=== PATIENT | female | born 1990 | race Caucasian/White ===

== ENCOUNTER 2021-06-03 14:40 | Emergency (ER) | payer OTHER, SELFPAY ==
[2021-06-03 14:47] VITALS: BP 147/81; PULSE 69; RESP 16; TEMP 37.2; O2SAT 99
--- NOTE | 2021-06-03 15:15 | ED.GENADULT ---
HPI - General Adult General Chief complaint: Unspecified Stated complaint: Seroquel withdraw Time Seen by Provider: 06/03/21 15:15 Source: patient and RN notes reviewed Mode of arrival: ambulatory Limitations: no limitations History of Present Illness MD complaint: Nausea Related Data Home Medications Medication Instructions Recorded Confirmed gabapentin 800 mg PO BID 06/03/21 06/03/21 Allergies Allergy/AdvReac Type Severity Reaction Status Date / Time azithromycin Allergy Unknown Rash Verified 06/03/21 14:54 Review of Systems Review of Systems: CONSTITUTIONAL: Denies malaise, chills, sweats, or fever. EYES: Denies visual changes, redness, or discharge. ENT: Denies rhinorrhea, congestion, sinus pain, otalgia or sore throat. CARDIOVASCULAR: Denies chest pain, palpitations, or edema. RESPIRATORY: Denies cough or dyspnea. GASTROINTESTINAL: Denies abdominal pain. Reports nausea, vomiting, diarrhea GENITOURINARY: Denies dysuria or hematuria. SKIN: Denies rash or itching. MUSCULOSKELETAL: Reports myalgia. NEUROLOGIC: Denies numbness, weakness, or headache. Reports dizziness PSYCHIATRIC: Denies anxiety or depression. All systems reviewed & are unremarkable except as noted in HPI and below PMFSH Comments At time of signature, agree with nursing past medical, surgical, social and family history. There is no relevant family history pertinent to the presenting complaint Exam Narrative: GENERAL: Well-appearing, well-nourished, and in no acute distress. HEAD: Normocephalic, atraumatic. EYES: PERRLA, sclera clear, and EOMI. No nystagmus. ENT: Nares clear, turbinates pink, no rhinorrhea or epistaxis. Mucous membranes moist. TM pearly lemus with sharp light reflex bilaterally; no tragal tenderness. Oropharynx without erythema or lesions. Tonsils not enlarged and without exudate. NECK: Supple. No lymphadenopathy. No jugular venous distension, thyromegaly, or carotid bruits. Carotids were easily palpable bilaterally. CHEST: No respiratory distress. Clear to auscultation. No bony deformities, no asymmetry. Speaks in full sentences. HEART: Regular rate and rhythm. No murmur heard. Normal peripheral pulses. ABDOMEN: Soft, nontender, nondistended, normal active bowel sounds, no palpable masses. EXTREMITIES: Normal range of motion. No edema. Normal strength and sensation. SKIN: Warm, dry, no visible rash. NEURO: Alert and oriented x3. No focal deficits. Cranial nerves II through XII grossly intact PSYCH: Flat affect Course Course Emergency Course: Patient is aware of diagnosis, understands and agrees to treatment plan. Anticipatory guidance given. Patient agrees to follow-up as directed and is aware of reasons to seek care at the emergency department. Portions of this record may have been created with voice recognition software Vital Signs Vital signs: Vital Signs Temperature 98.9 F 06/03/21 14:47 Pulse Rate 06/03/21 14:47 Respiratory Rate 16 06/03/21 14:47 Blood Pressure 147/81 H 06/03/21 14:47 Pulse Oximetry 99 06/03/21 14:47 Temperature 98.9 F 06/03/21 14:47 Pulse Rate 06/03/21 14:47 Respiratory Rate 16 06/03/21 14:47 Blood Pressure 147/81 H 06/03/21 14:47 Pulse Oximetry 99 06/03/21 14:47 Reviewed. Medical Decision Making MDM Narrative Medical decision making narrative: Exam findings show no acute concerns or changes; patient is non-toxic appearing and is in no distress. Patient is appropriate for outpatient treatment and follow-up. Differential Diagnosis Differential Diagnosis: Medication withdrawal, viral syndrome, gastroenteritis, acute abdomen Vital Signs Vital Signs: Vital Signs Temperature 98.9 F 06/03/21 14:47 Pulse Rate 06/03/21 14:47 Respiratory Rate 06/03/21 14:47 Blood Pressure 147/81 H 06/03/21 14:47 Pulse Oximetry 99 06/03/21 14:47 Temperature 98.9 F 06/03/21 14:47 Pulse Rate 06/03/21 14:47 Respiratory Rate 06/03/21 14:47 Bl
== END 2021-06-03 15:36 | disposition home or self-care (01) ==
PROVIDERS: Emergency Provider Nurse Practitioner; PCP Physician Assistant
DX: R11.2 Nausea with vomiting, unspecified (principal); M48.00 Spinal stenosis, site unspecified
CPT/HCPCS: 99213; G0463

== ENCOUNTER 2023-10-17 08:30 | Emergency (ER) | payer OTHER, SELFPAY ==
[2023-10-17 08:35] VITALS: BP 125/73; PULSE 84; RESP 20; TEMP 36.7; O2SAT 98
--- NOTE | 2023-10-17 08:35 | ED.GENADULT ---
HPI - General Adult General Chief complaint: Headache Stated complaint: Headache Source: patient, RN notes reviewed and old records reviewed Mode of arrival: ambulatory Limitations: no limitations History of Present Illness HPI narrative: 33 year old female who presents to [facility] care with complaints of headache,cough, chills, body aches for the past 2 days with fever up to 102.2F reported yesterday. Patient reports that her child tested positive for Covid on Wednesday. Patient reports that other family members have tested negative. She states that she has been taking Tylenol and Ibuprofen for her symptoms. Patient reports that she has not had any nausea or vomiting or any diarrhea. Patient reports that she has not been COVID vaccinated but did have flu shot this year. MD complaint: headache, body aches, fever, chills,cough Onset (ago): day(s) (2) Treatments prior to arrival: NSAID and other (Tylenol) Related Data Home Medications Medication Instructions Recorded Confirmed trazodone 100 mg tablet 100 mg PO QHS PRN Sleep 09/16/22 10/17/23 celecoxib 100 mg capsule 100 mg PO DAILY 10/17/23 10/17/23 ipratropium 0.5 mg-albuterol 3 mg 3 ml inhalation QID 10/17/23 10/17/23 (2.5 mg base)/3 mL nebulization soln pantoprazole 40 mg tablet,delayed 40 mg PO BID 10/17/23 10/17/23 release pregabalin 150 mg capsule 150 mg PO BID 10/17/23 10/17/23 propranolol 10 mg tablet 10 mg PO TID PRN Anxiety 10/17/23 10/17/23 quetiapine 50 mg tablet 50 mg PO DAILY 10/17/23 10/17/23 ropinirole 2 mg tablet 2 mg PO TID 10/17/23 10/17/23 Allergies Allergy/AdvReac Type Severity Reaction Status Date / Time azithromycin Allergy Unknown Rash Verified 10/17/23 08:50 Review of Systems Review of Systems: CONSTITUTIONAL: Denies fever, chills, or sweats. EYES: Denies visual changes, redness, or discharge. ENT: Denies rhinorrhea, congestion, sore throat, or otalgia. CARDIOVASCULAR: Denies chest pain, palpitations, or edema. RESPIRATORY: Denies cough or dyspnea. GASTROINTESTINAL: Denies abdominal pain, nausea, vomiting, or diarrhea. GENITOURINARY: Denies dysuria or hematuria. SKIN: Denies rash or itching. MUSCULOSKELETAL: Denies back pain, joint pain, or myalgia. NEUROLOGIC: Denies headache, numbness, or weakness. PSYCHIATRIC: Denies anxiety or depression. All systems reviewed & are unremarkable except as noted in HPI and below PMFSH Past Medical History Medical History (Updated 10/17/23 @ 09:01 by Kennedi Cano NP) Back pain Insomnia PCOS (polycystic ovarian syndrome) Surgical History Surgical History History of cholecystectomy Family History Family History Father Diabetes mellitus Grandparent Diabetes mellitus Mother Diabetes mellitus Social History Social History (Updated 10/17/23 @ 08:57 by Kennedi Cano NP) Smoking packs per day: 0.5 Smoking cigarettes per day: 10.0 Years smoked: 13 Smoking pack-years: 6.50 Smoking status: Current every day smoker Tobacco type: cigarettes Alcohol intake: current Alcohol use details: occasional Substance use: never Living arrangements: with family Occupation/Education: unemployed Gender identity (if verbalized by the patient): Female Sexual Orientation (if Verbalized by the Patient): Straight or Heterosexual Comments At time of signature, agree with nursing past medical, surgical, social and family history. There is no relevant family history pertinent to the presenting complaint Exam Narrative: GENERAL: Well-appearing, well-nourished, obese and in no acute distress. HEAD: Normocephalic, atraumatic. EYES: PERRLA and EOMI. ENT: Nares clear, clear rhinorrhea no epistaxis. Mucous membranes moist.TM's normal throat pink with no swelling NECK: Supple.no lymphadenopathy CHEST: Clear to auscultation. No respiratory distress.SAO2 98% on room air
== END 2023-10-17 09:05 | disposition home or self-care (01) ==
PROVIDERS: Emergency Provider Registered Nurse; PCP Internal Medicine
DX: J06.9 Acute upper respiratory infection, unspecified (principal); Z20.822 Contact with and (suspected) exposure to COVID-19; F17.210 Nicotine dependence, cigarettes, uncomplicated; E28.2 Polycystic ovarian syndrome; Z86.16 Personal history of COVID-19
CPT/HCPCS: 87426; 87804; 99213; G0463

== ENCOUNTER 2023-11-25 00:56 | Day surgery (SDC) | payer OTHER, SELFPAY ==
[2023-11-22 13:56] VITALS: BMI 47.7
--- NOTE | 2023-11-22 14:05 | PC.NURSE ---
Report to the Outpatient Waiting Room, entrance under the green pavilion located off [facility], at time _1200___ on date _11/25/23__. Planned Procedure Time: _1400__. Time changes happen often and if your time is changed the preop area will call you the afternoon before. - You and your visitor will be asked to self-screen and do not enter if you have any COVID symptoms. - A mask is optional within the hospital at this time. Patients may have clear liquids (water, carbonated beverages, clear teas, apple juice) until 3 hours prior to surgery with a maximum of 20 ounces. - No food from midnight until time of surgery - Infants may have breast milk until 4 hours before surgery, formula 6 hours prior to surgery. - Children will be allowed to drink immediately following surgery. If applicable, please bring a bottle or sippy cup to assist with drinking. Juice, water, soda, and popsicles are readily available. For infants on formula, please bring formula the day of surgery. Pacifiers are allowed. Take the following medications with a SIP of water the morning of surgery: INHALER IF NEEDED DO NOT STOP ANY OF YOUR OTHER PRESCRIPTION MEDICATIONS PRIOR TO SURGERY ?EXCEPT THE FOLLOWING Medications to discontinue per physician NONE Date to take last dose Please no make-up, nail cuban, hairspray, perfume, deodorant, or body powder the day of surgery. No jewelry (including any body piercings) or valuables the day of surgery, leave them at home. Please take a shower or bath the night before, or the morning of, surgery with an antibacterial soap. Wear comfortable, loose fitting clothing. Children are encouraged to wear pajamas. - Jewelry must be removed prior to entering the operating room. Rings and piercings that are not removed may be cut off. - The hospital will not accept responsibility for valuables. - Please leave all valuables, including medications, at home the day of surgery. If you are going home after surgery, a licensed driver sales must drive you home. - NO public transportation without another adult if you receive anesthesia. - We recommend that an adult stay with you for 24 hours following discharge. - We also recommend that you do not drive, make important decision, drink alcoholic beverages, or take any drugs that were not prescribed by your health care provider for at least 24 hours after your discharge time. For Pediatric surgeries, we recommend two adults accompany the child home. Follow any additional instructions given to you from your surgeon. If you or anyone in your household have experienced Covid symptoms in the past week, please notify your surgeon or the nurse liaison at the phone number below for possible testing. Telephone instructions given to _WILLIE___and asked if any additional questions and then verbalized understanding. Patient advised to call surgeon office or pre surgery nurse liaison [phone] if any additional questions.
[2023-11-25] VITALS (7 sets, daily range): BP systolic 107–148; BP diastolic 45–92; PULSE 53–86; RESP 15–20; TEMP 36.2–36.3; O2SAT 95–99
--- NOTE | 2023-11-25 09:14 | PM.IMHP ---
H&P: HPI History of Present Illness Date/Time: 11/25/23 09:14 Chief Complaint: abnormal uterine bleeding Desires permanent sterilization Narrative: 33-year-old female who presents hysteroscopy D&C, endometrial ablation, laparoscopic bilateral salpingectomy.? Patient initially presented requesting permanent sterilization and management of heavy vaginal bleeding.? Patient had pelvic ultrasound to rule out structural causes of bleeding.? Patient is not interested in hormonal contraception.? Patient desires surgical management via endometrial ablation and tubal ligation. Review of Systems Cardiovascular: Cardiovascular: Denies chest pain, Denies leg edema, Denies palpitations, Denies dyspnea and Denies dyspnea on exertion Respiratory: Respiratory: Denies cough, Denies dyspnea and Denies dyspnea on exertion Gastrointestinal: Gastrointestinal: Denies abdominal pain, Denies constipation, Denies diarrhea, Denies nausea and Denies vomiting Genitourinary: Genitourinary: Denies hematuria, Denies urinary frequency, Denies dysuria, Denies pelvic pain, Denies urinary incontinence and Denies vaginal discharge Neurologic: Reports system reviewed and no additional complaints, except as documented Psychiatric: Psychiatric: Reports no additional psychiatric complaints Endocrine: Endocrine: Denies palpitations PMFSH Past Medical History Medical History Back pain Insomnia PCOS (polycystic ovarian syndrome) Surgical History Surgical History History of cholecystectomy Family History Family History Father Diabetes mellitus Grandparent Diabetes mellitus Mother Diabetes mellitus Social History Social History Smoking packs per day: 1 Smoking cigarettes per day: 20.0 Years smoked: 20 Smoking pack-years: 20.00 Smoking status: Current every day smoker Tobacco type: cigarettes Alcohol intake: former Alcohol use details: occasional Substance use: never Living arrangements: with family Occupation/Education: unemployed Gender identity (if verbalized by the patient): Female Sexual Orientation (if Verbalized by the Patient): Straight or Heterosexual Meds Home Medications and Allergies Home Medications Medication Instructions Recorded Confirmed Type trazodone 100 mg tablet 100 mg PO QHS PRN Sleep 09/16/22 11/22/23 History celecoxib 100 mg capsule 100 mg PO DAILY 10/17/23 11/22/23 History ipratropium 0.5 mg-albuterol 3 mg 3 ml inhalation QID PRN Shortness 10/17/23 11/22/23 History (2.5 mg base)/3 mL nebulization Of Breath soln pantoprazole 40 mg tablet,delayed 40 mg PO BID 10/17/23 11/22/23 History release pregabalin 150 mg capsule 150 mg PO BID 10/17/23 11/22/23 History quetiapine 50 mg tablet 50 mg PO DAILY 10/17/23 11/22/23 History ropinirole 2 mg tablet 2 mg PO TID 10/17/23 11/22/23 History Allergies Allergy/AdvReac Type Severity Reaction Status Date / Time azithromycin Allergy Unknown Rash Verified 11/22/23 13:54 Exam Const: General: no acute distress Eyes: EOM: EOMs intact bilaterally Neck: Neck: supple Thyroid: thyroid normal Chest: Breast/axilla inspection: normal inspection of the breasts Breast/axilla palpation: normal palpation of the breasts, normal palpation of the axillae and no axillary lymphadenopathy Resp: Effort & Inspection: normal respiratory effort Auscultation: clear to auscultation bilaterally Cardio: Rate: regular rate Rhythm: regular rhythm GI: Inspection: non-distended GI Palp: Yes Soft to palpation, No Tenderness to palpation present (GI) and No Guarding due to palpation present (GI) Auscultation: normal bowel sounds : General: No bladder normal to palpation External Female Exam: normal external appearance Speculum Exam - Vagina: normal vaginal discharge and No vaginal bleeding Speculum Exam - Cervix: nontender Bimanual exam- vagina & uterus: No bladder normal to palpation and No Cervical tenderness present OB/external & speculum: No vaginal bleeding Skin: General skin exam: normal color and no rashes or lesions noted Neuro: Cognition (Neuro): normal cognition Speech: normal speech Extrem: General: normal to inspection and no edema Psych: Mental Status: mental status grossly normal Affect: normal affect Assessment and Plan Assessment and plan (1) Encounter for sterilization: Code(s): Z30.2 - Encounter for sterilization Status: Acute Assessment and Plan: 33-year-old female who presents for laparoscopic bilateral salpingectomy for permanent sterilization Permanent sterilization discussed at length Risks, benefits, alternatives discussed Patient declines hormonal contraceptives patient consents to proceed with bilateral salpingectomy (2) Abnormal uterine bleeding (AUB): Code(s): N93.9 - Abnormal uterine and vaginal bleeding, unspecified Status: Acute Assessment and Plan: patient? complaining of heavy bleeding today Patient reports monthly menses Patient states her bleeding is extremely heavy and painful Patient is not currently on hormonal contraceptives Patient is not interested in any hormonal contraceptives ?pelvic ultrasound showed normal pelvic anatomy ?patient interested in endometrial ablation Risks, benefits, alternatives discussed Will plan for hysteroscopy, D&C, endometrial ablation
[2023-11-25] MEDS: ACETAMINOPHEN 500 MG TABLET 1000 MG PO (10:50)
[2023-11-25] MEDS: LACTATED RINGERS 1,000 ML 30 ML IV CONT (11:00)
[2023-11-25] MEDS: KETOROLAC 15 MG/ML VIAL (*BKC) IV PUSH (11:11)
--- NOTE | 2023-11-25 11:40 | WPDHPUPDATE1 ---
History and Physical Update Update Date/Time: 11/25/23 11:40 History and Physical has been reviewed, including an updated exam of the patient. There are NO changes in the patient's condition. Risks, benefits, and alternatives have been discussed and questions answered. Patient agrees to proceed with procedure.
--- NOTE | 2023-11-25 12:54 | WPDANESEPPF ---
Anes - Initial Pre Proc Eval Procedure: Operation Date: 11/25/23 13:00 Proposed Procedures p Hysteroscopy Dilation and Curettage with Nury Endometrial Ablation, Bilateral Laparoscopic Salpingectomy - Russell Castro MD Date/Time: 11/25/23 12:54 Surgeon: Russell Castro MD Pre Op Diagnosis: abnormal uterine bleeding, desired sterilization Patient Data Age: 33 Gender: F Height: 1.63 m Weight: 126.4 kg Last Vital Signs Temp 97.1 F L 11/25/23 10:56 Pulse 86 11/25/23 10:56 Resp 18 11/25/23 10:56 BP 148/80 H 11/25/23 10:56 Pulse Ox 98 11/25/23 10:56 O2 Del Method Room Air 11/25/23 10:56 Allergies Allergy/AdvReac Type Severity Reaction Status Date / Time azithromycin Allergy Unknown Rash Verified 11/25/23 10:43 Home Medications Medication Instructions Recorded Confirmed Type trazodone 100 mg tablet 100 mg PO QHS PRN Sleep 09/16/22 11/22/23 History celecoxib 100 mg capsule 100 mg PO DAILY 10/17/23 11/22/23 History ipratropium 0.5 mg-albuterol 3 mg 3 ml inhalation QID PRN Shortness 10/17/23 11/22/23 History (2.5 mg base)/3 mL nebulization Of Breath soln pantoprazole 40 mg tablet,delayed 40 mg PO BID 10/17/23 11/22/23 History release pregabalin 150 mg capsule 150 mg PO BID 10/17/23 11/22/23 History quetiapine 50 mg tablet 50 mg PO DAILY 10/17/23 11/22/23 History ropinirole 2 mg tablet 2 mg PO TID 10/17/23 11/22/23 History Patient hx anesthesia problems: none Family hx anesthesia problems: none Results Review: All pre-operative results and documents have been reviewed as part of the pre-operative evaluation. [facility] Past Medical History Medical History Back pain Insomnia PCOS (polycystic ovarian syndrome) Surgical History Surgical History History of cholecystectomy Family History Family History Father Diabetes mellitus Grandparent Diabetes mellitus Mother Diabetes mellitus Social History Social History Smoking packs per day: 1 Smoking cigarettes per day: 20.0 Years smoked: 20 Smoking pack-years: 20.00 Smoking status: Current every day smoker Tobacco type: cigarettes Alcohol intake: former Alcohol use details: occasional Substance use: never Living arrangements: with family Occupation/Education: unemployed Gender identity (if verbalized by the patient): Female Sexual Orientation (if Verbalized by the Patient): Straight or Heterosexual Anes - Eval Final PreProcedure Day of Procedure 11/25/23 12:54 Patient weight: morbidly obese Heart: regular rate and rhythm Lungs: clear to auscultation Airway: Mallampati scale class III Neurological: alert and oriented Last oral intake: >/= 8 hours ASA classification: III Emergent: no Anesthetic plan: proceed Anesthesia type and monitoring: general ETT and standard monitoring Results Review: All pre-operative results and documents have been reviewed as part of the pre-operative evaluation. Informed Consent: The patient's anesthetic plan and its attendant risks and benefits were discussed with the patient/family/POA. Questions were solicited and answers provided to the satisfaction of the patient/family/POA.
--- NOTE | 2023-11-25 13:08 | S_PTH ---
PATIENT: Tyra Black LOC: [facility] U#:[id number] AGE/SX: 33/F ROOM: RE11/25/[address]: Russell Castro MD : 1990 BED: DIS: 11/25/2023 SPEC #: [id number] RECD: 11/25/23 13:36 STATUS: BETH REQ #: [id number] ALEXI: 11/25/23 13:[address]: Russell Castro DEPT: [facility] Surgical RECD BY: Skyla Mullins ENTERED: 11/25/23 13:37 SP TYPE: Surgical OTHR DR: Bishop King, Tissues: A - Endometrial Curettings B - Fallopian Tube Single Procedures: Gross and Microscopic Level 2 Hematoxylin and Eosin Stain Gross and Microscopic Level 4
--- NOTE | 2023-11-25 13:08 | P.OP_ITS ---
Procedure Note - Detailed Date of Procedure 11/25/23 Pre-op Diagnosis abnormal uterine bleeding, desired sterilization Post-op Diagnosis Same Procedure Performed laparoscopic bilateral salpingectomy hysteroscopy dilation & curettage endometrial ablation Surgeon Russell Castro MD Anesthesia General Indications abnormal uterine bleeding Findings normal appearing uterus, bilateral fallopian tubes and ovaries normal appearing intrauterine cavity. Normal tubal ostia bilaterally Description of Procedure Tyra Black presents for the above procedure. She was counseled as to the indications, risks, benefits, and alternatives to surgery, with the risks including bleeding, infection, damage to surrounding organs, VTE, and complications of anesthesia. Her verbal and written consent was obtained. PROCEDURE: the patient was taken to the operating room where general endotracheal anesthesia was undertaken and found to be adequate. She was then prepped and draped in the dorsal lithotomy position. A pre-operative team brief and time- out were completed. A catheter was placed to drain the bladder. Speculum was placed in the vagina and the cervix was identified. An acorn uterine manipulator was placed as well as single-tooth tenaculum on the anterior lip of the cervix. Attention was then turned to the abdomen which was anesthetized umbilical he with injected anesthetic. A 5 mm skin incision was made in the umbilicus. A 5 mm optical trocar was then placed with direct visualization of the abdominal layers during placement. The trocar stylette was removed and the camera was used to verify intra-abdominal placement.jhonathan was used to verify intra-abdominal placement. CO2 insufflation was then connected and The abdominal cavity was insufflated. General abdominal and pelvic survey was performed. Two other laparoscopic port site incisions were made approximately 2 cm superior and medial of the ASIS bilaterally. Both fallopian tubes were inspected and identified out to the level of the fimbriae. The Fimbriated end of the left fallopian tube was then grasped with a blunt grasper. the fallopian tube was then transected along its inferior aspect along the mesosalpinx with the LigaSure device. Transection was carried out to the fallopian tubes insertion into the uterine fundus. The fallopian tube was then completely transected from the uterus using the LigaSure device. This procedure was repeated for the right fallopian tube. Good hemostasis was maintained throughout. The transected fgh the 5 mm laparoscopic portrom the abdomen through the 5 mm laparoscopic port. The surgical field was inspected and again could hemostasis was noted. At this point the abdominal portion of the procedure was ended. The abdomen was desufflated. All laparoscopic ports were removed from the abdomen. Abdominal incisions were closed with 4-0 Vicryl in a subcuticular fashion.. Attention was then turned to the pelvis. The acorn manipulator was removed from the vagina. Hysteroscopy, using a normal saline medium, was performed and showed the above findings. Sharp uterine curettage was then performed and tissue placed on Telfa. The Nury device was set to a depth of 5.5 cm. The device was inserted into the uterus and deployed. Good fit was reassured by the device indicator. The cervical balloon was insufflated to ensure a good seal. Uterine integrity test was performed by the Nury device and was successful. The device was then activated. The entire ablation procedure lasted 120 seconds. The cervical balloon was desufflated and the device was removed from the uterus. The hysteroscope was re-introduced to ensure adequate tissue ablation. The tenaculum was removed and hemostasis was observed. The patient tolerated the procedure well. Sponge, lap, and needle counts were correct. The patient had SCD's on throughout the case for VTE prophylaxis. The patient was taken to the recovery room in stable condition. Estimated Blood Loss 10 Urine Output 150 Drains No Packing No Pathology Yes (endometrial curettings, bilateral fallopian tubes) Complications No immediate complications Condition Stable Disposition PACU [facility] Billing Surgery - Charge Forward: Surgery Billing
[2023-11-25] MEDS: LIDO 1%/EPINEPHRINE 1:100,000 50 ML VIAL 15 ML INFILTRATE (13:17)
[2023-11-25] MEDS: fentaNYL CITRATE INJ (*CRX) 100 MCG/2 ML VIAL 25 MCG IV PUSH ×4 (13:33→13:45)
[2023-11-25] MEDS: oxyCODONE HCL (*CRX) 5 MG TAB IR PO (14:24)
== END 2023-11-25 14:45 | disposition home or self-care (01) ==
PROVIDERS: PCP Internal Medicine; Visit Provider Student in an Organized Health Care Education/Training Program
PROC: 0UDB8ZZ Extraction of Endometrium, Via Natural or Artificial Opening Endoscopic (ICD-10-PCS; CPT 58558; principal; 2023-11-25 13:00)
DX: N93.9 Abnormal uterine and vaginal bleeding, unspecified (principal); Z30.2 Encounter for sterilization; F17.210 Nicotine dependence, cigarettes, uncomplicated; E66.01 Morbid (severe) obesity due to excess calories; Z68.42 Body mass index [BMI] 45.0-49.9, adult
CPT/HCPCS: 58661; 58563; 88302; 88305; A9270; J1100; J1596; J1885; J2003; J2004; J2250; J2405; J2704; J2710; J3010; J7030; J7120

== ENCOUNTER 2023-12-16 01:49 | Emergency (ER) | payer OTHER, SELFPAY ==
--- NOTE | ~2023-12-16 | CT_ITS ---
CT of the Abdomen and Pelvis: Indication: Abdominal pain Technique: 2.5 mm axial scans were obtained through the abdomen and pelvis following intravenous adm inistration of 100 cc of Omnipaque 350. Dose reduction technique was used on this scan by utilizing a utomated exposure control and iterative reconstruction technique. The dose-length product (DLP) was 1 606.14 mGy-cm. Findings: Scans through the lung bases are unremarkable. The liver, spleen, pancreas, adrenals and kidneys are within normal limits. Cholecystectomy clips are present. No evidence of aortic aneurysm. No lymphadenopathy. No bowel obstruction or bowel wall thickening. There is no evidence to suggest acute appendicitis. Images through the pelvis were performed. Urinary bladder unremarkable. No adnexal mass seen. No asci quinn. Impression: No significant abnormalities seen. Reviewed, dictated and finalized at [facility]. Impression: No significant abnormalities seen.
[2023-12-16 01:53] VITALS: BP 148/65; PULSE 67; RESP 15; TEMP 36; O2SAT 100
[2023-12-16 02:13] LABS: Basophils Absolute Auto 0.1 K/mm3 (0.0-0.1); Basophils Percent Auto 0.9 % (0.2-1.2); Eosinophils Absolute Auto 0.3 K/mm3 (0-0.3); Eosinophils Percent Auto 3.5 % (0-4.4); Hematocrit 39.5 % (37.0-47.0); Hemoglobin 12.3 g/dL (12.0-15.0); Immature Granulocyte Absolute 0.03 K/mm3 (0.00-0.031); Immature Granulocyte Percent A 0.3 % (0-0.5); Lymphocytes Absolute Auto 2.54 K/mm3 (0.9-3.2); Lymphocytes Percent Auto 29.4 % (18.3-44.2); Mean Corpuscular HGB Conc 31.1 g/dl (32-36); Mean Corpuscular Hemoglobin 27.4 pg (26-34); Mean Platelet Volume 10.5 fl (7.4-10.4); Monocytes Absolute Auto 0.6 K/mm3 (0.1-0.6); Monocytes Percent Auto 6.6 % (2.6-8.5); Neutrophils Absolute Auto 5.1 K/mm3 (1.3-6.7); Neutrophils Percent Auto 59.3 % (45.5-73.1); Platelet Count Result 305 k/mm3 (150-375); Red Blood Count 4.49 M/mm3 (4.2-5.4); Red Cell Distribution Width 14.6 % (11.5-14.5); White Blood Count 8.6 K/mm3 (4.5-10.0)
[2023-12-16 02:22] LABS: Alanine Aminotransferase 22 U/L (6-35); Albumin Level 4.3 g/dL (3.5-5.1); Alkaline Phosphatase 62 U/L (38-126); Anion Gap 5 mmol/L (4-12); Aspartate Amino Transferase 23 U/L (14-36); Bilirubin,Total 0.4 mg/dL (0.2-1.3); Blood Urea Nitrogen 8 mg/dL (7-17); Calcium 9.3 mg/dL (8.4-10.2); Carbon Dioxide 28 mmol/L (22-30); Chloride 106 mmol/L (98-107); Estimated CRCL calculation 115 ml/min; Estimated Glomerular Filt Rate > 60; Glucose 124 mg/dL (65-110); Lipase 120 U/L (23-300); Potassium 3.3 mmol/L (3.4-5.0); Sodium 139 mmol/L (137-145)
[2023-12-16] MEDS: MORPHINE SULFATE (*CRX) 4 MG/ML INJ IV PUSH (02:45)
[2023-12-16] MEDS: ONDANSETRON INJ 4 MG/2 ML VIAL IV PUSH (02:45)
[2023-12-16 02:46] VITALS: BP 128/68; PULSE 68; RESP 15; O2SAT 99
--- NOTE | 2023-12-16 03:29 | ED.ABDPAIN ---
HPI - Abdominal Pain General Chief Complaint: Abdominal Pain Stated Complaint: lower abdominal pain, dysuria Time Seen by Provider: 12/16/23 02:12 History of Present Illness HPI narrative: Patient is a 33-year-old female who presents to the department this evening complaining of lower abdominal pain. Patient states that she had and endometrial ablation and bilateral salpingectomy performed by Dr. Castro approximately 2 weeks ago. Patient states since then she has been having intermittent abdominal pain that is not responsive 2 [id number] Tylenol, ibuprofen and the Follett that she was discharged home with. Patient states that she called Dr. Castro is a office and was told to come to the emergency department regarding her abdominal pain. Patient admits that she is still having some vaginal bleeding and she is passing blood clots. Patient also admits to dysuria and suprapubic pressure stating that it hurts to pee. She denies any fevers or chills at home, any nausea or vomiting, and denies any additional concerns at this time. There are no other modifying, alleviating, or precipitating factors. Related Data Home Medications Medication Instructions Recorded Confirmed trazodone 100 mg tablet 100 mg PO QHS PRN Sleep 09/16/22 11/30/23 celecoxib 100 mg capsule 100 mg PO DAILY 10/17/23 11/30/23 ipratropium 0.5 mg-albuterol 3 mg 3 ml inhalation QID PRN Shortness 10/17/23 11/30/23 (2.5 mg base)/3 mL nebulization Of Breath soln pantoprazole 40 mg tablet,delayed 40 mg PO BID 10/17/23 11/30/23 release pregabalin 150 mg capsule 150 mg PO BID 10/17/23 11/30/23 quetiapine 50 mg tablet 50 mg PO DAILY 10/17/23 11/30/23 ropinirole 2 mg tablet 2 mg PO TID 10/17/23 11/30/23 hydrocodone 5 mg-acetaminophen 325 tablet PO 11/30/23 11/30/23 mg tablet Allergies Allergy/AdvReac Type Severity Reaction Status Date / Time azithromycin Allergy Unknown Rash Verified 11/30/23 09:39 Review of Systems Review of Systems: All systems are reviewed and are negative unless stated otherwise in the HPI. [facility] Past Medical History Medical History Back pain Insomnia PCOS (polycystic ovarian syndrome) Surgical History Surgical History History of cholecystectomy Family History Family History Father Diabetes mellitus Grandparent Diabetes mellitus Mother Diabetes mellitus Social History Social History Smoking packs per day: 1 Smoking cigarettes per day: 20.0 Years smoked: 20 Smoking pack-years: 20.00 Smoking status: Current every day smoker Tobacco type: cigarettes Alcohol intake: former Alcohol use details: occasional Substance use: never Living arrangements: with family Occupation/Education: unemployed Gender identity (if verbalized by the patient): Female Sexual Orientation (if Verbalized by the Patient): Straight or Heterosexual Exam Narrative: General: Alert, awake, afebrile, in no acute distress. HEENT: PERRL, no rhinorrhea, no post nasal drip, oropharynx clear. Neck: Trachea midline, no JVD, no lymphadenopathy. Cardiovascular: Regular rate and rhythm, no murmurs, rubs or gallops, no peripheral edema. Respiratory: Clear to auscultation bilaterally, no tachypnea, no wheezing, no rhonchi, no rubs, no respiratory distress. Abdomen: Soft, nontender to palpation over all 4 quadrants, nondistended, no rebound, no guarding, no peritoneal signs. Musculoskeletal: No joint swelling or deformity, normal muscle tone. Skin: No rashes or petechia, no signs of infection. Psychiatric: Alert and oriented, normal behavior and judgment for situation. Neurological: Alert and oriented to person, place, and time. Follows all commands. No focal deficits, speech is clear and fluent. Course Vital
--- NOTE | 2023-12-16 04:09 | PC.NURSE ---
This rn attempted to hand pt the liquid potassium to patient to drink. Pt smelled potassium and said nope, cant do that and sat the drink back down. Pt made gagging noise.
[2023-12-16] MEDS: POTASSIUM CHLORIDE 20 MEQ ER TABLET 40 MEQ PO (04:15)
--- NOTE | 2023-12-16 04:15 | PC.NURSE ---
alexis lebron for potassium 40meq tablets.
[2023-12-16 04:54] LABS: Appearance Urine Cloudy (Clear); Bacteria Urine 1+ /hpf; Bilirubin Urine 1+ (Negative); Blood Urine Negative (Negative); Calcium Oxalate Crystals Urine Present /hpf; Color Urine Dark Yellow (Yellow); Glucose Urine UA Negative (Negative); Ketones Urine Trace mg/dL (Negative); Leukocyte Esterase Ur 1+ LEU/UL (Negative); Mucus Urine Present /lpf; Need Manual Microscopic Reviewed; Nitrate Urine Positive (Negative); Non Pathogenic Casts 0-2; Protein Urine 1+ mg/dL (Negative); Squamous Epithelial Cell Urine Occasional /hpf (Few); WBC Urine >100 /hpf (0-3); pH Urine 5.5 (5.0-9.0)
[2023-12-16 05:10] LABS: Add Urine Microscopic? YES; Specific Grav Ur 1.036 (1.001-1.035)
[2023-12-16 06:45] VITALS: BP 134/78; PULSE 66; RESP 15; O2SAT 98
== END 2023-12-16 06:48 | disposition home or self-care (01) ==
PROVIDERS: Physician Assistant; Emergency Provider Emergency Medicine; PCP Internal Medicine
DX: N39.0 Urinary tract infection, site not specified (principal); R10.30 Lower abdominal pain, unspecified; E87.6 Hypokalemia; E28.2 Polycystic ovarian syndrome; F17.210 Nicotine dependence, cigarettes, uncomplicated; Z90.79 Acquired absence of other genital organ(s); Z90.49 Acquired absence of other specified parts of digestive tract
CPT/HCPCS: 36415; 74177; 80053; 81001; 81025; 83690; 85025; 87086; 87186; 96374; 96375; 99284; A9270; J0696; J2270; J2405; Q9967

== ENCOUNTER 2024-03-08 10:25 | Outpatient (CLI) | payer OTHER, SELFPAY ==
--- NOTE | ~2024-03-08 | US_ITS ---
US pelvic complete w TV Ordering provider: Russell Castro MD History: . R10.2 - Pelvic and perineal pain . Comparison: November 17, 2023 Technique: Transabdominal and endovaginal ultrasound of the pelvis (Doppler ultrasound interrogation techniques used as needed for this exam.) FINDINGS: CERVIX: Normal. UTERUS: Measures 7.3 x4 x 5.2 cm in length which is within normal limits and is anteverted. No myome trial masses. ENDOMETRIUM: Normal in thickness measuring 7 mm. (Note: the premenopausal endometrium may measure up to 16 mm when in the secretory phase.) No endometrial masses, cysts or fluid. CUL DE SAC: No free fluid. RIGHT OVARY: Normal in size measuring 2.8x 2.9x 3.6 cm. Normal echotexture. Doppler vascular flow pre sent. Right ovarian cyst measuring 1.1 x 1.6 x 1.2 cm. LEFT OVARY: Normal in size measuring 2.4x 2.2x 2.2 cm. Normal echotexture. Doppler vascular flow pres ent. ADNEXA: Normal. No mass. IMPRESSION: Right ovarian cyst. Otherwise, normal pelvic ultrasound. Reviewed, dictated and finalized at location A.
== END 2024-03-08 10:26 | disposition home or self-care (01) ==
LOC: ANHIMG 10:28
PROVIDERS: PCP Internal Medicine; Visit Provider Student in an Organized Health Care Education/Training Program
DX: R10.2 Pelvic and perineal pain (principal); N83.201 Unspecified ovarian cyst, right side
CPT/HCPCS: 76830; 76856

== ENCOUNTER 2025-06-22 11:10 | Outpatient (CLI) | payer OTHER, SELFPAY ==
[2025-06-22 11:40] LABS: INR 0.9; Partial Thromboplastin Time 25.6 Seconds (22.3-36.8); Prothrombin Time 12.5 Seconds (11.1-14.7)
== END 2025-06-22 11:11 | disposition home or self-care (01) ==
LOC: ANHSURGERY 11:14
PROVIDERS: Anesthesiology; PCP Nurse Practitioner Family; Visit Provider Student in an Organized Health Care Education/Training Program
DX: N28.9 Disorder of kidney and ureter, unspecified (principal); Z01.818 Encounter for other preprocedural examination
CPT/HCPCS: 36415; 85610; 85730

== ENCOUNTER 2025-08-07 00:50 | Day surgery (SDC) | payer OTHER, SELFPAY ==
[2025-06-20 15:26] VITALS: BMI 42.3
--- NOTE | 2025-06-20 15:39 | SUR.PREOP ---
[facility] has started construction of its new state of the art ER which will open Spring 2026. With this, we anticipate parking may be a challenge for some our surgical patients and families. Parking spaces are limited but are available for all Surgical, obstetrics, and ER patients sharing this lot. If you arrive and find you are having a hard time finding a parking space, please note that we understand the challenges, please drive around the hospital and park near Hospital Entrance 1. When you enter this entrance, you can ask a volunteer to direct or take you back to the surgical waiting area to check in. We appreciate everyone?s understanding of these expected challenges while we build for your future. Report to the Outpatient Waiting Room, entrance under the green pavilion located off [address], at time _6AM on date __06/26/25 . Planned Procedure Time: __729 .? Time changes happen often and if your time is changed the preop area will call you the afternoon before. - You and your visitor will be asked to self-screen and do not enter if you have any COVID symptoms. Please call surgeon if you need to reschedule. - A mask is optional within the hospital at this time. Patients may have clear liquids (water, carbonated beverages, clear teas, apple juice) until 3 hours prior to surgery with a maximum of 20 ounces. - No food from midnight until time of surgery and no smoking, or chewing tobacco (or any form of nicotine). No chewing gum, candy or mints. Take only the following medications with a SIP of water on the morning of surgery: ___cyclobenzaprine if needed__ DO NOT STOP ANY OF YOUR OTHER PRESCRIPTION MEDICATIONS PRIOR TO SURGERY EXCEPT THE FOLLOWING Hold all vitamins and supplements for 3 days per anesthesiologist. Medications to discontinue per physician n/a Date to take last dose____n/a Please no make-up, nail vincentian, hairspray, perfume, deodorant, or body powder the day of surgery.? No jewelry (including any body piercings) or valuables the day of surgery, leave them at home.? Please take a shower or bath the night before, or the morning of, surgery with an antibacterial soap.? Wear comfortable, loose fitting clothing.? Children are encouraged to wear pajamas. - Jewelry must be removed prior to entering the operating room.? Rings and piercings that are not removed may be cut off. - The hospital will not accept responsibility for valuables.? - Please leave all valuables, including medications, at home the day of surgery. If you are going home after surgery, a licensed local delivery truck driver must drive you home.? - NO public transportation without another adult if you receive anesthesia. - We recommend that an adult stay with you for 24 hours following discharge. - We also recommend that you do not drive, make important decision, drink alcoholic beverages, or take any drugs that were not prescribed by your health care provider for at least 24 hours after your discharge time. For Pediatric surgeries, we recommend two adults accompany the child home. Follow any additional instructions given to you from your surgeon. Telephone instructions given to ___Niki and asked if any additional questions and then verbalized understanding. Patient advised to call surgeon office or pre surgery nurse liaison [phone] if any additional questions.
--- OUTSIDE RECORDS SUMMARY | 2025-06-26 01:09 | XMS_ITS | Encounter Summary ---
Author Organization [facility] Address [address] [place] [address] Care Team Providers Care Icer Machine Operator Name Role Phone Brittney Sow MD Unavailable [phone] Dario Solares Primary Care Provider [phone] Encounter Details Date Type Department Care Team (Late st Contact Info) Description 10/05/2023 Telephone [facility] - Centralized Scheduling [address] [place] [id number] Addy Guzman MD [address] [place] [address] Social History Tobacco Use Types Packs/Day Years Used Date Smoking Tobacco: Every Day Cigarettes 1 15 Smokeless Tobacco: Never Comments:not as much Alcohol Use Standard Drinks/Week Comments No 0 (1 standard drink = 0.6 oz pur e alcohol) PHQ-2 Answer Date Recorded Patient Health Questionnaire-2 Score 0 07/07/2023 Comments No Sex and Gender Information Value Date Recorded Sex Assigned at Not on file Legal 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 Answer Date of Assessment Author No 05/26/2018 12:35 AM Radha Snow RN * Is person blind or have serious difficulty seeing? Answer Date of Assessment Author No 05/26/2018 12:35 AM Radha Snow RN * Does person have serious difficulty walking/climbing stairs? Answer Date of Assessment Author No 05/26/2018 12:35 AM Radha Snow RN * Does person have difficulty dressing/bathing? Answer Date of Assessment Author No 05/26/2018 12:35 AM Radha Snow RN * Does person have difficulty doing errands alone? Answer Date of Assessment Author No 05/26/2018 12:35 AM Radha Snow RN documented as of this encounter Mental Status * Does person have difficulty concentrating/remembering/making decisions? Answer Entry Date Author No 05/26/2018 12:35 AM Radha Snow RN documented in this encounter Plan of Treatment Not on file documented as of this encounter Visit Diagnoses Not on filedocumented in this encounter Care Teams Icer Machine Operator Relationship Specialty Start Date End Date Dario Solares PA [address] [place] [address] PCP - General Physician Director Of Nuclear Medicine 11/24/17 Brittney Sow MD Obstetrics and Gynecology 10/27/17 documented as of this encounter
--- OUTSIDE RECORDS SUMMARY | 2025-06-26 01:09 | XMS_ITS | Clinical Summary ---
Author Organization [facility] [employer] Address [address] [place] [address] Care Team Providers Care Partition Making Machine Operator Name Role Phone Brittney Sow MD Unavailable [phone] Dario Solares Primary Care Provider [phone] Source Comments [facility],non-owned Affiliates and Associated Physician Practices is amultiple site organization consisting of ambulatory clinics and hospital sitesin [place], [place], [place] and [place]. This disclosure is being madepursuant to the Care Everywhere program and may not contain all information available regarding this patient. Last updated 18.[facility] Allergies Active Allergy Reactions Criticality Noted Date Comments Azithromycin Urticaria High 10/08/2017 Lidocaine Rash High 08/08/2022 Penicillin G Urticaria Medium Prednisone Urticaria High 10/08/2017 Tramadol Swelling Medium 04/14/2022 Medications * Be aware that medications may not be up to date on this document. Alwaysverify current medications with the patient. Vit-Fe Fumarate-FA ( VITAMINS) 28-0.8 MG TABSIndications:P regnancy, unspecified gestational age (HCC) Take 1 tablet by mouth once daily 90 tablet 2 8 Active levETIRAcetam (KEPPRA) 500 MG tabletIndications :Seizure (HCC) Take 1 tablet by mouth 2 times daily Take two tablets at once for loading dose, then take one tablet every 12 hours. 60 tablet 3 8 Active albuterol HFA (PROVENTIL;VENTOL IN;PROAIR) 108 (90 BASE) MCG/ACT inhalerIndication s:Bronchitis due to tobacco use Inhale 2 puffs by mouth every 6 hours as needed 1 Inhaler 2 8 Active docusate sodium (COLACE) 100 MG capsuleIndication s:Constipation, unspecified constipation type Take 1 capsule by mouth once daily 60 capsule 8 Active ARIPiprazole (Abilify) 5 MG tablet Take 1 (one) tablet by mouth once daily 3 Active atorvastatin (Lipitor) 20 MG tablet Take 1 (one) tablet by mouth once daily 3 Active baclofen (Lioresal) 10 MG tablet Take 1 (one) tablet by mouth 3 times daily 3 Active Symbicort 160-4.5 MCG/ACT inhaler INHALE 2 PUFFS BY MOUTH TWO TIMES DAILY. RINSE MOUTH WITH WATER AFTER USE. DO NOT SWALLOW. 3 Active cefdinir (Omnicef) 300 MG capsule TAKE 2 CAPSULES BY MOUTH DAILY FOR 7 DAYS FOR UTI 3 Active clonazePAM (KlonoPIN) 1 MG tablet Take 1 (one) tablet by mouth 2 times daily as needed 3 Active cyclobenzaprine (Flexeril) 10 MG tablet 3 Active doxepin (SINEquan) 50 MG capsule Take 1 (one) capsule by mouth at bedtime 3 Active escitalopram (Lexapro) 10 MG tablet Take 1 (one) tablet by mouth once daily 3 Active ezetimibe (Zetia) 10 MG tablet Take 1 (one) tablet by mouth once daily 3 Active fenofibrate (Lofibra) 160 MG tablet Take 1 (one) tablet by mouth once daily Active furosemide (Lasix) 40 MG tablet Take 1 (one) tablet by mouth once daily 3 Active gabapentin (Neurontin) 800 MG tablet Take 1 (one) tablet by mouth 2 times daily 3 Active hydrOXYzine HCl (Atarax) 25 MG tablet Take 1 (one) tablet by mouth 3 times daily as needed 3 Active letrozole (Femara) 2.5 MG tablet TAKE 2 TABLETS BY MOUTH ONCE DAILY FOR 5 DAYS. BEGIN TAKING BETWEEN DAYS 2 AND 5 OF MENSTRUAL CYCLE 3 Active meloxicam (Mobic) 15 MG tablet Take 1 (one) tablet by mouth once daily 30 tablet 11 3 Active mirtazapine (Remeron) 15 MG tablet TAKE 1 TABLET BY MOUTH AT BEDTIME. MAY TAKE UP TO 2 TABLETS AT BEDTIME 3 Active pantoprazole EC (Protonix) 40 MG tablet Take 1 (one) tablet by mouth 2 times daily 3 Active oxyBUTYnin CR 24hr (Ditropan-XL) 10 MG tablet Take 1 (one) tablet by mouth once daily 3 Active QUEtiapine (SEROquel) 50 MG tablet Take 1 (one) tablet by mouth once daily 3 Active rOPINIRole (Requip) 2 MG tablet 3 Active traZODone (Desyrel) 50 MG tablet Take 0.5 (one-half) tablet by mouth at bedtime Active venlafaxine XR 24hr (Effexor XR) 37.5 MG capsule Take 1 (one) capsule by mouth once daily 3 Active Active Problems Patient Care Coordination No te Formatting of this note migh t be different from the original. Nopp/mfcc 12/2017 Problem Noted Date Diagnosed Date Leg edema 06/25/2023 07/14/2023 Overview (07/14/2023): Last Assessment & Plan: Continue furosemide. Lower salt diet. Increase exercise. Lose weight. Try compression hose. Nocturnal hypoxemia 06/07/2023 07/14/2023 Overview (07/14/2023): On O2 with cpap Last Assessment & Plan: Continue oxygen therapy with her CPAP machine. Centrilobular emphysema 01/21/2023 07/14/20 23 Overview (07/14/2023): Last Assessment & Plan: Continue her Symbicort and use albuterol as needed. Stop smoking immediately. Patient requires a Rollator for long distances as she has to stop suddenly due to shortness of breath. MAYRA (obstructive sleep apnea) 01/21/2023 Overview (07/14/2023): Last Assessment & Plan: Continue CPAP as managed by her carton machine operator. Acute exacerbation of chronic obstructive pulmon jewels disease 01/09/2023 07/14/2023 Restless legs syndrome (RLS) 12/31/202209/2022 Overview (07/14/2023): Last Assessment & Plan: Controlled on ropinirole Bipolar 1 disorder 06/27/2022 07/14/2023 Overview (07/14/2023): Last Assessment & Plan: Follow-up with psychiatry as they direct Tobacco dependence 06/27/2022 07/14/2023 Lipoma of lower extremity 06/02/20212022 Overview (07/14/2023): Last Assessment & Plan: Discussed excision of these likely lipomas. The procedure along with the post operative period, patient understands risks and benefits. Anxiety 11/23/2019 07/14/2023 Attention deficit hyperactiv ity disorder (ADHD), combined type 05/07/2019 07/14/2023 Low back pain 05/23/2018 Seizure 10/27/2017 Smoker 10/08/2017 Type 2 diabetes mellitus without complication Overview (06/13/2025): IMO 06/13/2025 Lumbar disc disease with radiculopathy 7 07/14/2023 Overview (07/14/2023): Last Assessment & Plan: Patient requires Rollator with seat for safe ambulation due increased risk of falls due to sudden lower back pain radiating to her foot causing leg weakness. Trial of meloxicam for pain. Warned of GI and cardiovascular side effects taking food. Pain management referral. Resolved Problems Problem Noted Date Diagnosed Date Resolved Date Threatened labor 03/23/2018 07/14/2018 Seizure disorder 10/08/2017 10/27/2017 10/08/2017 07/14/2018 Poor growth affecting management of mother in second trimester 07/14/2018 Encounters Date Type Department Care Team Description 06/21/2025 Telephone [facility] - Cardiology [address] [facility] [place] [address] Dimitrios Rob Abnormal Stress Test from Last 3 Months Family History Medical History Relation Name Comments Diabetes - Type 2 Father Diabetes - Type 2 Mother Relation Name Status Comments Father Mother Alive Social History Tobacco Use Types Packs/Day Years [...] on file Legal Sex Female 3:24 PM [employer] Gender Identity Not on file Sexual Orientation Not on file Last Filed Vital Signs Vital Sign Reading Time Taken Comments Blood Pressure 130/76 07/14/2023 2:56 PM CDT Pulse 52 08/14/2019 11:09 AM [employer] Temperature 36.5 C (97.7 F) 07/14/2023 2:56 PM CDT Respiratory Rate 18 05/28/2018 12:35 AM CDT Oxygen Saturation 98% 08/14/2019 11:09 AM [employer] Inhaled Oxygen Concentration - - Weight 119.7 kg (264 lb) 07/14/2023 2:56 PM CDT Height 162.6 cm (5' 4) 07/14/2023 2:56 PM CDT Body Mass Index 45.32 07/14/2023 2:56 PM CDT Plan of Treatment Health Maintenance Due Date Last Done Comments COVID-19 VACCINE (#1) 1995 HEPATITIS C SCREENING 06/03/2008 DTAP/TDAP/TD VACCINES (1 - Tdap) 2009 HEPATITIS B VACCINE (1 of 3 - 19+ 3-dose series) 2009 PNEUMOCOCCAL VACCINE (1 of 2 - PCV) 2009 HPV VACCINE (1 - 3-dose SCDM series) 2017 DIABETES RETINOPATHY SCREENING 03/21/2019 DIABETES-FOOT EXAM WITH MONOFILAMENT 03/21/2019 PAP SMEAR 10/08/2020 10/08/2017 DIABETES-HGB A1C 03/23/2024 09/23/2023, 06/2023, 01/12/2023, Additional history exists DIABETES-SERUM CREATININE 06/22/20242022, 06/22/2023, 06/22/2023, Additional history exists DIABETES - URINE PROTEIN SCREENING 09/13/2024 05/11/2018 INFLUENZA VACCINE (#1) 2025 ZOSTER VACCINE (1 of 2) 2040 HIV SCREENING Completed 03/23/2018 HIB VACCINE Aged Out No longer eligi ble based on patient's age to complete this topic MENINGOCOCCAL (Group B) VACCINE SHARED DECISION-MAKING Aged Out No longer eligible based on patient's age to complete this topic MENINGOCOCCAL GROUPS A/C/Y/W VACCINE Aged Out No longer eligible based on patient's age to complete this topic Procedures Procedure Name Priority Date/Time Associated Diagnosis Comments COMPREHENSIVE METABOLIC PANEL STAT 05/11/2018 7:12 PM CDT headache in third trimester PROTEIN CREATININE RATIO URINE RANDOM PNL Add on 05/11/2018 6:18 PM CDT headache in third trimester HIV-1 HIV-2 ANTIBODY + HIV P24 AG PANEL STAT 03/23/2018 4:10 PM CDT Threatened labor HEMOGLOBIN A1C - POINT OF CARE (AMB) Routine 12/13/2017 1:54 PM CDT Uncontrolled type 2 diabetes mellitus with complication, unspecified whether chcf insulin use PAP IG LB CT+GC RFLX HPV HR ASCU Routine 10/08/2017 12:41 PM [employer] , unspecified gestational age from Last 3 Months or Most Recently Relevant to Health Maintenance Results * (ABNORMAL) COMPREHENSIVE METABOLIC PANEL (05/11/2018 7:12 PM CDT) [facility] Glucose 78 74 - 106 mg/dL 05/11/2018 7:47 PM CDT [facility] Sodium 135(L) 136 - 145 mmol/L 05/11/2018 7:47 PM CDT [facility] Potassium 3.4(L) 3.5 - 5.1 mmol/L 05/11/2018 7:47 PM CDT [facility] Chloride 102 98 - 107 mmol/L 05/11/2018 7:47 PM CDT [facility] CO2 24 22 - 31 mmol/L 05/11/2018 7:47 PM CDT [facility] Calcium 8.8 8.5 - 10.1 mg/dL 05/11/2018 7:47 PM CDT [facility] Anion Gap 9 8 - 16 mmol/L 05/11/2018 7:47 PM CDT [facility] BUN 4(L) 7 - 21 mg/dL 05/11/2018 7:47 PM CDT [facility] Creatinine 0.47(L) 0.50 - 1.30 mg/dL 05/11/2018 7:47 PM CDT [facility] Alkaline Phosphatase 108 38 - 126 U/L 05/11/2018 7:47 PM CDT [facility] ALT 10(L) 13 - 61 U/L 05/11/2018 7:47 PM CDT [facility] AST 15 5 - 40 U/L 05/11/2018 7:47 PM CDT [facility] Protein Total 6.4 6.4 - 8.2 gm/dL 05/11/2018 7:47 PM CDT [facility] Albumin 2.5(L) 3.4 - 5.0 gm/dL 05/11/2018 7:47 PM CDT [facility] Bilirubin Total 0.4 0.2 - 1.0 mg/dL 05/11/2018 7:47 PM CDT [facility] eGFR by MDRD >60 >60 mL/min/1.7 3m2 05/11/2018 7:47 PM CDT [facility] eGFR by MDRD >60 >60 mL/min/1.7 3m2 05/11/2018 7:47 PM CDT [facility] Blood BLOOD SPECIMEN / Unknown Venipuncture / Unknown 05/11/2018 7:12 PM CDT 05/11/2018 7:24 PM CDT Result [facility] Mayda Encarnacion [facility] - CHEMISTRY ORDERABLE S Final Result Performing Organization Address [facility]/ZIP Co de Phone Number [facility] [address] [place] [address] * PROTEIN CREATININE RATIO URINE RANDOM PNL (05/11/2018 6:18 PM CDT) Pathologist [facility] Protein Urine 10.0 mg/dL 05/11/2018 7:52 PM CDT [facility] Creatinine Urine 100 mg/dL 05/11/2018 7:52 PM CDT [facility] Protein/Creatin ine Ratio Urine 0.10 05/11/2018 7:52 PM CDT [facility] Urine URINE SPECIMEN OBTAINED BY CLEAN CATCH PROCEDURE / Unknown Collection / Unknown 05/11/2018 6:18 PM CDT 05/11/2018 7:32 PM CDT Result [facility] Mayda Encarnacion [facility] - URINE CHEMISTRY ORD ERABLES Final Result Performing Organization Address [facility] Co de Phone Number [facility] [address] [place] [phone] * HIV-1 HIV-2 ANTIBODY + HIV P24 AG PANEL (03/23/2018 4:10 PM CDT) [facility] HIV1/2 Ab + P24 Ag Non Reactive Non Reactive 03/23/2018 11:14 PM CDT [facility] Blood BLOOD SPECIMEN / Unknown Venipuncture / Unknown 03/23/2018 4:10 PM CDT 03/23/2018 4:21 PM CDT Narrative [facility] - 03/23/2018 11:14 PM CDT No Laboratory evidence of HIV infection. Oralia Mckenzie MD LAB - CHEMISTRY ORDERABLE S Final Result Performing Organization Address City/[facility]/ZIP Co de Phone Number [facility] [address] [place] [phone] * HEMOGLOBIN A1C - POINT OF CARE (HgbA1C) (12/13/2017 1:54 PM CDT) Hemoglobin A1c POCT 5.3 % QC Verified Yes Yes Blood BLOOD SPECIMEN / Unknown 12/13/2017 1:54 PM CDT Brittney Sow MD LAB - POINT OF CARE ORDERABLES Final Result * PAP IG LB CT+GC RFLX HPV HR ASCU (10/08/2017 12:41 PM [employer]) Diagnosis [facility] INSURANCE BILL Comment:NEGATIVE FOR INTRAEP ITHELIAL LESION AND MALIGNANCY. Specimen Adequacy [facility] INSURANCE BILL Comment: Satisfactory for evaluation. No endocervical component is identified. An endocervical component is not commonly seen in the patient. Clinician Provided ICD10 [facility] INSURANCE BILL Comment:Z34.90 Performed by [facility] INSURANCE BILL Comment:Eduardo Perry totechnologist Comment . [facility] INSURANCE BILL Note [facility] INSURANCE BILL Comment: The Pap smear is a screening test designed to aid in the detection of premalignant and malignant conditions of the uterine cervix. It is not a diagnostic procedure and should not be used as the sole means of detecting cervical cancer. Both false-positive and false-negative reports do occur. . [facility] CPT Code Automation [facility] INSURANCE BILL Comment: This liquid based ThinPrep(R) pap test was screened with the use of an image guided system. Note [facility] INSURANCE BILL Comment: The HPV DNA reflex criteria were not met with this specimen result therefore, no HPV testing was performed. . Chlamydia trachomatis MARBIN Negative Negative [facility] INSURANCE BILL GC DNA Probe Negative Negative [facility] INSURANCE BILL PART OF UTERINE CERVIX / Unknown 10/08/2017 12:41 PM [employer] 10/08/2017 Narrative [facility] INSURANCE BILL - 10/15/2017 1:12 PM [employer] Source.............Cervix Other.............. No. of containers..01 ThinPrep Vial Resulting Agency Comment [address] [place] [id number] Brittney Sow MD LAB - PATHOLOGY/CYTOLOGY ORDERA JOSE ALFREDO Final Result [facility] INSURANCE BILL [address] [place] [address] from Last 3 Months or Most Recently Relevant to Health Maintenance Insurance [facility] PLAN [facility] SELF PAY NO INSURANCE Member Subscriber Plan / Payer (Ef fective for All Dates) Name:Belkys Black Member ID:Not on file Relation to Subscriber:Not on file Name:BELKYS BLACK Subscriber ID:Not on file Address: [address] [place] [phone] Payer ID:Not on file Group ID:Not on file Type:Self Pay Address: [place], [place] [facility] SELF PAY NO INSURANCE Member Subscriber Plan / Payer (Ef fective for All Dates) Name:Belkys Black Member ID:Not on file Relation to Subscriber:Not on file Name:RAISSABELKYS FRANCO Subscriber ID:Not on file Address: [address] [place] [phone] Payer ID:Not on file Group ID:Not on file Type:Self Pay Address: [place], [place] [facility] SELF PAY NO INSURANCE Member Subscriber Plan / Payer (Ef fective for All Dates) Name:Belkys Black Member ID:Not on file Relation to Subscriber:Not on file Name:BELKYS BLACK Subscriber ID:Not on file Address: [address] [place] [phone] Payer ID:Not on file Group ID:Not on file Type:Self Pay Address: [place], [place] Advance Directives * Full Code (Latest Code Status on File) Date Activated Date Inactivated Comments 05/26/2018 11:03 AM 05/28/2018 10:31 AM * Full Code Date Activated Date Inactivated Comments 05/25/2018 11:23 PM 05/26/2018 11:03 AM * Full Code Date Activated Date Inactivated Comments 05/23/2018 1:17 PM 05/23/2018 3:50 PM * Full Code Date Activated Date Inactivated Comments 05/11/2018 6:15 PM 05/11/2018 9:18 PM * Full Code Date Activated Date Inactivated Comments 03/23/2018 2:34 PM 03/23/2018 5:38 PM Care Teams Partition Making Machine Operator Relationship Specialty Start Date End Date Dario Solares PA [address] [place] [address] PCP - General Physician Assessment Technician 11/24/17 Brittney Sow MD Obstetrics and Gynecology 10/27/17
--- OUTSIDE RECORDS SUMMARY | 2025-06-26 01:10 | XMS_ITS | Encounter Summary ---
Author Organization [facility] Address [address] [place] [place] [address] Phone Care Team Providers Care Wheelchair Driver Name Role Phone David Raphael MD Unavailable [phone] Carlos Hart MD Unavailable Moisés Taveras TRUCK AND TRANSPORT MECHANIC, RESPIRATORY COORDINATOR Unavailable Elisa Ortega TRUCK AND TRANSPORT MECHANIC, RESPIRATORY COORDINATOR Unavailable [phone] Duyen Malhotra TRUCK AND TRANSPORT MECHANIC, RESPIRATORY COORDINATOR Unavailable Chela Randhawa TRUCK AND TRANSPORT MECHANIC, RESPIRATORY COORDINATOR Primary Care Provide r Encounter Details Date Type Department Care Team (Late st Contact Info) Description 06/06/2025 Results Follow-Up [facility] - Family Medicine [facility] #2 [place] [phone] Chela Randhawa APRN, RESPIRATORY COORDINATOR 2 [facility] [place] [address] DRUG SCREEN ORAL FLUID/SALIVA Social History Tobacco Use Types Packs/Day Years Used Date Smoking Tobacco: Former Cigarettes 0.5 15.7 0 02/25/2008 - 02/24/2023 Smokeless Tobacco: Never Comments:once a week Alcohol Use Standard Drinks/Week Comments Never 0 (1 standard drink = 0.6 oz pur e alcohol) Social Connection and Isolation Panel Answer Date Recorded In a typical week, how many times do you talk on the phone with family, friends, or neighbors? More than three times a week 07/08/2024 How often do you get togethe r with friends or relatives? More than three times a week 07/08/2024 How often do you attend chur ch or yarsani services? Never 07/08/2024 Do you belong to any clubs o r organizations such as bahai groups, unions, fraternal or athletic groups, or school groups? No 07/08/2024 How often do you attend meet ings of the clubs or organizations you belong to? Never 07/08/2024 Are you , , di vorced, , never , or living with a partner? 07/08/2024 PHQ-2 Answer Date Recorded Total Score - Questions 1-9 0 08/0 10/2020 Housing Stability Vital Sign Answer Kiet e Recorded In the last 12 months, was t here a time when you were not able to pay the mortgage or rent on time? No 07/08/2024 In the past 12 months, how m any times have you moved where you were living? 0 07/08/2024 At any time in the past 12 m [facility], were you homeless or living in a retirement (including now)? No 07/08/2024 Social Connection and Isolation Panel Answer Date Recorded In a typical week, how many times do you talk on the phone with family, friends, or neighbors? More than three times a week 05/23/2025 How often do you get togethe r with friends or relatives? More than three times a week 05/23/2025 How often do you attend chur ch or yarsani services? 1 to 4 times per year 05/23/2025 Do you belong to any clubs o r organizations such as bahai groups, unions, fraternal or athletic groups, or school groups? No 05/23/2025 How often do you attend meet ings of the clubs or organizations you belong to? Never 05/23/2025 Are you , , di vorced, , never , or living with a partner? 05/23/2025 AUDIT-C Answer Date Recorded Q1: How often do you have a drink containing alc ohol? Never 05/24/2025 Average Number of Drinks Not on file 025 Frequency of Binge Drinking Not on file 05/14 Overall Financial Resource Strain (CARDIA) Answe r Date Recorded How hard is it for you to pa y for the very basics like food, housing, medical care, and heating? Not hard at all 05/23/2025 [facility] - Occupational Stress Questionnaire Answer Date Recorded Do you feel stress - tense, restless, nervous, or anxious, or unable to sleep at night because your mind is troubled all the time - these days? Not at all 05/23/2025 Exercise Vital Sign Answer Date Recorde d On average, how many days pe r week do you engage in moderate to strenuous exercise (like a brisk walk)? 1 day 05/23/2025 On average, how many minutes do you engage in exercise at this level? 30 min 05/23/2025 Hunger Vital Sign Answer Date Recorded Within the past 12 months, y ou worried that your food would run out before you got the money to buy more. Patient declined Within the past 12 months, t he food you bought just didn't last and you didn't have money to get more. Patient declined 12/2024 PRAPARE - Transportation Answer Date Re corded In the past 12 months, has l ack of transportation kept you from medical appointments or from getting medications? Patient declined 05/17/2025 In the past 12 months, has l ack of transportation kept you from meetings, work, or from getting things needed for daily living? Patient declined 05/17/2025 Housing Stability Vital Sign Answer Kiet e Recorded In the last 12 months, was t here a time when you were not able to pay the mortgage or rent on time? Patient declined 05/17/20 25 In the past 12 months, how m any times have you moved where you were living? 0 05/17/2025 At any time in the past 12 m [facility], were you homeless or living in a retirement (including now)? Patient declined 05/17/2025 [facility] Utilities Answer Date Recorded In the past [address] [facility] electric, gas, oil, or water company threatened to shut off services in your home? Patient declined 05/17/2025 Education Answer Date Recorded What is the highest level of school you have completed or the highest degree you have received? 7th grade 07/09/2020 Sexually Active Control Partners Comments Yes None Male Comments No Sex and Gender Information Value Date Recorded Sex Assigned at Female 05/25/2024 6:00 PM CDT Legal Sex Female 10:12 PM CDT Gender Identity Female 05/25/2024 6:00 PM CDT Sexual Orientation Not on file documented as of this encounter Plan of Treatment Upcoming Encounters Date Type Department Care Team (Latest Contact Info) Description 07/05/2025 9:30 AM CDT Office Visit [facility] - Gastroenterology [facility] #2 [place] [address] Gabino Luevano MD [address] [address] 07/06/2025 10:46 AM CDT Hospital Encounter [facility] Cardiac Lie Detector Operator 1 [place] [address] Zack Gary MD [address] [address] Other chest pain 07/06/2025 10:46 AM CDT - 07/06/2025 12:10 PM CDT Surgery [facility] Cardiac Lie Detector Operator 1 [place] [address] Zack Gary MD [address] [address] CARDIAC CATH 07/27/2025 4:40 PM HYDRAULIC PRESS SERVICER Office Visit [facility] - Family Medicine [facility] #2 [place] [address] Chela Randhawa APRN, RESPIRATORY COORDINATOR 2 [facility] [place] [address] documented as of this encounter Visit Diagnoses Not on filedocumented in this encounter Additional Health Concerns Assessment Noted Time PHQ-9 Depression Total Score: 0 04/14/20 21 2:00 PM CDT documented as of this encounter Care Teams Wheelchair Driver Relationship Specialty Start Date End Date Chela Randhawa APRN, RESPIRATORY COORDINATOR 2 [place] [address] PCP - General Advanced Practice Nurse 05/24/25 David Raphael MD Consulting Physician Obstetrics & Gynecology 08/04/19 Carlos Hart MD #[address] [phone] Consulting Physician General Surgery 07/07/22 Moisés Taveras APRN, RESPIRATORY COORDINATOR #2 [place] [address] Nurse Practitioner Advanced Practice Nurse 05/30/23 Elisa Ortega APRN, RESPIRATORY COORDINATOR #[address] [address] Nurse Practitioner Advanced Practice Nurse 04/30/22 Duyen Malhotra APRN, RESPIRATORY COORDINATOR #2 [place] [address] Nurse Practitioner Cardiology 09/25/24 documented as of this encounter
--- OUTSIDE RECORDS SUMMARY | 2025-06-26 01:10 | XMS_ITS | Encounter Summary ---
Author Organization [facility] Address [address] [place] [address] Phone Care Team Providers Care Cad Administrator Name Role Phone Lazarus Amin MD Unavailable [phone] David Raphael MD Unavailable + [phone] Carlos Hart MD Unavailable [phone] Teodoro Covarrubias MD Unavailable Bishop Pérez MD Primary Care Provider [phone] Yessi Combs ENERGY MANAGER, CLERK TYPIST Unavailable + [phone] Moisés Taveras ENERGY MANAGER, CLERK TYPIST Unavailable + [phone] Elisa Ortega ENERGY MANAGER, CLERK TYPIST Unavailable [phone] Provider, None Primary Care Provider Unavailabl e Provider, None Primary Care Provider Unavailgio e Duyen Malhotra ENERGY MANAGER, CLERK TYPIST Unavailable Chela Randhawa ENERGY MANAGER, CLERK TYPIST Primary Care Provide r Reason for Visit * Reason Comments Medication Refill Encounter Details Date Type Department Care Team (Late st Contact Info) Description 11/22/2023 [facility] #[address] [place] [address] Elisa Ortega APRN, VILMA [address] [address] Medication Refill Social History Tobacco Use Types Packs/Day Years Used Date Smoking Tobacco: Former Cigarettes 0.5 15 0 02/25/2008 - 02/24/2023 Smokeless Tobacco: Never Comments:once a week Alcohol Use Standard Drinks/Week Comments No 0 (1 standard drink = 0.6 oz pur e alcohol) PHQ-2 Answer Date Recorded Total Score - Questions 1-9 0 10/2020 Education Answer Date Recorded What is the highest level of school you have completed or the highest degree you have received? 7th grade 07/09/2020 Sexually Active Control Partners Comments Yes Male Comments No Sex and Gender Information Value Date Recorded Sex Assigned at Female 05/25/2024 6:00 PM CDT Legal Sex Female 10:12 PM CDT Gender Identity Female 05/25/2024 6:00 PM CDT Sexual Orientation Not on file documented as of this encounter Miscellaneous Notes * Telephone Encounter - Isaura Patricio RN - 11/22/2023 8:00 AM CDT Medication(s) refilled and signed per [facility] Chronic Medication Refill Standing Order for Pediatricand Adult Patients. Requested Prescriptions Pending Prescriptions Disp Refills rOPINIRole (REQUIP) 2 MG Tablet [Pharmacy Med Name: ROPINIROLE 2MG TABLETS] 270 Tablet Sig: TAKE 1 TABLET( 2 MG) BY MOUTH IN THE MORNING AND TAKE 2 TABLETS( 4MG) IN THE EVENING Antiparkinson Dopaminergics and COMT Protocol Passed - 11/22/2023 6:37 AM Passed - Visit with relevant provider in the past 9 months or upcoming 90 days Recent Visits Date Type Provider Dept 05/06/23 Office Visit Elisa Ortega APRN, CNP [facility] [place] Showing recent visits within past 270 days and meeting all other requirements Future Appointments Date Type Provider Dept 11/29/23 Appointment Elisa Ortega APRN, CLERK TYPIST [facility] Showing future appointments within next 90 days and meeting all other requirements Passed - Blood pressure on record in past 12 months Clinician-entered: BP Readings from Last 3 Encounters: 11/13/23 (!) 124/94 09/28/23 114/78 09/23/23 114/70 Patient-entered: No data recorded documented in this encounter Plan of Treatment Upcoming Encounters Date Type Department Care Team (Latest Contact Info) Description 07/05/2025 9:30 AM CDT Office Visit [facility] - Gastroenterology - [place] #2 [place] [address] Gabino Luevano MD [address] [address] 07/06/2025 10:46 AM CDT Hospital Encounter [facility] Cardiac Valve Inserter 1 [place] [address] Zack Gary MD [address] [address] Other chest pain 07/06/2025 10:46 AM CDT - 07/06/2025 12:10 PM CDT Surgery [facility] Cardiac Valve Inserter 1 [place] [address] Zack Gary MD [address] [address] CARDIAC CATH 07/27/2025 4:40 PM MOBILE BATTERY TECHNICIAN Office Visit [facility] - Family Medicine - [place] #2 [facility] [address] Chela Randhawa APRN, CLERK TYPIST 2 [place] [address] documented as of this encounter Visit Diagnoses Diagnosis Restless legs syndrome (RLS) Other chest pain Abnormal stress test Other nonspecific abnormal cardiovascular system function study Other chest pain Abnormal stress test Other nonspecific abnormal cardiovascular system function study documented in this encounter Additional Health Concerns Infection Onset Date Last Indicated Resolved Time COVID - 19 05/15/2024 05/15/2024 05/15/2024 7:02 PM CDT COVID - 19 07/05/2024 07/05/2024 07/05/2024 10:1 1 PM CDT COVID - 19 07/28/2024 07/28/2024 07/29/2024 1:17 AM MOBILE BATTERY TECHNICIAN COVID - 08/29/2024 08/29/2024 08/29/2024 11:2 8 PM MOBILE BATTERY TECHNICIAN Assessment Noted Time PHQ-9 Depression Total Score: 0 04/14/20 21 2:00 PM CDT documented as of this encounter Care Teams Cad Administrator Relationship Specialty Start Date End Date Bishop King MD #[address] [phone] PCP - General Internal Medicine 05/24/23 05/14/24 Provider, None [place] PCP - General 05/15/24 06/25/24 Provider, None [place] PCP - General 06/26/24 05/23/25 Chela Randhawa APRN, CLERK TYPIST 2 [place] [address] PCP - General Advanced Practice Nurse 05/24/25 Lazarus Amin MD #2 [place] [phone] Consulting Physician Neurology 05/21/16 07/23/24 David Raphael MD #2 [facility] [place] [address] Consulting Physician Obstetrics & Gynecology 08/04/19 Carlos Hart MD #2 [facility] [address] [place] [address] Consulting Physician General Surgery 07/07/22 Teodoro Covarrubias MD #2 [facility] [address] [place] [address] Consulting Physician Cardiovascular Disease - Cardiology 03/11/23 08/15/24 Yessi Combs, ENERGY MANAGER, CLERK TYPIST #2 [facility] [address] [facility] [address] [place] [address] Nurse Practitioner Advanced Practice Nurse 09/10/23 Moisés Taveras, ENERGY MANAGER, CLERK TYPIST #2 [place] [address] Nurse Practitioner Advanced Practice Nurse 05/30/23 Elisa Ortega ENERGY MANAGER, CLERK TYPIST #2 [facility] [address] [place] [address] Nurse Practitioner Advanced Practice Nurse 04/30/22 Duyen Malhotra ENERGY MANAGER, CLERK TYPIST #2 [place] [address] Nurse Practitioner Cardiology 09/25/24 documented as of this encounter
--- OUTSIDE RECORDS SUMMARY | 2025-06-26 01:10 | XMS_ITS | Encounter Summary ---
Author Organization [facility] Address [address] [place] [address] Phone Care Team Providers Care Industrial Coffee Grinder Name Role Phone Lazarus Amin MD Unavailable [phone] David Raphael MD Unavailable + [phone] Carlos Hart MD Unavailable [phone] Teodoro Covarrubias MD Unavailable Bishop Pérez MD Primary Care Provider [phone] Yessi Combs COMMUNITY RELATIONS POLICE LIEUTENANT, LEGAL DEPARTMENT MANAGER Unavailable + [phone] Moisés Taveras COMMUNITY RELATIONS POLICE LIEUTENANT, LEGAL DEPARTMENT MANAGER Unavailable + [phone] Elisa Ortega COMMUNITY RELATIONS POLICE LIEUTENANT, LEGAL DEPARTMENT MANAGER Unavailable [phone] Provider, None Primary Care Provider Unavailabl e Provider, None Primary Care Provider Unavailgio e Duyen Malhotra COMMUNITY RELATIONS POLICE LIEUTENANT, LEGAL DEPARTMENT MANAGER Unavailable Chela Randhawa COMMUNITY RELATIONS POLICE LIEUTENANT, LEGAL DEPARTMENT MANAGER Primary Care Provide r Reason for Visit * Reason Comments Medication Refill Encounter Details Date Type Department Care Team (Late st Contact Info) Description 07/12/2023 [facility] #2 [place] [address] Elisa Ortega APRN, LEGAL DEPARTMENT MANAGER #[address] [address] Medication Refill Social History Tobacco Use Types Packs/Day Years Used Date Smoking Tobacco: Former Cigarettes 0.5 15 0 02/25/2008 - 02/24/2023 Smokeless Tobacco: Never Comments:once a week Alcohol Use Standard Drinks/Week Comments No 0 (1 standard drink = 0.6 oz pur e alcohol) PHQ-2 Answer Date Recorded Total Score - Questions 1-9 0 080 10/2020 Education Answer Date Recorded What is [...] PM CDT Sexual Orientation Not on file COVID-19 Exposure Response Date Recorded In the last 10 days, have yo u been in contact with someone who was confirmed or suspected to have Coronavirus/COVID-19? No / Unsure 06/17/2023 8:15 PM CDT documented as of this encounter Plan of Treatment Upcoming Encounters Date Type Department Care Team (Latest Contact Info) Description 07/05/2025 9:30 AM CDT [facility] - [facility] - [place] #2 [place] [address] Gabino Luevano MD [address] [address] 07/06/2025 10:46 AM CDT Hospital Encounter [facility] Cardiac Account Solutions Analyst 1 [place] [address] Zack Gary MD 2 [facility] [address] [place] [address] Other chest pain 07/06/2025 10:46 AM CDT - 07/06/2025 12:10 PM CDT [facility] Cardiac Account Solutions Analyst 1 [facility] [place] [address] Zack Gary MD [address] [address] CARDIAC CATH 07/27/2025 4:40 PM ACQUISITION ANALYST Office Visit [facility] - Family [facility] #2 [place] [address] Chela Randhawa APRN, LEGAL DEPARTMENT MANAGER 2 [place] [address] documented as of this encounter Visit Diagnoses Diagnosis Personal history of tobacco use Personal history of tobacco use, presenting hazards to health Other chest pain Abnormal stress test Other nonspecific abnormal cardiovascular system function study Other chest pain Abnormal stress test Other nonspecific abnormal cardiovascular system function study documented in this encounter Additional Health Concerns Infection Onset Date Last Indicated Resolved Time COVID - 19 09/22/2023 09/22/2023 10/02/2023 12:1 6 AM ACQUISITION ANALYST COVID - 19 05/15/2024 05/15/2024 05/15/2024 7:02 PM CDT COVID - 19 07/05/2024 07/05/2024 07/05/2024 10:1 1 PM CDT COVID - 19 07/28/2024 07/28/2024 07/29/2024 1:17 AM ACQUISITION ANALYST COVID - 19 08/29/2024 08/29/2024 08/29/2024 11:2 8 PM ACQUISITION ANALYST Assessment Noted Time PHQ-9 Depression Total Score: 0 04/14/20 21 2:00 PM CDT documented as of this encounter Care Teams Industrial Coffee Grinder Relationship Specialty Start Date End Date Bishop King MD #[address] [address] PCP - General Internal Medicine 05/24/23 05/14/24 Provider, None [place] PCP - General 05/15/24 06/25/24 Provider, None [place] PCP - General 06/26/24 05/23/25 Chela Randhawa APRN, LEGAL DEPARTMENT MANAGER 2 [place] [address] PCP - General Advanced Practice Nurse 05/24/25 Lazarus Amin MD #2 [place] [address] Consulting Physician Neurology 05/21/16 07/23/24 David Raphael MD #2 [place] [address] Consulting Physician Obstetrics & Gynecology 08/04/19 Carlos Hart MD #[address] [address] Consulting Physician General Surgery 07/07/22 Teodoro Covarrubias MD #[address] [address] Consulting Physician Cardiovascular Disease - Cardiology 03/11/23 08/15/24 Yessi Combs APRN, LEGAL DEPARTMENT MANAGER [address] [facility] [address] Nurse Practitioner Advanced Practice Nurse 09/10/23 Moisés Taveras APRN, LEGAL DEPARTMENT MANAGER #2 [facility] [place] [address] Nurse Practitioner Advanced Practice Nurse 05/30/23 Elisa Ortega APRN, LEGAL DEPARTMENT MANAGER [address] [address] Nurse Practitioner Advanced Practice Nurse 04/30/22 Duyen Malhotra, PERNELL, LEGAL DEPARTMENT MANAGER #2 [facility] [address] Nurse Practitioner Cardiology 09/25/24 documented as of this encounter
--- OUTSIDE RECORDS SUMMARY | 2025-06-26 01:10 | XMS_ITS | Encounter Summary ---
Author Organization [facility] Healthcare Address [address] [place] [address] Care Team Providers Care Special Collections Librarian Name Role Phone Dario Solares Primary Care Provider [phone] Dario Solares Unavailable [phone] Dario Solares Primary Care Provider [phone] Unknown, Notinfile Primary Care Provider Unavail able Dario Solares Primary Care Provider [phone] Bishop King MD Primary Care Provider [phone] No, Physician Primary Care Provider [phone] Meek Alejandra MD Primary Care Provider [phone] Miscellaneous, Not In File Primary Care Provider Unavailable Oralia Johnson DO Primary Care Provider [phone] Robert Joaquin MD Unavailable [phone] Lita Prieto DO Primary Care Provider Jeffrey Thomas MD Unavailable [phone] Encounter Details Date Type Department Care Team (Late st Contact Info) Description 09/14/2017 Documentation [facility] Operating Room [address] [place] [address] Perla Hicks RN Social History Tobacco Use Types Packs/Day Years Used Date Smoking Tobacco: Every Day Cigarettes 1 14 Smokeless Tobacco: Never Alcohol Use Standard Drinks/Week Comments No 0 (1 standard drink = 0.6 oz pur e alcohol) Comments No Sex and Gender Information Value Date Recorded Sex Assigned at Not on file Legal Sex Female 4:00 AM PERSONAL INJURY PARALEGAL Gender Identity Not on file Sexual Orientation Not on file documented as of this encounter Miscellaneous Notes * Perioperative Nursing Note - Perla Hicks RN - 09/14/2017 9:07 AM PERSONAL INJURY PARALEGAL NO ADDITIONAL NOTES ad ONAL INJURY PARALEGAL documented in this encounter Plan of Treatment Not on file documented as of this encounter Visit Diagnoses Not on filedocumented in this encounter Additional Health Concerns Infection Onset Date Last Indicated Resolved Time COVID19 Comment:Added from the Screening question BPA, identifying patients that tested positive for COVID in the last 14 days and the result is from a facility outside [facility] . 06/22/2021 06/22/2021 07/06/2021 3:05 AM CDT COVID: Suspected 01/09/2023 01/09/2023 01/09/2023 5:45 PM CDT Rhino/Enterovirus 01/09/2023 01/09/2023 01/16/2023 3:07 AM CDT COVID: Suspected 01/17/2023 01/17/2023 01/18/2023 12:13 AM CDT Rhino/Enterovirus 01/17/2023 01/17/2023 01/24/2023 3:05 AM CDT COVID: Suspected 07/18/2023 07/18/2023 07/18/2023 4:17 PM PERSONAL INJURY PARALEGAL COVID: Suspected 01/01/2024 01/01/2024 01/01/2024 9:59 AM CDT Human metapneumovirus, conta ct + droplet 01/01/2024 01/01/2024 01/08/2024 3:05 AM C DT COVID: Suspected 03/08/2024 03/08/2024 03/08/2024 9:09 PM CDT COVID: Suspected 05/17/2024 05/17/2024 05/17/2024 9:55 PM CDT COVID: Suspected 06/29/2024 06/29/2024 06/29/2024 10:44 PM CDT COVID: Suspected 07/29/2024 07/29/2024 07/29/2024 7:46 PM PERSONAL INJURY PARALEGAL Rhino/Enterovirus 07/29/2024 07/29/2024 08/12/2024 3:05 AM PERSONAL INJURY PARALEGAL COVID: Suspected 10/29/2024 10/29/2024 10/30/2024 1:40 AM PERSONAL INJURY PARALEGAL documented as of this encounter Care Teams Special Collections Librarian Relationship Specialty Start Date End Date Dario Solares PA [address] [place] [address] PCP - General Family Practice 07/27/17 02/05/18 Dario Solares PA [address] [place] [address] PCP - General 02/06/18 04/07/19 Unknown, Notinfile PCP - General 04/08/19 01/28/21 Dario Solares PA [address] [place] [address] PCP - General Family Practice 01/29/21 06/06/23 Bishop King MD PCP - General Internal Medicine 06/07/23 02/22/24 No, Physician PCP - General 03/24/24 03/28/24 Meek Alejandra MD [address] [place] [address] [place] [address] PCP - General Family Medicine 03/29/24 03/29/24 Miscellaneous, Not In File PCP - General 05/30/24 06/02/24 Orlaia Johnson DO PCP - General Family Medicine 06/03/24 09/03/24 Lita Prieto DO [address] [facility] [place] [address] PCP - General Family Medicine 09/04/24 Dario Solares PA [address] [place] [address] 07/27/17 06/06/23 [place] [id number] [facility] [address] [place] [address] Consulting Physician Emergency Medicine 06/09/24 Jeffrey Thomas MD [address] [place] [address] [place] [address] Resident Family Medicine 09/19/24 documented as of this encounter
--- OUTSIDE RECORDS SUMMARY | 2025-06-26 01:10 | XMS_ITS | Clinical Summary ---
Author Organization [facility] Healthcare Address [address] [place] [address] Care Team Providers Care Act Tutor Name Role Phone Robert Joaquin MD Unavailable Lita Prieto DO Primary Care Provider [phone] Jeffrey Thomas MD Unavailable Allergies Active Allergy Reactions Criticality Noted Date Comments Azithromycin Hives,Urticaria High 01/09/2017 Lidocaine Rash,Blisters High 08/08/2022 Penicillins Hives,Rash,Urticaria Medium 08/17/2017 Tramadol Swelling Medium 04/14/2022 Medications albuterol HFA (PROVENTIL HFA,VENTOLIN HFA,PROAIR HFA) 90 mcg/actuation inhaler Inhale 2 puffs every 4 (four) hours as needed for wheezing or shortness of breath 1 each 01/06/20 24 Active traZODone (DESYREL) 100 mg tablet Take 1 tablet (100 mg total) by mouth nightly as needed for sleep 90 tablet 1 01/06/20 24 Active cyclobenzaprine (FLEXERIL) 10 mg tablet Take 1 tablet (10 mg total) by mouth 3 (three) times a day as needed for muscle spasms 30 tablet 02/24/20 24 Active ipratropium-albute roL (DUO-NEB) 0.5-2.5 mg/3 mL nebulizer solutionIndication s:Chronic Obstructive Pulmonary Disease with Bronchospasms Take 3 mL by nebulization every 6 (six) hours as needed for wheezing Active pregabalin (LYRICA) 150 mg capsule Take 200 mg by mouth 2 (two) times a day Active levETIRAcetam (KEPPRA) 500 mg tablet Take 1 tablet (500 mg total) by mouth 2 (two) times a day 60 tablet 11 05/24/20 24 Active ferrous sulfate 325 mg (65 mg of elemental iron) tablet Take 1 tablet (325 mg total) by mouth daily with breakfast 06/01/[address] (PROTONIX) 40 mg EC tablet Take 1 tablet (40 mg total) by mouth 2 (two) times a day 06/03/20 Active rOPINIRole (REQUIP) 2 mg tablet Take 1 tablet (2 mg total) by mouth 2 (two) times a day with breakfast and lunch Active rOPINIRole (REQUIP) 4 mg tabletIndications: Restless Legs Syndrome Take 2 tablets (8 mg total) by mouth nightly Active alcohol swabs (Alcohol Wipes) pads, medicated Use as directed. 100 each 07/03/20 24 Active nystatin 100,000 unit/mL suspension Take 5 mL (500,000 Units total) by mouth 4 (four) times a day 07/03/20 24 Active QUEtiapine (SEROquel) 50 mg tablet Take 2 tablets (100 mg total) by mouth nightly 07/03/20 24 Active ondansetron ODT (ZOFRAN-ODT) 4 mg disintegrating tabletIndications: Nausea and Vomiting Take 1 tablet (4 mg total) by mouth every 6 (six) hours as needed for nausea or vomiting 20 tablet 07/03/20 24 Active guaiFENesin ER (MUCINEX) 600 mg 12 hr tablet Take 2 tablets (1,200 mg total) by mouth 2 (two) times a day 40 tablet 07/03/20 24 025 Active benzocaine-menthoL (CHLORASEPTIC) 6-10 mg lozenge Take 1 lozenge by mouth every 2 (two) hours as needed for sore throat 30 tablet 07/03/20 24 Active budesonide-formote roL (SYMBICORT) 80-4.5 mcg/actuation inhaler Inhale 2 puffs 2 (two) times a day Rinse mouth with water after use. Do not swallow. 1 each 3 10/21/20 24 Active tiotropium bromide (SPIRIVA RESPIMAT) 2.5 mcg/actuation inhaler Inhale 2 puffs daily 4 g 3 07/03/20 24 Active HYDROcodone-homatr opine (HYCODAN) 1-0.3 mg/mL syrup Take 5 mL by mouth every 4 (four) hours as needed for cough 120 mL 08/05/20 24 Active fluticasone furoate-vilanteroL (BREO ELLIPTA) 200-25 mcg/dose diskus inhaler Inhale 1 puff daily Rinse mouth with water after use. Do not swallow. 60 each 08/05/20 24 Active nicotine 21-14-7 mg/24 hr patch, TD daily, sequential Place 1 patch on the skin daily 56 patch 08/05/20 24 Active promethazine-DM (PROMETHAZINE-DM) 1.25-3 mg/mL syrup Take 5-10 mL by mouth 4 (four) times a day as needed for cough 240 mL 08/25/20 24 Active albuterol HFA (PROVENTIL HFA,VENTOLIN HFA,PROAIR HFA) 90 mcg/actuation inhaler Inhale 2 puffs every 4 (four) hours as needed for wheezing 8 g 09/04/20 24 025 Active predniSONE (DELTASONE) 20 mg tablet Take 2 tablets (40 mg) by mouth daily 10 tablet 10/26/19 25 Active Active Problems Problem Noted Date Diagnosed Date Chest pain, unspecified type 02/04/2025 Exacerbation of asthma, unsp ecified asthma severity, unspecified whether persistent 10/29/2024 Moderate asthma with exacerb ation, unspecified whether persistent 09/04/2024 Asthma exacerbation, mild 09/04/2024 Acute midline low back pain without sciatica History of DVT (deep vein thrombosis) 07/30/2024 Rhinovirus 07/30/2024 Severe persistent asthma with exacerbation 06/30 Left upper extremity DVT 06/30/2024 Diet-controlled diabetes mellitus 06/30/2024 Candidal dermatitis 06/30/2024 Intractable persistent migra ine aura without cerebral infarction and with status migrainosus 05/22/2024 Gastroesophageal reflux disease without esophagi tis 01/01/2024 Acute bronchiolitis due to human metapneumovirus 01/01/2024 Chronic pain syndrome 01/01/2024 Dermatitis 09/20/2023 Assessment & Plan (11/07/2023 8:52 PM SPLIT LEATHER MOSSER): Triamcinolone p.r.n. Avoid tanning in the future. Try Benadryl for itching. Call back if no improvement. Constipation 09/20/2023 Assessment & Plan (11/07/2023 8:52 PM SPLIT LEATHER MOSSER): Trial of Linzess. Continue Metamucil and MiraLax Breast abscess 08/08/2023 Assessment & Plan (08/08/2023 10:18 PM SPLIT LEATHER MOSSER): Keep area clean and dry and apply mupirocin 3 times daily and complete antibiotics. Call back if does not resolve Oral thrush 08/08/2023 Assessment & Plan (08/08/2023 10:19 PM SPLIT LEATHER MOSSER): Clotrimazole and call back if no improvement. Shortness of breath 07/18/2023 IFG (impaired fasting glucose) 06/25/2023 Assessment & Plan (06/25/2023 3:22 PM CDT): Patient should reduce sugar and carbs, increase exercise, maintain proper body weight, and will check an A1c once or twice yearly. Leg edema 06/25/2023 Assessment & Plan (06/25/2023 3:23 PM CDT): Continue furosemide. Lower salt diet. Increase exercise. Lose weight. Try compression hose. Morbid obesity with BMI of 40.0-44.9, adult 06/13 Assessment & Plan (11/07/2023 8:51 PM SPLIT LEATHER MOSSER): Patient is encouraged to lose weight with a combination of caloric reduction and increased exercise. Various strategies discussed. The long-term risks associated with continued morbid obesity discussed. Assessment & Plan (08/08/2023 10:19 PM SPLIT LEATHER MOSSER): Patient is encouraged to lose weight with a combination of caloric reduction and increased exercise. Various strategies discussed. The long-term risks associated with continued morbid obesity discussed. Assessment & Plan (06/25/2023 3:24 PM CDT): Patient is encouraged to lose weight with a combination of caloric reduction and increased exercise. Various strategies discussed. The long-term risks associated with continued morbid obesity discussed. Healthcare maintenance 06/07/2023 Assessment & Plan (06/07/2023 5:44 PM CDT): Check fasting labs in 2 weeks and follow-up in 4 weeks. Shot each June. COVID booster recommended. Follow-up the dietetics teacher for breast exam and pelvic exam as they direct. Diet exercise for weight loss discussed. Will see her back in 4 weeks sooner if needed. Nocturnal hypoxemia 06/07/2023 Overview (06/07/2023): On O2 with cpap Assessment & Plan (06/07/2023 5:44 PM CDT): Continue oxygen therapy with her CPAP machine. Centrilobular emphysema 01/21/2023 Assessment & Plan (06/25/2023 3:22 PM CDT): Continue her Symbicort and use albuterol as needed. Stop smoking immediately. Patient requires a Rollator for long distances as she has to stop suddenly due to shortness of breath. Assessment & Plan (06/07/2023 5:44 PM CDT): Follow-up with her booster operator as they direct. Continue Symbicort twice daily and use albuterol as needed. Refrain from smoking. MAYRA (obstructive sleep apnea) 01/21/2023 Assessment & Plan (06/07/2023 5:44 PM CDT): Continue CPAP as managed by her booster operator. Asthma with COPD with exacerbation 01/11/2023 Restless legs syndrome (RLS) 12/31/2022 Assessment & Plan (06/07/2023 5:45 PM CDT): Controlled on ropinirole Excessive gas 12/27/2022 Bipolar 1 disorder 06/27/2022 Assessment & Plan (06/07/2023 5:43 PM CDT): Follow-up with psychiatry as they direct Tobacco dependence 06/27/2022 Multiple lipomas 06/03/2021 Overview (06/03/2021): Added automatically from request for surgery [id number] Lipoma of lower extremity 06/02/2021 Assessment & Plan (06/02/2021 2:35 PM CDT): Discussed excision of these likely lipomas. The procedure along with the post operative period, patient understands risks and benefits. Anxiety and depression 11/23/2019 Attention deficit hyperactiv ity disorder (ADHD), combined type 05/07/2019 Chest wall muscle strain, initial encounter 03/14 Persistent cough for 3 weeks or longer 8 Negative test 08/17/2017 Lumbar disc disease with radiculopathy 7 Assessment & Plan (06/25/2023 3:24 PM CDT): Patient requires Rollator with seat for safe ambulation due increased risk of falls due to sudden lower back pain radiating to her foot causing leg weakness. Trial of meloxicam for pain. Warned of GI and cardiovascular side effects taking food. Pain management referral. Assessment & Plan (06/07/2023 5:44 PM CDT): Continue gabapentin for now. Refer back to pain management as needed. Seizure disorder 01/05/2017 Assessment & Plan (06/07/2023 5:45 PM CDT): Reports side effects on Keppra. Self-discontinued 9 months ago with no recurrent episodes. Continue to monitor for now. Referral to Neurology if returns. Resolved Problems Problem Noted Date Diagnosed Date Resolved Date COPD exacerbation 01/09/2023 03/29/2024 Assessment & Plan (08/08/2023 10:18 PM SPLIT LEATHER MOSSER): Stop smoking immediately. Continue Symbicort and use albuterol as needed. Follow-up with pulmonology as they direct. Lipoma of upper extremity 02/06/2021 Overview (02/06/2021): Added automatically from request for surgery [id number] Lipoma of thigh 02/06/2021 03/18/2021 Overview (02/06/2021): Added automatically from request for surgery [id number] Acute viral syndrome 10/16/2017 023 Multiple lipomas 08/04/2017 03/18/2021 Assessment & Plan (01/31/2021 12:23 PM CDT): We discussed the procedure of removal, as these are getting larger and more uncomfortable. The risks, benefits, and post operative period along with wound care was discussed to which she agrees. Will plan for excision multiple lipomas with mac and local anesthesia. Immunizations Immunization Administration Dates Next Due DTP 01/08/1993,03/20/1992,08/30/1991 ,1990 DTaP 05/26/2018 Hep B, Adolescent or Pediatric 04/29/2005,2003,03/03/2000 HiB 03/20/1992,08/30/1991 IPV 11/02/2003 Influenza, Unspecified 12/10/2023(Deferr ed: Patient Refused),09/20/2023(Deferred: Patient Refused) MMR 11/02/2003,03/20/1992 OPV 01/08/1993,08/30/1991,1990 Td, adsorbed 11/02/2003 Surgical History Surgery Date Site/Laterality Comments LAPAROSCOPIC CHOLECYSTECTOMY 02/11/2023 - 03/12/2023 TUBAL LIGATION 11/12/2023 - 12/12/2023 Medical History Medical History Date Comments Seizures (HCC) Chronic bronchitis (HCC) Seasona l Recurrent loss, an tepartum condition or complication Epilepsy (HCC) COPD (chronic obstructive pulmonary disease) MAYRA (obstructive sleep apnea) 01/21/2023 Degenerative disc disease, lumbar GERD (gastroesophageal reflux disease) Anxiety Asthma Depression Infection RLS (restless legs syndrome) Diet-controlled diabetes mellitus (HCC) DVT (deep venous thrombosis) Lef t upper extremity Family History Medical History Relation Name Comments Alcohol abuse Father Luciano Asthma Father Luciano Diabetes Father Luciano Diabetes Maternal Grandmother Paty Asthma Mother Agustina COPD Mother Agustina Diabetes Mother Agustina Kidney failure Mother Agustina Stroke Mother Agustina Early Sister 1 Debbi Heart disease Sister 1 Debbi COPD Sister 2 Sisters Obesity Sister 2 Sisters Relation Name Status Comments Father Luciano Maternal Grandmother Paty Mother Agustina Sister 1 Debbi Alive Sister 2 Sisters Social History Tobacco Use Types Packs/Day Years Used Date Smoking Tobacco: Every Day Cigarettes 23 Started: 06/30/2002 Smokeless Tobacco: Never Tobacco Cessation:Ready to Q uit: Not Asked; Counseling Given: Not Answered Alcohol Use Standard Drinks/Week Comments No 0 (1 standard drink = 0.6 oz pur e alcohol) [facility] Utilities Answer Date Recorded In the past 12 months has e electric, gas, oil, or water company threatened to shut off services in your home? No 09/04/2024 Social Connection and Isolation Panel Answer Date Recorded In a typical week, how many times do you talk on the phone with family, friends, or neighbors? More than three times a week 09/04/2024 How often do you get togethe r with friends or relatives? Once a week 09/04/2024 How often do you attend [facility] or moravian services? Never 09/04/2024 Do you belong to any clubs o r organizations such as uatsdin groups, unions, fraternal or athletic groups, or school groups? No 09/04/2024 How often do you attend meet ings of the clubs or organizations you belong to? Never 09/04/2024 Are you , , di vorced, , never , or living with a partner? 09/04/2024 AUDIT-C Answer Date Recorded Q1: How often do you have a drink containing alcohol? Never 02/04/2025 Q2: How many drinks containi ng alcohol do you have on a typical day when you are drinking? Patient does not drink Q3: How often do you have si x or more drinks on one occasion? Never 02/04/2025 Overall Financial Resource Strain (CARDIA) Answe r Date Recorded How hard is it for you to pa y for the very basics like food, housing, medical care, and heating? Not hard at all 09/04/2024 PHQ-2 Answer Date Recorded PHQ-2 Total Score (If total score is 3 or more points, staff should administer the PHQ-9) 0 03/29/2024 Hunger Vital Sign Answer Date Recorded Within the past 12 months, y ou worried that your food would run out before you got the money to buy more. Never true 09/04/20 24 Within the past 12 months, t he food you bought just didn't last and you didn't have money to get more. Never true 09/04/2024 PRAPARE - Transportation Answer Date Re corded In the past 12 months, has l ack of transportation kept you from medical appointments or from getting medications? No 08/14 In the past 12 months, has l ack of transportation kept you from meetings, work, or from getting things needed for daily living? No 09/04/2024 Housing Stability Vital Sign Answer Kiet e Recorded In the last 12 months, was t here a time when you were not able to pay the mortgage or rent on time? No 01/03/2024 In the last 12 months, how many places have you lived? 1 01/03/2024 In the last 12 months, was t here a time when you did not have a steady place to sleep or slept in a long-term (including now)? No 01/03/2024 Housing Stability Vital Sign Answer Kiet e Recorded In the last 12 months, was t here a time when you were not able to pay the mortgage or rent on time? No 09/04/2024 In the past 12 months, how m any times have you moved where you were living? 1 09/04/2024 At any time in the past 12 m [facility], were you homeless or living in a long-term (including now)? No 09/04/2024 Personal Safety Answer Date Recorded Have you ever been in or are you currently in a harmful physical or emotional relationship or is someone making you feel afraid or unsafe? Denies 02/04/2025 Comments No Sex and Gender Information Value Date Recorded Sex Assigned at Not on file Legal Sex Female 4:00 AM SPLIT LEATHER MOSSER Gender Identity Not on file Sexual Orientation Not on file Obstetrics History Para Term AB IAB SAB Ectopic Multiple Livin g Live Births 4 0 3 2 0 Date Outcome GA Total Labor Labor/2nd/3rd Weight Sex Type Anes PTL Miranda A1 A5 Name Clin 009 SAB 7w0d 016 SAB 5w0d 017 AB 11w0 d SAB Last Filed Vital Signs Vital Sign Reading Time Taken Comments Blood Pressure 141/93 02/04/2025 7:01 PM CDT Pulse 76 02/04/2025 7:01 PM CDT Temperature 36.8 C (98.2 F) 02/04/2025 7:01 PM CDT Respiratory Rate 20 02/04/2025 7:01 PM CDT Oxygen Saturation 100% 02/04/2025 7:01 PM CDT Inhaled Oxygen Concentration - - Weight 117 kg (258 lb) 01/23/2025 7:42 PM CDT Height 162.6 cm (5' 4) 01/23/2025 7:42 PM CDT Body Mass Index 44.29 01/23/2025 7:42 PM CDT Plan of Treatment Health Maintenance Due Date Last Done Comments Albumin Creatinine Ratio, Urine 1990 Cervical Cancer Screening 1990 Colon Cancer Screening-Colonoscopy 1990 Hepatitis C Screening 1990 Dilated Eye Exam 1990 Foot Exam 1990 Varicella Vaccines (1 of 2 - 13+ 2-dose series) 11/30/2003 Pneumococcal vaccine <65 (1 of 2 - PCV) 2009 HPV Vaccines (1 - 3-dose SCD M series) 2017 Regular Well Visit/Exam 18-64 06/07/2024 06/07/2023 Lipid Panel 06/22/2024 06/22/2023 Hemoglobin A1C 12/29/2024 06/30/2024, 09/13, 06/22/2023, Additional history exists Depression Screening 03/29/2025 03/29/2024, 09/20/2023, 07/22/2023, Additional history exists Influenza Vaccine (#1) 2025 eGFR 02/03/2026 02/03/2025, 01/11, 10/30/2024, Additional history exists DTaP/Tdap/Td Vaccine (6 - Tdap) 05/26/2028 05/26/2018, 11/02/2003, 01/08/1993, Additional history exists Hepatitis B Screening Completed 04/29/2005 , 11/02/2003, 03/03/2000 Procedures Procedure Name Priority Date/Time Associated Diagnosis Comments EGFR STAT 02/03/2025 10:09 PM CDT HEMOGLOBIN A1C Routine 06/30/2024 7:26 PM CDT LIPID PANEL Routine 06/22/2023 8:50 AM CDT Preventative health care from Last 3 Months or Most Recently Relevant to Health Maintenance Results * eGFR (02/03/2025 10:09 PM CDT) eGFR 84 >=60 mL/min/1. 73 m2 Comment: Interpretive Data Reference Interval Normal >/= 90 mL/min/1.73m2 Mildly decreased* 60 - 89 mL/min/1.73m2 Mildly to moderately decreased 45 - 59 mL/min/1.73m2 Moderately to severely decreased 30 - 44 mL/min/1.73m2 Severely decreased 15 - 29 mL/min/1.73m2 Kidney Failure < 15 mL/min/1.73m2 *Relative to young adult level Estimated glomerular filtration rate is determined by the 2020 CKD-EPI equation recommended by the National Kidney Foundation (A Unifying Approach to GFR Estimation: Recommendations of the NKF-ASK Task Force on Reassessing the Inclusion of Race in Diagnosing Kidney Disease, JASN 2020). The CKD-EPI equation should not be used for patients with unstable renal function and has not been validated in children and those over 70. Current interpretive data was last reviewed 2021. Blood 02/03/2025 10:0 9 PM CDT 02/03/2025 10:12 PM CDT us Richy Ramirez MD LAB BLOOD ORDERABLES Final Result [facility] [address] Department [place] [address] * (ABNORMAL) Hemoglobin A1c (06/30/2024 7:26 PM CDT) Hgb A1C 5.9(H) 4.0 - 5.6 % Estimated Average Glucose 123 mg/dL [facility] CHRISTENSEN Comment: The ADA recommends reporting an estimated Average Glucose (eAG) with all Hemoglobin A1c results using the equation derived from a study of 507 normal and diabetic adults. Minority populations were underrepresented and children were not included. (Diabetes Care 31:2234-9033, 2008). The eAG is not equivalent to a fasting glucose. Blood 06/30/2024 7:26 PM CDT 06/30/2024 7:40 PM CDT Jose Daniel Renee MD LAB BLOOD ORDERABLES Final Result [facility] CHRISTENSEN [address] Department [place] [address] * (ABNORMAL) Lipid panel (06/22/2023 8:50 AM CDT) Cholesterol 159 30 - 199 mg/dL [facility]IO DICK (SANAZ) Comment: Interpretive Data Ages < or = 19 years Acceptable: <170 mg/dL Borderline high: 170-199 mg/dL High: >or= 200 mg/dL Ages > or = 20 years Desirable: <200 mg/dL Borderline high: 200-239 mg/dL High: >or= 240 mg/dL Literature References: 1. Expert Panel on Integrated Guidelines for Cardiovascular Health and Risk Reduction in Children and Adolescents. Pediatrics 2011;128:S213 2. NCEP Expert Panel. Circulation 2004;110:227 Current Interpretive Data was last revised on 2018. Triglycerides 110 <=149 mg/dL [facility]IO DICK (SANAZ) Comment: Interpretive Data Ages < or = 9 years Acceptable: <75 mg/dL Borderline high: 75-99 mg/dL High: >or= 100 mg/dL Ages 10 to 20 years Acceptable: <90 mg/dL Borderline high: 90-129 mg/dL High: >or= 130 mg/dL Ages > or = 20 years Desirable: <150 mg/dL Borderline high: 150-199 mg/dL High: 200-499 mg/dL Very high: >or= 499 mg/dL Literature References: 1. Expert Panel on Integrated Guidelines for Cardiovascular Health and Risk Reduction in Children and Adolescents. Pediatrics 2011;128:S213 2. NCEP Expert Panel. Circulation 2004;110:227 Current Interpretive Data was last revised on 2018. HDL 29(L) >=40 mg/dL EVELIO Noyola (SANAZ) Comment: Interpretive Data Ages < or = 19 years Acceptable: >45 mg/dL Borderline low: 40-45 mg/dL Low: <40 mg/dL Ages > or = 20 years Desirable: >or= 60 mg/dL Low: <40 mg/dL Literature References: 1. Expert Panel on Integrated Guidelines for Cardiovascular Health and Risk Reduction in Children and Adolescents. Pediatrics 2011;128:S213 2. NCEP Expert Panel. Circulation 2004;110:227 Current Interpretive Data was last revised on 2018. LDL, calculated 108 <=129 mg/dL [facility]IO DICK (SANAZ) Comment: Interpretive Data Ages < or = 19 years Acceptable: <110 mg/dL Borderline high: 110-129 mg/dL High: >or= 130 mg/dL Ages > or = 20 years Optimal: <100 mg/dL Near optimal: 100-129 mg/dL Borderline high: 130-159 mg/dL High: >160 mg/dL Literature References: 1. Expert Panel on Integrated Guidelines for Cardiovascular Health and Risk Reduction in Children and Adolescents. Pediatrics 2011;128:S213 2. NCEP Expert Panel. Circulation 2004;110:227 Current Interpretive Data was last revised on 2018. Non-HDL Cholesterol 130 mg/dL EVELIO DICK (SANAZ) Comment: Interpretive Data Ages < or = 19 years Acceptable: <120 mg/dL Borderline high: 120-144 mg/dL High: >145 mg/dL Ages > or = 20 years When triglycerides are >200 mg/dL, Non-HDL cholesterol is a secondary target of therapy with treatment goals that are 30 mg/dL greater than the LDL cholesterol target. Literature References: 1. Expert Panel on Integrated Guidelines for Cardiovascular Health and Risk Reduction in Children and Adolescents. Pediatrics 2011;128:S213 2. NCEP Expert Panel. Circulation 2004;110:227 Current Interpretive Data was last revised on 2018. Chol/HDL ratio 5 YI DICK (SANAZ) Blood 06/22/2023 8:50 AM CDT 06/22/2023 10:27 AM CDT Narrative [facility]IO DICK (SANAZ) - 06/22/2023 11:11 AM CDT fasting Bishop King MD LAB BLOOD ORDERABLES Final R esult [facility]IO DICK (SANAZ) 1 [facility] Department [place] [address] from Last 3 Months or Most Recently Relevant to Health Maintenance Insurance [facility] Advance Directives For more information, please contact: [phone] * Full Code (Latest Code Status on File) Date Activated Date Inactivated Comments 10/29/2024 4:55 AM 10/30/2024 2:23 PM * Full Code Date Activated Date Inactivated Comments 09/04/2024 1:54 AM 09/04/2024 10:41 PM * Full Code Date Activated Date Inactivated Comments 07/29/2024 10:36 PM 08/05/2024 5:49 PM * Full Code Date Activated Date Inactivated Comments 06/30/2024 4:21 AM 07/03/2024 7:19 PM * Full Code Date Activated Date Inactivated Comments 01/01/2024 9:28 AM 01/06/2024 6:33 PM Care Teams Act Tutor Relationship Specialty Start Date End Date Lita Prieto DO [address] [place] [address] PCP - General Family Medicine 09/04/24 [place] [address] [facility] [address] [place] [address] Consulting Physician Emergency Medicine 06/09/24 Jeffrey Thomas MD [address] [place] [address] [address] [place] [address] Resident Family Medicine 09/19/24
--- OUTSIDE RECORDS SUMMARY | 2025-06-26 01:10 | XMS_ITS | Encounter Summary ---
Author Organization [facility] Address [address] [place] [address] Phone Care Team Providers Care Roof Tiler Name Role Phone Lazarus Amin MD Unavailable [phone] David Raphael MD Unavailable + [phone] Carlos Hart MD Unavailable [phone] Teodoro Covarrubias MD Unavailable Bishop Pérez MD Primary Care Provider [phone] Yessi Combs PLEXIGLAS FORMER, MUD TRUCKER Unavailable + [phone] Moisés Taveras PLEXIGLAS FORMER, MUD TRUCKER Unavailable + [phone] Elisa Ortega PLEXIGLAS FORMER, MUD TRUCKER Unavailable [phone] Provider, None Primary Care Provider Unavailabl e Provider, None Primary Care Provider Unavailgio e Duyen Malhotra PLEXIGLAS FORMER, MUD TRUCKER Unavailable Chela Randhawa PLEXIGLAS FORMER, MUD TRUCKER Primary Care Provide r Reason for Visit * Reason Comments Medication Refill Encounter Details Date Type Department Care Team (Late st Contact Info) Description 02/22/2024 [facility] #2 [place] [address] Elisa Ortega APRN, MUD TRUCKER #[address] [address] Medication Refill Social History Tobacco Use Types [...] Telephone Encounter - Isaura Patricio RN - 02/22/2024 9:21 AM CDT This is duplicate order documented in this encounter Plan of Treatment Upcoming Encounters Date Type Department Care Team (Latest Contact Info) Description 07/05/2025 9:30 AM CDT [facility] Visit [facility] - [place] #2 [place] [address] Gabino Luevano MD [address] [address] 07/06/2025 10:46 AM CDT Hospital Encounter [facility] Cardiac Wellness Program Manager 1 [place] [phone] Zack Gary MD [address] [address] Other chest pain 07/06/2025 10:46 AM CDT - 07/06/2025 12:10 PM CDT [facility] Wellness Program Manager 1 [facility] [place] [address] Zack Gary MD [address] [address] CARDIAC CATH 07/27/2025 4:40 PM DAIRY CATTLE FARM WORKER Office Visit [facility] #2 [place] [address] Chela Randhawa, PLEXIGLAS FORMER, MUD TRUCKER 2 [place] [address] documented as of this encounter Visit Diagnoses [...] - 19 07/28/2024 07/28/2024 07/29/2024 1:17 AM DAIRY CATTLE FARM WORKER COVID - 19 08/29/2024 08/29/2024 08/29/2024 11:2 8 PM DAIRY CATTLE FARM WORKER Assessment Noted Time PHQ-9 Depression Total Score: 0 04/14/20 21 2:00 PM CDT documented as of this encounter Care Teams Roof Tiler Relationship Specialty Start Date End Date Bishop King MD #[address] [address] PCP - General Internal Medicine 05/24/23 05/14/24 Provider, None [place] PCP - General 05/15/24 06/25/24 Provider, None [place] PCP - General 06/26/24 05/23/25 Chela Randhawa APRN, MUD TRUCKER 2 [facility] [place] [address] PCP - General Advanced Practice Nurse 05/24/25 Lazarus Amin MD #2 [place] [address] Consulting Physician Neurology 05/21/16 07/23/24 David Raphael MD [address] [place] [address] Consulting Physician Obstetrics & Gynecology 08/04/19 Carlos Hart MD #2 [facility] Consulting Physician General Surgery 07/07/22 Teodoro Covarrubias MD #[address] [address] Consulting Physician Cardiovascular Disease - Cardiology 03/11/23 08/15/24 Yessi Combs APRN, MUD TRUCKER #2 [facility] [place] [address] [id number] Nurse Practitioner Advanced Practice Nurse 09/10/23 Moisés Taveras APRN, MUD TRUCKER #[address] [place] [address] Nurse Practitioner Advanced Practice Nurse 05/30/23 Elisa Ortega APRN, VILMA #[address] [address] Nurse Practitioner Advanced Practice Nurse 04/30/22 Duyen Malhotra APRN, MUD TRUCKER #2 [place] [address] Nurse Practitioner Cardiology 09/25/24 documented as of this encounter
--- OUTSIDE RECORDS SUMMARY | 2025-06-26 01:10 | XMS_ITS | Encounter Summary ---
Author Organization [facility] Address [address] [place] [address] Phone Care Team Providers Care Telehealth Director Name Role Phone Lazarus Amin MD Unavailable [phone] David Raphael MD Unavailable + [phone] Christ Hawkins MD Primary Care Provider [phone] Dario Solares Primary Care Provider [phone] Carlos Hart MD Unavailable [phone] Teodoro Covarrubias MD Unavailable [facility] Bishop Kowalski MD Primary Care Provider [phone] Yessi Combs SLITTER AND CUTTER OPERATOR, CONDITIONER TENDER Unavailable [phone] Moisés Taveras SLITTER AND CUTTER OPERATOR, CONDITIONER TENDER Unavailable + [phone] Elisa Ortega SLITTER AND CUTTER OPERATOR, CONDITIONER TENDER Unavailable [phone] Provider, None Primary Care Provider Unavailabl e Provider, None Primary Care Provider Unavailabl e Duyen Malhotra SLITTER AND CUTTER OPERATOR, CONDITIONER TENDER Unavailable Chela Randhawa SLITTER AND CUTTER OPERATOR, CONDITIONER TENDER Primary Care Provide r Reason for Visit * Reason Comments Medication Refill Encounter Details Date Type Department Care Team (Late st Contact Info) Description 08/10/2021 Refill [facility] - [facility] - [place] #2 [place] [address] Christ Hawkins MD #1 [place] [address] Medication Refill Social History Tobacco Use Types Packs/Day Years Used Date Smoking Tobacco: Some Days Cigarettes 0.3 15 Smokeless Tobacco: Never Comments:once a week Alcohol Use Standard Drinks/Week Comments No 0 (1 standard drink = 0.6 oz pur e alcohol) PHQ-2 Answer Date Recorded Total Score - Questions 1-9 0 08/0 10/2020 Education Answer Date Recorded What is [...] encounter Miscellaneous Notes * Telephone Encounter - Lydia López RN - 08/11/2021 12:19 PM CST Name from pharmacy: TRAZODONE 50MG TABLETS Will file in chart as: traZODone (DESYREL) 50 MG Tablet The original prescription was discontinued on 07/11/2020 by Daryn Sanchez PAC for the following reason: Therapy completed. UME TECHNICIAN documented in this encounter Plan of Treatment Upcoming Encounters Date Type Department Care Team (Latest Contact Info) Description 07/05/2025 9:30 AM CDT Office Visit [facility] - Gastroenterology [facility] #2 [place] [address] Gabino Luevano MD [address] [address] 07/06/2025 10:46 AM CDT [facility] Card[facility] Javascript Application Developer 1 [place] [address] Zack Gary MD [address] [address] Other chest pain 07/06/2025 10:46 AM CDT - 07/06/2025 12:10 PM CDT [facility] Card[facility] Javascript Application Developer 1 [place] [address] Zack Gary MD [address] [address] CARDIAC CATH 07/27/2025 4:40 PM COSTUME TECHNICIAN Office Visit [facility] - Family [facility] #2 [place] [address] Chela Randhawa APRN, CONDITIONER TENDER 2 [place] [address] documented as of this encounter Visit Diagnoses Not on filedocumented in this encounter Additional Health Concerns Infection Onset Date Last Indicated Resolved Time COVID - 19 09/04/2021 09/04/2021 09/04/2021 11:5 1 PM COSTUME TECHNICIAN COVID - 19 08/02/2022 08/11/2022 08/21/2022 12:1 6 AM COSTUME TECHNICIAN COVID - 19 01/08/2023 01/08/2023 01/18/2023 12:1 6 AM CDT COVID - 19 09/22/2023 09/22/2023 10/02/2023 12:1 6 AM COSTUME TECHNICIAN COVID - 19 05/15/2024 05/15/2024 05/15/2024 7:02 PM CDT COVID - 19 07/05/2024 07/05/2024 07/05/2024 10:1 1 PM CDT COVID - 19 07/28/2024 07/28/2024 07/29/2024 1:17 AM COSTUME TECHNICIAN COVID - 19 08/29/2024 08/29/2024 08/29/2024 11:2 8 PM COSTUME TECHNICIAN Assessment Noted Time PHQ-9 Depression Total Score: 0 04/14/20 2:00 PM CDT documented as of this encounter Care Teams Telehealth Director Relationship Specialty Start Date End Date Christ Hawkins MD #2 [place] [address] PCP - General Family Medicine 04/14/21 08/22/21 Dario Solares, [facility] [address] [place] [address] PCP - General Physician Operations Supervisor 08/23/21 05/23/23 Bishop King MD #[address] [phone] PCP - General Internal Medicine 05/24/23 05/14/24 Provider, None [place] PCP - General 05/15/24 06/25/24 Provider, None [place] PCP - General 06/26/24 05/23/25 Chela Randhawa, SLITTER AND CUTTER OPERATOR, CONDITIONER TENDER 2 [place] [address] PCP - General Advanced Practice Nurse 05/24/25 Lazarus Amin MD #2 [place] [address] Consulting Physician Neurology 05/21/16 07/23/24 David Raphael MD #2 [facility] [address] Consulting Physician Obstetrics & Gynecology 08/04/19 Carlos Hart MD #2 [facility] [address] [place] [address] Consulting Physician General Surgery 07/07/22 Teodoro Covarrubias MD #2 [facility] [address] [place] [address] Consulting Physician Cardiovascular Disease - Cardiology 03/11/23 08/15/24 Yessi Combs, SLITTER AND CUTTER OPERATOR, CONDITIONER TENDER #2 [facility] [address] [place] [address] Nurse Practitioner Advanced Practice Nurse 09/10/23 Moisés Taveras, SLITTER AND CUTTER OPERATOR, CONDITIONER TENDER #2 [place] [address] Nurse Practitioner Advanced Practice Nurse 05/30/23 Elisa Ortega SLITTER AND CUTTER OPERATOR, CONDITIONER TENDER #2 [facility] [address] [place] [address] Nurse Practitioner Advanced Practice Nurse 04/30/22 Duyen Malhotra SLITTER AND CUTTER OPERATOR, CONDITIONER TENDER #2 [facility] [place] [address] Nurse Practitioner Cardiology 09/25/24 documented as of this encounter
--- OUTSIDE RECORDS SUMMARY | 2025-06-26 01:10 | XMS_ITS ---
Author Organization [facility] Address #1 [place] [address] Phone Care Team Providers Care Public Area Supervisor Name Role Phone David Raphael MD Unavailable [phone] Carlos Hart MD Unavailable [phone] Moisés Taveras HEAVY ANTIARMOR WEAPONS INFANTRYMAN, DISPATCH LEAD Unavailable + [phone] Elisa Ortega HEAVY ANTIARMOR WEAPONS INFANTRYMAN, DISPATCH LEAD Unavailable Duyen Malhotra HEAVY ANTIARMOR WEAPONS INFANTRYMAN, DISPATCH LEAD Unavailable Chela Randhawa HEAVY ANTIARMOR WEAPONS INFANTRYMAN, DISPATCH LEAD Primary Care Provide r Ambulatory Complex Care Management Status:Identified (Enrolling) Start date:06/25/2025 Enrollment reason:Identified using referral data Related social drivers of health:Social Connections, Tobacco Use, Physical Activity, Food Insecurity, Transportation Needs, Housing Stability, Utilities Continued Care and Services Coordination
--- OUTSIDE RECORDS SUMMARY | 2025-06-26 01:10 | XMS_ITS | Encounter Summary ---
Author Organization [facility] Address [address] [place] [place] [address] Phone Care Team Providers Care Poultry Helper Name Role Phone David Raphael MD Unavailable [phone] Carlos Hart MD Unavailable Moisés Taveras BENDING ROLL HAND, SEO COORDINATOR Unavailable [phone] Elisa Ortega BENDING ROLL HAND, SEO COORDINATOR Unavailable Duyen Malhotra BENDING ROLL HAND, SEO COORDINATOR Unavailable Chela Randhawa BENDING ROLL HAND, SEO COORDINATOR Primary Care Provide r Encounter Details Date Type Department Care Team (Latest Contact Info) Description 05/30/2025 Results Follow-Up [facility] Group - Gastroenterology - [place] #2 [place] [address] Isabel Corrigan RN [place] Pathology Surgical Social History Tobacco Use Types Packs/Day Years [...] often do you attend chur ch or confucianism services? Never 07/08/2024 Do you belong to any clubs o r organizations such as congregational groups, [employer], [employer] or athletic groups, or school groups? No [...] any time in the past 12 m [facility], were you homeless or living in a intermediate (including now)? No 07/08/2024 Social Connection and Isolation Panel Answer Date Recorded In a typical week, how many times do you talk on the phone with family, friends, or neighbors? More than three times a week 05/23/2025 How often do you get togethe r with friends or relatives? More than three times a week 05/23/2025 How often do you attend chur ch or confucianism services? 1 to 4 times per year 05/23/2025 Do you belong to any clubs o r organizations such as congregational groups, [employer], [employer] or athletic groups, or school groups? No [...] and heating? Not hard at all 05/23/2025 [facility] - Occupational Stress Questionnaire Answer Date Recorded [...] any time in the past 12 m [facility], were you homeless or living in a intermediate (including now)? Patient declined 05/17/2025 [facility] Utilities Answer Date Recorded In the past 12 months has th e electric, gas, oil, or water company [...] Description 07/05/2025 9:30 AM CDT Office Visit [facility] - Gastroenterology [facility] #2 [place] [address] Gabino Luevano MD [address] [address] 07/06/2025 10:46 AM CDT [facility] Cardiac Supervisor Hydrochloric Area 1 [place] [address] Zack Gary MD [address] [address] Other chest pain 07/06/2025 10:46 AM CDT - 07/06/2025 12:10 PM CDT [facility] Cardiac Supervisor Hydrochloric Area 1 [place] [address] Zack Gary MD 2 [facility] [address] [place] [address] CARDIAC CATH 07/27/2025 4:40 PM PROFESSOR OF KINESIOLOGY Office Visit [facility] - Family Medicine [facility] #2 [place] [address] Chela Randhawa, BENDING ROLL HAND, SEO COORDINATOR 2 [place] [address] documented as of this encounter Visit Diagnoses Not on filedocumented in this encounter Additional Health Concerns Assessment Noted Time PHQ-9 Depression Total Score: 0 04/14/20 21 2:00 PM CDT documented as of this encounter Care Teams Poultry Helper Relationship Specialty Start Date End Date Chela Randhawa APRN, SEO COORDINATOR 2 [facility] [place] [address] PCP - General Advanced Practice Nurse 05/24/25 David Raphael MD Consulting Physician Obstetrics & Gynecology 08/04/19 Carlos Hart MD #[address] [address] Consulting Physician General Surgery 07/07/22 Moisés Taveras APRN, SEO COORDINATOR #2 [place] [address] Nurse Practitioner Advanced Practice Nurse 05/30/23 Elisa Ortega APRN, SEO COORDINATOR #[address] [address] Nurse Practitioner Advanced Practice Nurse 04/30/22 Duyen Malhotra APRN, SEO COORDINATOR #2 [place] [address] Nurse Practitioner Cardiology 09/25/24 documented as of this encounter
--- OUTSIDE RECORDS SUMMARY | 2025-06-26 01:10 | XMS_ITS | Encounter Summary ---
Author Organization [facility] Address [address] [place] [address] Phone Care Team Providers Care Tire Repairman Name Role Phone David Raphael MD Unavailable [phone] Carlos Hart MD Unavailable Moisés Taveras GAME SHOW HOST, JANITOR SUPERVISOR Unavailable [phone] Elisa Ortega GAME SHOW HOST, JANITOR SUPERVISOR Unavailable Duyen Malhotra APRN, JANITOR SUPERVISOR Unavailable Chela Randhawa APRN, JANITOR SUPERVISOR Primary Care Provide r Reason for Referral * Radiology Services (Routine) - Authorized Specialty Diagnoses / Procedures Referred By Contac t Referred To Contact Radiology Diagnoses Encounter for screening mammogram for malignant neoplasm of breast Procedures ASHLEY DIAG BILATERAL DIGITAL W CAD W Chela Rodrigez, PERNELL, JANITOR SUPERVISOR 2 [place] [address] Phone: tel: fax: Referral ID Status Reason Start Date Expiration Date V isits Requested Visits Authorized [id number] Authorized 05/28/2025 1 1 Encounter Details Date Type Department Care Team (Late st Contact Info) Description 05/28/2025 Transcribe Orders [facility] [address] [place] [address] Chela Randhawa APRN, JANITOR SUPERVISOR 2 [facility] [place] [address] Encounter for screening mammogram for malignant neoplasm of breast (Primary Dx) Social History Tobacco Use Types Packs/Day Years [...] often do you attend chur ch or methodist services? Never 07/08/2024 Do you belong to any clubs o r organizations such as advent groups, unions, fraternal or athletic groups, or school groups? No 07/08/2024 How often do you attend meet ings of the clubs or organizations you belong to? Never 07/08/2024 Are you , , di vorced, , never , or living with a partner? 07/08/2024 PHQ-2 Answer Date Recorded Total Score - Questions 1-9 0 08/0 10/2020 Housing Stability Vital Sign Answer Iket e Recorded In the last 12 months, was t here a time when you were not able to pay the mortgage or rent on time? No 07/08/2024 In the past 12 months, how m any times have you moved where you were living? 0 07/08/2024 At any time in the past 12 m [facility], were you homeless or living in [...] often do you attend chur ch or methodist services? 1 to 4 times per year 05/23/2025 Do you belong to any clubs o r organizations such as advent groups, unions, fraternal or athletic groups, or [...] and heating? Not hard at all 05/23/2025 [facility] - Occupational Stress [...] any time in the past 12 m [place], were you homeless or living in a retirement (including now)? Patient declined 05/17/2025 [facility] Utilities Answer Date Recorded In the [...] Visit [facility] - [place] #2 [place] [address] Gabino Luevano MD 2 [facility] [address] [place] [address] 07/06/2025 10:46 AM CDT [facility] Cardiac Dredge Deckhand 1 [place] [address] Zack Gary MD 2 [facility] [address] [place] [address] Other chest pain 07/06/2025 10:46 AM CDT - 07/06/2025 12:10 PM CDT [facility] Cardiac Dredge Deckhand 1 [place] [address] Zack Gary MD [address] [address] CARDIAC CATH 07/27/2025 4:40 PM LEAD CYTOGENETIC TECHNOLOGIST Office Visit [facility] Medical Group - Family Medicine - [place] #2 [place] [address] Chela Randhawa APRN, JANITOR SUPERVISOR 2 [place] [address] Scheduled Orders Name Type Priority Associated Diagnoses Orde r Schedule ASHLEY DIAG BILATERAL DIGITAL W CAD W [place] Imaging Routine Encounter for screening mammogram for malignant neoplasm of breast Expected: 06/11/2025, Expires: 11/25/2025 documented as of this encounter Visit Diagnoses Diagnosis Encounter for screening mammogram for malignant neoplasm of breast- Primary Other screening mammogram Other chest pain Abnormal stress test Other nonspecific abnormal cardiovascular system function study Other chest pain Abnormal stress test Other nonspecific abnormal cardiovascular system function study documented in this encounter Additional Health Concerns Assessment Noted Time PHQ-9 Depression Total Score: 0 04/14/20 21 2:00 PM CDT documented as of this encounter Care Teams Tire Repairman Relationship Specialty Start Date End Date Chela Randhawa APRN, JANITOR SUPERVISOR 2 [place] [address] PCP - General Advanced Practice Nurse 05/24/25 David Raphael MD Consulting Physician Obstetrics & Gynecology 08/04/19 Carlos Hart MD #[address] [id number] Consulting Physician General Surgery 07/07/22 Moisés Taveras APRN, JANITOR SUPERVISOR #2 [place] [address] Nurse Practitioner Advanced Practice Nurse 05/30/23 Elisa Ortega APRN, JANITOR SUPERVISOR #[address] [address] Nurse Practitioner Advanced Practice Nurse 04/30/22 Duyen Malhotra APRN, JANITOR SUPERVISOR #2 [place] [address] Nurse Practitioner Cardiology 09/25/24 documented as of this encounter
--- OUTSIDE RECORDS SUMMARY | 2025-06-26 01:10 | XMS_ITS | Clinical Summary ---
Author Organization [facility] Address [address] [place] [address] Phone Care Team Providers Care Special Event Assistant Name Role Phone David Raphael MD Unavailable [phone] Carlos Hart MD Unavailable Moisés Taveras PICKLER HELPER, FILM RECORDIST Unavailable [phone] Elisa Ortega PICKLER HELPER, FILM RECORDIST Unavailable Duyen Malhotra PICKLER HELPER, FILM RECORDIST Unavailable Chela Randhawa PICKLER HELPER, FILM RECORDIST Primary Care Provide r Allergies Active Allergy Reactions Criticality Noted Date Comments Azithromycin Hives 01/09/2017 Penicillins Rash 04/10/2019 Tramadol Swelling 04/14/2022 Medications QUEtiapine Fumarate (SEROQUEL PO) Take 50 mg by mouth daily. Active rOPINIRole (REQUIP) 2 MG TabletIndicatio ns:Restless legs syndrome (RLS) TAKE 1 TABLET( 2 MG) BY MOUTH IN THE MORNING AND TAKE 2 TABLETS( 4MG) IN THE EVENING 270 Tablet 02/18/20 24 Active levETIRAcetam (KEPPRA) 500 MG Tablet Take 500 mg by mouth 2 times daily. 05/24/20 24 Active albuterol (PROVENTIL, VENTOLIN) (2.5 MG/3ML) 0.083% Nebulizer SolnIndications :Reversible Obstructive Airway Disease 3 mL by Nebulization route every 4 hours as needed for Wheezing. Indications: Reversible Disease of Blockage in Breathing Passages 150 mL 07/05/20 24 Active ondansetron (ZOFRAN) 4 MG Tablet Take 4 mg by mouth every 8 hours as needed. 05/20/20 25 Active tiZANidine (ZANAFLEX) 4 MG TabletIndicatio ns:Chronic low back pain with sciatica, sciatica laterality unspecified, unspecified back pain laterality Take 1 Tablet by mouth every 8 hours as needed for Muscle spasms. 30 Tablet 05/24/20 25 Active budesonide-form oterol fumarate (SYMBICORT) 80-4.5 MCG/ACT Aerosol take 2 Puffs by inhalation 2 times daily. Active furosemide (LASIX) 40 MG Tablet Take 40 mg by mouth daily as needed for Other (edema). Active lidocaine (LIDODERM) 5 % Patch 1 Patch by Transdermal route every 24 hours. 30 Patch 3 05/24/20 25 Active hydrocortisone (ANUSOL-HC) 25 MG Suppository 25 mg by Rectal route every 12 hours. 14 Suppository 05/26/20 25 Active hydrocortisone 2.5 % CreamIndication s:Hemorrhoids, unspecified hemorrhoid type Apply 2 times daily as needed for Itching or Other (hemorrhoids). Application Site: apply pea sized application rectally twice daily as needed for hemorrhoids 30 g 05/28/20 25 Active pantoprazole (PROTONIX) 40 MG Tablet Delayed ResponseIndicat ions:Gastroesop hageal reflux disease without esophagitis Take 1 Tablet by mouth 2 times daily. 60 Tablet 2 05/28/20 25 Active prochlorperazin e (COMPAZINE) 10 MG TabletIndicatio ns:Nausea and vomiting, unspecified vomiting type Take 1 Tablet by mouth every 6 hours as needed for Nausea - 1st line. 30 Tablet 05/31/20 25 Active pregabalin (Lyrica) 200 MG CapsuleIndicati ons:Lumbar disc disease with radiculopathy,C hronic pain disorder Take 1 Capsule by mouth 2 times daily. 60 Capsule 06/08/20 25 Active amLODIPine (NORVASC) 5 MG Tablet Take 0.5 Tablets by mouth daily. 15 Tablet 1 06/14/20 25 Active isosorbide mononitrate (IMDUR) 30 MG TABLET SR 24 HR Take 1 Tablet by mouth every morning. 30 Tablet 1 06/14/20 25 Active methylPREDNISol one (MEDROL DOSPACK) 4 MG Tablet Therapy Pack See product package insert for dosing schedule 21 Tablet 06/18/20 25 Active pantoprazole (PROTONIX) 40 MG Tablet Delayed Response Take 1 Tablet by mouth daily for 60 days. 60 Tablet 05/18/20 25 025 Discontin ued(Reord er) sucralfate (CARAFATE) 1 GM TabletIndicatio ns:Gastroesopha geal reflux disease without esophagitis,Duo denitis Take 1 Tablet by mouth every 6 hours for 5 days. 20 Tablet 05/24/20 25 025 levoFLOXacin (LEVAQUIN) 500 MG TabletIndicatio ns:Duodenitis Take 1 Tablet by mouth daily for 5 days. 5 Tablet 05/24/20 25 025 metroNIDAZOLE (FLAGYL) 500 MG TabletIndicatio ns:Duodenitis Take 1 Tablet by mouth 3 times daily for 5 days. 15 Tablet 05/24/20 25 025 linaclotide (LINZESS) 145 MCG CapsuleIndicati ons:Chronic Idiopathic Constipation Take 1 Capsule by mouth every morning (before breakfast) for 30 days. Indications: Chronic Constipation of Unknown Cause 30 Capsule 05/24/20 25 025 mupirocin (BACTROBAN) 2 % OintmentIndicat ions:Folliculit is Application Site: open sores under arms and chest 22 g 05/24/20 25 025 pregabalin (Lyrica) 200 MG Capsule Take 200 mg by mouth 3 times daily. 025 Discontin ued(Reord er) pregabalin (Lyrica) 200 MG CapsuleIndicati ons:Lumbar disc disease with radiculopathy,C hronic pain disorder Take 1 Capsule by mouth 3 times daily. 90 Capsule 05/31/20 25 025 Discontin ued(Reord er) Active Problems Problem Noted Date Diagnosed Date Abnormal stress test 06/14/2025 Abnormal uterine bleeding (AUB) 05/24/2025 Female infertility 05/24/2025 Pelvic pain 05/24/2025 PCOS (polycystic ovarian syndrome) 05/24/2025 GI bleed 05/17/2025 Abdominal pain 05/17/2025 Morbid obesity with BMI of 40.0-44.9, adult 12/2024 COPD (chronic obstructive pulmonary disease) 12/2024 Other chest pain 02/07/2025 Moderate asthma with exacerbation 09/04/2024 Acute midline low back pain without sciatica History of DVT (deep vein thrombosis) 07/07/2024 Diet-controlled diabetes mellitus 06/30/2024 DVT (deep venous thrombosis) 05/28/2024 Intractable persistent migra ine aura without cerebral infarction and with status migrainosus 05/22/2024 Gastroesophageal reflux disease without esophagi tis 01/01/2024 Chronic pain disorder 01/01/2024 Constipation 09/20/2023 Leg edema 06/25/2023 MAYRA (obstructive sleep apnea) 01/21/2023 Centrilobular emphysema 01/21/2023 Congestive heart failure 01/21/2023 Nocturnal hypoxia 12/31/2022 Restless legs syndrome (RLS) 12/31/2022 CUEVAS (dyspnea on exertion) 12/31/2022 Tobacco dependence 06/27/2022 Bipolar 1 disorder 06/27/2022 Personal history of tobacco use 04/30/2022 Lipoma of lower extremity 06/02/2021 Anxiety 11/23/2019 Anxiety and depression 11/23/2019 Urinary pain 10/23/2019 Other insomnia 05/22/2019 Attention deficit hyperactiv ity disorder (ADHD), combined type 05/07/2019 Chronic back pain 05/05/2019 Lumbar disc disease with radiculopathy 7 Seizure disorder 01/05/2017 Resolved Problems Problem Noted Date Diagnosed Date Resolved Date Community acquired pneumonia 07/07/2024 07/08/2024 Asthma exacerbation 07/07/2024 07/08/20 24 Hyperglycemia 07/07/2024 07/08/2024 Hypokalemia 07/07/2024 07/08/2024 Morbid obesity with BMI of 45.0-49.9, adult 07/07/2024 05/24/2025 Sepsis 07/07/2024 07/08/2024 Candidal dermatitis 06/30/2024 05/24/20 25 Cellulitis of left upper extremity 05/25/2024 05/28/2024 Acute bronchiolitis due to h uman metapneumovirus 01/01/2024 05/24/2025 Breast abscess 08/08/2023 05/24/2025 Acute cholecystitis 06/28/2022 05/24/20 25 Acute cholecystitis 06/27/2022 06/28/20 22 Snoring 04/30/2022 01/21/2023 Witnessed episode of apnea 04/30/2022 0 01/21/2023 Chronic dental pain 05/22/2019 05/22/20 19 Asthma 05/22/2019 05/22/2019 Diabetes mellitus 01/05/2017 05/22/2019 Encounters Date Type Department Care Team Description 06/21/2025 Telephone [facility] [place] [address] [place] [address] Chela Randhawa, PICKLER HELPER, FILM RECORDIST 06/20/2025 Telephone [facility] Mammography [address] [place] [address] Chela Randhawa, PICKLER HELPER, FILM RECORDIST 06/20/2025 Documentation Only [facility] Mammography [address] [place] [address] Chela Randhawa, PICKLER HELPER, FILM RECORDIST 06/18/2025 1:57 AM CDT - 06/18/2025 4:57 AM CDT Emergency [facility] Emergency [address] [place] [address] Antonio Agudelo MD Pleurisy Discharge Disposition: Discharged to home or Selfcare 06/18/2025 Travel 06/14/2025 Telephone [facility] - [facility]iology - [place] [address] [place] [address] Maria Del Carmen Gamino, PICKLER HELPER, FILM RECORDIST 06/13/2025 1:15 PM CDT - 06/13/2025 3:42 PM CDT Emergency [facility] Emergency [address] [place] [address] Leslie Diaz, PICKLER HELPER, FILM RECORDIST Chest pain, unspecified Discharge Disposition: Discharged to home or Selfcare 06/13/2025 Travel 06/13/2025 Nurse Triage [facility] [address] [place] [address] Chela Randhawa, PICKLER HELPER, FILM RECORDIST Chest Pain 06/11/2025 10:00 AM CDT - 06/11/2025 11:59 PM CDT Hospital Encounter [facility] Nuclear Medicine [address] [place] [address] Zack Gary MD Discharge Disposition: Discharged to home or Selfcare 06/11/2025 9:15 AM CDT - 06/11/2025 9:59 AM CDT Hospital Encounter [facility] Nuclear Medicine [address] [place] [address] Zack Gary MD Discharge Disposition: Discharged to home or Selfcare 06/11/2025 8:51 AM CDT - 06/11/2025 9:14 AM CDT Hospital Encounter [facility] Cardiology Stress [address] [place] [address] Zack Gary MD Discharge Disposition: Discharged to home or Selfcare 06/11/2025 8:49 AM CDT - 06/11/2025 8:50 AM CDT Hospital Encounter [facility] Nuclear Medicine [address] [place] [address] Zack Gary MD Discharge Disposition: Discharged to home or Selfcare 06/10/2025 Travel 2025 Telephone [facility] Outpatient [address] [place] [address] Zack Gary MD Prior Authorization (Denial of NM CARD MULTI SPECT WITH WALL MOTION AND EJECTION FRACTION) 06/06/2025 Results Follow-Up [facility] [place] [address] [place] [address] Chela Randhawa APRN, VILMA DRUG SCREEN ORAL FLUID/SALIVA 06/06/2025 Results Follow-Up [facility] [place] [address] [place] [address] Chela Randhawa APRN, VILMA URINE DRUG SCREEN 05/31/2025 1:20 PM CDT Office Visit [facility] [place] [address] [place] [address] Chela Randhawa APRN, VILMA Nausea and vomiting, unspecified vomiting type (Primary Dx); Epigastric pain; Lumbar disc disease with radiculopathy; Chronic pain disorder Discharge Disposition: Discharged to home or Selfcare 05/31/2025 Travel 05/30/2025 Results [facility] Gastroenterology [facility] [address] [place] [address] Isabel Corrigan RN Pathology Surgical 05/28/2025 Transcribe Orders [facility] Mammography [address] [place] [address] Chela Randhawa APRN, VILMA Encounter for screening mammogram for malignant neoplasm of breast (Primary Dx) 05/28/2025 Travel 05/26/2025 8:16 PM CDT - 05/26/2025 9:54 PM CDT Emergency [facility] Emergency [address] [place] [address] Thong Sanchez MD Hiatal hernia Discharge Disposition: Discharged to home or Selfcare 05/26/2025 Travel 05/24/2025 8:40 AM CDT Office Visit [facility] [place] [address] [place] [address] Chela Randhawa APRN, FILM RECORDIST Encounter to establish care with new provider (Primary Dx); Seizure disorder ([facility]); PCOS (polycystic ovarian syndrome); Pulmonary emphysema, unspecified emphysema type ([facility]); MAYRA (obstructive sleep apnea); Chronic low back pain with sciatica, sciatica laterality unspecified, unspecified back pain laterality; Therapeutic drug monitoring; Chronic idiopathic constipation; Morbid obesity with BMI of 40.0-44.9, adult ([facility]); Tobacco dependence; Attention deficit hyperactivity disorder (ADHD), combined type; Anxiety; Bipolar 1 disorder ([facility]); Duodenitis; Hematemesis, unspecified whether nausea present; Gastroesophageal reflux disease without esophagitis; Restless legs syndrome (RLS); Urinary incontinence, unspecified type; Folliculitis; Encounter for screening mammogram for malignant neoplasm of breast Discharge Disposition: Discharged to home or Selfcare 05/23/2025 Travel 05/21/2025 Telephone [facility] [place] [address] [place] [address] Chela Randhawa APRN, FILM RECORDIST 05/18/2025 1:00 PM CDT - 05/18/2025 1:30 PM CDT Surgery [facility] Periop [address] [place] [address] Porfirio Hoawrd MD EGD - DUODENITIS BIOPSY, 2CM HIATAL HERNIA 05/18/2025 11:58 AM CDT Anesthesia Event [facility] Periop [address] [place] [address] Santana Sorensen APRN, RESERVE OFFICER 05/18/2025 10:55 AM CDT Ancillary Procedure [facility] Main [address] [place] [address] Porfirio Howard MD 05/17/2025 6:50 PM CDT - 05/18/2025 2:37 PM CDT Hospital Encounter [facility] Med Surg [address] [place] [address] Hugo Sheehan MD Carmicheal, Litzy Rodriguez MD GI bleed Discharge Disposition: Discharged to home or Selfcare 05/17/2025 1:08 AM CDT - 05/17/2025 6:12 AM CDT Emergency [facility] Emergency 1 [place] [address] Hugo Sheehan MD [facility], Richy Hdez MD Right upper quadrant abdominal pain Discharge Disposition: Discharged to home or Selfcare 05/17/2025 Travel 04/17/[address] [facility] PHYSICIAN GROUP UROLOGY [address] [place] [address] Zack Gary MD from Last 3 Months Immunizations Immunization Administration Dates Next Due DTAP VACCINE 05/26/2018 DTP Vaccine 01/08/1993, 2,08/30/1991,1990 Hepatitis B Vaccine, Pediatric/adolescent 04/29/2005,11/02/2003,03/03/2000 Hib Vaccine,unspecified Formulation 03/20/1992,1 1990 Inactivated Polio Vaccine 11/02/2003 MMR Vaccine 11/02/2003,03/20/1992 OPV 01/08/1993,08/30/1991,1990 TD VACCINE 11/02/2003 Family History Medical History Relation Name Comments Seizures Brother 1 LISA fernandez Alcohol Abuse Brother 2 No Known Problems Brother 3 Alcohol Abuse Father Lisa potts Diabetes Father Ilsa potts Kidney Stones Father Lisa potts sepsis Father Lisa potts pancreatitis Alcohol Abuse Maternal Grandfather Heart Attack Maternal Grandfather Congestive Heart Failure Maternal Grandmother Paty Diabetes Maternal Grandmother Paty Heart Surgery Maternal Grandmother Paty Obstructive Sleep Apnea Maternal Grandmother Paty Stroke Maternal Grandmother Paty Asthma Mother Agustina Congestive Heart Failure Mother Agustina Diabetes Mother Agustina Heart Disease Mother Agustina High Cholesterol Mother Agustina Kidney Disease Mother Agustina Renal Failure Mother Agustina Restless Leg Syndrome Mother Agustina Stroke Mother Agustina Colon Cancer Paternal Grandfather Diabetes Paternal Grandmother Kip Congestive Heart Failure Sister Debbi Relation Name Status Comments Brother 1 LISA fernandez Alive Brother 2 Alive Brother 3 Alive Father Lisa potts Maternal Grandfather Maternal Grandmother Paty Mother Agustina Paternal Grandfather Paternal Grandmother Kihoma Sister Debbi Alive Social History Tobacco Use Types Packs/Day Years Used Date Smoking Tobacco: Former Cigarettes 0.5 15.7 0 02/25/2008 - 02/24/2023 Smokeless Tobacco: Never Tobacco Cessation:Counseling Given: No Comments:once a week Alcohol Use Standard Drinks/Week [...] 07/08/2024 How often do you attend chur or yazidism services? Never 07/08/2024 Do you belong to any clubs o r organizations such as hinduism groups, unions, fraternal or athletic groups, or [...] any time in the past [address] [facility], were you homeless or living in a senior care (including now)? No 07/08/2024 Social Connection and Isolation Panel Answer Date Recorded In a typical week, how many times do you talk on the phone with family, friends, or neighbors? More than three times a week 05/23/2025 How often do you get togethe r with friends or relatives? More than three times a week 05/23/2025 How often do you attend chur ch or yazidism services? 1 to 4 times per year 05/23/2025 Do you belong to any clubs o r organizations such as hinduism groups, unions, fraternal or athletic groups, or [...] and heating? Not hard at all 05/23/2025 [facility] - Occupational [...] were you homeless or living in a senior care (including now)? Patient declined 05/17/2025 [facility] Utilities Answer Date Recorded In [...] PM CDT Sexual Orientation Not on file Last Filed Vital Signs Vital Sign Reading Time Taken Comments Blood Pressure 115/98 06/18/2025 4:30 AM CDT Pulse 60 06/18/2025 4:30 AM CDT Temperature 36.4 C (97.6 F) 06/18/2025 2:00 AM CDT Respiratory Rate 23 06/18/2025 4:30 AM CDT Oxygen Saturation 100% 06/18/2025 4:30 AM CDT Inhaled Oxygen Concentration - - Weight 108.9 kg (240 lb) 06/18/2025 2:00 AM CDT Height 162.6 cm (5' 4) 06/18/2025 2:00 AM CDT Body Mass Index 41.2 06/18/2025 2:00 AM CDT Plan of Treatment Upcoming Encounters Date Type Department Care Team (Latest Contact Info) Description 07/05/2025 9:30 AM CDT [facility] Visit [facility] [place] [address] [place] [address] Gabino Luevano MD 2 [facility] [address] [place] [address] 07/06/2025 10:46 AM CDT Hospital Encounter [facility] Cardiac Laundry Housekeeper [address] [place] [address] Zack Gary MD [address] [address] Other chest pain 07/06/2025 10:46 AM CDT - 07/06/2025 12:10 PM CDT Surgery [facility] Cardiac Laundry Housekeeper [address] [place] [address] Zack Gary MD [address] [address] CARDIAC CATH 07/27/2025 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 Office Visit [facility] - Family Medicine [facility] [address] [place] [address] Chela Randhawa, PICKLER HELPER, FILM RECORDIST [address] [place] [address] Health Maintenance Due Date Last Done Comments Diabetes: Eye Exam 1990 Diabetes: Foot Exam 1990 Hepatitis C Virus (HCV) Screening 1990 Pneumococcal Immunization Combined (1 of 2 - PCV) 2009 Pap Smear 2011 Human Papillomavirus (HPV) Immunization (1 - 3-dose SCDM series) 2017 Cervical Cancer Screening (CCS) 2020 HPV/Cotest 2020 Diabetes: Hemoglobin A1c 12/29/202406/30/ 024, 05/26/2024, 09/23/2023, Additional history exists Influenza Immunization (#1) 2025 SARS-COV-2 Immunization ( - 2024- season) 2025 Diabetes: Nephropathy Screening 06/18/2026 06/18/2025, 06/13/2025, 05/26/2025, Additional history exists DTaP/Tdap/Td Immunization (7 - Tdap) 05/26/2028 05/26/2018, 11/02/2003, 01/08/1993, Additional history exists Respiratory Syncytial Virus (RSV) Immunization (Adult) (1 - 1-dose 75+ series) 2065 Hepatitis B Immunization Completed 005, 11/02/2003, 03/03/2000 Meningococcal Immunization (ACWY) Aged Out No longer eligible based on patient's age to complete this topic Rotavirus Immunization Aged Out No lo nger eligible based on patient's age to complete this topic Procedures Procedure Name Priority Date/Time Associated Diagnosis Comments AEROSOL NEBULIZER-INITIAL STAT 2024 4:28 AM CDT CBC WITH AUTO DIFFERENTIAL STAT 06/18 2:10 AM CDT TROPONIN I, HIGH SENSITIVITY (HSTRP) STAT 06/18/2025 2:10 AM CDT CMP (COMPREHENSIVE METABOLIC PANEL) STAT 06/18/2025 2:10 AM CDT COMPLETE BLOOD COUNT (CBC) WITH DIFF STAT 06/18/2025 2:10 AM CDT EKG 12 LEAD STAT 06/18/2025 2:03 AM CDT EKG SCAN 06/18/2025 12:00 AM CDT URINE DRUG SCREEN STAT 06/13/2025 3:00 PM CDT XR CHEST SINGLE VIEW STAT 06/13/2025 1:46 PM CDT BLUE TOP TUBE STAT 06/13/2025 1:33 PM CDT CBC WITH AUTO DIFFERENTIAL STAT 06/13 1:33 PM CDT EXTRA TUBES STAT 06/13/2025 1:33 PM CDT MAGNESIUM (MG) STAT 06/13/2025 1:33 PM CDT N-TERMINAL- PRO B TYPE NATRIURETIC PEPTIDE STAT 06/13/2025 1:33 PM CDT TROPONIN I, HIGH SENSITIVITY (HSTRP) STAT 06/13/2025 1:33 PM CDT CMP (COMPREHENSIVE METABOLIC PANEL) STAT 06/13/2025 1:33 PM CDT COMPLETE BLOOD COUNT (CBC) WITH DIFF STAT 06/13/2025 1:33 PM CDT EKG 12 LEAD STAT 06/13/2025 1:21 PM CDT EKG SCAN 06/13/2025 12:00 AM CDT EKG SCAN 06/13/2025 12:00 AM CDT NM CARD MULTI SPECT WITH WAL L MOTION AND EJECTION FRACTION Routine 06/11/2025 10:17 AM CDT CUEVAS (dyspnea on exertion) MAYRA (obstructive sleep apnea) Centrilobular emphysema (HCC) Other chest pain History of DVT (deep vein thrombosis) Tobacco dependence ADULT CV STRESS PHARMACOLOGI C W NUC MED Routine 06/11/2025 9:50 AM CDT CUEVAS (dyspnea on exertion) MAYRA (obstructive sleep apnea) Centrilobular emphysema (HCC) Other chest pain History of DVT (deep vein thrombosis) Tobacco dependence URINE DRUG SCREEN Routine 05/31/2025 Therapeutic drug monitoring DRUG SCREEN ORAL FLUID/SALIVA 12:00 AM CDT CBC WITH AUTO DIFFERENTIAL STAT 05/26 8:44 PM CDT LIPASE STAT 05/26/2025 8:44 PM CDT PROTIME (PT) (PROTHROMBIN TIME) STAT 05/26/2025 8:44 PM CDT CMP (COMPREHENSIVE METABOLIC PANEL) STAT 05/26/2025 8:44 PM CDT COMPLETE BLOOD COUNT (CBC) WITH DIFF STAT 05/26/2025 8:44 PM CDT PATHOLOGY SURGICAL Routine 05/18/2025 12:12 PM CDT AL EGD FLEXIBLE TRANSNASAL D X W/COLLJ SPEC BR/WA 05/18/2025 11:59 AM CDT EGD - DUODENITIS BIOPSY, 2CM HIATAL HERNIA AL ESOPHAGOGASTRODUODENOSCOP Y TRANSORAL DIAGNOSTIC 05/18/2025 11:59 AM CDT EGD - DUODENITIS BIOPSY, 2CM HIATAL HERNIA GI LAB IMAGING - EGD Routine 05/18/2025 10:53 AM CDT HEMOGLOBIN & HEMATOCRIT (H&H) Timed 10:04 AM CDT XR CHEST SINGLE VIEW PORTABLE STAT 1:55 AM CDT CULTURE, BLOOD Routine 05/18/2025 1:13 AM CDT CBC WITH AUTO DIFFERENTIAL STAT 05/18 1:10 AM CDT LACTIC ACID (LACTATE) Routine 05/18/2025 1:10 AM CDT PROTIME (PT) (PROTHROMBIN TIME) Routine 05/18/2025 1:10 AM CDT APTT (PTT) Routine 05/18/2025 1:10 AM CDT COMPLETE BLOOD COUNT (CBC) WITH DIFF STAT 05/18/2025 1:10 AM CDT BASIC METABOLIC PANEL W/ CALCIUM TOTAL STAT 05/18/2025 1:10 AM CDT CULTURE, BLOOD Routine 05/18/2025 1:10 AM CDT RHYTHM STRIP 05/18/2025 12:00 AM CDT RHYTHM STRIP 05/18/2025 12:00 AM CDT CBC WITH AUTO DIFFERENTIAL STAT 05/17 7:35 PM CDT TYPE & SCREEN (CROSSMATCH CONVERTIBLE) STAT 05/17/2025 7:35 PM CDT CMP (COMPREHENSIVE METABOLIC PANEL) STAT 05/17/2025 7:35 PM CDT LIPASE STAT 05/17/2025 7:35 PM CDT COMPLETE BLOOD COUNT (CBC) WITH DIFF STAT 05/17/2025 7:[address] ABDOMEN PELVIS W/ CONTRAST Stat with Interpretation 05/17/2025 4:15 AM CDT POCT URINE HCG () STAT 05/17 2:56 AM CDT URINALYSIS REFLEX IF INDICAT ED BY ABNORMAL RESULTS STAT 05/17/2025 2:51 AM CDT CBC WITH AUTO DIFFERENTIAL STAT 05/17 2:37 AM CDT LIPASE STAT 05/17/2025 2:37 AM CDT CMP (COMPREHENSIVE METABOLIC PANEL) STAT 05/17/2025 2:37 AM CDT COMPLETE BLOOD COUNT (CBC) WITH DIFF STAT 05/17/2025 2:37 AM CDT RHYTHM STRIP 05/17/2025 12:[address] - ABDOMEN/PELVIS 05/17/2025 12:00 AM CDT HEMOGLOBIN A1C W/ ESTIMATED GLUCOSE STAT 05/26/2024 4:45 AM CDT from Last 3 Months or Most Recently Relevant to Health Maintenance Results * TROPONIN I, HIGH SENSITIVITY (HSTRP) (06/18/2025 2:10 AM CDT) Only the most recent of2 resultswithin the time period is included. [facility] TROPONIN I, HIGH SENSITIVITY- [place] <2.7 <=14.0 ng/L 06/18/2025 2:58 AM CDT [facility] Comment: High-sensitivity troponin I results are reported in ng/L making the result appear to be 1,000 times higher than the contemporary troponin I value which is reported in ng/ml. Results from [place]. Blood Venipuncture / Unknown 06/18/2025 2:10 AM CDT 06/18/2025 2:30 AM CDT Antonio Agudelo MD CHEMISTRY ORDERABLES [facility] Result [facility] [address] [place] [address] * CBC with Auto Differential (06/18/2025 2:10 AM CDT) Only the most recent of6 resultswithin the time period is included. [facility] WBC 8.21 4.00 - 12.00 10(3)/mcL 06/18/2025 2:33 AM CDT [facility] RBC 4.39 3.80 - 5.30 10(6)/mcL 06/18/2025 2:33 AM CDT [facility] HEMOGLOBIN (HGB) 12.3 12.0 - 15.8 g/dL 06/18/2025 2:33 AM CDT [facility] HEMATOCRIT (HCT) 38.8 36.0 - 47.0 % 06/18/2025 2:33 AM CDT [facility] MCV 88.4 82.0 - 96.0 fL 06/18/2025 2:33 AM CDT [facility] MCH 28.0 26.0 - 34.0 pg 06/18/2025 2:33 AM CDT [facility] MCHC 31.7 31.0 - 36.0 g/dL 06/18/2025 2:33 AM CDT [facility] PLATELET COUNT 285 140 - 440 10(3)/mcL 06/18/2025 2:33 AM CDT [facility] RDW 14.1 11.8 - 15.5 % 06/18/2025 2:33 AM CDT [facility] MPV 10.1 9.7 - 12.4 fL 06/18/2025 2:33 AM CDT [facility] NEUTROPHILS 57.1 47.0 - 73.0 % 06/18/2025 2:33 AM CDT [facility] LYMPHOCYTES 31.8 18.0 - 42.0 % 06/18/2025 2:33 AM CDT [facility] MONOCYTES 6.6 4.0 - 12.0 % 06/18/2025 2:33 AM CDT [facility] EOSINOPHILS 3.3 0.0 - 5.0 % 06/18/2025 2:33 AM CDT [facility] BASOPHILS 1.0 0.0 - 1.0 % 06/18/2025 2:33 AM CDT [facility] IMMATURE GRANULOCYTE 0.2 0.0 - 0.4 % 06/18/2025 2:33 AM CDT [facility] ABSOLUTE NEUTROPHILS 4.69 1.60 - 7.70 10(3)/mcL 06/18/2025 2:33 AM CDT [facility] ABSOLUTE LYMPHOCYTES 2.61 1.30 - 3.20 10(3)/mcL 06/18/2025 2:33 AM CDT [facility] ABSOLUTE MONOCYTES 0.54 0.20 - 1.00 10(3)/mcL 06/18/2025 2:33 AM CDT [facility] ABSOLUTE EOSINOPHIL 0.27 0.00 - 0.40 10(3)/mcL 06/18/2025 2:33 AM CDT [facility] ABSOLUTE BASOPHILS 0.08 0.00 - 0.10 10(3)/mcL 06/18/2025 2:33 AM CDT [facility] ABSOLUTE IMMATURE GRANULOCYTE 0.02 0.00 - 0.03 10 (3) mcL. 06/18/2025 2:33 AM CDT [facility] NRBC PER 100 WBC 0 06/18/20 2:33 AM CDT [facility] Blood Venipuncture / Unknown 06/18/2025 2:10 AM CDT 06/18/2025 2:29 AM CDT us Antonio Agudelo MD HEMATOLOGY ORDERABLES F inal Result [facility] [address] [place] [address] * (ABNORMAL) Comprehensive Metabolic Panel (Cmp) [id number] (06/18/2025 2:10 AM CDT) Only the most recent of5 resultswithin the time period is included. SODIUM 140 136 - 145 mmol/L 06/18/2025 2:54 AM CDT [facility] POTASSIUM 3.6 3.5 - 5.1 mmol/L 06/18/2025 2:54 AM CDT [facility] CHLORIDE 105 98 - 107 mmol/L 06/18/2025 2:54 AM CDT [facility] CO2, VENOUS 25 22 - 30 mmol/L 06/18/2025 2:54 AM CDT [facility] ANION GAP 13.6 <18.0 mmol/L 06/18/2025 2:54 AM CDT [facility] GLUCOSE 141(H) 70 - 99 mg/dL 06/18/2025 2:54 AM CDT [facility] BUN 10 5 - 18 mg/dL 06/18/2025 2:54 AM CDT [facility] CREATININE, BLOOD 0.88 0.60 - 1.00 mg/dL 06/18/2025 2:54 AM CDT [facility] BUN/CREATININE RATIO 11(L) 12 - 20 ratio 06/18/2025 2:54 AM CDT [facility] TOTAL PROTEIN 6.4 6.0 - 8.0 g/dL 06/18/2025 2:54 AM CDT [facility] ALBUMIN 4.0 3.5 - 5.0 g/dL 06/18/2025 2:54 AM [facility] A/G RATIO 1.7 1.0 - 2.2 06/18/2025 2:54 AM CDT [facility] CALCIUM 9.2 8.7 - 10.5 mg/dL 06/18/2025 2:54 AM CDT [facility] T BILI 0.4 0.2 - 1.2 mg/dL 06/18/2025 2:54 AM [facility] SGOT (AST) 18 <43 U/L 06/18/2025 2:54 AM [facility] SGPT (ALT) 19 <56 U/L 06/18/2025 2:54 AM [facility] ALKALINE PHOSPHATASE 52 40 - 150 U/L 06/18/2025 2:54 AM [facility] GFR, ESTIMATED >60 >=60 06/18/2025 2:54 AM [facility] Comment: Creatinine Clearance is the preferred criteria for selecting drug dose adjustments in renally impaired patients. The GFR is provided as additional pertinent clinical information. GFR is reported in mL/min/1.73 sq m. Calculation based on the 2020 Chronic Kidney Disease Epidemiology Collaboration (CKD-EPI) equation refit without adjustment for race. GFR, EST. >60 >=60 2:54 AM [facility] Comment: Creatinine Clearance is the preferred criteria for selecting drug dose adjustments in renally impaired patients. The GFR is provided as additional pertinent clinical information. GFR is reported in mL/min/1.73 sq m. Calculation based on the 2009 Chronic Kidney Disease Epidemiology Collaboration (CKD-EPI). GFR, EST. NONAFRICAN >60 >=60 06/18/2025 2:54 AM [facility] Comment: Creatinine Clearance is the preferred criteria for selecting drug dose adjustments in renally impaired patients. The GFR is provided as additional pertinent clinical information. GFR is reported in mL/min/1.73 sq m. Calculation based on the 2009 Chronic Kidney Disease Epidemiology Collaboration (CKD-EPI). Blood Venipuncture / Unknown 06/18/2025 2:10 AM CDT 06/18/2025 2:30 AM CDT Antonio Agudelo MD CHEMISTRY ORDERABLES Fi nal Result Performing Organization Address [facility] de Phone Number [facility] [address] [place] [address] * EKG 12 LEAD (06/18/2025 2:03 AM CDT) Only the most recent of2 resultswithin the time period is included. Ventricular Rate 77 BPM EXTERNAL EKG Atrial Rate 77 BPM EXTERNAL EKG P-R Interval 152 ms EXTERNAL EKG QRS Duration 86 ms EXTERNAL EKG Q-T Duration 368 ms EXTERNAL EKG QTC CALCULATION 416 ms EXTERNAL EKG P [place] 70 degrees EXTERNAL EKG R [place] 57 degrees EXTERNAL EKG T [place] 50 degrees EXTERNAL EKG 06/18/2025 2:03 AM CDT Impressions EXTERNAL EKG - 06/19/2025 3:45 PM CDT Normal sinus rhythm Nonspecific T wave abnormality Borderline ECG When compared with ECG of 13-JUN-2025 13:21, No significant change was found Confirmed by Butch Galaviz ([id number]) on 06/19/2025 3:45:51 PM Narrative Procedure Note Butch Galaviz MD PhD - 06/19/2025 IMPRESSION: Normal sinus rhythm Nonspecific T wave abnormality Borderline ECG When compared with ECG of 13-JUN-2025 13:21, No significant change was found Confirmed by Butch Galaviz ([id number]) on 06/19/2025 3:45:51 PM Antonio Agudelo MD IMG ECG ORDERABLES Diamond l Result Performing Organization Address [facility] Co de Phone Number EXTERNAL EKG * EKG SCAN (06/18/2025 12:00 AM CDT) Only the most recent of3 resultswithin the time period is included. 06/18/2025 us Provider Scan IMG ECG ORDERABLES Final Result RESULTING AGENCY * (ABNORMAL) Urine Drug Screen (06/13/2025 3:00 PM CDT) Only the most recent of2 resultswithin the time period is included. UR AMPHETAMINE NON DETECTED NON DETECTED 06/13/2025 3:25 PM CDT [facility] Comment: FOR MEDICAL USE ONLY. CUTOFF CONCENTRATION FOR DETECTED RESULT: AMPHETAMINE: 500 NG/ML UR BENZODIAZEPINES NON DETECTED NON DETECTED 06/13/2025 3:25 PM CDT [facility] Comment: FOR MEDICAL USE ONLY. CUTOFF CONCENTRATION FOR DETECTED RESULT: BENZODIAZAPINE: 200 NG/ML UR COCAINE METABOLITE DETECTED(A) NON DETECTED 06/13/2025 3:25 PM CDT [facility] Comment: FOR MEDICAL USE ONLY. CUTOFF CONCENTRATION FOR DETECTED RESULT: COCAINE: 150 NG/ML UR OPIATES NON DETECTED NON DETECTED 06/13/2025 3:25 PM CDT [facility] Comment: FOR MEDICAL USE ONLY. CUTOFF CONCENTRATION FOR DETECTED RESULT: OPIATES: 300 NG/ML UR PHENCYCLIDINE NON DETECTED NON DETECTED 06/13/2025 3:25 PM CDT [facility] Comment: FOR MEDICAL USE ONLY. CUTOFF CONCENTRATION FOR DETECTED RESULT: PCP: 25 NG/ML UR CANNABINOID DETECTED(A) NON DETECTED 06/13/2025 3:25 PM CDT [facility] Comment: FOR MEDICAL USE ONLY. CUTOFF CONCENTRATION FOR DETECTED RESULT: THC (MARIJUANA): 50 NG/ML UR BARBITURATE NON DETECTED NON DETECTED 06/13/2025 3:25 PM CDT [facility] Comment: FOR MEDICAL USE ONLY. CUTOFF CONCENTRATION FOR DETECTED RESULT: BARBITUATES: 200 NG/ML UR FENTANYL NON DETECTED NON DETECTED 06/13/2025 3:25 PM CDT [facility] Comment: FOR MEDICAL USE ONLY. CUTOFF CONCENTRATION FOR DETECTED RESULT: FENTANYL: 1.0 NG/ML Urine Non-Phlebotomy Collection / Unknown 06/13/2025 3:00 PM CDT 06/13/2025 3:12 PM CDT us Leslie Diaz APRN, FILM RECORDIST URINE ORDERABLES Diamond l Result [facility] [address] [place] [address] * XR CHEST SINGLE VIEW (06/13/2025 1:46 PM CDT) Anatomical Region Laterality Modality Chest N/A Digital Radiogra phy 06/13/2025 1:46 PM CDT Impressions 06/13/2025 8:07 PM CDT IMPRESSION: No acute chest disease. Narrative 06/13/2025 8:07 PM CDT DICTATING PHYSICIAN: Romana Nielson M.D. EXAM: Chest AP upright portable view 06/13/2025 COMPARISON: 06/02/2025, 02/05/2025 HISTORY: Chest pain and fatigue for 2 days. FINDINGS: The cardiac silhouette size is within normal limits. No vascular congestion, pneumothorax, pleural effusions, or alveolar consolidation. Visualized upper abdomen is unremarkable. No acute osseous abnormality. Procedure Note Romana Nielson MD - 06/13/2025 DICTATING PHYSICIAN: Romana Nielson M.D. EXAM: Chest AP upright portable view 06/13/2025 COMPARISON: 06/02/2025, 02/05/2025 HISTORY: Chest pain and fatigue for 2 days. FINDINGS: The cardiac silhouette size is within normal limits. No vascularcongestion, pneumothorax, pleural effusions, or alveolar consolidation.Visualized upper abdomen is unremarkable. No acute osseous abnormality. IMPRESSION: No acute chest disease. Leslie Diaz APRN, VILMA IMG DIAGNOSTIC ORDERA BLES Final Result * NT-proBNP (06/13/2025 1:33 PM CDT) NT PROBNP <15.8 <450.0 pg/mL 06/13/2025 2:53 PM CDT [facility] Comment: AGE pg/mL INTERPRETATION All <300 Negative: HF (Heart Failure) unlikely 18 to <50 >=300.0 to <450.0 Indeterminate. Consider other causes of NT-proBNP elevation 50 to 75 >=300.0 to <900.0 Indeterminate. Consider other causes of NT-proBNP elevation >75 >=300.0 to <1800.0 Indeterminate. Consider other causes of NT-proBNP elevation 18 to <50 >=450.0 Positive: HF likely 50 to 75 >=900.0 Positive: HF likely >75 >=1800.0 Positive: HF likely Total protein levels at or above 12.6 mg/dl may falsely decrease NT-proBNP values. Blood Venipuncture / Unknown 06/13/2025 1:33 PM CDT 06/13/2025 2:09 PM CDT us Leslie Diaz APRN, FILM RECORDIST CHEMISTRY ORDERABLES Final Result [facility] [address] [place] [address] * Blue Top Tube (06/13/2025 1:33 PM CDT) Blood No Phlebotomy Charged / Unknown 06/13/2025 1:33 PM CDT 06/13/2025 2:15 PM CDT us Leslie Diaz PICKLER HELPER, FILM RECORDIST HEMATOLOGY ORDERABLES Final Result [facility] [address] [place] [address] * Magnesium (Mg) [id number] (06/13/2025 1:33 PM CDT) MAGNESIUM 1.6 1.6 - 2.6 mg/dL 06/13/2025 2:39 PM CDT [facility] Blood Venipuncture / Unknown 06/13/2025 1:33 PM CDT 06/13/2025 2:09 PM CDT us Leslie Diaz PICKLER HELPER, FILM RECORDIST CHEMISTRY ORDERABLES Final Result [facility] [address] [facility] [place] [address] * NM CARD MULTI SPECT WITH WALL MOTION AND EJECTION FRACTION (06/11/2025 10:17 AM CDT) Anatomical Region Laterality Modality CARDIO N/A Nuclear Medicine Narrative 06/12/2025 7:58 PM CDT Nuclear stress test report Exam description: NM cardiac multi SPECT with wall motion and ejection fraction Reason for exam: Chest pressure and dyspnea on exertion over last 4 months. Radiopharmaceutical: Rest: 10.7 MCI Myoview at 0847 Stress: 33 MCI Myoview at 0947 Injection site: Right hand Technique: Standard myocardial perfusion images were obtained after resting a tracer injection. Subsequently, an intravenous infusion of 0.4 mg Lexiscan was performed. Standard myocardial perfusion images were obtained after tracer injection at peak effect of the drug. Findings: EKG: Reported separately Rest/stress images: There is a small-sized, moderate intensity, reversible perfusion defect in the mid to apical anterior segments concerning for ischemia vs breast attenuation artifact. LV function: Normal LV systolic function (EF 63%). SSS = 3, TID 1.28 Impression: Abnormal stress test with small-sized, moderate intensity, reversible perfusion defect in the mid to apical anterior segments concerning for ischemia vs breast attenuation artifact. There is also abnormal TID of 1.28. Consider further workup for ischemia. Danyell Aleman DO Zack Gary MD IMG NM CARDIAC NI ORDERABLES Final Result * ADULT CV STRESS PHARMACOLOGIC W NUC MED (06/11/2025 9:50 AM CDT) Anatomical Region Laterality Modality CARDIO N/A Electrocardiogra phy Narrative 06/11/2025 10:31 PM CDT Non-Imaging Stress Test Patient Name WAYNE Pearce 1990 Patient ID (I) [id number] Indications: Chest pain. Study Date06/11/2025 Type of Study: Non-Imaging Stress Test: Exercise, Pharmacological. Conclusions Summary Resting EKG showed normal sinus rhythm and no ST T wave changes. During pharmacological nuclear stress test, patient was in sinus rhythm and no ischemic ST T wave changes noted. Nuclear stress imaging report will be dictated separately. please refer to the nuclear medicine report for nuclear stress imaging. Rest ECG Normal sinus rhythm. Standing HR:63 bpmStanding BP:97/77 mmHg Results ECG Normal sinus rhythm. No ST segment changes diagnostic of ischemia. Symptoms Dizziness. Stress Stress Type - Protocol:Pharmacologic - Lexiscan Protocol Peak HR: 106 bpm [id number] Peak BP: 118/48 mmHg Predicted HR: 185 bpm % of predicted HR: 57 Test Duration: 0:00 min Stress Protocol:Pharmacologic - Lexiscan Protocol +-----+---------+-----+------+-----+ +------+--------+--+--------+----+ ----- -+ !Stage!Stage !Time !Dosage!Heart!Other !Dosage!Blood !CP!Pain !Pain!Pain ! !# !Name ! ! !Rate !Medication! !Pressure! !Location!Type!Action! +-----+---------+-----+------+-----+ +------+--------+--+--------+----+ ----- -+ !0.0 ! !00:00! !65 ! ! ! ! ! ! ! ! +-----+---------+-----+------+-----+ +------+--------+--+--------+----+ ----- -+ !1.0 !PREINFSN !02:10! !60 ! ! !97/77 ! ! ! ! ! ! !SUPINE ! ! ! ! ! ! ! ! ! ! ! +-----+---------+-----+------+-----+ +------+--------+--+--------+----+ ----- -+ !2.0 !INFUSION !00:14! !57 ! ! ! ! ! ! ! ! ! !DOSE 1 ! ! ! ! ! ! ! ! ! ! ! +-----+---------+-----+------+-----+ +------+--------+--+--------+----+ ----- -+ !3.0 !POSTINFSN!04:57! !87 ! ! !119/58 ! ! ! ! ! +-----+---------+-----+------+-----+ +------+--------+--+--------+----+ ----- -+ Demographics Age 35 Gender Female Race Height 64 in. Weight 248 lbs. BMI 42.57 kg/m^2 Stress Professional Development Instructor Nurse Tara York Interpreting Anastacia Rae Referring Physician Physician Procedure Note Butch Galaviz MD PhD - 06/11/2025 Non-Imaging Stress Test Patient Name WAYNE RIZVI Andrés CantorB. 1990 Patient ID (UPI) [id number] Indications: Chest pain. Study Date06/11/2025 Type of Study: Non-Imaging Stress Test: Exercise, Pharmacological. Conclusions Summary Resting EKG showed normal sinus rhythm and no ST T wave changes. During pharmacological nuclear stress test, patient was in sinus rhythm and no ischemic ST T wave changes noted. Nuclear stress imaging report will be dictated separately. please refer to the nuclear medicine report for nuclear stress imaging. Rest ECG Normal sinus rhythm. Standing HR:63 bpmStanding BP:97/77 mmHg Results ECG Normal sinus rhythm. No ST segment changes diagnostic of ischemia. Symptoms Dizziness. Stress Stress Type - Protocol:Pharmacologic - Lexiscan Protocol Peak HR: 106 bpm [id number] Peak BP: 118/48 mmHg Predicted HR: 185 bpm % of predicted HR: 57 Test Duration: 0:00 min Stress Protocol:Pharmacologic - Lexiscan Protocol +-----+---------+-----+------+-----+ +------+--------+--+--------+----+ ----- -+ !Stage!Stage !Time !Dosage!Heart!Other !Dosage!Blood !CP!Pain!Pain!Pain ! !# !Name ! ! !Rate !Medication! !Pressure!!Location!Type!Action! +-----+---------+-----+------+-----+ +------+--------+--+--------+----+ ----- -+ !0.0 ! !00:00! !65 ! ! ! ! !! ! ! +-----+---------+-----+------+-----+ +------+--------+--+--------+----+ ----- -+ !1.0 !PREINFSN !02:10! !60 ! ! !97/77 ! !! ! ! ! !SUPINE ! ! ! ! ! ! ! !! ! ! +-----+---------+-----+------+-----+ +------+--------+--+--------+----+ ----- -+ !2.0 !INFUSION !00:14! !57 ! ! ! ! !! ! ! ! !DOSE 1 ! ! ! ! ! ! ! !! ! ! +-----+---------+-----+------+-----+ +------+--------+--+--------+----+ ----- -+ !3.0 !POSTINFSN!04:57! !87 ! ! !119/58 ! !! ! ! +-----+---------+-----+------+-----+ +------+--------+--+--------+----+ ----- -+ Demographics Age 35 Gender Female Race Height 64 in. Weight 248 lbs. BMI 42.57 kg/m^2 Stress Professional Development Instructor Nurse Tara Rae Referring Physician Physician us Zack Gary MD IMG STRESS Final Result * DRUG SCREEN ORAL FLUID/SALIVA (05/31/2025 12:00 AM CDT) 05/31/2025 us Chela Randhawa PICKLER HELPER, FILM RECORDIST CHEMISTRY ORDERABLES Final Result SCAN * PT / INR (05/26/2025 8:44 PM CDT) Only the most recent of2 resultswithin the time period is included. PROTIME-PATIENT 12.9 11.6 - 14.8 sec 05/26/2025 9:05 PM CDT [facility] INR 1.0 0.9 - 1.2 05/26/2025 9:05 PM CDT [facility] Comment: Therapeutic Ranges INR = 2.0-3.0: Venous thromb, atrial fib, pul embolism, tissue heart valve, ami. INR = 2.5-3.5: Mechanical heart valve Critical value for INR is >/= 4.5 Blood Venipuncture / Unknown 05/26/2025 8:44 PM CDT 05/26/2025 8:51 PM CDT Thong Sanchez MD HEMATOLOGY ORDERABLES Final Resu lt Performing Organization Address City/[facility]/ZIP Co de Phone Number [facility] [address] [place] [address] * Lipase (05/26/2025 8:44 PM CDT) Only the most recent of3 resultswithin the time period is included. Pathologist [facility] LIPASE 29 8 - 78 U/L 05/26/2025 9:10 PM CDT [facility] Blood Venipuncture / Unknown 05/26/2025 8:44 PM CDT 05/26/2025 8:51 PM CDT Thong Sanchez MD CHEMISTRY ORDERABLES Final Resul t Performing Organization Address City/[facility]/ZIP Co de Phone Number [facility] [address] [place] [address] * Pathology Surgical (05/18/2025 12:12 PM CDT) Pathologist [facility] Case Report Surgical Pathology Report Case: [id number] Authorizing Provider: Porfirio Howard MD Collected: 05/18/2025 12:12 PM Ordering Location: [facility] Received: 05/21/2025 09:37 AM [facility] Med Surg 2 South Pathologist: Cornelius Zamudio MD PhD Specimen: Duodenum, DUODENITIS BIOPSY 05/22/2025 8:37 AM CDT [facility] FINAL DIAGNOSIS Duodenum biopsy: - Duodenal mucosa, negative for diagnostic abnormalities 05/22/2025 8:37 AM CDT [facility] at 0837 CDT Pre-Operative Diagnosis HEMATEMESIS 05/22/2025 8:37 AM CDT [facility] Gross Description A. DUODENITIS BIOPSY Received in formalin labeled with the patient identifiers and duodenum biopsy 1 soft chau tissue fragment measuring 0.3 in greatest dimension. The specimen is entirely submitted in cassette A1. Total time of formalin fixation: 93 hours 19 minutes 05/22/2025 8:37 AM CDT [facility] Microscopic Description Microscopic examination was performed which supports the final diagnosis. All control tissues stained appropriately. 05/22/2025 8:37 AM CDT [facility] Tissue DUODENAL STRUCTURE / Unknown 05/18/2025 12:12 PM CDT 05/21/2025 9:37 AM CDT Porfirio Howard MD PATHOLOGY/CYTOLOGY ORDERA BLES Final Result [facility] [address] [place] [address] * GI LAB IMAGING - EGD (05/18/2025 10:53 AM CDT) us Porfirio Howard MD IMG DIAGNOSTIC ORDERABLES Final Result * Hgb & Hct (05/18/2025 10:04 AM CDT) HEMOGLOBIN (HGB) 12.7 12.0 - 15.8 g/dL 05/18/2025 10:15 AM CDT [facility] HEMATOCRIT (HCT) 41.3 36.0 - 47.0 % 05/18/2025 10:15 AM CDT [facility] Blood Venipuncture / Unknown 05/18/2025 10:04 AM CDT 05/18/2025 10:11 AM CDT us Radha Bowen Rhina PICKLER HELPER, FILM RECORDIST HEMATOLOGY ORDERABLES Final Result [facility] [address] [place] [address] * XR CHEST SINGLE VIEW PORTABLE (05/18/2025 1:55 AM CDT) Anatomical Region Laterality Modality Chest N/A Computed Radiogr aphy 05/18/2025 1:55 AM CDT Impressions 05/18/2025 5:26 AM CDT IMPRESSION: No acute pulmonary disease. Narrative 05/18/2025 5:26 AM CDT XR CHEST SINGLE VIEW PORTABLE : 05/18/2025 1:55 AM DICTATING PHYSICIAN: LAUREEN DELVALLE [facility]ly [facility]. HISTORY: ADDITIONAL TECHNOLOGIST HISTORY: sepsis COMPARISON: 02/05/2025 TECHNIQUE: Single view radiograph of the chest was obtained. FINDINGS: Cardiomediastinal silhouette: Mild cardiomegaly. Pulmonary vascularity: Within normal limits. Lung parenchyma: Clear of nodules and infiltrates. Pleura: No evidence for effusion or pneumothorax. Osseous structures: Regional osseous structures are intact. Age-appropriate degenerative changes noted. Support lines and tubes: None. Procedure Note Laureen Delvalle MD - 05/18/2025 XR CHEST SINGLE VIEW PORTABLE : 05/18/2025 1:55 AM DICTATING PHYSICIAN: LAUREEN DELVALLE [facility]. HISTORY: ADDITIONAL TECHNOLOGIST HISTORY: sepsis COMPARISON: 02/05/2025 TECHNIQUE: Single view radiograph of the chest was obtained. FINDINGS: Cardiomediastinal silhouette: Mild cardiomegaly. Pulmonary vascularity: Within normal limits. Lung parenchyma: Clear of nodules and infiltrates. Pleura: No evidence for effusion or pneumothorax. Osseous structures: Regional osseous structures are intact.Age-appropriate degenerative changes noted. Support lines and tubes: None. IMPRESSION: No acute pulmonary disease. Radha Lantigua APRN, CNP IMG DIAGNOSTIC ORDERA BLES Final Result * Culture, Blood (05/18/2025 1:13 AM CDT) Only the most recent of2 resultswithin the time period is included. CULTURE RESULTS NO GROWTH WITHIN 5 DAYS, FINAL RESULT 05/23/2025 2:00 AM CDT [facility] Culture (Peripheral Vein) Venipuncture / Unknown 05/18/2025 1:13 AM CDT 05/18/2025 1:16 AM CDT Radha Lantigua APRN, CNP MICROBIOLOGY - GENERA L ORDERABLES Final Result Performing Organization Address City/[facility]/ZIP Co de Phone Number [facility] [address] [place] [address], * APTT (PTT) (05/18/2025 1:10 AM CDT) PTT 27 24 - 36 sec 05/18/2025 1:31 AM CDT [facility] Blood Venipuncture / Unknown 05/18/2025 1:10 AM CDT 05/18/2025 1:16 AM CDT Narrative [facility] - 05/18/2025 1:31 AM CDT Therapeutic range for unfractionated heparin at 0.3-0.7 U/mL is an aPTT value in the range of 71-100 seconds. Critical value for the PTT test is >= 122 seconds. Radha Lantigua APRN, CNP HEMATOLOGY ORDERABLES Final Result Performing Organization Address City/[facility]/ZIP Co de Phone Number [facility] [address] [place] [address] * Lactic Acid (Lactate) (05/18/2025 1:10 AM CDT) LACTIC ACID 2.0 0.7 - 2.0 mmol/L 05/18/2025 1:37 AM CDT [facility] Blood Venipuncture / Unknown 05/18/2025 1:10 AM CDT 05/18/2025 1:16 AM CDT us Radha Lantigua PICKLER HELPER, FILM RECORDIST CHEMISTRY ORDERABLES Final Result [facility] [address] [place] [address] * (ABNORMAL) BMP with Ca, Total (05/18/2025 1:10 AM CDT) SODIUM 137 136 - 145 mmol/L 05/18/2025 1:35 AM CDT [facility] POTASSIUM 3.9 3.5 - 5.1 mmol/L 05/18/2025 1:35 AM CDT [facility] CHLORIDE 106 98 - 107 mmol/L 05/18/2025 1:35 AM CDT [facility] CO2, VENOUS 25 22 - 30 mmol/L 05/18/2025 1:35 AM CDT [facility] ANION GAP 9.9 <18.0 mmol/L 05/18/2025 1:35 AM CDT [facility] GLUCOSE 100(H) 70 - 99 mg/dL 05/18/2025 1:35 AM CDT [facility] BUN 7 5 - 18 mg/dL 05/18/2025 1:35 AM CDT [facility] CREATININE, BLOOD 0.73 0.60 - 1.00 mg/dL 05/18/2025 1:35 AM CDT [facility] BUN/CREATININE RATIO 10(L) 12 - 20 ratio 05/18/2025 1:35 AM CDT [facility] CALCIUM 8.4(L) 8.7 - 10.5 mg/dL 05/18/2025 1:35 AM CDT [facility] GFR, ESTIMATED >60 >=60 05/18/2025 1:35 AM CDT [facility] Comment: Creatinine Clearance is the preferred criteria for selecting drug dose adjustments in renally impaired patients. The GFR is provided as additional pertinent clinical information. GFR is reported in mL/min/1.73 sq m. Calculation based on the 2020 Chronic Kidney Disease Epidemiology Collaboration (CKD-EPI) equation refit without adjustment for race. GFR, EST. >60 >=60 025 1:35 AM CDT [facility] Comment: Creatinine Clearance is the preferred criteria for selecting drug dose adjustments in renally impaired patients. The GFR is provided as additional pertinent clinical information. GFR is reported in mL/min/1.73 sq m. Calculation based on the 2009 Chronic Kidney Disease Epidemiology Collaboration (CKD-EPI). GFR, EST. NONAFRICAN >60 >=60 05/18/2025 1:35 AM CDT [facility] Comment: Creatinine Clearance is the preferred criteria for selecting drug dose adjustments in renally impaired patients. The GFR is provided as additional pertinent clinical information. GFR is reported in mL/min/1.73 sq m. Calculation based on the 2009 Chronic Kidney Disease Epidemiology Collaboration (CKD-EPI). Blood Venipuncture / Unknown 05/18/2025 1:10 AM CDT 05/18/2025 1:16 AM CDT us Radha Lantigua PICKLER HELPER, FILM RECORDIST CHEMISTRY ORDERABLES Final Result [facility] [address] [place] [address] * RHYTHM STRIP (05/18/2025 12:00 AM CDT) Only the most recent of3 resultswithin the time period is included. 05/18/2025 us Provider Scan IMG ECG ORDERABLES Final Result [facility] * TYPE & SCREEN (CROSSMATCH CONVERTIBLE) (05/17/2025 7:35 PM CDT) ABO TYPING A 05/17/2025 8:34 PM CDT [facility] RH Positive 05/17/2025 8:34 PM CDT [facility] ABSC Negative 05/17/2025 8:34 PM CDT [facility] Blood Venipuncture / Unknown 05/17/2025 7:35 PM CDT 05/17/2025 7:42 PM CDT us Hugo Sheehan MD BLOOD BANK ORDERABLES Edit ed Result - Final Performing Organization Address [facility] Co de Phone Number [facility] [place] [address] * CT ABDOMEN PELVIS W/ CONTRAST (05/17/2025 4:15 AM CDT) Anatomical Region Laterality Modality Abdomen N/A Computed Tomogra phy 05/17/2025 4:15 AM CDT Impressions 05/17/2025 6:01 AM CDT IMPRESSION: No acute intra-abdominal findings. Narrative 05/17/2025 6:01 AM CDT EXAM: CT ABDOMEN PELVIS W/ CONTRAST 05/17/2025 4:15 AM HISTORY: Acute abdominal pain COMPARISON: 04/27/2024 TECHNIQUE: Spiral postcontrast CT of the abdomen/pelvis. 100 mL Isovue 300 IV. No contrast reaction. RADIATION EXPOSURE: Dose reduction techniques utilized FINDINGS: Lung bases are clear. The gallbladder has been removed. The liver, pancreas, spleen, adrenal glands and kidneys are unremarkable. Stomach, small and large bowel are unremarkable. The abdominal aorta and its major branches are unremarkable. The axial and appendicular skeleton are unremarkable. The appendix is normal. Procedure Note Addy Appiah MD - 05/17/2025 EXAM: CT ABDOMEN PELVIS W/ CONTRAST 05/17/2025 4:15 AM HISTORY: Acute abdominal pain COMPARISON: 04/27/2024 TECHNIQUE: Spiral postcontrast CT of the abdomen/pelvis. 100 mL [id number] IV. No contrast reaction. RADIATION EXPOSURE: Dose reduction techniques utilized FINDINGS: Lung bases are clear. The gallbladder has been removed. The liver,pancreas, spleen, adrenal glands and kidneys are unremarkable. Stomach,small and large bowel are unremarkable. The abdominal aorta and its majorbranches are unremarkable. The axial and appendicular skeleton areunremarkable. The appendix is normal. IMPRESSION: No acute intra-abdominal findings. us Hugo Sheehan MD IMG CT ORDERABLES Final Re sult * POCT Urine HCG () (05/17/2025 2:56 AM CDT) Pathologist [facility] POC URINE Negative POC URINE CONTROL Audio Visual Engineer Pass Urine 05/17/2025 2:56 AM CDT us Hugo Sheehan MD POINT OF CARE TESTING (MAN UAL) Final Result * (ABNORMAL) URINALYSIS REFLEX IF INDICATED BY ABNORMAL RESULTS (05/17/2025 2:51 AM CDT) Pathologist [facility] SPECIFIC GRAVITY 1.015 1.003 - 1.030 05/17/2025 3:13 AM CDT [facility] URINE PH 6.5 5.0 - 9.0 05/17/2025 3:13 AM CDT [facility] WBC ESTERASE 25 /ul(A) Negative 05/17/2025 3:13 AM CDT [facility] NITRITE Negative Negative 05/17/2025 3:13 AM CDT [facility] PROTEIN, RANDOM URINE 30 mg/dL(A) Negative 05/17/2025 3:13 AM CDT [facility] URINE GLUCOSE, QUAL Negative Negative 05/17/2025 3:13 AM CDT [facility] URINE KETONES Negative Negative 05/17/2025 3:13 AM CDT [facility] UROBILINOGEN 1 mg/dL(A) Normal mg/dL 05/17/2025 3:13 AM CDT [facility] URINE BLOOD Negative Negative dariana/ul 05/17/2025 3:13 AM CDT [facility] URINALYSIS COLOR Yellow 05/17/20 3:13 AM CDT [facility] URINALYSIS CLARITY Clear 05/17/2025 3:13 AM CDT [facility] WBC (Urine) 0-5 Negative, 0-5 /hpf 05/17/2025 3:13 AM CDT [facility] URINE RBC'S 0-2 Negative, 0-2 /hpf 05/17/2025 3:13 AM CDT [facility] EPITHELIAL CELLS Moderate amount /lpf 05/17/2025 3:13 AM CDT [facility] BACTERIA, URINE Few(A) Negative /hpf 05/17/2025 3:13 AM CDT [facility] URINE MUCOUS Many 05/17/2025 3:13 AM CDT [facility] Urine URINE SPECIMEN OBTAINED BY CLEAN CATCH PROCEDURE / Unknown Non-Phlebotomy Collection / Unknown 05/17/2025 2:51 AM CDT 05/17/2025 2:55 AM CDT us Hugo Sheehan MD URINE ORDERABLES Final Res ult [facility] [address] [place] [address] * CT - ABDOMEN/PELVIS (05/17/2025 12:00 AM CDT) 05/17/2025 us Provider Scan IMG CT ORDERABLES Final Result SCAN * Hemoglobin A1C w/ Estimated Glucose (05/26/2024 4:45 AM CDT) HGB-A1C 5.9 4.0 - 6.0 % 05/26/2024 11:43 AM CDT [facility] Est Average Glucose 122.6 mg/dL 05/26/2024 11:43 AM CDT [facility] Blood Venipuncture / Unknown 05/26/2024 4:45 AM CDT 05/26/2024 5:53 AM CDT Narrative [facility] - 05/26/2024 11:43 AM CDT HEMOGLOBIN A1C: DIABETIC PATIENTS: WELL-CONTROLLED: 6.2 - 7.0 INTERMEDIATE WELL-CONTROLLED: 7.0 - 9.0 POORLY-CONTROLLED: >9.0 us Roverto Lema MD CHEMISTRY ORDERABLES Final Re sult [facility] [address] [place] [address] from Last 3 Months or Most Recently Relevant to Health Maintenance Insurance MEDICAID [facility] [employer] [facility] Advance Directives * Full Code (Latest Code Status on File) Date Activated Date Inactivated Comments 05/17/2025 9:24 PM CPR-Full Treatm ent: FULL ARREST: Attempt Resuscitation/CPR wit intubation and mechanical ventilation. PRE-ARREST: Use entire range of life support measures to stabilize the patient. * Full Code Date Activated Date Inactivated Comments 07/07/2024 4:56 AM 05/17/2025 9:24 PM CPR-Full Christiano atment: FULL ARREST: Attempt Resuscitation/CPR wit intubation and mechanical ventilation. PRE-ARREST: Use entire range of life support measures to stabilize the patient. * Full Code Date Activated Date Inactivated Comments 05/25/2024 10:10 PM 05/29/2024 8:01 PM CPR-Full Tr eatment: FULL ARREST: Attempt Resuscitation/CPR wit intubation and mechanical ventilation. PRE-ARREST: Use entire range of life support measures to stabilize the patient. * Full Code Date Activated Date Inactivated Comments 06/27/2022 10:51 PM 06/28/2022 3:58 PM CPR-Full Treatment: FULL ARREST: Attempt Resuscitation/CPR wit intubation and mechanical ventilation. PRE-ARREST: Use entire range of life support measures to stabilize the patient. * Full Code Date Activated Date Inactivated Comments 04/11/2018 7:26 AM 04/11/2018 10:31 AM CPR-Full Tr eatment: FULL ARREST: Attempt Resuscitation/CPR wit intubation and mechanical ventilation. PRE-ARREST: Use entire range of life support measures to stabilize the patient. Care Teams Special Event Assistant Relationship Specialty Start Date End Date Chela Randhawa, PICKLER HELPER, FILM RECORDIST [address] [place] [address] PCP - General Advanced Practice Nurse 05/24/25 David Raphael MD Consulting Physician Obstetrics & Gynecology 08/04/19 Carlos Hart MD [address] [phone] Consulting Physician General Surgery 07/07/22 Moisés Taveras APRN, FILM RECORDIST [address] [place] [address] Nurse Practitioner Advanced Practice Nurse 05/30/23 Elisa Ortega APRN, FILM RECORDIST #[address] [address] Nurse Practitioner Advanced Practice Nurse 04/30/22 Duyen Malhotra, PICKLER HELPER, FILM RECORDIST [address] [place] [address] Nurse Practitioner Cardiology 09/25/24
--- OUTSIDE RECORDS SUMMARY | 2025-06-26 01:10 | XMS_ITS | Encounter Summary ---
Author Organization [facility] Address [address] [place] [address] Care Team Providers Care Glass Worker Name Role Phone Brittney Sow MD Unavailable [phone] Dario Solares Primary Care Provider [phone] Encounter Details Date Type Department Care Team (Late st Contact Info) Description 01/15/2020 Lab Requisition [facility] [address] [place] [address] George Gomez MD Social History Tobacco Use Types Packs/Day Years Used Date Smoking Tobacco: Never Assessed Comments No Sex and Gender Information Value Date Recorded Sex Assigned at Not on file Legal Sex Female 3:24 PM WELDING MACHINE OPERATOR RESISTANCE Gender Identity Not on file Sexual Orientation [...] of Assessment Author No 05/26/2018 12:35 AM CDRadha Solomon RN documented as of this encounter Mental Status * Does person have difficulty concentrating/remembering/making decisions? Answer Entry Date Author No 05/26/2018 12:35 AM Radha Snow RN documented in this encounter Plan of Treatment Not on file documented as of this encounter Procedures Procedure Name Priority Date/Time Associated Diagnosis Comments SARS-COV-2 (COVID-19) IN HOUSE Routine 01/14/2020 11:36 PM CDT documented in this encounter Results * SARS-COV-2 (COVID-19) IN HOUSE (01/14/2020 11:36 PM CDT) COVID-19 PCR Not detected Not detected, Invalid 01/15/2020 10:11 PM CDT [facility] Microbiology SPECIMEN FROM NASOPHARYNGEAL STRUCTURE / Unknown Collection / Unknown 01/14/2020 11:36 PM CDT 01/15/2020 10:52 AM CDT Narrative [facility] - 01/15/2020 10:11 PM CDT This Real Time RT-PCR assay was developed and its performance characteristics determined by [facility]. This test has been authorized by the Food and Drug administration (FDA)under an Emergency Use Authorization (EUA). This test has been validated in accordance with the FDA's guidance document Policy for Diagnostic Testing in Laboratories Certified to perform High Complexity Testing under CLIA prior to Emergency Use Authorization for Coronavirus Disease-2019 during the Public Health Emergency issued on November 11, 2019. FDA independent review of this validation is pending. This test is only authorized for the duration of time the declaration that circumstances exist justifying the authorization of emergency use of in vitro diagnostic tests for detection of SARS-CoV-2 virus and/or diagnosis of COVID-19 infection under section 564(b)(1) of the Act, 21 U.S.C 360bbb-3 (b)(1), unless the authorization is terminated or revoked sooner. us George Gomez MD LAB - MICROBIOLOGY ORDERABL ES Final Result [facility] [address] [place] [address], [facility] [phone] documented in this encounter Visit Diagnoses Not on filedocumented in this encounter Care Teams Glass Worker Relationship Specialty Start Date End Date Dario Solares PA [address] [place] [address] PCP - General Physician Saxophone Player 11/24/17 Brittney Sow MD Obstetrics and Gynecology 10/27/17 documented as of this encounter
--- OUTSIDE RECORDS SUMMARY | 2025-06-26 01:10 | XMS_ITS | Encounter Summary ---
Author Organization [facility] Address [address] [place] [address] Phone Care Team Providers Care Transportation Department Head Name Role Phone Lazarus Amin MD Unavailable [phone] David Raphael MD Unavailable [phone] April Pereira APRN Primary Care Provider [phone] Provider, None Primary Care Provider Unavailabl Dario Pena PAC Primary Care Provider [phone] Christ Hawkins MD Primary Care Provider [phone] Dario Solares PAC Primary Care Provider [phone] Carlos Hart MD Unavailable [phone] Teodoro Covarrubias MD Unavailable Bishop Pérez MD Primary Care Provider [phone] Yessi Combs GUEST LAUNDRY ATTENDANT, REGIONAL EDUCATION MANAGER Unavailable [phone] Moisés Taveras GUEST LAUNDRY ATTENDANT, REGIONAL EDUCATION MANAGER Unavailable + [phone] Elisa Ortega GUEST LAUNDRY ATTENDANT, REGIONAL EDUCATION MANAGER Unavailable [phone] Provider, None Primary Care Provider Unavailabl e Provider, None Primary Care Provider Unavailabl e Duyen Malhotra Edel GUEST LAUNDRY ATTENDANT, [place]MA Unavailable EdisChela ramirez Don GIMENEZ, REGIONAL EDUCATION MANAGER Primary Care Provide r Reason for Visit * Reason Comments Medication Refill Encounter Details Date Type Department Care Team (Late st Contact Info) Description 07/30/2020 Refill [facility] [address] [place] [address] Christ Hawkins MD [address] [place] [address] Medication Refill Social History Tobacco Use Types Packs/Day Years Used Date Smoking Tobacco: Some Days Cigarettes 0.3 15 Smokeless Tobacco: Never Comments:once a week Alcohol Use Standard Drinks/Week Comments No 0 (1 standard drink = 0.6 oz pur e alcohol) PHQ-2 Answer Date Recorded Total Score - Questions 1-9 0 01/11 Education Answer Date Recorded What is the [...] Exposure Response Date Recorded In the last month, have you been in contact with someone who was confirmed or suspected to have Coronavirus / COVID-19? No / Unsure 08/02/2020 4:46 PM CONVEX GRINDER OPERATOR documented as of this encounter Miscellaneous Notes * Telephone Encounter - Preeti Mckinney RN - 07/30/2020 8:49 AM CST Medication failed the protocol, provider to review and approve the medication order if appropriate. Requested Prescriptions Pending Prescriptions Disp Refills metFORMIN (GLUCOPHAGE) 500 MG Tablet [Pharmacy Med Name: METFORMIN HCL 500 MG TABLET] 90 Tab 7 Sig: TAKE 1 TABLET BY MOUTH 3 TIMES A DAY WITH MEALS Endocrinology: Diabetes - Biguanides Passed - 07/30/2020 12:15 AM Passed - Valid encounter within last 12 months Past Office Visits Recent Outpatient Visits 2 weeks ago [facility] with [facility] Daryn Sanchez, PAC 5 months ago [facility]ysuria [facility] APN, REGIONAL EDUCATION MANAGER 6 months ago ETD (Eustachian tube dysfunction), [facility] [place], Maddie Rodriguez, PAC 8 months ago [facility] [place] 9 months ago Urinary pain [facility] Grimm MD Upcoming Appointments INTERNAL SECURITY MANAGER - Recent and Past Visits Recent Visits Date Type Provider Dept 07/11/20 Office Visit Daryn Sanchez, PAC [facility] 02/19/20 Office Visit Renée Peterson APN, REGIONAL EDUCATION MANAGER [facility] [place] 01/26/20 Office Visit Maddie Borden, PAC [facility] 11/29/19 Office Visit Sharlene Burgos, PAC [facility] 10/23/19 Office Visit Christ Hawkins MD [facility] 08/29/19 Office Visit Christ Hawkins MD [facility] 08/04/19 Office Visit Christ Hawkins MD [facility] 07/13/19 Office Visit Christ Hawkins MD [facility] 06/27/19 Office Visit Renée Peterson APN, REGIONAL EDUCATION MANAGER [facility] 06/15/19 Office Visit Christ Hawkins MD [facility] Showing recent visits within past 460 days with a meds authorizing provider and meeting all other requirements Future Appointments No visits were found meeting these conditions. Showing future appointments within next 90 days with a meds authorizing provider and meeting all other requirements Passed - Last BP in normal range BP Readings from Last 1 Encounters: 07/24/20 128/86 Discontinued in January. EX GRINDER OPERATOR documented in this encounter Plan of Treatment Upcoming Encounters Date Type Department Care Team (Latest Contact Info) Description 07/05/2025 9:30 AM CDT Office Visit [facility] - G[facility]ology - [place] [address] [place] [address] Gabino Luevano MD [address] [address] 07/06/2025 10:46 AM CDT Hospital Encounter [facility] Cardiac Global Security Architect [address] [place] [address] Zack Gary MD [address] [address] Other chest pain 07/06/2025 10:46 AM CDT - 07/06/2025 12:10 PM CDT [facility] Card[facility] Global Security Architect [address] [place] [address] Zack Gary MD [address] [address] CARDIAC CATH 07/27/2025 4:40 PM CONVEX GRINDER OPERATOR Office Visit [facility] - Family Medicine - [place] [address] [place] [address] Chela Randhawa, GUEST LAUNDRY ATTENDANT, REGIONAL EDUCATION MANAGER [address] [place] [address] documented as of this encounter Visit Diagnoses Diagnosis PCOS (polycystic ovarian syndrome) Polycystic ovaries Other chest pain Abnormal stress test Other nonspecific abnormal cardiovascular system function study Other chest pain Abnormal stress test Other nonspecific abnormal cardiovascular system function study documented in this encounter Additional Health Concerns Infection Onset Date Last Indicated Resolved Time COVID - 19 10/15/2020 10/15/2020 10/18/2020 8:14 AM CONVEX GRINDER OPERATOR COVID - 19 04/12/2021 04/12/2021 04/16/2021 12:3 8 PM CDT COVID - 19 05/15/2021 05/15/2021 05/17/2021 5:59 AM CDT COVID - 19 06/15/2021 06/28/2021 07/18/2021 12:1 6 AM CDT COVID - 19 Confirmed 06/28/2021 06/28/2021 021 12:16 AM CDT COVID - 19 09/04/2021 09/04/2021 09/04/2021 11:5 1 PM CONVEX GRINDER OPERATOR COVID - 19 08/02/2022 08/11/2022 08/21/2022 12:1 6 AM CONVEX GRINDER OPERATOR COVID - 19 01/08/2023 01/08/2023 01/18/2023 12:1 6 AM CDT COVID - 19 09/22/2023 09/22/2023 10/02/2023 12:1 6 AM CONVEX GRINDER OPERATOR COVID - 19 05/15/2024 05/15/2024 05/15/2024 7:02 PM CDT COVID - 19 07/05/2024 07/05/2024 07/05/2024 10:1 1 PM CDT COVID - 19 07/28/2024 07/28/2024 07/29/2024 1:17 AM CONVEX GRINDER OPERATOR COVID - 19 08/29/2024 08/29/2024 08/29/2024 11:2 8 PM CONVEX GRINDER OPERATOR Assessment Noted Time PHQ-9 Depression Total Score: 0 01/26/20 2:18 PM CDT documented as of this encounter Care Teams Transportation Department Head Relationship Specialty Start Date End Date April Pereira APRN [address] [place] [phone] PCP - General Advanced Practice Nurse 07/23/20 Provider, None [place] PCP - General 10/04/20 12/09/20 Dario Solares PAC [address] [place] [address] PCP - General Physician Contour Grinder 12/10/20 04/13/21 Christ Hawkins MD [address] [place] [address] PCP - General Family Medicine 04/14/21 08/22/21 Dario Solares, [facility] [address] [place] [address] PCP - General Physician Contour Grinder 08/23/21 05/23/23 Bishop King MD #[address] [phone] PCP - General Internal Medicine 05/24/23 05/14/24 Provider, None [place] PCP - General 05/15/24 06/25/24 Provider, None [place] PCP - General 06/26/24 05/23/25 Chela Randhawa, GUEST LAUNDRY ATTENDANT, REGIONAL EDUCATION MANAGER [address] [place] [address] PCP - General Advanced Practice Nurse 05/24/25 Lazarus Amin MD [address] [place] [phone] Consulting Physician Neurology 05/21/16 07/23/24 David Raphael MD [address] [place] [address] Consulting Physician Obstetrics & Gynecology 08/04/19 Carlos Hart MD #[address] [phone] Consulting Physician General Surgery 07/07/22 Teodoro Covarrubias MD #2 [facility] [address] [place] [address] Consulting Physician Cardiovascular Disease - Cardiology 03/11/23 08/15/24 Yessi Combs GUEST LAUNDRY ATTENDANT, REGIONAL EDUCATION MANAGER [address]2 [facility] [address] [place] [address] Nurse Practitioner Advanced Practice Nurse 09/10/23 Moisés Taveras GUEST LAUNDRY ATTENDANT, REGIONAL EDUCATION MANAGER [address] [place] [address] Nurse Practitioner Advanced Practice Nurse 05/30/23 Elisa Ortega GUEST LAUNDRY ATTENDANT, REGIONAL EDUCATION MANAGER [address]2 [facility] [address] [place] [address] Nurse Practitioner Advanced Practice Nurse 04/30/22 Duyen Malhotra APRN, REGIONAL EDUCATION MANAGER [address] [place] [phone] Nurse Practitioner Cardiology 09/25/24 documented as of this encounter
--- OUTSIDE RECORDS SUMMARY | 2025-06-26 01:10 | XMS_ITS | Encounter Summary ---
Author Organization [facility] Address [address] [place] [address] Phone Care Team Providers Care Coating Mixer Supervisor Name Role Phone Lazarus Amin MD Unavailable [phone] David Raphael MD Unavailable [phone] Dario Solares PAC Primary Care Provider [phone] Christ Hawkins MD Primary Care Provider [phone] Dario Solares PAC Primary Care Provider [phone] Carlos Hart MD Unavailable [phone] Teodoro Covarrubias MD Unavailable Bishop Pérez MD Primary Care Provider [phone] Yessi Combs YARD BRAKEMAN, STRIKE OPERATIONS OFFICER Unavailable + [phone] Moisés Taveras YARD BRAKEMAN, STRIKE OPERATIONS OFFICER Unavailable + [phone] Elisa Ortega YARD BRAKEMAN, STRIKE OPERATIONS OFFICER Unavailable [phone] Provider, None Primary Care Provider Unavailabl e Provider, None Primary Care Provider Unavailabl e Duyen Malhotra APRN, STRIKE OPERATIONS OFFICER Unavailable Chela Randhawa YARD BRAKEMAN, STRIKE OPERATIONS OFFICER Primary Care Provide r Reason for Visit * Reason Comments Medication Refill Encounter Details Date Type Department Care Team (Late st Contact Info) Description [facility] [address] [place] [address] Christ Hawkins MD [address] [place] [address] Medication Refill Social History Tobacco Use Types [...] Description 07/05/2025 9:30 AM CDT Office Visit [facility] - Gastroenterology [facility] [address]2 [place] [address] Gabino Luevano MD [address] [address] 07/06/2025 10:46 AM CDT Hospital Encounter [facility] Cardiac Telecommunications Officer 1 [place] [address] Zack Gary MD 2 [facility] [address] [place] [address] Other chest pain 07/06/2025 10:46 AM CDT - 07/06/2025 12:10 PM CDT [facility] Cardiac Telecommunications Officer [address] [place] [address] Zack Gary MD 2 [facility] [address] [address] CARDIAC CATH 07/27/2025 4:40 PM ASSIGNMENT DESK EDITOR Office Visit [facility] [place] [address] [place] [address] Chela Randhawa, YARD BRAKEMAN, STRIKE OPERATIONS OFFICER 2 [facility] [place] [address] documented as of this encounter Visit Diagnoses Not on filedocumented in this encounter Additional Health Concerns Infection Onset Date Last Indicated Resolved Time COVID - 19 04/12/2021 04/12/2021 04/16/2021 12:3 8 PM CDT COVID - 19 05/15/2021 05/15/2021 05/17/2021 5:59 AM CDT COVID - 19 06/15/2021 06/28/2021 07/18/2021 12:1 6 AM CDT COVID - 19 Confirmed 06/28/2021 06/28/2021 021 12:16 AM CDT COVID - 19 09/04/2021 09/04/2021 09/04/2021 11:5 1 PM ASSIGNMENT DESK EDITOR COVID - 19 08/02/2022 08/11/2022 08/21/2022 12:1 6 AM ASSIGNMENT DESK EDITOR COVID - 19 01/08/2023 01/08/2023 01/18/2023 12:1 6 AM CDT COVID - 19 09/22/2023 09/22/2023 10/02/2023 12:1 6 AM ASSIGNMENT DESK EDITOR COVID - 19 05/15/2024 05/15/2024 05/15/2024 7:02 PM CDT COVID - 19 07/05/2024 07/05/2024 07/05/2024 10:1 1 PM CDT COVID - 19 07/28/2024 07/28/2024 07/29/2024 1:17 AM ASSIGNMENT DESK EDITOR COVID - 19 08/29/2024 08/29/2024 08/29/2024 11:2 8 PM ASSIGNMENT DESK EDITOR Assessment Noted Time PHQ-9 Depression Total Score: 0 01/26/20 2:18 PM CDT documented as of this encounter Care Teams Coating Mixer Supervisor Relationship Specialty Start Date End Date Dario Solares, PAC [address] [place] [address] PCP - General Physician Electrician Locomotive 12/10/20 04/13/21 Christ Hawkins MD [address] [place] [address] PCP - General Family Medicine 04/14/21 08/22/21 Dario Solares, PAC [address] [place] [address] PCP - General Physician Electrician Locomotive 08/23/21 05/23/23 Bishop King MD #[address] [address] PCP - General Internal Medicine 05/24/23 05/14/24 Provider, None [place] PCP - General 05/15/24 06/25/24 Provider, None [place] PCP - General 06/26/24 05/23/25 Chela Randhawa, YARD BRAKEMAN, STRIKE OPERATIONS OFFICER 2 [place] [address] PCP - General Advanced Practice Nurse 05/24/25 Lazarus Amin MD [address] [place] [address] Consulting Physician Neurology 05/21/16 07/23/24 [place] Raphael MD #2 [place] [address] Consulting Physician Obstetrics & Gynecology 08/04/19 Carlos Hart MD #2 [facility] [address] [place] [address] Consulting Physician General Surgery 07/07/22 Teodoro Covarrubias MD #[address] [address] Consulting Physician Cardiovascular Disease - Cardiology 03/11/23 08/15/24 Yessi Combs, YARD BRAKEMAN, STRIKE OPERATIONS OFFICER #[address] [address] Nurse Practitioner Advanced Practice Nurse 09/10/23 Moisés Taveras, YARD BRAKEMAN, STRIKE OPERATIONS OFFICER [address] [place] [address] Nurse Practitioner Advanced Practice Nurse 05/30/23 Elisa Ortega, YARD BRAKEMAN, STRIKE OPERATIONS OFFICER #2 [facility] [address] [place] [address] Nurse Practitioner Advanced Practice Nurse 04/30/22 Duyen Malhotra, YARD BRAKEMAN, STRIKE OPERATIONS OFFICER [address] [place] [address] Nurse Practitioner Cardiology 09/25/24 documented as of this encounter
--- OUTSIDE RECORDS SUMMARY | 2025-06-26 01:10 | XMS_ITS | Encounter Summary ---
Author Organization [facility] Address [address] [place] [address] Phone Care Team Providers Care Spanish Speaking Nanny Name Role Phone Lazarus Amin MD Unavailable [phone] David Raphael MD Unavailable [phone] Dario Solares Primary Care Provider [phone] Carlos Hart MD Unavailable [phone] Teodoro Covarrubias MD Unavailable [facility] Bishop Kowalski MD Primary Care Provider [phone] Yessi Combs PROPELLER INSPECTOR, PERFORMANCE TEST ARCHITECT Unavailable [phone] Moisés Taveras PROPELLER INSPECTOR, PERFORMANCE TEST ARCHITECT Unavailable + [phone] Elisa Ortega PROPELLER INSPECTOR, PERFORMANCE TEST ARCHITECT Unavailable [phone] Provider, None Primary Care Provider Unavailabl e Provider, None Primary Care Provider Unavailgio e Duyen Malhotra PROPELLER INSPECTOR, PERFORMANCE TEST ARCHITECT Unavailable Chela Randhawa PROPELLER INSPECTOR, PERFORMANCE TEST ARCHITECT Primary Care Provide r Reason for Visit * Reason Comments Medication Refill Encounter Details Date Type Department Care Team (Late st Contact Info) Description 04/11/2023 [facility] - [facility] & [facility] Medicine - [place] [address] [place] [address] Elisa Ortega APRN, PERFORMANCE TEST ARCHITECT #[address] [address] Medication Refill Social History Tobacco Use Types Packs/Day Years Used Date Smoking Tobacco: Every Day Cigarettes 0.5 15 Smokeless Tobacco: Never Comments:once a week [...] suspected to have Coronavirus/COVID-19? No / Unsure 04/02/2023 7:44 AM CDT documented as of this encounter Plan of Treatment Upcoming Encounters Date Type Department Care Team (Latest Contact Info) Description 07/05/2025 9:30 AM CDT [facility] - [place] [address] [place] [phone] Gabino Luevano MD [address] [address] 07/06/2025 10:46 AM CDT [facility] Cardiac Video Games Mechanic [address] [place] [address] Zack Gary MD 2 [facility] [address] [address] Other chest pain 07/06/2025 10:46 AM CDT - 07/06/2025 12:10 PM CDT Surgery [facility] Cardiac Video Games Mechanic [address] [place] [address] Zack Gary MD 2 [facility] [address] [address] CARDIAC CATH 07/27/2025 4:40 PM COLLEGE ADMISSIONS COUNSELOR Office Visit [facility] - Family Medicine [facility] #2 [place] [address] Chela Randhawa, PROPELLER INSPECTOR, PERFORMANCE TEST ARCHITECT 2 [place] [address] documented as of this encounter Visit Diagnoses Not on filedocumented in this encounter Additional Health Concerns Infection Onset Date Last Indicated Resolved Time COVID - 19 09/22/2023 09/22/2023 10/02/2023 12:1 6 AM COLLEGE ADMISSIONS COUNSELOR COVID - 19 05/15/2024 05/15/2024 05/15/2024 7:02 PM CDT COVID - 19 07/05/2024 07/05/2024 07/05/2024 10:1 1 PM CDT COVID - 19 07/28/2024 07/28/2024 07/29/2024 1:17 AM COLLEGE ADMISSIONS COUNSELOR COVID - 19 08/29/2024 08/29/2024 08/29/2024 11:2 8 PM COLLEGE ADMISSIONS COUNSELOR Assessment Noted Time PHQ-9 Depression Total Score: 0 04/14/20 21 2:00 PM CDT documented as of this encounter Care Teams Spanish Speaking Nanny Relationship Specialty Start Date End Date Dario Solares, PAC [address] [place] [address] PCP - General Physician Professor Of Environmental Science 08/23/21 05/23/23 Bishop [facility] MD [facility] [address] [address] PCP - General Internal Medicine 05/24/23 05/14/24 Provider, None [place] PCP - General 05/15/24 06/25/24 Provider, None [place] PCP - General 06/26/24 05/23/25 Chela Randhawa, PERNELL, PERFORMANCE TEST ARCHITECT 2 [place] [address] PCP - General Advanced Practice Nurse 05/24/25 Lazarus Amin MD #2 [place] [address] Consulting Physician Neurology 05/21/16 07/23/24 David Raphael MD #[address] [place] [address] Consulting Physician Obstetrics & Gynecology 08/04/19 Carlos Hart MD #[address] [address] Consulting Physician General Surgery 07/07/22 Teodoro Covarrubias MD #[address] [address] Consulting Physician Cardiovascular Disease - Cardiology 03/11/23 08/15/24 Yessi Combs APRN, PERFORMANCE TEST ARCHITECT #2 [facility] [address]Babs [address] [address] Nurse Practitioner Advanced Practice Nurse 09/10/23 Moisés Taveras APRN, PERFORMANCE TEST ARCHITECT #2 [place] [address] Nurse Practitioner Advanced Practice Nurse 05/30/23 Elisa Ortega APRN, PERFORMANCE TEST ARCHITECT #[address] [address] Nurse Practitioner Advanced Practice Nurse 04/30/22 Duyen Malhotra APRN, PERFORMANCE TEST ARCHITECT #2 [place] [address] Nurse Practitioner Cardiology 09/25/24 documented as of this encounter
[2025-08-06 09:28] VITALS: BMI 42.7
--- NOTE | 2025-08-06 12:02 | PC.NURSE ---
[facility] has started construction of its new state of the art ER which will open Spring 2026. With this, we anticipate parking may be a challenge for some our surgical patients and families. Parking spaces are limited but are available for all Surgical, obstetrics, and ER patients sharing this lot. If you arrive and find you are having a hard time finding a parking space, please note that we understand the challenges, please drive around the hospital and park near Hospital Entrance 1. When you enter this entrance, you can ask a volunteer to direct or take you back to the surgical waiting area to check in. We appreciate everyone?s understanding of these expected challenges while we build for your future. Report to the Outpatient Waiting Room, entrance under the green pavilion located off [address], at time ___6:00AM____ on date ____08/07/25___. Planned Procedure Time: ___7:30AM .? Time changes happen often and if your time is changed the preop area will call you the afternoon before. - You and your visitor will be asked to self-screen and do not enter if you have any COVID symptoms. Please call surgeon if you need to reschedule. - A mask is optional within the hospital at this time. Patients may have clear liquids (water, carbonated beverages, clear teas, apple juice) until 3 hours prior to surgery (4:30AM) with a maximum of 20 ounces. - No food from midnight until time of surgery and no smoking, or chewing tobacco (or any form of nicotine). No chewing gum, candy or mints. Take only the following medications with a SIP of water on the morning of surgery: __AMLODIPINE, PREGABALIN, QUETIAPINE, LEVETIRACETAM MAY USE ALBUTEROL INHALER, HYDROCODONE, PROCHLORPERAZINE NEEDED DO NOT STOP ANY OF YOUR OTHER PRESCRIPTION MEDICATIONS PRIOR TO SURGERY EXCEPT THE FOLLOWING Hold all vitamins and supplements for 3 days per anesthesiologist. Medications to discontinue per physician ____NONE Date to take last dose Please no make-up, nail greek, hairspray, perfume, deodorant, or body powder the day of surgery.? No jewelry (including any body piercings) or valuables the day of surgery, leave them at home.? Please take a shower or bath the night before, or the morning of, surgery with an antibacterial soap.? Wear comfortable, loose fitting clothing.? - Jewelry must be removed prior to entering the operating room.? Rings and piercings that are not removed may be cut off. - The hospital will not accept responsibility for valuables.? - Please leave all valuables, including medications, at home the day of surgery. If you are going home after surgery, a licensed hydraulic lift driver must drive you home.? - NO public transportation without another adult if you receive anesthesia. - We recommend that an adult stay with you for 24 hours following discharge. - We also recommend that you do not drive, make important decision, drink alcoholic beverages, or take any drugs that were not prescribed by your health care provider for at least 24 hours after your discharge time. Follow any additional instructions given to you from your surgeon. Telephone instructions given to ____PATIENT and asked if any additional questions and then verbalized understanding. Patient advised to call surgeon office or pre surgery nurse liaison [phone] if any additional questions.
--- NOTE | 2025-08-06 13:35 | P.HP_ITS ---
H&P: HPI History of Present Illness Date/Time: 08/06/25 13:35 Chief Complaint: abnormal uterine bleeding pelvic pain Narrative: 35 yo female who presents for robotic assisted total laparoscopic hysterectomy for AUB and pelvic pain. Patient is status post endometrial ablation. She has also had bilateral salpingectomy for sterilization. She continues to have bothersome menses. She states they are painful and heavy. Patient also reports an increase in cramping lately. Review of Systems Cardiovascular: Cardiovascular: Denies chest pain, Denies leg edema, Denies palpitations, Denies dyspnea and Denies dyspnea on exertion Respiratory: Respiratory: Denies cough, Denies dyspnea and Denies dyspnea on exertion Gastrointestinal: Gastrointestinal: Denies abdominal pain, Denies constipation, Denies diarrhea, Denies nausea and Denies vomiting Genitourinary: Genitourinary: Denies hematuria, Denies urinary frequency, Denies dysuria, Denies pelvic pain, Denies urinary incontinence and Denies vaginal discharge Neurologic: Reports system reviewed and no additional complaints, except as documented Psychiatric: Psychiatric: Reports no additional psychiatric complaints Endocrine: Endocrine: Denies palpitations COUNTS INCLUDE 234 BEDS AT THE [facility] Past Medical History Medical History (Updated 06/19/25 @ 08:25 by Saniya Horton CMA) Encounter for gynecological examination (general) (routine) with abnormal findings Back pain PCOS (polycystic ovarian syndrome) Insomnia Surgical History Surgical History H/O tubal ligation History of cholecystectomy Family History Family History Father Diabetes mellitus Grandparent Diabetes mellitus Mother Diabetes mellitus Other Kidney failure Pancreatitis Social History Social History Smoking packs per day: 2 Smoking cigarettes per day: 40.0 Years smoked: 22 Smoking pack-years: 44.00 Smoking status: Current every day smoker Tobacco type: cigarettes Second hand tobacco smoke exposure: Yes Additional smoking assessment comments: CURRENTLY CUT BACK TO 1/2 PACK/DAY Alcohol intake: former Alcohol use details: occasional Substance use: never Substance use type: does not use Do You Feel Safe in your Home?: Yes Lack of Transportation: No Lack of Food: Never True Current Housing: I Have Housing Concerned About Future Housing: No Difficulty Paying Gas/Electric Bills: No Difficulty Paying for Meds: No Currently Unemployed: No Education: High School Diploma/GED Difficulty w/ Childcare or Family Care: No Living arrangements: with family Additional living arrangements comments: KARTHIK AND DAUGHTER Occupation/Education: unemployed Gender identity (if verbalized by the patient): Female Sexual Orientation (if Verbalized by the Patient): Straight or Heterosexual Spiritual care concerns: No Meds Home Medications and Allergies Home Medications ?Medication ?Instructions ?Recorded ?Confirmed ?Type pantoprazole 40 mg tablet,delayed 40 mg PO BID 4 06/20/25 History release pregabalin 150 mg capsule 150 mg PO BID 10/17/2306/20 History quetiapine 50 mg tablet 50 mg PO BID 10/17/23 History ropinirole 2 mg tablet 2 mg PO TID 10/17/23 5 History cyclobenzaprine 5 mg tablet 5 mg PO TID PRN muscle spa sm 03/09/24 06/20/25 History albuterol 90 mcg/actuation aerosol 90 mcg inhalation Q 4-6H PRN 08/06/25 08/06/25 History inhaler shortness of breath or wheez ing amlodipine 5 mg tablet 2.5 mg PO QAM 08/06/2508/06 History hydrocodone 5 mg-acetaminophen 325 1 tablet PO Q6-8H P RN pain 08/06/25 08/06/25 History mg tablet levetiracetam 500 mg tablet 500 mg PO BID 08/06/25 History prochlorperazine maleate 10 mg 10 mg PO Q6-8H PRN naus ea and 08/06/25 08/06/25 History tablet vomiting tizanidine 4 mg tablet 4 mg PO .Q8 PRN muscle spast icity 08/06/25 08/06/25 History Allergies Allergy/AdvReac Type Severity Reaction Status Date / Time azithromycin Allergy Unknown Rash Verified 08/06/25 09:17 tramadol Allergy RASH, Verified 08/06/25 09:17 NAUSEA, VOMITING Exam Const: General: no acute distress and obese Eyes: EOM: EOMs intact bilaterally Neck: Neck: supple Thyroid: thyroid normal Chest: Breast/axilla inspection: normal inspection of the breasts Breast/axilla palpation: normal palpation of the breasts, normal palpation of the axillae and no axillary lymphadenopathy Resp: Effort & Inspection: normal respiratory effort Auscultation: clear to auscultation bilaterally Cardio: Rate: regular rate Rhythm: regular rhythm GI: Inspection: non-distended GI Palp: Yes Soft to palpation, No Tenderness to palpation present (GI) and No Guarding due to palpation present (GI) Auscultation: normal bowel sounds : General: No bladder normal to palpation External Female Exam: normal external appearance Speculum Exam - Vagina: normal vaginal discharge and No vaginal bleeding Speculum Exam - Cervix: nontender Bimanual exam- vagina & uterus: No bladder normal to palpation and No Cervical tenderness present OB/external & speculum: No vaginal bleeding Skin: General skin exam: normal color and no rashes or lesions noted Neuro: Cognition (Neuro): normal cognition Speech: normal speech Extrem: General: normal to inspection and no edema Psych: Mental Status: mental status grossly normal Affect: normal affect Assessment and Plan Assessment and plan (1) Abnormal uterine bleeding (AUB): Code(s): N93.9 - Abnormal uterine and vaginal bleeding, unspecified Status: Acute Assessment and Plan: Reports persistent abnormal uterine bleeding and pelvic pain Patient has a long history of abnormal uterine bleeding She is status post hysteroscopy, D&C with endometrial ablation She continues to have heavy bleeding leading to symptomatic anemia Patient recently tried progesterone only contraceptive pills without improvement symptoms Patient had a pelvic ultrasound which did not show any structural causes of bleeding Patient is requesting definitive management via hysterectomy Risks, benefits, alternatives discussed at length Will plan for robotic assisted TLH. Patient has already had bilateral salpingectomy for tubal ligation (2) Pelvic pain: Code(s): R10.2 - Pelvic and perineal pain Status: Acute
[2025-08-07] VITALS (11 sets, daily range): BP systolic 100–148; BP diastolic 63–95; PULSE 62–92; RESP 10–20; TEMP 36–37.2; O2SAT 92–100; BMI 43.2
--- OUTSIDE RECORDS SUMMARY | 2025-08-07 00:52 | XMS_ITS | Encounter Summary ---
Author Organization [facility] Address [address] [place] [address] Care Team Providers Care Cargo Broker Name Role Phone Brittney Sow MD Unavailable [phone] Dario Solares Primary Care Provider [phone] Encounter Details Date Type Department Care Team (Late st Contact Info) Description 10/05/2023 Telephone [facility] - Centralized Scheduling [address] [place] [phone] Addy Guzman MD [address] [place] [address] Social History Tobacco Use Types [...] on file Legal Sex Female 3:24 PM BACK STAYER Gender Identity Not on file Sexual Orientation [...] on filedocumented in this encounter Care Teams Cargo Broker Relationship Specialty Start Date End Date Dario Solares PA [address] [place] [address] PCP - General Physician Charge Master Specialist 11/24/17 Brittney Sow MD Obstetrics and Gynecology 10/27/17 documented as of this encounter
--- OUTSIDE RECORDS SUMMARY | 2025-08-07 00:52 | XMS_ITS | Encounter Summary ---
Author Organization [facility] Address [address] [place] [address] Care Team Providers Care Research Assoc Name Role Phone Britntey Sow MD Unavailable [phone] Dario Solares Primary Care Provider [phone] Encounter Details Date Type Department Care Team (Late st Contact Info) Description 01/15/2020 Lab Requisition [facility] [address] [place] [address] George Gomez MD Social History Tobacco Use Types Packs/Day Years Used Date Smoking Tobacco: Never Assessed Comments No Sex and Gender Information Value Date Recorded Sex Assigned at Not on file Legal Sex Female 3:24 PM CYBER ANALYST Gender Identity Not on file Sexual Orientation [...] Not detected, Invalid 01/15/2020 10:11 PM CDT [facility] Microbiology SPECIMEN FROM NASOPHARYNGEAL STRUCTURE / Unknown Collection / Unknown 01/14/2020 11:36 PM CDT 01/15/2020 10:52 AM CDT Narrative [facility] - 01/15/2020 10:11 PM CDT This Real Time RT-PCR assay was developed and its performance characteristics determined by [facility]. This test has been [...] MICROBIOLOGY [address] [place] [address], [facility] [phone] documented in this encounter Visit Diagnoses Not on filedocumented in this encounter Care Teams Research Assoc Relationship Specialty Start Date End Date Dario Solares PA [address] [place] [address] PCP - General Physician Bag Mender 11/24/17 Brittney Sow MD Obstetrics and Gynecology 10/27/17 documented as of this encounter
--- OUTSIDE RECORDS SUMMARY | 2025-08-07 00:52 | XMS_ITS ---
Author Organization [facility] Address [address] [place] [address] Phone Care Team Providers Care Almond Paste Mixer Name Role Phone David Raphael MD Unavailable [phone] Carlos Hart MD Unavailable [phone] Moisés Taveras CELL GENETICIST, TOWER TRUCK DRIVER Unavailable [phone] Elisa Ortega CELL GENETICIST, TOWER TRUCK DRIVER Unavailable [phone] Duyen Malhotra CELL GENETICIST, TOWER TRUCK DRIVER Unavailable Chela Randhawa CELL GENETICIST, TOWER TRUCK DRIVER Primary Care Provide r Lexis Maldonado Unavailable Unavailab Zack Bess MD Unavailable Ambulatory Complex Care Management Status:Enrolled (Active) Start date:07/05/2025 Enrollment date:07/09/2025 Current support & services provided:Research Geneticist Care Managed Related social drivers of health:Social Connections, Tobacco Use, Physical Activity, Food Insecurity, Transportation Needs, Housing Stability, Utilities Overview Complex Care Management Program Case Team Name Relationship Phone Lexis RAMIREZ(Responsible Staff) Research Geneticist Clinic Business Manager Continued Care and Services Coordination
--- OUTSIDE RECORDS SUMMARY | 2025-08-07 00:52 | XMS_ITS | Clinical Summary ---
Author Organization [facility] Address [address] [facility] [place] [address] Care Team Providers Care Senior Water/Wastewater Engineer Name Role Phone Brittney Sow MD Unavailable [phone] Dario Solares Primary Care Provider [phone] Source Comments [facility],non-owned Affiliates and Associated Physician Practices is amultiple site organization consisting of ambulatory clinics and hospital sitesin [place], [place], [place] and [place]. This disclosure is being madepursuant to the Care Everywhere program and may not contain all information available regarding this patient. Last updated 18.[facility] Allergies Active Allergy Reactions Criticality Noted Date [...] Plan: Continue CPAP as managed by her shirt bander. Acute exacerbation of chronic obstructive pulmon jewels [...] [facility] [address] [facility] [place] [address] Dimitrios Rob Abnormal Stress Test [...] on file Legal Sex Female 3:24 PM BOBBIN DUMPER Gender Identity Not on file Sexual Orientation Not on file Last Filed Vital Signs Vital Sign Reading Time Taken Comments Blood Pressure 130/76 07/14/2023 2:56 PM CDT Pulse 52 08/14/2019 11:09 AM BOBBIN DUMPER Temperature 36.5 C (97.7 F) 07/14/2023 2:56 PM CDT Respiratory Rate 18 05/28/2018 12:35 AM CDT Oxygen Saturation 98% 08/14/2019 11:09 AM BOBBIN DUMPER Inhaled Oxygen Concentration - - Weight 119.7 [...] SCREENING 03/21/2019 DIABETES-FOOT EXAM WITH MONOFILAMENT 03/21/2019 DIABETES-HGB A1C 03/21/2019 12/13/2017 DIABETES-SERUM CREATININE 05/11/20192017, 12/08/2017 PAP with HPV 2020 Cervical Cancer Screening 10/08/2020 PAP SMEAR 10/08/2020 10/08/2017 DIABETES - URINE PROTEIN SCREENING 09/13/2024 05/11/2018 [...] A/C/Y/W VACCINE Aged Out No longer eligible b ased on patient's age to complete this topic [...] 2 diabetes mellitus with complication, unspecified whether fpc insulin use PAP IG LB CT+GC RFLX HPV HR ASCU Routine 10/08/2017 12:41 PM BOBBIN DUMPER , unspecified gestational age from Last 3 Months or Most Recently Relevant to Health Maintenance Results * (ABNORMAL) COMPREHENSIVE METABOLIC PANEL (05/11/2018 7:12 PM CDT) [facility] Glucose 78 74 - 106 mg/dL 05/11/2018 7:47 PM CDT [facility] Sodium 135(L) 136 - 145 mmol/L 05/11/2018 7:47 PM CDT [facility] Potassium 3.4(L) 3.5 - 5.1 mmol/L 05/11/2018 7:47 PM CDT [facility] Chloride 102 98 - 107 mmol/L 05/11/2018 7:47 PM CDT [facility] CO2 24 22 - 31 mmol/L 05/11/2018 7:47 PM CDT [facility] Calcium 8.8 8.5 - 10.1 mg/dL 05/11/2018 7:47 PM CDT [facility] Anion Gap 9 8 - 16 mmol/L 05/11/2018 7:47 PM CDT [facility] BUN 4(L) 7 - 21 mg/dL 05/11/2018 7:47 PM CDT [facility] Creatinine 0.47(L) 0.50 - 1.30 mg/dL 05/11/2018 7:47 PM CDT [facility] Alkaline Phosphatase 108 38 - 126 U/L 05/11/2018 7:47 PM CDT [facility] ALT 10(L) 13 - 61 U/L 05/11/2018 7:47 PM CDT [facility] AST 15 5 - 40 U/L 05/11/2018 7:47 PM CDT [facility] Protein Total 6.4 6.4 - 8.2 gm/dL 05/11/2018 7:47 PM CDT [facility] Albumin 2.5(L) 3.4 - 5.0 gm/dL 05/11/2018 7:47 PM CDT [facility] Bilirubin Total 0.4 0.2 - 1.0 mg/dL 05/11/2018 7:47 PM CDT [facility] eGFR by MDRD >60 >60 mL/min/1.7 3m2 05/11/2018 7:47 PM CDT [facility] eGFR by MDRD >60 >60 mL/min/1.7 3m2 05/11/2018 7:47 PM CDT [facility] Blood BLOOD SPECIMEN / Unknown Venipuncture / Unknown 05/11/2018 7:12 PM CDT 05/11/2018 7:24 PM CDT Mayda Encarnacion PERNELL-UTILITY SYSTEM REPAIRER LAB - CHEMISTRY ORDERABLE S Final Result Performing Organization Address [facility] Co de Phone Number [facility] [address] [place] [address] * PROTEIN CREATININE RATIO URINE RANDOM PNL (05/11/2018 6:18 PM CDT) Pathologist [facility] Protein Urine 10.0 mg/dL 05/11/2018 7:52 PM CDT [facility] Creatinine Urine 100 mg/dL 05/11/2018 7:52 PM CDT [facility] Protein/Creatin ine Ratio Urine 0.10 05/11/2018 7:52 PM CDT [facility] Urine URINE SPECIMEN OBTAINED BY CLEAN CATCH PROCEDURE / Unknown Collection / Unknown 05/11/2018 6:18 PM CDT 05/11/2018 7:32 PM CDT Mayda Encarnacion PERNELL-UTILITY SYSTEM REPAIRER LAB - URINE CHEMISTRY ORD ERABLES Final Result Performing Organization Address [facility] Co de Phone Number [facility] [id number] [place] [address] * HIV-1 HIV-2 ANTIBODY + HIV P24 AG PANEL (03/23/2018 4:10 PM CDT) [facility] HIV1/2 Ab + P24 Ag Non Reactive Non Reactive 03/23/2018 11:14 PM CDT [facility] Blood BLOOD SPECIMEN / Unknown Venipuncture / Unknown 03/23/2018 4:10 PM CDT 03/23/2018 4:21 PM CDT Narrative [facility] - 03/23/2018 11:14 PM CDT No Laboratory evidence of HIV infection. Oralia Mckenzie MD LAB - CHEMISTRY ORDERABLE S Final Result Performing Organization Address City/[facility]/ZIP Co de Phone Number [facility] [place] [address] * HEMOGLOBIN A1C - POINT OF CARE (HgbA1C) (12/13/2017 1:54 PM CDT) Hemoglobin A1c POCT 5.3 % QC Verified Yes Yes Blood BLOOD SPECIMEN / Unknown 12/13/2017 1:54 PM CDT Brittney Sow MD LAB - POINT OF CARE ORDERABLES Final Result * PAP IG LB CT+GC RFLX HPV HR ASCU (10/08/2017 12:41 PM BOBBIN DUMPER) Diagnosis [facility] INSURANCE BILL Comment:NEGATIVE FOR INTRAEP ITHELIAL LESION AND MALIGNANCY. Specimen Adequacy [facility] INSURANCE BILL Comment: Satisfactory for evaluation. No endocervical component is identified. An endocervical component is not commonly seen in the patient. Clinician Provided ICD10 [facility] INSURANCE BILL Comment:Z34.90 Performed by [facility] INSURANCE BILL Comment:Eduardo Perry totechnologist Comment . [...] UTERINE CERVIX / Unknown 10/08/2017 12:41 PM BOBBIN DUMPER 10/08/2017 Narrative [facility] INSURANCE BILL - 10/15/2017 1:12 PM BOBBIN DUMPER Source.............Cervix Other.............. No. of containers..01 ThinPrep Vial Resulting Agency Comment [facility] [place] [place] [id number] Brittney Sow MD LAB - PATHOLOGY/CYTOLOGY ORDERA BLES Final Result [facility] INSURANCE BILL [address] [place] [address] from Last 3 Months or Most Recently Relevant to Health Maintenance Insurance [facility] PLAN [facility] SELF PAY NO INSURANCE Member Subscriber Plan / Payer (Ef fective for All Dates) Name:Belkys Black Member ID:Not on file Relation to Subscriber:Not on file Name:BELKYS BLACK Subscriber ID:Not on file Address: [address] [place] [id number] Payer ID:Not on file Group ID:Not on file Type:Self Pay Address: [place], [place] [facility] SELF PAY NO INSURANCE Member Subscriber Plan / Payer (Ef fective for All Dates) Name:Belkys Black Member ID:Not on file Relation to Subscriber:Not on file Name:BELKYS BLACK Subscriber ID:Not on file Address: [address] [place] [id number] Payer ID:Not on file Group ID:Not on file Type:Self Pay Address: [place], [place] [facility] SELF PAY NO INSURANCE Member Subscriber Plan / Payer (Ef fective for All Dates) Name:Belkys Black Member ID:Not on file Relation to Subscriber:Not on file Name:BELKYS BLACK Subscriber ID:Not on file Address: [address] [place] [phone] Payer ID:Not on file Group ID:Not on file Type:Self Pay Address: [place], [place] Advance Directives * Full Code (Latest [...] 2:34 PM 03/23/2018 5:38 PM Care Teams Senior Water/Wastewater Engineer Relationship Specialty Start Date End Date Dario Solares PA [address] [place] [address] PCP - General Physician Derrick Boat Runner 11/24/17 Brittney Sow MD Obstetrics and Gynecology 10/27/17
--- OUTSIDE RECORDS SUMMARY | 2025-08-07 00:53 | XMS_ITS | Clinical Summary ---
Author Organization [facility] Address [address] [place] [address] Care Team Providers Care Sample Tailor Name Role Phone Robert Joaquin MD Unavailable Lita Prieto DO Primary Care Provider [phone] Jeffrey Thomas MD Unavailable [phone] Allergies Active Allergy Reactions Criticality Noted Date [...] times a day 60 tablet 11 05/24/20 Active ferrous sulfate 325 mg (65 mg of elemental iron) tablet Take 1 tablet (325 mg total) by mouth daily with breakfast 06/01/[address] (PROTONIX) 40 mg EC [...] medicated Use as directed. 100 each 07/03/20 Active nystatin 100,000 unit/mL suspension Take 5 mL (500,000 Units total) by mouth 4 (four) times a day 07/03/20 Active QUEtiapine (SEROquel) 50 mg tablet Take 2 tablets (100 mg total) by mouth nightly 07/03/20 Active ondansetron ODT (ZOFRAN-ODT) 4 mg disintegrating tabletIndications: Nausea and Vomiting Take 1 tablet (4 mg total) by mouth every 6 (six) hours as needed for nausea or vomiting 20 tablet 07/03/20 Active guaiFENesin ER (MUCINEX) 600 mg 12 hr tablet Take 2 tablets (1,200 mg total) by mouth 2 (two) times a day 40 tablet 07/03/20 24 Active benzocaine-menthoL (CHLORASEPTIC) 6-10 mg lozenge Take 1 lozenge by mouth every 2 (two) hours as needed for sore throat 30 tablet 07/03/20 24 Active budesonide-formote roL (SYMBICORT) 80-4.5 mcg/actuation inhaler Inhale 2 puffs 2 (two) times a day Rinse mouth with water after use. Do not swallow. 1 each 3 07/03/20 24 Active tiotropium bromide (SPIRIVA RESPIMAT) 2.5 [...] use. Do not swallow. 60 each 08/05/20 Active nicotine 21-14-7 mg/24 hr patch, TD daily, sequential Place 1 patch on the skin daily 56 patch 08/05/20 Active promethazine-DM (PROMETHAZINE-DM) 1.25-3 mg/mL syrup Take [...] mg) by mouth daily 10 tablet 10/26/19 Active Active Problems Problem Noted Date Diagnosed [...] 09/20/2023 Assessment & Plan (11/07/2023 8:52 PM SCREEN PRINTING STENCIL PREPARER): Triamcinolone p.r.n. Avoid tanning in the future. Try Benadryl for itching. Call back if no improvement. Constipation 09/20/2023 Assessment & Plan (11/07/2023 8:52 PM SCREEN PRINTING STENCIL PREPARER): Trial of Linzess. Continue Metamucil and MiraLax Breast abscess 08/08/2023 Assessment & Plan (08/08/2023 10:18 PM SCREEN PRINTING STENCIL PREPARER): Keep area clean and dry and apply mupirocin 3 times daily and complete antibiotics. Call back if does not resolve Oral thrush 08/08/2023 Assessment & Plan (08/08/2023 10:19 PM SCREEN PRINTING STENCIL PREPARER): Clotrimazole and call back if no improvement. [...] 06/13 Assessment & Plan (11/07/2023 8:51 PM SCREEN PRINTING STENCIL PREPARER): Patient is encouraged to lose weight with a combination of caloric reduction and increased exercise. Various strategies discussed. The long-term risks associated with continued morbid obesity discussed. Assessment & Plan (08/08/2023 10:19 PM SCREEN PRINTING STENCIL PREPARER): Patient is encouraged to lose weight with [...] each June. COVID booster recommended. Follow-up the perl developer for breast exam and pelvic exam as [...] (06/07/2023 5:44 PM CDT): Follow-up with her application development consultant as they direct. Continue Symbicort twice daily and use albuterol as needed. Refrain from smoking. MAYRA (obstructive sleep apnea) 01/21/2023 Assessment & Plan (06/07/2023 5:44 PM CDT): Continue CPAP as managed by her application development consultant. Asthma with COPD with exacerbation 01/11/2023 Restless legs syndrome (RLS) 12/31/2022 Assessment & Plan (06/07/2023 5:45 PM CDT): Controlled on ropinirole Excessive gas 12/27/2022 Bipolar 1 disorder 06/27/2022 Assessment & Plan (06/07/2023 5:43 PM CDT): Follow-up with psychiatry as they direct Tobacco dependence 06/27/2022 Multiple lipomas 06/03/2021 Overview (06/03/2021): Added automatically from request for surgery [id number] Lipoma of lower extremity 06/02/2021 Assessment & [...] 03/29/2024 Assessment & Plan (08/08/2023 10:18 PM SCREEN PRINTING STENCIL PREPARER): Stop smoking immediately. Continue Symbicort and use albuterol as needed. Follow-up with pulmonology as they direct. Lipoma of upper extremity 02/06/2021 Overview (02/06/2021): Added automatically from request for surgery [id number] Lipoma of thigh 02/06/2021 03/18/2021 Overview (02/06/2021): Added automatically from request for surgery [id number] Acute viral syndrome 10/16/2017 023 Multiple lipomas 08/04/2017 03/18/2021 Assessment & Plan (01/31/2021 12:23 PM CDT): We discussed the procedure of removal, as these are getting larger and more uncomfortable. The risks, benefits, and post operative period along with wound care was discussed to which she agrees. Will plan for excision multiple lipomas with mac and local anesthesia. Encounters Date Type Department Care Team Description 06/13/2025 Ancillary Procedure [facility] Outside Films 05/18/2025 Ancillary Procedure [facility] Outside Films from Last 3 Months Immunizations Immunization Administration Dates Next Due DTP [...] Used Date Smoking Tobacco: Every Day Cigarettes 11 05.1 Started: 06/30/2002 Smokeless Tobacco: Never Tobacco Cessation:Ready to Q uit: Not Asked; Counseling Given: Not Answered Alcohol Use Standard Drinks/Week Comments No 0 (1 standard drink = 0.6 oz pur e alcohol) [facility] Utilities Answer Date Recorded In the past 12 months has e [employer], gas, oil, or water [employer] threatened to shut off services in your home? No 09/04/2024 Social Connection and Isolation Panel Answer Date Recorded In a typical week, how many times do you talk on the phone with family, friends, or neighbors? More than three times a week 09/04/2024 How often do you get togethe r with friends or relatives? Once a week 09/04/2024 How often do you attend chur or sabianism services? Never 09/04/2024 Do you belong to any clubs o r organizations such as presybeterian groups, unions, fraternal or athletic groups, or [...] place to sleep or slept in a intermediate (including now)? No 01/03/2024 Housing Stability Vital Sign Answer Kiet e Recorded In the last 12 months, was t here a time when you were not able to pay the mortgage or rent on time? No 09/04/2024 In the past 12 months, how m any times have you moved where you were living? 1 09/04/2024 At any time in the past 12 m [facility], were you homeless or living in a intermediate (including now)? No 09/04/2024 Personal Safety Answer Date Recorded Have you ever been in or are you currently in a harmful physical or emotional relationship or is someone making you feel afraid or unsafe? Denies 02/04/2025 Comments No Sex and Gender Information Value Date Recorded Sex Assigned at Not on file Legal Sex Female 4:00 AM SCREEN PRINTING STENCIL PREPARER Gender Identity Not on file Sexual Orientation [...] Procedure Name Priority Date/Time Associated Diagnosis Comments XR TRANSFER OF OUTSIDE FILMS Routine 06/13/2025 12:00 AM CDT XR TRANSFER OF OUTSIDE FILMS Routine 05/18/2025 12:00 AM CDT EGFR STAT 02/03/2025 10:09 PM CDT HEMOGLOBIN A1C Routine 06/30/2024 7:26 PM CDT LIPID PANEL Routine 06/22/2023 8:50 AM CDT Preventative health care from Last 3 Months or Most Recently Relevant to Health Maintenance Results * XR Outside Reference (06/13/2025 12:00 AM CDT) Narrative [facility] - 06/26/2025 1:46 PM CDT This order has been auto-finalized and does not contain a result. us Not In File Miscellaneous IMG XR PROCEDURES Diamond l Result Performing Organization Address City/[facility]/ZIP Co de Phone Number [facility] * XR Outside Reference (05/18/2025 12:00 AM CDT) Narrative [facility] - 06/26/2025 1:46 PM CDT This order has been auto-finalized and does not contain a result. us Not In File Miscellaneous IMG XR PROCEDURES Diamond l Result [facility] * eGFR (02/03/2025 10:09 PM CDT) eGFR [...] 9 PM CDT 02/03/2025 10:12 PM CDT Richy Ramirez MD LAB BLOOD ORDERABLES Final Result [facility] [address] Department [place] [address] * (ABNORMAL) Hemoglobin A1c (06/30/2024 7:26 PM CDT) Hgb A1C 5.9(H) 4.0 - 5.6 % Estimated Average Glucose 123 mg/dL [facility] Comment: The ADA recommends reporting an estimated Average Glucose (eAG) with all Hemoglobin A1c results using the equation derived from a study of 507 normal and diabetic adults. Minority populations were underrepresented and children were not included. (Diabetes Care 31:7243-1884, 2008). The eAG is not equivalent to a fasting glucose. Blood 06/30/2024 7:26 PM CDT 06/30/2024 7:40 PM CDT Jose Daniel Renee MD LAB BLOOD ORDERABLES Final Result [facility] [address] Department [place] [address] * (ABNORMAL) Lipid panel (06/22/2023 8:50 AM [...] on 2018. HDL 29(L) >=40 mg/dL [facility] ([facility]NAZ) Comment: Interpretive Data Ages < or [...] (SANAZ) - 06/22/2023 11:11 AM CDT fasting us Bishop King MD LAB BLOOD ORDERABLES Final R esult [facility] ([facility]) [address] [facility] Department [place] [address] from Last 3 Months or Most Recently Relevant to Health Maintenance Insurance [facility] Advance Directives For more information, please contact: [phone] * Full Code (Latest Code Status on [...] 9:28 AM 01/06/2024 6:33 PM Care Teams Sample Tailor Relationship Specialty Start Date End Date Lita Prieto DO [address] [place] [address] PCP - General Family Medicine 09/04/24 [place] [address] [facility] [place] [address] Consulting Physician Emergency Medicine 06/09/24 Jeffrey Thomas MD [address] [place] [address] Resident Family Medicine 09/19/24
--- OUTSIDE RECORDS SUMMARY | 2025-08-07 00:53 | XMS_ITS | Clinical Summary ---
Author Organization [facility] Address [address] [place] [address] Phone Care Team Providers Care Tamping Machine Operator Road Forms Name Role Phone David Raphael MD Unavailable [phone] Carlos Hart MD Unavailable [phone] Moisés Taveras PULLMAN CAR CLERK, GRAPHICS COORDINATOR Unavailable + [phone] Elisa Ortega PULLMAN CAR CLERK, GRAPHICS COORDINATOR Unavailable Duyen Malhotra PULLMAN CAR CLERK, GRAPHICS COORDINATOR Unavailable Chela Randhawa PULLMAN CAR CLERK, GRAPHICS COORDINATOR Primary Care Provide r Lexis Maldonado TRUCK CATERER Unavailable Unavailab Zack Bess MD Unavailable Allergies Active Allergy Reactions Criticality Noted Date Comments Azithromycin Hives 01/09/2017 Penicillins Rash 04/10/2019 Tramadol Swelling 04/14/2022 Medications QUEtiapine Fumarate (SEROQUEL PO) Take 50 mg by mouth daily. Active levETIRAcetam (KEPPRA) 500 MG Tablet Take 500 mg by mouth 2 times daily. 05/24/20 24 Active albuterol (PROVENTIL, VENTOLIN) (2.5 MG/3ML) 0.083% Nebulizer SolnIndications :Reversible Obstructive Airway Disease 3 mL by Nebulization route every 4 hours as needed for Wheezing. Indications: Reversible Disease of Blockage in Breathing Passages 150 mL 07/05/20 24 Active Additional Information Patient not taking.Reported on 07/20/2025 ondansetron (ZOFRAN) 4 MG Tablet Take 4 mg by mouth every 8 hours as needed. 05/20/20 25 Active budesonide-form oterol fumarate (SYMBICORT) 80-4.5 MCG/ACT Aerosol take 2 Puffs by inhalation 2 times daily. Active pantoprazole (PROTONIX) 40 MG Tablet Delayed ResponseIndicat ions:Gastroesop hageal reflux disease without esophagitis Take 1 Tablet by mouth 2 times daily. 60 Tablet 2 05/28/20 25 Active pregabalin (Lyrica) 200 MG CapsuleIndicati ons:Lumbar disc disease with radiculopathy,C hronic pain disorder Take 1 Capsule by mouth 2 times daily. 60 Capsule 07/09/20 25 Active Acetaminophen-C odeine (TYLENOL #2) 300-15 MG Tablet 06/26/20 25 Active rOPINIRole (REQUIP) 2 MG TabletIndicatio ns:Restless legs syndrome (RLS) TAKE 1 TABLET( 2 MG) BY MOUTH IN THE MORNING AND TAKE 2 TABLETS( 4MG) IN THE EVENING 270 Tablet 07/09/20 25 Active HYDROcodone-dmitry taminophen (NORCO) 5-325 MG TabletIndicatio ns:Right arm pain Take 1 Tablet by mouth every 6 hours as needed for Moderate or more severe pain. 12 Tablet 07/10/20 25 Active Additional Information Patient not taking.Reported on 07/20/2025 naloxone HCl (Narcan) 4 MG/0.1ML Liquid 1 [place] by Nasal route as needed for Opioid Reversal. Administer in one nostril for symptoms of overdose (severe sleepiness, breathing problems, not responsive). Call 911. May repeat 1 spray in alternate nostril in 2-3 minutes if needed. 2 Each 07/10/20 25 Active rOPINIRole (REQUIP) 2 MG TabletIndicatio ns:Restless legs syndrome (RLS) TAKE 1 TABLET( 2 MG) BY MOUTH IN THE MORNING AND TAKE 2 TABLETS( 4MG) IN THE EVENING 270 Tablet 02/18/20 24 025 Discontinu ed(Reorder ) tiZANidine (ZANAFLEX) 4 MG TabletIndicatio ns:Chronic low back pain with sciatica, sciatica laterality unspecified, unspecified back pain laterality Take 1 Tablet by mouth every 8 hours as needed for Muscle spasms. 30 Tablet 05/24/20 25 025 Discontinu ed(Therapy completed) isosorbide mononitrate (IMDUR) 30 MG TABLET SR 24 HR Take 1 Tablet by mouth every morning. 30 Tablet 1 06/14/20 25 025 Discontinu ed(Auto-di scontinue per P&T) sulfamethoxazol e-trimethoprim DS (BACTRIM DS, SEPTRA DS) 800-160 MG TabletIndicatio ns:Right arm pain Take 1 Tablet by mouth 2 times daily for 10 days. 20 Tablet 07/10/20 25 025 Active Problems Problem Noted Date Diagnosed Date [...] Encounters Date Type Department Care Team Description 07/25/2025 Patient Outreach [facility] Personnel Supervisor Management [address] [place] [address] Lexis Maldonado LSW Care Management (Bi weekly monitoring ) 07/20/2025 2:15 PM JUNIOR HIGH MATH TEACHER Office Visit [facility] - Cardiology [facility] [address] [place] [address] Zack Gary MD Abnormal stress test (Primary Dx); CUEVAS (dyspnea on exertion); Tobacco dependence Discharge Disposition: Discharged to home or Selfcare 07/20/2025 Travel 07/16/2025 Patient Outreach [facility] Personnel Supervisor Management [address] [place] [address] Mayda Holt, bobbin hauler of Care (Post-Discharge 2nd Attempt) 07/13/2025 Travel 07/11/2025 Patient Outreach [facility] Personnel Supervisor Management [address] [place] [address] Mayda Holt, bobbin hauler of Care (Post-Discharge Follow Up ) 07/10/2025 4:06 PM CDT - 07/10/2025 5:43 PM CDT Emergency [facility] Emergency [address] [place] [address] Rowena Shell APRN, VILMA Arm pain Discharge Disposition: Discharged to home or Selfcare 07/10/2025 11:00 AM CDT Clinical Support [facility] - Cardiology - [place] [address] [place] [address] Nurse, Dinh Cardiology Right arm pain (Primary Dx) Discharge Disposition: Discharged to home or Selfcare 07/10/2025 9:00 AM CDT Hospital Encounter [facility] Ultrasound [address] [place] [address] Duyen Malhotra APRN, VILMA Discharge Disposition: Discharged to home or Selfcare 07/10/2025 9:00 AM CDT Hospital Encounter [facility] Ultrasound [address] [place] [address] Duyen Malhotra APRN, GRAPHICS COORDINATOR Discharge Disposition: Discharged to home or Selfcare 07/10/2025 12:48 AM CDT - 07/10/2025 7:17 AM CDT Emergency [facility] Emergency [address] [place] [phone] Claudio Rich MD Folkert, Richy Hdez MD Arm pain, right Discharge Disposition: Left Against Medical Advice 07/10/2025 Results Follow-Up [facility] Adult Pediatric Inpatient Virtual [address] [place] [address] Duyen Malhotra APRN, GRAPHICS COORDINATOR RIGHT DUPLEX UPPER EXTREMITY ARTERIAL 07/10/2025 Telephone [facility] Cardiology [facility] [address] [place] [phone] Duyen Malhotra APRN, GRAPHICS COORDINATOR 07/10/2025 Travel 07/09/2025 2:00 PM CDT Patient Outreach [facility] Personnel Supervisor Management [address] [place] [address] Lexis Maldonado, TRUCK CATERER 07/09/2025 [facility] [address] [place] [phone] Zack Gary MD Post-Operative Problem 07/09/2025 Patient Outreach [facility] Personnel Supervisor Management [address] [place] [address] Lexis Maldonado, TRUCK CATERER Care Management ( assessment) 07/09/2025 [facility] [address] [place] [address] Elisa Ortega APRN, GRAPHICS COORDINATOR Medication Renewal Reviewed 07/07/2025 Telephone [facility] Central Call Center [address] [place] [phone] Chela Randhawa APRN, GRAPHICS COORDINATOR Advice Only 07/06/2025 10:46 AM CDT - 07/06/2025 12:10 PM CDT Surgery [facility] Cardiac [facility]ement [facility] [address] [place] [phone] Zack Gary MD CARDIAC CATH 07/06/2025 8:18 AM CDT - 07/06/2025 1:30 PM CDT Hospital Encounter [facility]iac [facility] [address] [place] [phone] Zack Gary MD Other chest pain Discharge Disposition: Discharged to home or Selfcare 07/05/2025 9:30 AM CDT [facility] [address] [place] [phone] Gabino Luevano MD Chronic pain disorder (Primary Dx); Epigastric pain; Tobacco dependence; Morbid obesity with BMI of 40.0-44.9, adult Discharge Disposition: Discharged to home or Selfcare 07/05/2025 Patient Outreach [facility] [address] [place] [address] Beba Baron, AUTOMOTIVE DESIGN LAYOUT DRAFTER Care Management (Schedule Assessment) 07/04/2025 Patient Outreach [facility] Personnel Supervisor Management [address] [place] [address] Beba Baron, AUTOMOTIVE DESIGN LAYOUT DRAFTER Care Management ( CM Assessment) 07/03/2025 Travel 07/02/2025 [facility] [address] [place] [address] Chela Randhawa APRN, GRAPHICS COORDINATOR Medication Refill 06/27/2025 Patient Outreach [facility] Personnel Supervisor Management [address] [place] [address] Beba Baron, AUTOMOTIVE DESIGN LAYOUT DRAFTER Care Management ( CM Assessment) 06/21/2025 [facility] [address] [place] [phone] Chela Randhawa, PULLMAN CAR CLERK, GRAPHICS COORDINATOR 06/20/2025 Telephone [facility] Mammography [address] [place] [phone] Chela Randhawa PULLMAN CAR CLERK, GRAPHICS COORDINATOR 06/20/2025 Documentation Only [facility] Mammography [address] [place] [address] Chela Randhawa PULLMAN CAR CLERK, GRAPHICS COORDINATOR 06/18/2025 1:57 AM CDT - 06/18/2025 4:57 AM CDT Emergency [facility] Emergency [address] [place] [address] Antonio Agudelo MD Pleurisy Discharge Disposition: Discharged to home or Selfcare 06/18/2025 Travel 06/14/2025 Telephone [facility] Medical [facility] Cardiology [facility] [address] [place] [address] Maria Del Carmen Gamino APRN, GRAPHICS COORDINATOR 06/13/2025 1:15 PM CDT - 06/13/2025 3:42 PM CDT Emergency [facility] Emergency [address] [place] [address] Leslie Diaz APRN, GRAPHICS COORDINATOR Chest pain, unspecified Discharge Disposition: Discharged to home or Selfcare 06/13/2025 Travel 06/13/2025 Nurse Triage [facility] [address] [place] [address] Chela Randhawa APRN, GRAPHICS COORDINATOR Chest Pain 06/11/2025 10:00 AM CDT - 06/11/2025 11:59 PM CDT Hospital Encounter [facility] Nuclear Medicine [address] [place] [address] Zack Gary MD Discharge Disposition: Discharged to home or Selfcare 06/11/2025 9:15 AM CDT - 06/11/2025 9:59 AM CDT Hospital Encounter [facility] Nuclear Medicine [address] [place] [address] Zack Gary MD Discharge Disposition: Discharged to home or Selfcare 06/11/2025 8:51 AM CDT - 06/11/2025 9:14 AM CDT Hospital Encounter [facility] Cardiology Stress [address] [place] [address] Zack Gary MD Discharge Disposition: Discharged to home or Selfcare 06/11/2025 8:49 AM CDT - 06/11/2025 8:50 AM CDT Hospital Encounter [facility] Nuclear Medicine [address] [place] [address] Zack Gary MD Discharge Disposition: Discharged to home or Selfcare 06/10/2025 Travel 2025 Telephone [facility] Outpatient [address] [place] [address] Zack Gary MD Prior Authorization (Denial of NM CARD MULTI SPECT WITH WALL MOTION AND EJECTION FRACTION) 06/06/2025 Results Follow-Up [facility] [address] [place] [address] Chela Randhawa APRN, GRAPHICS COORDINATOR DRUG SCREEN ORAL FLUID/SALIVA 06/06/2025 Results Follow-Up [facility] [address] [place] [address] Chela Randhawa APRN, GRAPHICS COORDINATOR URINE DRUG SCREEN 05/31/2025 1:20 PM CDT Office Visit [facility] [address] [place] [address] Chela Randhawa APRN, GRAPHICS COORDINATOR Nausea and vomiting, unspecified vomiting type (Primary Dx); Epigastric pain; Lumbar disc disease with radiculopathy; Chronic pain disorder Discharge Disposition: Discharged to home or Selfcare 05/31/2025 Travel 05/30/2025 Results Follow-Up [facility] Gastroenterology [facility] [address] [place] [address] Isabel Corrigan RN Pathology Surgical 05/28/2025 Transcribe Orders [facility] Mammography [address] [place] [address] Chela Randhawa APRN, VILMA Encounter for screening mammogram for malignant neoplasm of breast (Primary Dx) 05/28/2025 Travel 05/26/2025 8:16 PM CDT - 05/26/2025 9:54 PM CDT Emergency [facility] Emergency [address] [place] [address] Thong Sanchez MD Hiatal hernia Discharge Disposition: Discharged to home or Selfcare 05/26/2025 Travel 05/24/2025 8:40 AM CDT Office Visit [facility] [address] [place] [address] Chela Randhawa APRN, GRAPHICS COORDINATOR Encounter to establish care with new provider (Primary Dx); Seizure disorder ([facility]); PCOS (polycystic ovarian syndrome); Pulmonary emphysema, unspecified emphysema type ([facility]); MAYRA (obstructive sleep apnea); Chronic low back pain with sciatica, sciatica laterality unspecified, unspecified back pain laterality; Therapeutic drug monitoring; Chronic idiopathic constipation; Morbid obesity with BMI of 40.0-44.9, adult ([facility]); Tobacco dependence; Attention deficit hyperactivity disorder (ADHD), combined type; Anxiety; Bipolar 1 disorder ([facility]); Duodenitis; Hematemesis, unspecified whether nausea present; Gastroesophageal reflux disease without esophagitis; Restless legs syndrome (RLS); Urinary incontinence, unspecified type; Folliculitis; Encounter for screening mammogram for malignant neoplasm of breast Discharge Disposition: Discharged to home or Selfcare 05/23/2025 Travel 05/21/2025 Telephone [facility] [address] [place] [address] Chela Randhawa APRN, GRAPHICS COORDINATOR 05/18/2025 1:00 PM CDT - 05/18/2025 1:30 PM CDT Surgery [facility] Periop [address] [place] [address] Porfirio Howard MD EGD - DUODENITIS BIOPSY, 2CM HIATAL HERNIA 05/18/2025 11:58 AM CDT Anesthesia Event [facility] Gi [facility] Periop [address] [place] [address] Santana Sorensen, PERNELL, STEREO PLOTTER OPERATOR 05/18/2025 10:55 AM CDT Ancillary Procedure [facility] Gi Lab Main [address] [place] [address] Porfirio Howard MD 05/17/2025 6:50 PM CDT - 05/18/2025 2:37 PM CDT Hospital Encounter [facility] Med Surg [address] [place] [address] Hugo Sheehan MD Carmicheal, Litzy Rodriguez MD GI bleed Discharge Disposition: Discharged to home or Selfcare 05/17/2025 1:08 AM CDT - 05/17/2025 6:12 AM CDT Emergency [facility] Emergency [address] [place] [address] Hugo Sheehan MD [facility], Richy Hdez MD Right upper quadrant abdominal pain Discharge Disposition: Discharged to home or Selfcare 05/17/2025 Travel from Last 3 Months Immunizations Immunization Administration [...] Alcohol Abuse Father Lisa potts Diabetes Father Lisa potts Kidney Stones Father Lisa potts sepsis [...] Paty Mother Agustina Paternal Grandfather Paternal Grandmother Kip Sister Debbi Alive Social History Tobacco Use Types Packs/Day Years Used Date Smoking Tobacco: Former Cigarettes 0.5 15.8 0 02/25/2008 - 02/24/2023 Smokeless Tobacco: Never [...] often do you attend chur ch or latter-day services? Never 07/08/2024 Do you belong to any clubs o r organizations such as christianity groups, unions, fraternal or athletic groups, or school groups? No 07/08/2024 How often do you attend meet ings of the clubs or organizations you belong to? Never 07/08/2024 Are you , , di vorced, , never , or living with a partner? 07/08/2024 AUDIT-C Answer Date Recorded Q1: How often do you have a drink containing alcohol? Never 07/08/2024 Q2: How many drinks containi ng alcohol do you have on a typical day when you are drinking? Patient does not drink Q3: How often do you have si x or more drinks on one occasion? Never 07/08/2024 Overall Financial Resource Strain (CARDIA) Answe r Date Recorded How hard is it for you to pa y for the very basics like food, housing, medical care, and heating? Not hard at all 07/08/2024 PHQ-2 Answer Date Recorded Total Score - Questions 1-9 0 06/14 [facility] of Occupat ional Health - Occupational Stress Questionnaire Answer Date Recorded Do you feel stress - tense, restless, nervous, or anxious, or unable to sleep at night because your mind is troubled all the time - these days? Not at all 07/08/2024 Hunger Vital Sign Answer Date Recorded Within the past 12 months, y ou worried that your food would run out before you got the money to buy more. Never true 07/08/20 24 Within the past 12 months, t he food you bought just didn't last and you didn't have money to get more. Never true 07/08/2024 PRAPARE - Transportation Answer Date Re corded In the past 12 months, has l ack of transportation kept you from medical appointments or from getting medications? No 06/14 In the past 12 months, has l ack of transportation kept you from meetings, work, or from getting things needed for daily living? No 07/08/2024 Housing Stability Vital Sign Answer Kiet e Recorded In the last 12 months, was t here a time when you were not able to pay the mortgage or rent on time? No 07/08/2024 In the past 12 months, how m any times have you moved where you were living? 0 07/08/2024 At any time in the past 12 m [place], were you homeless or living in a fci (including now)? No 07/08/2024 Social Connection and Isolation Panel Answer Date Recorded In a typical week, how many times do you talk on the phone with family, friends, or neighbors? More than three times a week 07/09/2025 How often do you get togethe r with friends or relatives? More than three times a week 07/09/2025 How often do you attend chur ch or latter-day services? 1 to 4 times per year 07/09/2025 Do you belong to any clubs o r organizations such as christianity groups, unions, fraternal or athletic groups, or school groups? No 07/09/2025 How often do you attend meet ings of the clubs or organizations you belong to? Never 07/09/2025 Are you , , di vorced, , never , or living with a partner? 07/09/2025 AUDIT-C Answer Date Recorded Q1: How often do you have a drink containing alcohol? Never 07/09/2025 Q2: How many drinks containi ng alcohol do you have on a typical day when you are drinking? Patient does not drink Q3: How often do you have si x or more drinks on one occasion? Never 07/09/2025 Overall Financial Resource Strain (CARDIA) Answe r Date Recorded How hard is it for you to pa y for the very basics like food, housing, medical care, and heating? Not hard at all 07/09/2025 [facility] of Occupat ional Health - Occupational Stress Questionnaire Answer Date Recorded Do you feel stress - tense, restless, nervous, or anxious, or unable to sleep at night because your mind is troubled all the time - these days? Not at all 07/09/2025 Exercise Vital Sign Answer Date Recorde d On average, how many days pe r week do you engage in moderate to strenuous exercise (like a brisk walk)? 1 day 07/09/2025 On average, how many minutes do you engage in exercise at this level? 30 min 07/09/2025 Hunger Vital Sign Answer Date Recorded Within the past 12 months, y ou worried that your food would run out before you got the money to buy more. Never true 07/09/20 25 Within the past 12 months, t he food you bought just didn't last and you didn't have money to get more. Never true 07/09/2025 PRAPARE - Transportation Answer Date Re corded In the past 12 months, has l ack of transportation kept you from medical appointments or from getting medications? No 06/14 In the past 12 months, has l ack of transportation kept you from meetings, work, or from getting things needed for daily living? No 07/09/2025 Housing Stability Vital Sign Answer Kiet e Recorded In the last 12 months, was t here a time when you were not able to pay the mortgage or rent on time? No 07/09/2025 In the past 12 months, how m any times have you moved where you were living? 0 07/09/2025 At any time in the past 12 m onths, were you homeless or living in a fci (including now)? No 07/09/2025 [facility] Utilities Answer Date Recorded In the past 12 months has th e electric, gas, oil, or water company threatened to shut off services in your home? No 07/09/2025 Education Answer Date Recorded What is the [...] Sign Reading Time Taken Comments Blood Pressure 122/80 07/20/2025 2:30 PM JUNIOR HIGH MATH TEACHER Pulse 80 07/20/2025 2:30 PM JUNIOR HIGH MATH TEACHER Temperature 36.3 C (97.4 F) 07/20/2025 2:30 PM JUNIOR HIGH MATH TEACHER Respiratory Rate 16 07/20/2025 2:30 PM JUNIOR HIGH MATH TEACHER Oxygen Saturation 96% 07/20/2025 2:30 PM JUNIOR HIGH MATH TEACHER Inhaled Oxygen Concentration - - Weight 113 kg (249 lb 3.2 oz) 07/20/2025 2:30 PM JUNIOR HIGH MATH TEACHER Height 162.6 cm (5' 4) 07/20/2025 2:30 PM JUNIOR HIGH MATH TEACHER Body Mass Index 42.78 07/20/2025 2:30 PM JUNIOR HIGH MATH TEACHER Plan of Treatment Upcoming Encounters Date Type Department Care Team (Late st Contact Info) Description 08/24/2025 3:40 PM JUNIOR HIGH MATH TEACHER [facility] Visit [facility] Medicine [facility] [address] [place] [address] Chela Randhawa, PULLMAN CAR CLERK, GRAPHICS COORDINATOR [address] [place] [address] 07/22/2026 11:00 AM JUNIOR HIGH MATH TEACHER [facility] Visit [facility] Cardiology [facility] [address] [place] [address] Duyen Malhotra, PULLMAN CAR CLERK, GRAPHICS COORDINATOR [address] [place] [address] Health Maintenance Due Date Last Done Comments Diabetes: Eye Exam 1990 Diabetes: Foot Exam 1990 Hepatitis C Virus (HCV) Screening 1990 Varicella Immunization (1 of 2 - 13+ 2-dose series) 2003 Pneumococcal Immunization Combined (1 of 2 - PCV) 2009 Pap Smear 2011 Human Papillomavirus (HPV) Immunization (1 - 3-dose SCDM series) 2017 Cervical Cancer Screening (CCS) 2020 HPV/Cotest 2020 Diabetes: Hemoglobin A1c 12/29/2024 024, 05/26/2024, 09/23/2023, Additional history exists Influenza Immunization (#1) 2025 SARS-COV-2 Immunization ( - season) 2025 Diabetes: Nephropathy Screening 07/10/2026 07/10/2025, 06/18/2025, 06/13/2025, Additional history exists DTaP/Tdap/Td Immunization (7 - [...] on patient's age to complete this topic Goals Goal Patient Goal Type Associated Problems Recent Progress Patient-Stated? Author Complete Advance Directive Complete Advance Directive Not on track( 12:35 PM JUNIOR HIGH MATH TEACHER) Lexis Torres LSW Note: Review ACP information Discusses wishes with my loved ones Notify Care Management when ready to schedule ACP appointment Find Help in My Community-ricki BURROUGHS retail merchandising coordinator hours Patient Goals On track( 025 12:35 PM JUNIOR HIGH MATH TEACHER) Lexis Torres LSW Note: Follow Up Date: Week of 07/23/25 - call 211 when I need some help - follow-up on any referrals for help I am given SW care giver will place online referral to Ethan BURROUGHS office [phone] Patient will complete interview and application process with Ethan BURROUGHS catalytic case operator Why is this important? Knowing how and where to find help for yourself or family in your neighborhood and community is an important skill. You will want to take some steps to learn how. Notes: Procedures Procedure Name Priority Date/Time Associated Diagnosis Comments US RIGHT DUPLEX UPPER EXTREMITY VEINS Stat with Interpretation 07/10/2025 10:05 AM CDT Right arm pain Arm swelling US RIGHT DUPLEX UPPER EXTREMITY ARTERIAL Stat with Interpretation 07/10/2025 10:05 AM CDT Right arm pain Arm swelling CT RIGHT FOREARM W CONTRAST Stat with Interpretation 07/10/2025 3:47 AM CDT CBC WITH AUTO DIFFERENTIAL STAT 07/10 2:29 AM CDT ERYTHROCYTE SEDIMENTATION RA TE (ESR) STAT 07/10/2025 2:29 AM CDT CMP (COMPREHENSIVE METABOLIC PANEL) STAT 07/10/2025 2:29 AM CDT COMPLETE BLOOD COUNT (CBC) WITH DIFF STAT 07/10/2025 2:29 AM CDT CARDIAC CATH Routine 07/06/2025 11:20 AM CDT Other chest pain Abnormal stress test POCT URINE HCG () STAT 07/06 8:40 AM CDT AEROSOL NEBULIZER-INITIAL STAT 2024 4:28 AM CDT [...] PATHOLOGY SURGICAL Routine 05/18/2025 12:12 PM CDT ND EGD FLEXIBLE TRANSNASAL D X W/COLLJ SPEC BR/WA 05/18/2025 11:59 AM CDT EGD - DUODENITIS BIOPSY, 2CM HIATAL HERNIA ND ESOPHAGOGASTRODUODENOSCOP Y TRANSORAL DIAGNOSTIC 05/18/2025 11:59 AM [...] Recently Relevant to Health Maintenance Results * US RIGHT DUPLEX UPPER EXTREMITY VEINS (07/10/2025 10:05 AM CDT) Anatomical Region Laterality Modality vascular Right Ultrasound 07/10/2025 10:0 5 AM CDT Impressions 07/10/2025 10:47 AM CDT IMPRESSION: 1. No DVT in the right upper extremity. Narrative 07/10/2025 10:47 AM CDT DICTATING PHYSICIAN: Nathaniel Baig D.O. EXAM: Right upper extremity venous duplex, 07/10/2025 10:05 AM HISTORY: Right arm pain COMPARISON: None. FINDINGS: Color and spectral doppler images were obtained. The veins were examined for compressibility where applicable, augmentation, waveforms and echogenic intraluminal material. RIGHT: Internal Jugular: No thrombus Brachiocephalic: Normal waveform Subclavian: Normal waveform. No echogenic thrombus seen. Axillary: No thrombus. Brachial: No thrombus Cephalic and Basilic: No thrombus. LEFT: Not done Normal waveforms in the central veins. Procedure Note Nathaniel Baig, DO - 07/10/2025 DICTATING PHYSICIAN: Nathaniel Baig D.O. EXAM: Right upper extremity venous duplex, 07/10/2025 10:05 AM HISTORY: Right arm pain COMPARISON: None. FINDINGS: Color and spectral doppler images were obtained. The veins wereexamined for compressibility where applicable, augmentation, waveforms andechogenic intraluminal material. RIGHT: Internal Jugular: No thrombus Brachiocephalic: Normal waveform Subclavian: Normal waveform. No echogenic thrombus seen. Axillary: No thrombus. Brachial: No thrombus Cephalic and Basilic: No thrombus. LEFT: Not done Normal waveforms in the central veins. IMPRESSION: 1. No DVT in the right upper extremity. Duyen Malhotra APRN, CNP IMG US ORDERAB LES Final Result * US RIGHT DUPLEX UPPER EXTREMITY ARTERIAL (07/10/2025 10:05 AM CDT) Anatomical Region Laterality Modality vascular Right Ultrasound 07/10/2025 10:0 5 AM CDT Impressions 07/10/2025 10:57 AM CDT IMPRESSION: 1. Intraluminal thrombus and occlusion of the mid to distal right radial artery in the forearm. The ulnar artery and remaining upper extremity arteries are patent. Narrative 07/10/2025 10:57 AM CDT Dictating physician: Nathaniel Baig D.O. EXAM: Ultrasound right duplex upper extremity arterial, 07/10/2025 10:49 AM HISTORY: Right arm pain COMPARISON: CT same day Grayscale, color, and spectral Doppler images obtained. The right subclavian, axillary, brachial, and ulnar arteries are normal. Diminished velocities and waveforms in the proximal right radial artery. There is occlusion of the mid to distal right radial artery in the forearm with intraluminal echogenic thrombus. Procedure Note Nathaniel Baig, DO - 07/10/2025 Dictating physician: Nathaniel Baig D.O. EXAM: Ultrasound right duplex upper extremity arterial, 07/10/2025 10:49AM HISTORY: Right arm pain COMPARISON: CT same day Grayscale, color, and spectral Doppler images obtained. The rightsubclavian, axillary, brachial, and ulnar arteries are normal. Diminishedvelocities and waveforms in the proximal right radial artery. There isocclusion of the mid to distal right radial artery in the forearm withintraluminal echogenic thrombus. IMPRESSION: 1. Intraluminal thrombus and occlusion of the mid to distal right radialartery in the forearm. The ulnar artery and remaining upper extremityarteries are patent. Duyen Malhotra APRN, CNP IMG US ORDERAB LES Final Result * CT RIGHT FOREARM W CONTRAST (07/10/2025 3:47 AM CDT) Anatomical Region Laterality Modality UPPER EXTREMITY Right Computed Tomogra phy 07/10/2025 3:47 AM CDT Impressions 07/10/2025 8:23 AM CDT IMPRESSION: 1. Mild stranding involving the volar/radial aspect of the distal forearm. Findings could be postprocedural or secondary to cellulitis. Negative for soft tissue air. 2. There is somewhat asymmetric decreased enhancement involving the radial vessels at the level of the wrist, which may also be postprocedural. This is suboptimally evaluated due to bolus timing. Consider follow-up ultrasound if concern for thrombus. No focal outpouching is identified to suggest pseudoaneurysm/varix. Narrative 07/10/2025 8:23 AM CDT DICTATING PHYSICIAN: Robert Landers MD. EXAM DATE: 07/10/2025 3:47 AM EXAM: CT RIGHT FOREARM W CONTRAST COMPARISON: None. INDICATION: Right arm pain. PROCEDURE: Axial computed tomographic images of the right forearm were obtained after the administration of 100 mL of Isovue-370 intravenously. 2-dimensional coronal and sagittal reconstructions were performed. TYL=010 mGy-cm. Dose reduction techniques were utilized. FINDINGS: No acute fracture. The right elbow and wrist joints are grossly congruent. Mild stranding involving the volar/radial aspect of the distal forearm. Findings could be postprocedural or secondary to cellulitis. There is somewhat asymmetric decreased enhancement involving the radial vessels at this level, which may also be postprocedural. This is suboptimally evaluated due to bolus timing. Consider follow-up ultrasound if concern for thrombus. No focal outpouching is identified to suggest pseudoaneurysm/varix. No soft tissue air is identified. Procedure Note Robert Landers MD - 07/10/2025 DICTATING PHYSICIAN: Robert Landers MD. EXAM DATE: 07/10/2025 3:47 AM EXAM: CT RIGHT FOREARM W CONTRAST COMPARISON: None. INDICATION: Right arm pain. PROCEDURE: Axial computed tomographic images of the right forearm wereobtained after the administration of 100 mL of Isovue-370 intravenously.2-dimensional coronal and sagittal reconstructions were performed. IQD=[id number]. Dose reduction techniques were utilized. FINDINGS: No acute fracture. The right elbow and wrist joints are grosslycongruent. Mild stranding involving the volar/radial aspect of the distal forearm.Findings could be postprocedural or secondary to cellulitis. There issomewhat asymmetric decreased enhancement involving the radial vessels atthis level, which may also be postprocedural. This is suboptimallyevaluated due to bolus timing. Consider follow-up ultrasound if concernfor thrombus. No focal outpouching is identified to suggestpseudoaneurysm/varix. No soft tissue air is identified. IMPRESSION: 1. Mild stranding involving the volar/radial aspect of the distal forearm.Findings could be postprocedural or secondary to cellulitis. Negative forsoft tissue air. 2. There is somewhat asymmetric decreased enhancement involving the radialvessels at the level of the wrist, which may also be postprocedural. Thisis suboptimally evaluated due to bolus timing. Consider follow-upultrasound if concern for thrombus. No focal outpouching is identified tosuggest pseudoaneurysm/varix. us Claudio Rcih MD IMG CT ORDERABLES Final R esult * (ABNORMAL) CBC with Auto Differential (07/10/2025 2:29 AM CDT) Only the most recent of7 resultswithin the time period is included. WBC 11.57 4.00 - 12.00 10(3)/mcL 07/10/2025 2:42 AM CDT [facility] RBC 4.92 3.80 - 5.30 10(6)/mcL 07/10/2025 2:42 AM CDT [facility] HEMOGLOBIN (HGB) 13.8 12.0 - 15.8 g/dL 07/10/2025 2:42 AM CDT [facility] HEMATOCRIT (HCT) 43.7 36.0 - 47.0 % 07/10/2025 2:42 AM CDT [facility] MCV 88.8 82.0 - 96.0 fL 07/10/2025 2:42 AM CDT [facility] MCH 28.0 26.0 - 34.0 pg 07/10/2025 2:42 AM CDT [facility] MCHC 31.6 31.0 - 36.0 g/dL 07/10/2025 2:42 AM CDT [facility] PLATELET COUNT 314 140 - 440 10(3)/mcL 07/10/2025 2:42 AM CDT [facility] RDW 14.6 11.8 - 15.5 % 07/10/2025 2:42 AM CDT [facility] MPV 9.9 9.7 - 12.4 fL 07/10/2025 2:42 AM CDT [facility] NEUTROPHILS 69.0 47.0 - 73.0 % 07/10/2025 2:42 AM CDT [facility] LYMPHOCYTES 22.8 18.0 - 42.0 % 07/10/2025 2:42 AM CDT [facility] MONOCYTES 5.2 4.0 - 12.0 % 07/10/2025 2:42 AM CDT [facility] EOSINOPHILS 1.7 0.0 - 5.0 % 07/10/2025 2:42 AM CDT [facility] BASOPHILS 0.9 0.0 - 1.0 % 07/10/2025 2:42 AM CDT [facility] IMMATURE GRANULOCYTE 0.4 0.0 - 0.4 % 07/10/2025 2:42 AM CDT [facility] ABSOLUTE NEUTROPHILS 7.98(H) 1.60 - 7.70 10(3)/mcL 07/10/2025 2:42 AM CDT [facility] ABSOLUTE LYMPHOCYTES 2.64 1.30 - 3.20 10(3)/mcL 07/10/2025 2:42 AM CDT [facility] ABSOLUTE MONOCYTES 0.60 0.20 - 1.00 10(3)/[facility] 07/10/2025 2:42 AM CDT [facility] ABSOLUTE EOSINOPHIL 0.20 0.00 - 0.40 10(3)/[facility] 07/10/2025 2:42 AM CDT [facility] ABSOLUTE BASOPHILS 0.10 0.00 - 0.10 10(3)/[facility] 07/10/2025 2:42 AM CDT [facility] ABSOLUTE IMMATURE GRANULOCYTE 0.05(H) 0.00 - 0.03 10 (3) mcL. 07/10/2025 2:42 AM CDT [facility] NRBC PER 100 WBC 0 07/10/20 2:42 AM CDT [facility] Blood Venipuncture / Unknown 07/10/2025 2:29 AM CDT 07/10/2025 2:40 AM CDT us Claudio Rich MD HEMATOLOGY ORDERABLES Fin al Result [facility] [address] [place] [address] * (ABNORMAL) Sed Rate (Esr) [id number] (07/10/2025 2:29 AM CDT) ESR (SED RATE, ERYTHROCYTE SEDIMENTATION RATE) 46(H) <20 mm/h 07/10/2025 3:12 AM CDT [facility] Comment: Patients presenting with increased level of fibrinogen, gamma globulins, or abnormally shaped RBCs could affect the results for the erythrocyte sedimentation rate (ESR). Results should be clinically correlated. Blood Venipuncture / Unknown 07/10/2025 2:29 AM CDT 07/10/2025 2:40 AM CDT us Claudio Rich MD HEMATOLOGY ORDERABLES Fin al Result [facility] [address] [place] [address] * (ABNORMAL) CMP (Comprehensive Metabolic Panel) (07/10/2025 2:29 AM CDT) Only the most recent of6 resultswithin the time period is included. SODIUM 138 136 - 145 mmol/L 07/10/2025 3:03 AM CDT [facility] POTASSIUM 3.7 3.5 - 5.1 mmol/L 07/10/2025 3:03 AM CDT [facility] CHLORIDE 104 98 - 107 mmol/L 07/10/2025 3:03 AM CDT [facility] CO2, VENOUS 24 22 - 30 mmol/L 07/10/2025 3:03 AM CDT [facility] ANION GAP 13.7 <18.0 mmol/L 07/10/2025 3:03 AM CDT [facility] GLUCOSE 98 70 - 99 mg/dL 07/10/2025 3:03 AM CDT [facility] BUN 7 5 - 18 mg/dL 07/10/2025 3:03 AM CDT [facility] CREATININE, BLOOD 0.81 0.60 - 1.00 mg/dL 07/10/2025 3:03 AM CDT [facility] BUN/CREATININE RATIO 9(L) 12 - 20 ratio 07/10/2025 3:03 AM CDT [facility] TOTAL PROTEIN 7.1 6.0 - 8.0 g/dL 07/10/2025 3:03 AM [facility] ALBUMIN 4.3 3.5 - 5.0 g/dL 07/10/2025 3:03 AM [facility] A/G RATIO 1.5 1.0 - 2.2 07/10/2025 3:03 AM [facility] CALCIUM 9.2 8.7 - 10.5 mg/dL 07/10/2025 3:03 AM T [facility] T BILI 0.5 0.2 - 1.2 mg/dL 07/10/2025 3:03 AM [facility] SGOT (AST) 19 <43 U/L 07/10/2025 3:03 AM [facility] SGPT (ALT) 28 <56 U/L 07/10/2025 3:03 AM [facility] ALKALINE PHOSPHATASE 60 40 - 150 U/L 07/10/2025 3:03 AM [facility] GFR, ESTIMATED >60 >=60 07/10/2025 3:03 AM [facility] Comment: Creatinine Clearance is the preferred criteria for selecting drug dose adjustments in renally impaired patients. The GFR is provided as additional pertinent clinical information. GFR is reported in mL/min/1.73 sq m. Calculation based on the 2020 Chronic Kidney Disease Epidemiology Collaboration (CKD-EPI) equation refit without adjustment for race. GFR, EST. >60 >=60 025 3:03 AM [facility] Comment: Creatinine Clearance is the preferred criteria for selecting drug dose adjustments in renally impaired patients. The GFR is provided as additional pertinent clinical information. GFR is reported in mL/min/1.73 sq m. Calculation based on the 2009 Chronic Kidney Disease Epidemiology Collaboration (CKD-EPI). GFR, EST. NONAFRICAN >60 >=60 07/10/2025 3:03 AM [facility] Comment: Creatinine Clearance is the preferred criteria for selecting drug dose adjustments in renally impaired patients. The GFR is provided as additional pertinent clinical information. GFR is reported in mL/min/1.73 sq m. Calculation based on the 2009 Chronic Kidney Disease Epidemiology Collaboration (CKD-EPI). Blood Venipuncture / Unknown 07/10/2025 2:29 AM CDT 07/10/2025 2:40 AM CDT us Claudio Rich MD CHEMISTRY ORDERABLES Diamond l Result [facility] [place] [address] * CARDIAC CATH (07/06/2025 11:20 AM CDT) Anatomical Region Laterality Modality CARDIO N/A X-Ray Angiograph y Narrative 07/06/2025 1:32 PM CDT Images from the original result were not included. POST-CARDIAC CATHETERIZATION PROCEDURE NOTE- [facility] PATIENT:Belkys Black : 1990 DATE OF SERVICE: 07/06/25 Operators: Zack Gary MD Indication: - Chest pain, abnormal stress test Procedures: - Coronary angiography - Left heart cath - Moderate sedation I performed moderate sedation using Versed 1 mg and fentanyl 50 mcg. I supervised and directed our R.N. who assisted in monitoring patient's level of consciousness and physiological status throughout the procedure. Sedation start time: 11:08 AM Sedation end time: 11:18 AM Sedation total time: 10 minutes Findings: - LHC: Mild elevated LVEDP, 20 mmHg - Coronary angiogram: *Left main: No significant disease *LAD: No angiographic evidence of significant disease *Left circumflex: No significant disease *RCA: Dominant vessel with no significant disease Impression: - No angiographic evidence of CAD -Elevated LVEDP, 20 mmHg Access site/size(s) and vascular closure method: - Right radial artery, 6 Spanish sheath, TR band Periprocedural Events: None Estimated blood loss: Minimal Recommendations: -Routine post cath care - Continue medical therapy - Follow up - Risk factor optimization Discharge: Same-day discharge, pending clinical course Zack Gary MD, [facility], [facility] Interventional and Structural Cardiology [facility] Diesel Engine Fittermajor gifts officer [facility] [employer] Email: [email or web address] Office phone: [phone] [place] ([place]) Office: [phone] us Maria Del Carmen Gamino APRN, GRAPHICS COORDINATOR IMG CARDIAC CATH Fin al Result * POCT Urine HCG () (07/06/2025 8:40 AM CDT) Only the most recent of2 resultswithin the time period is included. POC URINE Negative POC URINE CONTROL Sap Crm Developer Pass Urine 07/06/2025 8:40 AM CDT Zack Gary MD POINT OF CARE T ESTING (MANUAL) Final Result * TROPONIN I, HIGH SENSITIVITY (HSTRP) (06/18/2025 2:10 AM CDT) Only the most recent of2 resultswithin the time period is included. Pathologist [facility] TROPONIN I, HIGH SENSITIVITY- [place] <2.7 <=14.0 ng/L 06/18/2025 2:58 AM CDT [facility] Comment: High-sensitivity troponin I results are reported in ng/L making the result appear to be 1,000 times higher than the contemporary troponin I value which is reported in ng/ml. Results from [place]. Blood Venipuncture / Unknown 06/18/2025 2:10 AM CDT 06/18/2025 2:30 AM CDT Antonio Agudelo MD CHEMISTRY ORDERABLES Fi nal Result [facility] [place] [address] * EKG 12 LEAD (06/18/2025 2:03 AM CDT) Only the most recent of2 resultswithin the time period is included. Ventricular Rate 77 BPM EXTERNAL EKG Atrial Rate 77 BPM EXTERNAL EKG P-R Interval 152 ms EXTERNAL EKG QRS Duration 86 ms EXTERNAL EKG Q-T Duration 368 ms EXTERNAL EKG QTC CALCULATION 416 ms EXTERNAL EKG P [place] 70 degrees EXTERNAL EKG R [place] 57 degrees EXTERNAL EKG T [place] 50 degrees EXTERNAL EKG 06/18/2025 2:03 AM CDT Impressions EXTERNAL EKG - 06/19/2025 3:45 PM CDT Normal sinus rhythm Nonspecific T wave abnormality Borderline ECG When compared with ECG of 13-JUN-2025 13:21, No significant change was found Confirmed by Butch Galaviz ([id number]) on 06/19/2025 3:45:51 PM Narrative Procedure Note Butch Galaviz MD PhD - 06/19/2025 IMPRESSION: Normal sinus rhythm Nonspecific T wave abnormality Borderline ECG When compared with ECG of 13-JUN-2025 13:21, No significant change was found Confirmed by Butch Galaviz ([id number]) on 06/19/2025 3:45:51 PM Antonio Agudelo MD IMG ECG ORDERABLES Diamond l Result Performing Organization Address City/[facility] Co de Phone Number EXTERNAL EKG * [...] DETECTED NON DETECTED 06/13/2025 3:25 PM CDT [facility] Comment: FOR MEDICAL USE ONLY. CUTOFF CONCENTRATION FOR DETECTED RESULT: AMPHETAMINE: 500 NG/ML UR BENZODIAZEPINES NON DETECTED NON DETECTED 06/13/2025 3:25 PM CDT [facility] Comment: FOR MEDICAL USE ONLY. CUTOFF CONCENTRATION FOR DETECTED RESULT: BENZODIAZAPINE: 200 NG/ML UR COCAINE METABOLITE DETECTED(A) NON DETECTED 06/13/2025 3:25 PM CDT [facility] Comment: FOR MEDICAL USE ONLY. CUTOFF CONCENTRATION FOR DETECTED RESULT: COCAINE: 150 NG/ML UR OPIATES NON DETECTED NON DETECTED 06/13/2025 3:25 PM CDT [facility] Comment: FOR MEDICAL USE ONLY. CUTOFF CONCENTRATION FOR DETECTED RESULT: OPIATES: 300 NG/ML UR PHENCYCLIDINE NON DETECTED NON DETECTED 06/13/2025 3:25 PM CDT [facility] Comment: FOR MEDICAL USE ONLY. CUTOFF CONCENTRATION FOR DETECTED RESULT: PCP: 25 NG/ML UR CANNABINOID DETECTED(A) NON DETECTED 06/13/2025 3:25 PM CDT [facility] Comment: FOR MEDICAL USE ONLY. CUTOFF CONCENTRATION FOR DETECTED RESULT: THC (MARIJUANA): 50 NG/ML UR BARBITURATE NON DETECTED NON DETECTED 06/13/2025 3:25 PM CDT [facility] Comment: FOR MEDICAL USE ONLY. CUTOFF CONCENTRATION FOR DETECTED RESULT: BARBITUATES: 200 NG/ML UR FENTANYL NON DETECTED NON DETECTED 06/13/2025 3:25 PM CDT [facility] Comment: FOR MEDICAL USE ONLY. CUTOFF CONCENTRATION FOR DETECTED RESULT: FENTANYL: 1.0 NG/ML Urine Non-Phlebotomy Collection / Unknown 06/13/2025 3:00 PM CDT 06/13/2025 3:12 PM CDT us Leslie Diaz PULLMAN CAR CLERK, GRAPHICS COORDINATOR URINE ORDERABLES Diamond l Result [facility] [address] [place] [address] * XR CHEST SINGLE VIEW (06/13/2025 1:46 [...] No acute chest disease. Leslie Diaz APRN, GRAPHICS COORDINATOR IMG DIAGNOSTIC ORDERA BLES Final Result * NT-proBNP (06/13/2025 1:33 PM CDT) NT PROBNP <15.8 <450.0 pg/mL 06/13/2025 2:53 PM CDT [facility] Comment: AGE pg/mL INTERPRETATION All <300 [...] 2:09 PM CDT us Leslie Diaz APRN, GRAPHICS COORDINATOR CHEMISTRY ORDERABLES Final Result Performing Organization Address City/[facility] Co de Phone Number [facility] [address] [place] [address] * Blue Top Tube (06/13/2025 1:33 PM CDT) Blood No Phlebotomy Charged / Unknown 06/13/2025 1:33 PM CDT 06/13/2025 2:15 PM CDT Leslie Diaz APRN, GRAPHICS COORDINATOR HEMATOLOGY ORDERABLES Final Result Performing Organization Address [facility] Co de Phone Number [facility] [address] [place] [address] * Magnesium (Mg) [id number] (06/13/2025 1:33 PM CDT) MAGNESIUM 1.6 1.6 - 2.6 mg/dL 06/13/2025 2:39 PM CDT [facility] Blood Venipuncture / Unknown 06/13/2025 1:33 PM CDT 06/13/2025 2:09 PM CDT us Leslie Diaz APRN, [place] CHEMISTRY ORDERABLES Final Result Performing Organization Address [facility] Co de Phone Number [facility] [address] [place] [address] * NM CARD MULTI SPECT WITH WALL [...] ischemia. Danyell Aleman DO Zack Gary MD [facility] CARDIAC NI ORDERABLES Final Result * ADULT CV STRESS PHARMACOLOGIC W NUC MED (06/11/2025 9:50 AM CDT) Anatomical Region Laterality Modality CARDIO N/A Electrocardiogra phy Narrative 06/11/2025 10:31 PM CDT Non-Imaging Stress Test Patient Name WAYNE Bowen 1990 Patient ID (UPI) [id number] Indications: Chest pain. Study Date06/11/2025 Type of [...] - Lexiscan Protocol Peak HR: 106 bpm [id number] Peak BP: 118/48 mmHg Predicted HR: 185 [...] Weight 248 lbs. BMI 42.57 kg/m^2 Stress Hat Lacer Nurse Tara Rae Referring Physician Physician Procedure Note Butch Galaviz MD PhD - 06/11/2025 Non-Imaging Stress Test Patient Name WAYNE Bowen Ramses 1990 Patient ID (UPI) [id number] Indications: Chest pain. Study Date06/11/2025 Type of [...] - Lexiscan Protocol Peak HR: 106 bpm [id number] Peak BP: 118/48 mmHg Predicted HR: 185 [...] Weight 248 lbs. BMI 42.57 kg/m^2 Stress Hat Lacer Nurse Tara Rae Referring Physician Physician Zack Gary MD IMG STRESS Final Result * DRUG SCREEN ORAL FLUID/SALIVA (05/31/2025 12:00 AM CDT) 05/31/2025 Chela Randhawa APRN, CNP CHEMISTRY ORDERABLES Final Result SCAN * PT / INR (05/26/2025 8:44 PM CDT) Only the most recent of2 resultswithin the time period is included. PROTIME-PATIENT 12.9 11.6 - 14.8 sec 05/26/2025 9:05 PM CDT [facility] INR 1.0 0.9 - 1.2 05/26/2025 9:05 PM CDT [facility] Comment: Therapeutic Ranges INR = 2.0-3.0: Venous thromb, atrial fib, pul embolism, tissue heart valve, ami. INR = 2.5-3.5: Mechanical heart valve Critical value for INR is >/= 4.5 Blood Venipuncture / Unknown 05/26/2025 8:44 PM CDT 05/26/2025 8:51 PM CDT Thong Sanchez MD HEMATOLOGY ORDERABLES Final Resu lt [facility] [address] [place] [address] * Lipase (05/26/2025 8:44 PM CDT) Only the most recent of3 resultswithin the time period is included. LIPASE 29 8 - 78 U/L 05/26/2025 9:10 PM CDT [facility] Blood Venipuncture / Unknown 05/26/2025 8:44 PM CDT 05/26/2025 8:51 PM CDT Thong Sanchez MD CHEMISTRY ORDERABLES Final Resul t Performing Organization Address City/[facility] Co de Phone Number [facility] [address] [place] [address] * Pathology Surgical (05/18/2025 12:12 PM CDT) Case Report Surgical Pathology Report Case: [id number] Authorizing Provider: Porfirio Howard MD Collected: 05/18/2025 12:12 PM Ordering Location: [facility] Received: 05/21/2025 09:37 AM [facility] Med Surg [address] [place] [address] Pathologist: Cornelius Zamudio MD PhD Specimen: Duodenum, DUODENITIS BIOPSY 05/22/2025 8:37 AM CDT [facility] FINAL DIAGNOSIS Duodenum biopsy: - Duodenal mucosa, negative for diagnostic abnormalities 05/22/2025 8:37 AM CDT [facility] at 0837 CDT Pre-Operative Diagnosis HEMATEMESIS 05/22/2025 8:37 AM CDT [facility] Gross Description A. DUODENITIS BIOPSY Received in formalin labeled with the patient identifiers and duodenum biopsy 1 soft chau tissue fragment measuring 0.3 in greatest dimension. The specimen is entirely submitted in cassette A1. Total time of formalin fixation: 93 hours 19 minutes 05/22/2025 8:37 AM CDT [facility] Microscopic Description Microscopic examination was performed which supports the final diagnosis. All control tissues stained appropriately. 05/22/2025 8:37 AM CDT [facility] Tissue DUODENAL STRUCTURE / Unknown 05/18/2025 12:12 PM CDT 05/21/2025 9:37 AM CDT Porfirio Howard MD PATHOLOGY/CYTOLOGY ORDERA BLES Final Result [facility] [address] [place] [address] * GI LAB IMAGING - EGD (05/18/2025 10:53 AM CDT) Porfirio Howard MD IMG DIAGNOSTIC ORDERABLES Final Result * Hgb & Hct (05/18/2025 10:04 AM CDT) HEMOGLOBIN (HGB) 12.7 12.0 - 15.8 g/dL 05/18/2025 10:15 AM CDT [facility] HEMATOCRIT (HCT) 41.3 36.0 - 47.0 % 05/18/2025 10:15 AM CDT [facility] Blood Venipuncture / Unknown 05/18/2025 10:04 AM CDT 05/18/2025 10:11 AM CDT Radha Lantigua APRN, CNP HEMATOLOGY ORDERABLES Final Result [facility] [address] [place] [address] * XR CHEST SINGLE VIEW PORTABLE (05/18/2025 1:55 AM CDT) Anatomical Region Laterality Modality Chest N/A Computed Radiogr aphy 05/18/2025 1:55 AM CDT Impressions 05/18/2025 5:26 AM CDT IMPRESSION: No acute pulmonary disease. Narrative 05/18/2025 5:26 AM CDT XR CHEST SINGLE VIEW PORTABLE : 05/18/2025 1:55 AM DICTATING PHYSICIAN: LAUREEN DELVALLE Formerly [facility]. HISTORY: ADDITIONAL TECHNOLOGIST HISTORY: [...] 1:55 AM DICTATING PHYSICIAN: LAUREEN DELVALLE [facility]ly [facility]. HISTORY: ADDITIONAL TECHNOLOGIST HISTORY: sepsis COMPARISON: 02/05/2025 TECHNIQUE: Single view radiograph of the chest was obtained. FINDINGS: Cardiomediastinal silhouette: Mild cardiomegaly. Pulmonary vascularity: Within normal limits. Lung parenchyma: Clear of nodules and infiltrates. Pleura: No evidence for effusion or pneumothorax. Osseous structures: Regional osseous structures are intact.Age-appropriate degenerative changes noted. Support lines and tubes: None. IMPRESSION: No acute pulmonary disease. us Radha Lantigua PULLMAN CAR CLERK, GRAPHICS COORDINATOR IMG DIAGNOSTIC ORDERA BLES Final Result * Culture, Blood (05/18/2025 1:13 AM CDT) Only the most recent of2 resultswithin the time period is included. CULTURE RESULTS NO GROWTH WITHIN 5 DAYS, FINAL RESULT 05/23/2025 2:00 AM CDT [facility] Culture (Peripheral Vein) Venipuncture / Unknown 05/18/2025 1:13 AM CDT 05/18/2025 1:16 AM CDT Radha Lantigua APRN, CNP MICROBIOLOGY - GENERA L ORDERABLES Final Result Performing Organization Address City/[facility]/ZIP Co de Phone Number [facility] [address] [place] [address], [place] * APTT (PTT) (05/18/2025 1:10 AM CDT) PTT 27 24 - 36 sec 05/18/2025 1:31 AM CDT [facility] Blood Venipuncture / Unknown 05/18/2025 1:10 AM CDT 05/18/2025 1:16 AM CDT Narrative [facility] - 05/18/2025 1:31 AM CDT Therapeutic range for unfractionated heparin at 0.3-0.7 U/mL is an aPTT value in the range of 71-100 seconds. Critical value for the PTT test is >= 122 seconds. Radha Lantigua APRN, CNP HEMATOLOGY ORDERABLES Final Result Performing Organization Address [facility] Co de Phone Number [facility] [address] [place] [address] * Lactic Acid (Lactate) (05/18/2025 1:10 AM CDT) LACTIC ACID 2.0 0.7 - 2.0 mmol/L 05/18/2025 1:37 AM CDT [facility] Blood Venipuncture / Unknown 05/18/2025 1:10 AM CDT 05/18/2025 1:16 AM CDT Radha Lantigua APRN, CNP CHEMISTRY ORDERABLES Final Result Performing Organization Address City/[facility]/ZIP Co de Phone Number [facility] [address] [place] [address] * (ABNORMAL) BMP with Ca, Total (05/18/2025 1:10 AM CDT) SODIUM 137 136 - 145 mmol/L 05/18/2025 1:35 AM CDT [facility] POTASSIUM 3.9 3.5 - 5.1 mmol/L 05/18/2025 1:35 AM CDT [facility] CHLORIDE 106 98 - 107 mmol/L 05/18/2025 1:35 AM CDT [facility] CO2, VENOUS 25 22 - 30 mmol/L 05/18/2025 1:35 AM CDT [facility] ANION GAP 9.9 <18.0 mmol/L 05/18/2025 1:35 AM CDT [facility] GLUCOSE 100(H) 70 - 99 mg/dL 05/18/2025 1:35 AM CDT [facility] BUN 7 5 - 18 mg/dL 05/18/2025 1:35 AM CDT [facility] CREATININE, BLOOD 0.73 0.60 - 1.00 mg/dL 05/18/2025 1:35 AM T [facility] BUN/CREATININE RATIO 10(L) 12 - 20 ratio 05/18/2025 1:35 AM CDT [facility] CALCIUM 8.4(L) 8.7 - 10.5 mg/dL 05/18/2025 1:35 AM CDT [facility] GFR, ESTIMATED >60 >=60 05/18/2025 1:35 AM CDT [facility] Comment: Creatinine Clearance is the preferred criteria for selecting drug dose adjustments in renally impaired patients. The GFR is provided as additional pertinent clinical information. GFR is reported in mL/min/1.73 sq m. Calculation based on the 2020 Chronic Kidney Disease Epidemiology Collaboration (CKD-EPI) equation refit without adjustment for race. GFR, EST. >60 >=60 025 1:35 AM CDT [facility] Comment: Creatinine Clearance is the preferred criteria for selecting drug dose adjustments in renally impaired patients. The GFR is provided as additional pertinent clinical information. GFR is reported in mL/min/1.73 sq m. Calculation based on the 2009 Chronic Kidney Disease Epidemiology Collaboration (CKD-EPI). GFR, EST. NONAFRICAN >60 >=60 05/18/2025 1:35 AM CDT [facility] Comment: Creatinine Clearance is the preferred criteria for selecting drug dose adjustments in renally impaired patients. The GFR is provided as additional pertinent clinical information. GFR is reported in mL/min/1.73 sq m. Calculation based on the 2009 Chronic Kidney Disease Epidemiology Collaboration (CKD-EPI). Blood Venipuncture / Unknown 05/18/2025 1:10 AM CDT 05/18/2025 1:16 AM CDT us Radha Lantigua APRN, VILMA CHEMISTRY ORDERABLES Final Result [facility] [address] [place] [address] * RHYTHM STRIP (05/18/2025 12:00 AM CDT) Only the most recent of3 resultswithin the time period is included. 05/18/2025 us Provider Scan IMG ECG ORDERABLES Final Result RESULTING AGENCY * TYPE & SCREEN (CROSSMATCH CONVERTIBLE) (05/17/2025 7:35 PM CDT) ABO TYPING A 05/17/2025 8:34 PM CDT [facility] RH Positive 05/17/2025 8:34 PM CDT [facility] ABSC Negative 05/17/2025 8:34 PM CDT [facility] Blood Venipuncture / Unknown 05/17/2025 7:35 PM CDT 05/17/2025 7:42 PM CDT us Hugo Sheehan MD BLOOD BANK ORDERABLES Edit ed Result - Final [facility] [address] [place] [address] * CT ABDOMEN PELVIS W/ CONTRAST (05/17/2025 [...] postcontrast CT of the abdomen/pelvis. 100 mL [id number] IV. No contrast reaction. RADIATION EXPOSURE: Dose reduction techniques utilized FINDINGS: Lung bases are clear. The gallbladder has been removed. The liver,pancreas, spleen, adrenal glands and kidneys are unremarkable. Stomach,small and large bowel are unremarkable. The abdominal aorta and its majorbranches are unremarkable. The axial and appendicular skeleton areunremarkable. The appendix is normal. IMPRESSION: No acute intra-abdominal findings. Hugo Sheehan MD [facility] CT ORDERABLES Final Re sult * (ABNORMAL) URINALYSIS REFLEX IF INDICATED BY ABNORMAL RESULTS (05/17/2025 2:51 AM CDT) SPECIFIC GRAVITY 1.015 1.003 - 1.030 05/17/2025 3:13 AM CDT [facility] URINE PH 6.5 5.0 - 9.0 05/17/2025 3:13 AM CDT [facility] WBC ESTERASE 25 /ul(A) Negative 05/17/2025 3:13 AM CDT [facility] NITRITE Negative Negative 05/17/2025 3:13 AM CDT [facility] PROTEIN, RANDOM URINE 30 mg/dL(A) Negative 05/17/2025 3:13 AM CDT [facility] URINE GLUCOSE, QUAL Negative Negative 05/17/2025 3:13 AM CDT [facility] URINE KETONES Negative Negative 05/17/2025 3:13 AM T [facility] UROBILINOGEN 1 mg/dL(A) Normal mg/dL 05/17/2025 3:13 AM CDT [facility] URINE BLOOD Negative Negative dariana/ul 05/17/2025 3:13 AM CDT [facility] URINALYSIS COLOR Yellow 05/17/20 3:13 AM T [facility] URINALYSIS CLARITY Clear 05/17/2025 3:13 AM CDT [facility] WBC (Urine) 0-5 Negative, 0-5 /hpf 05/17/2025 3:13 AM [facility] URINE RBC'S 0-2 Negative, 0-2 /hpf 05/17/2025 3:13 AM CDT [facility] EPITHELIAL CELLS Moderate amount /lpf 05/17/2025 3:13 AM CDT [facility] BACTERIA, URINE Few(A) Negative /hpf 05/17/2025 3:13 AM T [facility] URINE MUCOUS Many 05/17/2025 3:13 AM [facility] Urine URINE SPECIMEN OBTAINED BY CLEAN CATCH PROCEDURE / Unknown Non-Phlebotomy Collection / Unknown 05/17/2025 2:51 AM CDT 05/17/2025 2:55 AM CDT us Hugo Sheehan MD URINE ORDERABLES Final Res ult Performing Organization Address [facility] Co de Phone Number [facility] [address] [place] [address] * CT - ABDOMEN/PELVIS (05/17/2025 12:00 AM CDT) 05/17/2025 us Provider Scan IMG CT ORDERABLES Final Result Performing Organization Address [facility] Co de Phone Number SCAN * Hemoglobin A1C w/ Estimated Glucose (05/26/2024 4:45 AM CDT) HGB-A1C 5.9 4.0 - 6.0 % 05/26/2024 11:43 AM CDT [facility] Est Average Glucose 122.6 mg/dL 05/26/2024 11:43 AM CDT [facility] Blood Venipuncture / Unknown 05/26/2024 4:45 AM CDT 05/26/2024 5:53 AM CDT Narrative [facility] - 05/26/2024 11:43 AM CDT HEMOGLOBIN A1C: DIABETIC PATIENTS: WELL-CONTROLLED: 6.2 - 7.0 INTERMEDIATE WELL-CONTROLLED: 7.0 - 9.0 POORLY-CONTROLLED: >9.0 us Roverto Lema MD CHEMISTRY ORDERABLES Final Re sult Performing Organization Address [facility] Co de Phone Number [facility] [address] [place] [address] from Last 3 Months or Most Recently Relevant to Health Maintenance Insurance MEDICAID [facility] [employer] [facility] GENERIC Advance Directives * Full Code [...] measures to stabilize the patient. Care Teams Tamping Machine Operator Road Forms Relationship Specialty Start Date End Date Chela Randhawa APRN, GRAPHICS COORDINATOR [address] [place] [address] PCP - General Advanced Practice Nurse 05/24/25 David Raphael MD Consulting Physician Obstetrics & Gynecology 08/04/19 Carlos Hart MD #[address] [address] Consulting Physician General Surgery 07/07/22 Moisés Taveras APRN, GRAPHICS COORDINATOR [address] [place] [address] Nurse Practitioner Advanced Practice Nurse 05/30/23 Elisa Ortega APRN, GRAPHICS COORDINATOR #[address] [address] Nurse Practitioner Advanced Practice Nurse 04/30/22 Duyen Malhotra APRN, VILMA [address] [place] [address] Nurse Practitioner Cardiology 09/25/24 Lexis Maldonado [facility] Air Analyst Wire Stitcher Operator 07/05/25 Zack Gary MD 2 [facility] [address] [address] Consulting Physician Cardiology 07/23/25
--- OUTSIDE RECORDS SUMMARY | 2025-08-07 00:53 | XMS_ITS | Encounter Summary ---
Author Organization [facility] Address [address] [place] [address] Phone Care Team Providers Care Color Adviser Name Role Phone Lazarus Amin MD Unavailable [phone] David Raphael MD Unavailable + [phone] Christ Hawkins MD Primary Care Provider [phone] Dario Solares Primary Care Provider [phone] Carlos Hart MD Unavailable [phone] Teodoro Covarrubias MD Unavailable Bishop Pérez MD Primary Care Provider [phone] Yessi Combs DIRECTOR ONCOLOGY, LARD MIXER Unavailable [phone] Moisés Taveras DIRECTOR ONCOLOGY, LARD MIXER Unavailable + [phone] Elisa Ortega DIRECTOR ONCOLOGY, LARD MIXER Unavailable [phone] Provider, None Primary Care Provider Unavailabl e Provider, None Primary Care Provider Unavailabl e Duyen Malhotra DIRECTOR ONCOLOGY, LARD MIXER Unavailable Chela Randhawa DIRECTOR ONCOLOGY, LARD MIXER Primary Care Provide r Beba Baron REINFORCEMENT MAKER Unavailable Unavailable Lexis Maldonado DIRECT MARKETING EXECUTIVE Unavailable Unavailab Zack Bess MD Unavailable Reason for Visit * Reason Comments Medication Refill Encounter Details Date Type Department Care Team (Late Contact Info) Description 08/10/2021 [facility] [place] [address] Christ Hawkins MD [address] [place] [address] Medication Refill Social History Tobacco Use Types [...] PAC for the following reason: Therapy completed. PATIONAL HYGIENIST documented in this encounter Plan of Treatment Upcoming Encounters Date Type Department Care Team ([facility] Contact Info) Description 08/24/2025 3:40 PM OCCUPATIONAL HYGIENIST Office Visit [facility] [address] [place] [address] Chela Randhawa, DIRECTOR ONCOLOGY, LARD MIXER 2 [facility] [place] [address] 07/22/2026 11:00 AM OCCUPATIONAL HYGIENIST Office Visit [facility] - [place] [address] [place] [address] Duyen Malhotra, DIRECTOR ONCOLOGY, LARD MIXER [address] [place] [address] documented as of this encounter Visit Diagnoses Not on filedocumented in this encounter Additional Health Concerns Infection Onset Date Last Indicated Resolved Time COVID - 19 09/04/2021 09/04/2021 09/04/2021 11:5 1 PM OCCUPATIONAL HYGIENIST COVID - 19 08/02/2022 08/11/2022 08/21/2022 12:1 6 AM OCCUPATIONAL HYGIENIST COVID - 19 01/08/2023 01/08/2023 01/18/2023 12:1 6 AM CDT COVID - 19 09/22/2023 09/22/2023 10/02/2023 12:1 6 AM OCCUPATIONAL HYGIENIST COVID - 19 05/15/2024 05/15/2024 05/15/2024 7:02 PM CDT COVID - 19 07/05/2024 07/05/2024 07/05/2024 10:1 1 PM CDT COVID - 19 07/28/2024 07/28/2024 07/29/2024 1:17 AM OCCUPATIONAL HYGIENIST COVID - 19 08/29/2024 08/29/2024 08/29/2024 11:2 8 PM OCCUPATIONAL HYGIENIST Assessment Noted Time PHQ-9 Depression Total Score: 0 04/14/20 2:00 PM CDT documented as of this encounter Care Teams Color Adviser Relationship Specialty Start Date End Date Christ Hawkins MD [address] [place] [address] PCP - General Family Medicine 04/14/21 08/22/21 Dario Solares [facility] [address] [place] [address] PCP - General Physician Male Impersonator 08/23/21 05/23/23 Bishop King MD #[address] [phone] PCP - General Internal Medicine 05/24/23 05/14/24 Provider, None [place] PCP - General 05/15/24 06/25/24 Provider, None [place] PCP - General 06/26/24 05/23/25 Chela Randhawa, DIRECTOR ONCOLOGY, LARD MIXER [address] [place] [address] PCP - General Advanced Practice Nurse 05/24/25 Lazarus Amin MD [address] [place] [address] Consulting Physician Neurology 05/21/16 07/23/24 David Raphael MD [address] [place] [phone] Consulting Physician Obstetrics & Gynecology 08/04/19 Carlos Hart MD #[address] [phone] Consulting Physician General Surgery 07/07/22 Teodoro Covarrubias MD #[address] [address] Consulting Physician Cardiovascular Disease - Cardiology 03/11/23 08/15/24 Yessi Combs, DIRECTOR ONCOLOGY, LARD MIXER [address] [place] [address] Nurse Practitioner Advanced Practice Nurse 09/10/23 Moisés Taveras, DIRECTOR ONCOLOGY, LARD MIXER [address] [place] [address] Nurse Practitioner Advanced Practice Nurse 05/30/23 Elisa Ortega, DIRECTOR ONCOLOGY, LARD MIXER [address] [facility] [address] [place] [address] Nurse Practitioner Advanced Practice Nurse 04/30/22 Duyen Malhotra, DIRECTOR ONCOLOGY, LARD MIXER [address] [place] [address] Nurse Practitioner Cardiology 09/25/24 Beba Baron, REINFORCEMENT MAKER [place] Sales Financial Analyst Dump Attendant 06/27/25 07/04/25 Lexis Maldonado, DIRECT MARKETING EXECUTIVE [place] Sales Financial Analyst Dump Attendant 07/05/25 Zack Gary MD [address] [place] [address] Consulting Physician Cardiology 07/23/25 documented as of this encounter
--- OUTSIDE RECORDS SUMMARY | 2025-08-07 00:53 | XMS_ITS | Encounter Summary ---
Author Organization [facility] Healthcare Address [address] [place] [address] Care Team Providers Care Marble Installer Name Role Phone Dario Solares Primary Care Provider [phone] Dario Solares Unavailable [phone] Dario Solares Primary Care Provider [phone] Unknown, Notinfile Primary Care Provider Unavail able Dario Solares Primary Care Provider [phone] Bishop King MD Primary Care Provider [phone] No, Physician Primary Care Provider Meek Alejandra MD Primary Care Provider [phone] Miscellaneous, Not In File Primary Care Provider Unavailable Oralia Johnson DO Primary Care Provider [phone] Robert Joaquin MD Unavailable [phone] Lita Prieto DO Primary Care Provider [phone] Jeffrey Thomas MD Unavailable [phone] Encounter Details Date Type Department Care Team (Late st Contact Info) Description 09/14/2017 Documentation [facility] Operating Room [address] [place] [address] Perla Hicks RN Social History Tobacco Use Types Packs/Day Years Used Date Smoking Tobacco: Every Day Cigarettes 1 14 Smokeless Tobacco: Never Alcohol Use Standard Drinks/Week Comments No 0 (1 standard drink = 0.6 oz pur e alcohol) Comments No Sex and Gender Information Value Date Recorded Sex Assigned at Not on file Legal Sex Female 4:00 AM BUCKLE STRAP PUNCHER Gender Identity Not on file Sexual Orientation Not on file documented as of this encounter Miscellaneous Notes * Perioperative Nursing Note - Perla Hicks RN - 09/14/2017 9:07 AM BUCKLE STRAP PUNCHER NO ADDITIONAL NOTES ad LE STRAP PUNCHER documented in this encounter Plan of Treatment Not on file documented as of this encounter Visit Diagnoses Not on filedocumented in this encounter Additional Health Concerns Infection Onset Date Last Indicated Resolved Time COVID19 Comment:Added from the Screening question BPA, identifying patients that tested positive for COVID in the last 14 days and the result is from a facility outside [facility] . 06/22/2021 06/22/2021 07/06/2021 3:05 AM CDT COVID: Suspected 01/09/2023 01/09/2023 01/09/2023 5:45 PM CDT Rhino/Enterovirus 01/09/2023 01/09/2023 01/16/2023 3:07 AM CDT COVID: Suspected 01/17/2023 01/17/2023 01/18/2023 12:13 AM CDT Rhino/Enterovirus 01/17/2023 01/17/2023 01/24/2023 3:05 AM CDT COVID: Suspected 07/18/2023 07/18/2023 07/18/2023 4:17 PM BUCKLE STRAP PUNCHER COVID: Suspected 01/01/2024 01/01/2024 01/01/2024 9:59 AM CDT Human metapneumovirus, conta ct + droplet 01/01/2024 01/01/2024 01/08/2024 3:05 AM C DT COVID: Suspected 03/08/2024 03/08/2024 03/08/2024 9:09 PM CDT COVID: Suspected 05/17/2024 05/17/2024 05/17/2024 9:55 PM CDT COVID: Suspected 06/29/2024 06/29/2024 06/29/2024 10:44 PM CDT COVID: Suspected 07/29/2024 07/29/2024 07/29/2024 7:46 PM BUCKLE STRAP PUNCHER Rhino/Enterovirus 07/29/2024 07/29/2024 08/12/2024 3:05 AM BUCKLE STRAP PUNCHER COVID: Suspected 10/29/2024 10/29/2024 10/30/2024 1:40 AM BUCKLE STRAP PUNCHER documented as of this encounter Care Teams Marble Installer Relationship Specialty Start Date End Date Dario Solares PA [address] [place] [address] PCP - General Family Practice 07/27/17 02/05/18 Dario Solares PA [address] [place] [address] PCP - General 02/06/18 04/07/19 Unknown, Notinfile PCP - General 04/08/19 01/28/21 Dario Solares PA [address] [place] [address] PCP - General Family Practice 01/29/21 06/06/23 Bishop King MD PCP - General Internal Medicine 06/07/23 02/22/24 No, Physician PCP - General 03/24/24 03/28/24 Meek Alejandra MD [address] [place] [address] [place] [address] PCP - General Family Medicine 03/29/24 03/29/24 Miscellaneous, Not In File PCP - General 05/30/24 06/02/24 Oralia Johnson DO PCP - General Family Medicine 06/03/24 09/03/24 Lita Prieto DO [address] [facility] [place] [address] PCP - General Family Medicine 09/04/24 Dario Solares PA [address] [place] [address] 07/27/17 06/06/23 [place] [address] [facility] [address] [place] [address] Consulting Physician Emergency Medicine 06/09/24 Jeffrey Thomas MD [address] [place] [address] [place] [address] Resident Family Medicine 09/19/24 documented as of this encounter
--- OUTSIDE RECORDS SUMMARY | 2025-08-07 00:53 | XMS_ITS | Encounter Summary ---
Author Organization [facility] Address [address] [place] [address] Phone Care Team Providers Care Golf Cart Mechanic Name Role Phone Lazarus Amin MD Unavailable [phone] David Raphael MD Unavailable [phone] Carlos Hart MD Unavailable [phone] Teodoro Covarrubias MD Unavailable Bishop Pérez MD Primary Care Provider [phone] Yessi Combs LOCOMOTIVE ENGINEER DIESEL, DIRECTOR OF MARKET RESEARCH Unavailable + [phone] Moisés Taveras LOCOMOTIVE ENGINEER DIESEL, DIRECTOR OF MARKET RESEARCH Unavailable [phone] Elisa Ortega LOCOMOTIVE ENGINEER DIESEL, DIRECTOR OF MARKET RESEARCH Unavailable [phone] Provider, None Primary Care Provider Unavailabl e Provider, None Primary Care Provider UnavailDuyen Serra LOCOMOTIVE ENGINEER DIESEL, DIRECTOR OF MARKET RESEARCH Unavailable Chela Randhawa LOCOMOTIVE ENGINEER DIESEL, DIRECTOR OF MARKET RESEARCH Primary Care Provide r Beba Baron PROBE OPERATOR Unavailable Unavailable Lexis Maldonado RETAIL SALES MANAGER Unavailable Unavailab Zack Bess MD Unavailable Reason for Visit * Reason Comments Medication Refill Encounter Details Date Type Department Care Team ([facility] Contact Info) Description [facility] [place] [address] [place] [address] Elisa Ortega, LOCOMOTIVE ENGINEER DIESEL, DIRECTOR OF MARKET RESEARCH #[address] [address] Medication Refill Social History Tobacco Use Types [...] Encounters Date Type Department Care Team (Late Contact Info) Description 08/24/2025 3:40 PM LAYOUT MAN Office Visit [facility] - [place] #[address] [place] [phone] Chela Randhawa, LOCOMOTIVE ENGINEER DIESEL, DIRECTOR OF MARKET RESEARCH [address] [place] [address] 07/22/2026 11:00 AM LAYOUT MAN Office Visit [facility] - [place] [address] [place] [address] Duyen Malhotra APRN, DIRECTOR OF MARKET RESEARCH [address] [place] [address] documented as of this encounter Visit Diagnoses Diagnosis Personal history of tobacco use Personal history of tobacco use, presenting hazards to health documented in this encounter Additional Health Concerns Infection Onset Date Last Indicated Resolved Time COVID - 19 09/22/2023 09/22/2023 10/02/2023 12:1 6 AM LAYOUT MAN COVID - 19 05/15/2024 05/15/2024 05/15/2024 7:02 PM CDT COVID - 19 07/05/2024 07/05/2024 07/05/2024 10:1 1 PM CDT COVID - 19 07/28/2024 07/28/2024 07/29/2024 1:17 AM LAYOUT MAN COVID - 19 08/29/2024 08/29/2024 08/29/2024 11:2 8 PM LAYOUT MAN Assessment Noted Time PHQ-9 Depression Total Score: 0 04/14/20 21 2:00 PM CDT documented as of this encounter Care Teams Golf Cart Mechanic Relationship Specialty Start Date End Date Bishop King MD #[address] [phone] PCP - General Internal Medicine 05/24/23 05/14/24 Provider, None [place] PCP - General 05/15/24 06/25/24 Provider, None [place] PCP - General 06/26/24 05/23/25 Chela Randhawa APRN, DIRECTOR OF MARKET RESEARCH [address] [place], [place] [id number] PCP - General Advanced Practice Nurse 05/24/25 Lazarus Amin MD #[address] [place] [address] Consulting Physician Neurology 05/21/16 07/23/24 David Raphael MD #[address] [place] [address] Consulting Physician Obstetrics & Gynecology 08/04/19 Carlos Hart MD #[address] [phone] Consulting Physician General Surgery 07/07/22 Teodoro Covarrubias MD #[address] [address] Consulting Physician Cardiovascular Disease - Cardiology 03/11/23 08/15/24 Yessi Combs APRN, DIRECTOR OF MARKET RESEARCH #[address] [address] Nurse Practitioner Advanced Practice Nurse 09/10/23 Moisés Taveras APRN, DIRECTOR OF MARKET RESEARCH #[address] [place] [address] Nurse Practitioner Advanced Practice Nurse 05/30/23 Elisa Ortega APRN, DIRECTOR OF MARKET RESEARCH #[address] [address] Nurse Practitioner Advanced Practice Nurse 04/30/22 Duyen Malhotra APRN, DIRECTOR OF MARKET RESEARCH [address] [place] [address] Nurse Practitioner Cardiology 09/25/24 Beba Baron BSW [place] Practice Billing Associate Lockstitch Machine Operator 06/27/25 07/04/25 [facility] Billing Associate Lockstitch Machine Operator 07/05/25 Zack Gary MD [address] [place] [address] Consulting Physician Cardiology 07/23/25 documented as of this encounter
--- OUTSIDE RECORDS SUMMARY | 2025-08-07 00:53 | XMS_ITS | Encounter Summary ---
Author Organization [facility] Address [address] [place] [address] Phone Care Team Providers Care Brazing Furnace Operator Name Role Phone Lazarus Amin MD Unavailable [phone] David Raphael MD Unavailable + [phone] Carlos Hart MD Unavailable [phone] Teodoro Covarrubias MD Unavailable Bishop Pérez MD Primary Care Provider [phone] Yessi Combs PEDIATRIC LPN, OFFICE ASSISTANCE Unavailable + [phone] Moisés Taveras PEDIATRIC LPN, OFFICE ASSISTANCE Unavailable [phone] Elisa Ortega PEDIATRIC LPN, OFFICE ASSISTANCE Unavailable [phone] Provider, None Primary Care Provider Unavailabl e Provider, None Primary Care Provider UnavailDuyen Serra PEDIATRIC LPN, OFFICE ASSISTANCE Unavailable Chela Randhawa PEDIATRIC LPN, OFFICE ASSISTANCE Primary Care Provide r Beba Baron GATE WATCH Unavailable Unavailable Lexis Maldonado COOK FRUIT Unavailable Unavailab Zack Bess MD Unavailable Reason for Visit * Reason Comments Medication Refill Encounter Details Date Type Department Care Team (Late st Contact Info) Description 11/22/2023 Refill [facility] - Pulmonology & Sleep Medicine - [place] [address] [place] [address] Elisa Ortega APRN, VILMA [address] [address] Medication Refill Social History Tobacco Use Types [...] AM CDT Medication(s) refilled and signed per [facility] Chronic Medication Refill Standing Order for Pediatricand [...] 05/06/23 Office Visit Elisa Ortega APRN, CNP [facility] [place] [facility] Showing recent visits within past 270 days and meeting all other requirements Future Appointments Date Type Provider Dept 11/29/23 Appointment Elisa Ortega APRN, VILMA [facility] & Sleep [place] [facility] Showing future appointments within next 90 days and meeting all other requirements Passed - Blood pressure on record in past 12 months Clinician-entered: BP Readings from Last 3 Encounters: 11/13/23 (!) 124/94 09/28/23 114/78 09/23/23 114/70 Patient-entered: No data recorded documented in this encounter Plan of Treatment Upcoming Encounters Date Type Department Care Team (Late st Contact Info) Description 08/24/2025 3:40 PM REFERRAL CLERK [facility] - Family Medicine - [place] [address] [place] [address] Chela Randhawa APRN, OFFICE ASSISTANCE [address] [place] [address] 07/22/2026 11:00 AM REFERRAL CLERK Office Visit [facility] - Cardiology - [place] [address] [place] [address] Duyen Malhotra APRN, OFFICE ASSISTANCE [address] [place] [address] documented as of this encounter Visit Diagnoses Diagnosis Restless legs syndrome (RLS) documented in this encounter Additional Health Concerns Infection Onset Date Last Indicated Resolved Time COVID - 19 05/15/2024 05/15/2024 05/15/2024 7:02 PM CDT COVID - 19 07/05/2024 07/05/2024 07/05/2024 10:1 1 PM CDT COVID - 19 07/28/2024 07/28/2024 07/29/2024 1:17 AM REFERRAL CLERK COVID - 19 08/29/2024 08/29/202408/29/2024 11:2 8 PM REFERRAL CLERK Assessment Noted Time PHQ-9 Depression Total Score: 0 04/14/20 21 2:00 PM CDT documented as of this encounter Care Teams Brazing Furnace Operator Relationship Specialty Start Date End Date Bishop King MD #[address] [phone] PCP - General Internal Medicine 05/24/23 05/14/24 Provider, None [place] PCP - General 05/15/24 06/25/24 Provider, None [place] PCP - General 06/26/24 05/23/25 Chela Randhawa, PEDIATRIC LPN, OFFICE ASSISTANCE 2 [facility] [place] [address] PCP - General Advanced Practice Nurse 05/24/25 Lazarus Amin MD #2 [place] [phone] Consulting Physician Neurology 05/21/16 07/23/24 David Raphael MD #2 [place] [address] Consulting Physician Obstetrics & Gynecology 08/04/19 Carlos Hart MD #[address] [phone] Consulting Physician General Surgery 07/07/22 Teodoro Covarrubias MD [address] [address] Consulting Physician Cardiovascular Disease - Cardiology 03/11/23 08/15/24 Yessi Combs APRN, OFFICE ASSISTANCE #2 [facility] [address] [place] [address] Nurse Practitioner Advanced Practice Nurse 09/10/23 Moisés Taveras APRN, OFFICE ASSISTANCE [address] [place] [address] Nurse Practitioner Advanced Practice Nurse 05/30/23 Elisa Ortega PEDIATRIC LPN, OFFICE ASSISTANCE #2 [facility] [address] [place] [address] Nurse Practitioner Advanced Practice Nurse 04/30/22 Duyen Malhotra, PEDIATRIC LPN, OFFICE ASSISTANCE [address] [place] [address] Nurse Practitioner Cardiology 09/25/24 Beba Baron, GATE WATCH [place] Disaster Recovery Coordinator Regional Director Of Finance 06/27/25 07/04/25 Lexis Maldonado, COOK FRUIT [place] Disaster Recovery Coordinator Regional Director Of Finance 07/05/25 Zack Gary MD 2 [facility] [address] [facility] [address] [place] [address] Consulting Physician Cardiology 07/23/25 documented as of this encounter
--- OUTSIDE RECORDS SUMMARY | 2025-08-07 00:53 | XMS_ITS | Encounter Summary ---
Author Organization [facility] Address [address] [place] [address] Phone Care Team Providers Care Supervisor Contact And Service Clerks Name Role Phone David Raphael MD Unavailable + [phone] Carlos Hart MD Unavailable [phone] Moisés Taveras SAMPLE PATTERNMAKER, MAKEUP ARTISTRY INSTRUCTOR Unavailable + [phone] Elisa Ortega SAMPLE PATTERNMAKER, MAKEUP ARTISTRY INSTRUCTOR Unavailable [phone] Duyen Malhotra SAMPLE PATTERNMAKER, MAKEUP ARTISTRY INSTRUCTOR Unavailable Chela Randhawa SAMPLE PATTERNMAKER, MAKEUP ARTISTRY INSTRUCTOR Primary Care Provide r Lexis Maldonado Unavailable Unavailab Zack Bess MD Unavailable Encounter Details Date Type Department Care Team (Late st Contact Info) Description 07/10/2025 Results Follow-Up [facility] Adult Pediatric Inpatient Virtual [address] [place] [address] Duyen Malhotra APRN, MAKEUP ARTISTRY INSTRUCTOR [address] [place] [address] [place] RIGHT DUPLEX UPPER EXTREMITY ARTERIAL Social History Tobacco Use Types Packs/Day Years [...] How often do you attend chur or christianity services? Never 07/08/2024 Do you belong to [...] Total Score - Questions 1-9 0 06/14 [facility] [place] of Occupat ional Health - Occupational Stress [...] any time in the past 12 m [facility], were you homeless or living in a skilled nursing (including now)? No 07/08/2024 Social Connection and Isolation Panel Answer Date Recorded In a typical week, how many times do you talk on the phone with family, friends, or neighbors? More than three times a week 07/09/2025 How often do you get togethe r with friends or relatives? More than three times a week 07/09/2025 How often do you attend chur ch or christianity services? 1 to 4 times per year [...] and heating? Not hard at all 07/09/2025 [facility] [place] of Occupat ional Health - Occupational Stress [...] any time in the past 12 m [facility], were you homeless or living in a skilled nursing (including now)? No 07/09/2025 [facility] Utilities Answer Date Recorded In [...] as of this encounter Functional Status * Question Answer Date of Assessment Author Best Eye Response 4-->(E4) spontaneous 07/10/2025 5:41 PM CDT Lindsey Parra RN Best Verbal Response 5-->(V5) oriented 07/10/2025 5:41 PM CDT Lindsey Parra RN Best Motor Response 6-->(M6) obeys commands 07/10/2025 5:41 PM CDT Lindsey Parra RN [place] Coma Scale Score 15 07/10/2025 5:41 PM CDT Lindsey Parra RN * Question Answer Date of Assessment Author Pain Description constant 07/10/2025 5:42 PM CDT W Lindsey betancourt RN * Majano Fall Risk Question Answer Date of Assessment Author History of Falling, Immediat e or Within 3 Months 0 07/10/2025 4:01 PM CDT Lindsey Parra RN Secondary Diagnosis 0 07/10/2025 4:01 PM CD T Lindsey Parra RN Ambulatory Aid 0 07/10/2025 4:01 PM CDT Lindsey Rivera RN Intravenous Therapy/Heparin Lock 0 07/10/20 4:01 PM CDT Lindsey Parra RN Gait/Transferring 0 07/10/2025 4:01 PM CDT Lindsey Parra RN Mental Status 0 07/10/2025 4:01 PM CDT Lindsey Powers RN Majano Fall Risk Score 0 07/10/2025 4:01 PM CDT Lindsey Parra RN * Question Answer Date of Assessment Author SpO2 100 07/10/2025 5:41 PM CDT Lindsey Vines RN O2 Device None (Room air) 07/10/2025 5:41 PM CDT Lindsey Rooney RN * Safety Factors Answer Date of Assessment Author bed in low position;call light in reach 07/10/20 4:01 PM CDT Lindsey Parra RN * Question Answer Date of Assessment Author BP 128/80 07/10/2025 5:41 PM CDT Lindsey Powers RN Temp 97.6 07/10/2025 5:41 PM CDT Lindsey Vines RN Pulse 80 07/10/2025 5:41 PM CDT Lindsey Vines RN Resp 16 07/10/2025 5:41 PM CDT Lindsey Vines RN Heart Rate (Monitor) 88 07/10/2025 12:50 AM CDT Lyudmila Marroquin RN documented as of this encounter Mental Status * Question Answer Entry Date Author Best Eye Response 4-->(E4) spontaneous 5:41 PM CDT Lindsey Parra RN Best Verbal Response 5-->(V5) oriented 5:41 PM CDT Lindsey Parra RN Best Motor Response 6-->(M6) obeys commands 06/14 5:41 PM CDT Lindsey Parra RN Bryan Coma Scale Score 15 07/10/2025 5:41 PM CDT Lindsey Parra RN * Question Answer Entry Date Author Pain Description constant 07/10/2025 5:42 PM CDT W Lindsey betancourt RN * Question Answer Entry Date Author SpO2 100 07/10/2025 5:41 PM CDT Lindsey Vines RN O2 Device None (Room air) 07/10/2025 5:41 PM CDT Lindsey Rooney RN * Safety Factors Answer Entry Date Author bed in low position;call light in reach 07/10/20 4:01 PM CDT Lindsey Parra RN * Question Answer Entry Date Author BP 128/80 07/10/2025 5:41 PM CDT Lindsey Vines RN Temp 97.6 07/10/2025 5:41 PM CDT Lindsey Vines RN Pulse 80 07/10/2025 5:41 PM CDT Lindsey Vines RN documented in this encounter Plan of Treatment Upcoming Encounters Date Type Department Care Team (Late st Contact Info) Description 08/24/2025 3:40 PM HANDLING TECH Office Visit [facility] - [facility] [address] [place] [address] Chela Randhawa APRN, MAKEUP ARTISTRY INSTRUCTOR [address] [place] [address] 07/22/2026 11:00 AM HANDLING TECH [facility] - Cardiology - [place] [address] [place] [address] Duyen Malhotra APRN, VILMA [address] [place] [address] documented as of this encounter Goals Goal Patient Goal Type Associated Problems Recent Progress Patient-Stated? Author Complete Advance Directive Complete Advance Directive Not on track( 025 12:35 PM HANDLING TECH) No Lexis Maldonado, JAMES Note: Review ACP information Discusses wishes with my loved ones Notify Care Management when ready to schedule ACP appointment Find Help in My Community-ricki BURROUGHS mine boss hours Patient Goals On track( 025 12:35 PM HANDLING TECH) No Lexis Maldonado LSW Note: Follow Up Date: Week of 07/23/25 - call 211 when I need some help - follow-up on any referrals for help I am given SW farm or ranch animal caretaker will place online referral to Ethan BURROUGHS office [phone] Patient will complete interview and application process with Ethan BURROUGHS high risk case manager Why is this important? Knowing how and where to find help for yourself or family in your neighborhood and community is an important skill. You will want to take some steps to learn how. Notes: documented as of this encounter Visit Diagnoses Not on filedocumented in this encounter Additional Health Concerns Assessment Noted Time PHQ-9 Depression Total Score: 0 07/09/20 25 2:16 PM CDT documented as of this encounter Care Teams Supervisor Contact And Service Clerks Relationship Specialty Start Date End Date Chela Randhawa APRN, MAKEUP ARTISTRY INSTRUCTOR [address] [place] [address] PCP - General Advanced Practice Nurse 05/24/25 David Raphael MD Consulting Physician Obstetrics & Gynecology 08/04/19 Carlos Hart MD #2 [facility] [address] [place] [address] Consulting Physician General Surgery 07/07/22 Moisés Taveras APRN, MAKEUP ARTISTRY INSTRUCTOR [address] [place] [address] Nurse Practitioner Advanced Practice Nurse 05/30/23 Elisa Ortega APRN, MAKEUP ARTISTRY INSTRUCTOR #2 [facility] [address] [place] [address] Nurse Practitioner Advanced Practice Nurse 04/30/22 Duyen Malhotra APRN, MAKEUP ARTISTRY INSTRUCTOR [address] [place] [address] Nurse Practitioner Cardiology 09/25/24 Lexis Maldonado, [facility] Oncology Pharmacist Television Program Director 07/05/25 Zack Gary MD 2 [facility] [address] [address] Consulting Physician Cardiology 07/23/25 documented as of this encounter
--- OUTSIDE RECORDS SUMMARY | 2025-08-07 00:53 | XMS_ITS | Encounter Summary ---
Author Organization [facility] Address [address] [place] [address] Phone Care Team Providers Care Rivet Sticker Name Role Phone Lazarus Amin MD Unavailable [phone] David Raphael MD Unavailable [phone] Carlos Hart MD Unavailable [phone] Teodoro Covarrubias MD Unavailable Bisohp Pérez MD Primary Care Provider [phone] Yessi Combs DIRECTOR STRATEGY, PATTERN MECHANIC Unavailable + [phone] Moisés Taveras DIRECTOR STRATEGY, PATTERN MECHANIC Unavailable [phone] Elisa Ortega DIRECTOR STRATEGY, PATTERN MECHANIC Unavailable [phone] Provider, None Primary Care Provider Unavailabl e Provider, None Primary Care Provider UnavailDuyen Serra DIRECTOR STRATEGY, PATTERN MECHANIC Unavailable Chela Randhawa DIRECTOR STRATEGY, PATTERN MECHANIC Primary Care Provide r Beba Baron TELEPHONE CLERK Unavailable Unavailable Lexis Maldonado INDUSTRIAL REHABILITATION CONSULTANT Unavailable Unavailab Zack Bess MD Unavailable Reason for Visit * Reason Comments Medication Refill Encounter Details Date Type Department Care Team (Late Contact Info) Description 02/22/2024 [facility] #[address] [place] [address] Elisa Ortega, DIRECTOR STRATEGY, PATTERN MECHANIC #[address] [address] Medication Refill Social History Tobacco Use Types [...] (Late Contact Info) Description 08/24/2025 3:40 PM DRY TRANSFER WORKER Office Visit [facility] - Family Medicine [facility] #[address] [place] [address] Chela Randhawa APRN, PATTERN MECHANIC [address] [place] [address] 07/22/2026 11:00 AM DRY TRANSFER WORKER [facility] - Cardiology [facility] #[address] [place] [address] Duyen Malhotra APRN, PATTERN MECHANIC [address] [place] [address] documented as of this encounter Visit Diagnoses Diagnosis Restless legs syndrome (RLS) documented in this encounter Additional Health Concerns Infection Onset Date Last Indicated Resolved Time COVID - 19 05/15/2024 05/15/2024 05/15/2024 7:02 PM CDT COVID - 19 07/05/2024 07/05/2024 07/05/2024 10:1 1 PM CDT COVID - 19 07/28/2024 07/28/2024 07/29/2024 1:17 AM DRY TRANSFER WORKER COVID - 19 08/29/2024 08/29/2024 08/29/2024 11:2 8 PM DRY TRANSFER WORKER Assessment Noted Time PHQ-9 Depression Total Score: 0 04/14/20 21 2:00 PM CDT documented as of this encounter Care Teams Rivet Sticker Relationship Specialty Start Date End Date Bishop King MD #[address] [phone] PCP - General Internal Medicine 05/24/23 05/14/24 Provider, None [place] PCP - General 05/15/24 06/25/24 Provider, None [place] PCP - General 06/26/24 05/23/25 Chela Randhawa, DIRECTOR STRATEGY, PATTERN MECHANIC [address] [place] [address] PCP - General Advanced Practice Nurse 05/24/25 Lazarus Amin MD #2 [place] [address] Consulting Physician Neurology 05/21/16 07/23/24 David Raphael MD #[address] [place] [address] Consulting Physician Obstetrics & Gynecology 08/04/19 Carlos Hart MD #[address] [phone] Consulting Physician General Surgery 07/07/22 Teodoro Covarrubias MD #[address] [address] Consulting Physician Cardiovascular Disease - Cardiology 03/11/23 08/15/24 Yessi Comsb APRN, PATTERN MECHANIC #[address] [place] [address] Nurse Practitioner Advanced Practice Nurse 09/10/23 Moisés Taveras APRN, PATTERN MECHANIC #[address] [place] [address] Nurse Practitioner Advanced Practice Nurse 05/30/23 Elisa Ortega APRN, PATTERN MECHANIC #[address] [address] Nurse Practitioner Advanced Practice Nurse 04/30/22 Duyen Malhotra APRN, PATTERN MECHANIC [address] [place] [address] Nurse Practitioner Cardiology 09/25/24 Beba Baron, TELEPHONE CLERK [place] Long Lines Operator Instructor Robotics 06/27/25 07/04/25 Lexis Maldonado LSW [place] Long Lines Operator Instructor Robotics 07/05/25 Zack Gary MD [address] [address] Consulting Physician Cardiology 07/23/25 documented as of this encounter
--- OUTSIDE RECORDS SUMMARY | 2025-08-07 00:53 | XMS_ITS | Encounter Summary ---
Author Organization [facility] Address [address] [place] [address] Phone Care Team Providers Care Rug Receiving Clerk Name Role Phone David Raphael MD Unavailable [phone] Carlos Hart MD Unavailable [phone] Moisés Taveras SHOW OPERATIONS SUPERVISOR, DENTAL LABORATORY TECHNICIAN APPRENTICE Unavailable [phone] Elisa Ortega SHOW OPERATIONS SUPERVISOR, DENTAL LABORATORY TECHNICIAN APPRENTICE Unavailable [phone] Duyen Malhotra SHOW OPERATIONS SUPERVISOR, DENTAL LABORATORY TECHNICIAN APPRENTICE Unavailable Chela Randhawa SHOW OPERATIONS SUPERVISOR, DENTAL LABORATORY TECHNICIAN APPRENTICE Primary Care Provide r Lexis Maldonado Unavailable Unavailab Zack Bess MD Unavailable Reason for Visit * Reason Onset Date Comments Care Management 07/25/2025 Bi weekly monito ring Encounter Details Date Type Department Care Team (Late st Contact Info) Description 07/25/2025 Patient Outreach [facility] Artificial Breast Fabricator Management [address] [place], [place] [phone] Lexis Maldonado LSW [place] Care Management (Bi weekly monitoring ) Social History Tobacco Use Types Packs/Day Years [...] often do you attend chur ch or hoahaoism services? Never 07/08/2024 Do you belong to any clubs o r organizations such as orthodox groups, unions, fraternal or athletic groups, or [...] Total Score - Questions 1-9 0 06/14 [facility] of Occupat ional Health - Occupational [...] any time in the past 12 m [facility], were you homeless or living in [...] often do you attend chur ch or hoahaoism services? 1 to 4 times per year 07/09/2025 Do you belong to any clubs o r organizations such as orthodox groups, unions, fraternal or athletic groups, or [...] and heating? Not hard at all 07/09/2025 [facility] [place] of Occupat ional Health - Occupational Stress [...] any time in the past 12 m [facility], were you homeless or living in a retirement (including now)? No 07/09/2025 [facility] Utilities Answer Date Recorded In the past 12 months has e [employer], gas, oil, or water [employer] threatened to shut off services in your [...] on file documented as of this encounter Progress Notes * Lexis Maldonado LSW - 07/25/2025 12:32 PM CST Artificial Breast Fabricator Management Bi weekly Monitoring Call: Contact made with patient . Progress towards the following mutually agreed upon goals discussed: 1) Find Help In My Community - obtain D[facility] casino cage manager hours: On Track. Patient has not yet heard from [facility] but states her phone number changed. MARGARET JONES will email DRS rn field case manager with new phone number. 2) Complete Advance Directive: Not on track. Offered to do HCPOA over phone. Patient states she hasno one she wants as her decision maker and declines to complete the form. Current care gaps: Health Maintenance Due Topic Date Due Diabetes: Eye Exam Never done Diabetes: Foot Exam Never done Hepatitis C Virus (HCV) Screening Never done Pneumococcal Immunization Combined (1 of 2 - PCV) Never done Human Papillomavirus (HPV) Immunization (1 - 3-dose SCDM series) Never done Cervical Cancer Screening (CCS) Never done Diabetes: Hemoglobin A1c 12/29/2024 Influenza Immunization (1) Never done SARS-COV-2 Immunization (2024- season) Never done Plan to close care gaps: Educated she can get vaccines at local pharmacy. Next Steps: Patient is awaiting call from D[facility] office to schedule assessment SW aged or disabled care worker is available for support. Follow up: Patient agreeable to follow up in 2 weeks. Please call Social work aged or disabled care worker, JAMES MCINTYRE @ [phone] for any needs/concerns. ACT CENTER CONSULTANT documented in this encounter Plan of Treatment Upcoming Encounters Date Type Department Care Team (Late st Contact Info) Description 08/24/2025 3:40 PM CONTACT CENTER CONSULTANT [facility] - [place] [address] [place] [address] Chela Randhawa, SHOW OPERATIONS SUPERVISOR, DENTAL LABORATORY TECHNICIAN APPRENTICE 2 [place] [address] 07/22/2026 11:00 AM CONTACT CENTER CONSULTANT Office Visit [facility] Cardiology - [place] [address] [place] [address] Duyen Malhotra APRN, DENTAL LABORATORY TECHNICIAN APPRENTICE [address] [place] [address] documented as of this encounter Goals Goal Patient Goal Type Associated Problems Recent Progress Patient-Stated? Author Complete Advance Directive Complete Advance Directive Not on track( 12:35 PM CONTACT CENTER CONSULTANT) No Lexis Maldonado LSW Note: Review ACP information Discusses wishes with my loved ones Notify Care Management when ready to schedule ACP appointment Find Help in My Community-obtain [facility] casino cage manager hours Patient Goals On track( 025 12:35 PM CONTACT CENTER CONSULTANT) No Lexis Maldonado LSW Note: Follow Up Date: Week of 07/23/25 - call 211 when I need some help - follow-up on any referrals for help I am given SW aged or disabled care worker will place online referral to Ethan BURROUGHS office [phone] Patient will complete interview and application process with Ethan BURROUGHS rn field case manager Why is this important? Knowing how and where to find help for yourself or family in your neighborhood and community is an important skill. You will want to take some steps to learn how. Notes: documented as of this encounter Visit Diagnoses Not on filedocumented in this encounter Additional Health Concerns Assessment Noted Time PHQ-9 Depression Total Score: 0 07/09/20 2:16 PM CDT documented as of this encounter Care Teams Rug Receiving Clerk Relationship Specialty Start Date End Date Chela Randhawa, SHOW OPERATIONS SUPERVISOR, DENTAL LABORATORY TECHNICIAN APPRENTICE [address] [place] [address] PCP - General Advanced Practice Nurse 05/24/25 David Raphael MD Consulting Physician Obstetrics & Gynecology 08/04/19 Carlos Hart MD [address] [facility] [address] [place] [address] Consulting Physician General Surgery 07/07/22 Moissé Taveras, SHOW OPERATIONS SUPERVISOR, DENTAL LABORATORY TECHNICIAN APPRENTICE [address] [place] [address] Nurse Practitioner Advanced Practice Nurse 05/30/23 Elisa Ortega, SHOW OPERATIONS SUPERVISOR, DENTAL LABORATORY TECHNICIAN APPRENTICE [address] [facility] [address] [place] [address] Nurse Practitioner Advanced Practice Nurse 04/30/22 Duyen Malhotra, SHOW OPERATIONS SUPERVISOR, DENTAL LABORATORY TECHNICIAN APPRENTICE #[address] [place] [address] Nurse Practitioner Cardiology 09/25/24 Lexis Maldonado, [facility] Sap Abap Programmer Electric Organ Assembler And Checker 07/05/25 Zack Gary MD 2 [facility] [address] [place] [address] Consulting Physician Cardiology 07/23/25 documented as of this encounter
--- OUTSIDE RECORDS SUMMARY | 2025-08-07 00:53 | XMS_ITS | Encounter Summary ---
Author Organization [facility] Address [address] [place] [address] Phone Care Team Providers Care Tax Assessor Name Role Phone Lazarus Amin MD Unavailable [phone] David Raphael MD Unavailable + [phone] Dario Solares PAC Primary Care Provider [phone] Christ Hawkins MD Primary Care Provider [phone] Dario Solares PAC Primary Care Provider [phone] Carlos Hart MD Unavailable [phone] Teodoro Covarrubias MD Unavailable [facility] Bishop Kowalski MD Primary Care Provider [phone] Yessi Combs AGRICULTURAL PRODUCE SORTER, CHILD CARE CENTRE DIRECTOR Unavailable + [phone] Moisés Taveras AGRICULTURAL PRODUCE SORTER, CHILD CARE CENTRE DIRECTOR Unavailable + [phone] Elisa Ortega APRN, CHILD CARE CENTRE DIRECTOR Unavailable [phone] Provider, None Primary Care Provider Unavailabl e Provider, None Primary Care Provider Unavailabl e Duyen Malhotra APRN, CHILD CARE CENTRE DIRECTOR Unavailable Chela Randhawa AGRICULTURAL PRODUCE SORTER, CHILD CARE CENTRE DIRECTOR Primary Care Provide r Beba Baron UPHOLSTERY REPAIRER Unavailable Unavailable Lexis Maldonado ASSET PROTECTION ASSOCIATE Unavailable Unavailab Zack Bess MD Unavailable Reason for Visit * Reason Comments Medication Refill Encounter Details Date Type Department Care Team (Late Contact Info) Description 12/10/2020 [facility]ill [facility] [address] [place] [address] Christ Hawkins MD [address] [place] [address] Medication Refill Social History Tobacco Use Types [...] (Late Contact Info) Description 08/24/2025 3:40 PM LABORATORY ANIMAL CARETAKER Office Visit [facility] - Family Medicine - [place] [address] [place] [address] Chela Randhawa, AGRICULTURAL PRODUCE SORTER, CHILD CARE CENTRE DIRECTOR [address] [place] [address] 07/22/2026 11:00 AM LABORATORY ANIMAL CARETAKER Office Visit [facility] - Cardiology - [address] [place] [address] Duyen Malhotra, AGRICULTURAL PRODUCE SORTER, CHILD CARE CENTRE DIRECTOR [address] [place] [address] documented as of this encounter Visit Diagnoses Not on filedocumented in this encounter Additional Health Concerns Infection Onset Date Last Indicated Resolved Time COVID - 19 04/12/2021 04/12/2021 04/16/2021 12:3 8 PM CDT COVID - 19 05/15/2021 05/15/2021 05/17/2021 5:5 9 AM CDT COVID - 19 06/15/2021 06/28/2021 07/18/2021 12:1 6 AM CDT COVID - 19 Confirmed 06/28/2021 06/28/2021 021 12:16 AM CDT COVID - 19 09/04/2021 09/04/2021 09/04/2021 11:5 1 PM LABORATORY ANIMAL CARETAKER COVID - 19 08/02/2022 08/11/2022 08/21/2022 12:1 6 AM LABORATORY ANIMAL CARETAKER COVID - 19 01/08/2023 01/08/2023 01/18/2023 12:1 6 AM CDT COVID - 19 09/22/2023 09/22/2023 10/02/2023 12:1 6 AM LABORATORY ANIMAL CARETAKER COVID - 19 05/15/2024 05/15/2024 05/15/2024 7:02 PM CDT COVID - 19 07/05/2024 07/05/2024 07/05/2024 10:1 1 PM CDT COVID - 19 07/28/2024 07/28/2024 07/29/2024 1:17 AM LABORATORY ANIMAL CARETAKER COVID - 19 08/29/2024 08/29/2024 08/29/2024 11:2 8 PM LABORATORY ANIMAL CARETAKER Assessment Noted Time PHQ-9 Depression Total Score: 0 01/26/20 2:18 PM CDT documented as of this encounter Care Teams Tax Assessor Relationship Specialty Start Date End Date Dario Solares, PAC [address] [place] [id number] PCP - General Physician Physicist Nuclear 12/10/20 04/13/21 Christ Hawkins MD [address] [place] [address] PCP - General Family Medicine 04/14/21 08/22/21 Dario Solares, [facility] [address] [place] [address] PCP - General Physician Physicist Nuclear 08/23/21 05/23/23 Bishop King MD [address] [phone] PCP - General Internal Medicine 05/24/23 05/14/24 Provider, None [place] PCP - General 05/15/24 06/25/24 Provider, None [place] PCP - General 06/26/24 05/23/25 Chela Randhawa, AGRICULTURAL PRODUCE SORTER, CHILD CARE CENTRE DIRECTOR [address] [place] [address] PCP - General Advanced Practice Nurse 05/24/25 Lazarus Amin MD [address] [place] [phone] Consulting Physician Neurology 05/21/16 07/23/24 David Raphael MD [address] [place] [phone] Consulting Physician Obstetrics & Gynecology 08/04/19 Carlos Hart MD #[address] [phone] Consulting Physician General Surgery 07/07/22 Teodoro Covarrubias MD #[address] [facility] [address] [place] [address] Consulting Physician Cardiovascular Disease - Cardiology 03/11/23 08/15/24 Yessi Combs, AGRICULTURAL PRODUCE SORTER, CHILD CARE CENTRE DIRECTOR #[address] [facility] [address] [place] [address] Nurse Practitioner Advanced Practice Nurse 09/10/23 Moisés Taveras, AGRICULTURAL PRODUCE SORTER, CHILD CARE CENTRE DIRECTOR [address] [place] [address] Nurse Practitioner Advanced Practice Nurse 05/30/23 Elisa Ortega AGRICULTURAL PRODUCE SORTER, CHILD CARE CENTRE DIRECTOR #[address] [facility] [address] [place] [address] Nurse Practitioner Advanced Practice Nurse 04/30/22 Duyen Malhotra AGRICULTURAL PRODUCE SORTER, CHILD CARE CENTRE DIRECTOR [address] [place] [phone] Nurse Practitioner Cardiology 09/25/24 Beba Baron, UPHOLSTERY REPAIRER [place] Electric Motor Mechanic Student Career Development Specialist 06/27/25 07/04/25 Lexis Maldonado, ASSET PROTECTION ASSOCIATE [place] Electric Motor Mechanic Student Career Development Specialist 07/05/25 Zack Gary MD 2 [facility] [address] [place] [address] Consulting Physician Cardiology 07/23/25 documented as of this encounter
--- OUTSIDE RECORDS SUMMARY | 2025-08-07 00:53 | XMS_ITS | Encounter Summary ---
Author Organization [facility] Address [address] [place] [address] Phone Care Team Providers Care Watershed Coordinator Name Role Phone Lazarus Amin MD Unavailable [phone] Daivd Raphael MD Unavailable + [phone] Dario Solares PAC Primary Care Provider [phone] Carlos Hart MD Unavailable [phone] Teodoro Covarrubias MD Unavailable [facility] Bishop Kowalski MD Primary Care Provider [phone] Yessi Combs BRACE END MAINSPRING FORMER, FOREIGN CORRESPONDENT Unavailable +[phone] Moisés Taveras BRACE END MAINSPRING FORMER, FOREIGN CORRESPONDENT Unavailable [phone] Elisa Ortega BRACE END MAINSPRING FORMER, FOREIGN CORRESPONDENT Unavailable [phone] Provider, None Primary Care Provider Unavailabl e Provider, None Primary Care Provider Unavailgio e Duyen Malhotra BRACE END MAINSPRING FORMER, FOREIGN CORRESPONDENT Unavailable Chela Randhawa BRACE END MAINSPRING FORMER, FOREIGN CORRESPONDENT Primary Care Provide r Beba Baron TELETYPEWRITER OPERATOR Unavailable Unavailable Lexis Maldonado CAGE CASHIER Unavailable UnavailZack Cuevas MD Unavailable Reason for Visit * Reason Comments Medication Refill Encounter Details Date Type Department Care Team ([facility] Contact Info) Description 04/11/2023 [facility] [address] [place] [address] Elisa Ortega, BRACE END MAINSPRING FORMER, FOREIGN CORRESPONDENT [address] [address] Medication Refill Social History Tobacco Use Types [...] Upcoming Encounters Date Type Department Care Team ([facility] Contact Info) Description 08/24/2025 3:40 PM CHUCKING MACHINE OPERATOR [facility] Visit [facility] - Family Medicine - [place] [address] [place] [phone] Chela Randhawa, BRACE END MAINSPRING FORMER, FOREIGN CORRESPONDENT [address] [place] [address] 07/22/2026 11:00 AM CHUCKING MACHINE OPERATOR Office Visit [facility] - Cardiology - [place] [address] [place] [phone] Duyen Malhotra APRN, FOREIGN CORRESPONDENT [address] [place] [phone] documented as of this encounter Visit Diagnoses Not on filedocumented in this encounter Additional Health Concerns Infection Onset Date Last Indicated Resolved Time COVID - 19 09/22/2023 09/22/2023 10/02/2023 12:1 6 AM CHUCKING MACHINE OPERATOR COVID - 19 05/15/2024 05/15/2024 05/15/2024 7:02 PM CDT COVID - 19 07/05/2024 07/05/2024 07/05/2024 10:1 1 PM CDT COVID - 19 07/28/2024 07/28/2024 07/29/2024 1:17 AM CHUCKING MACHINE OPERATOR COVID - 19 08/29/2024 08/29/2024 08/29/2024 11:2 8 PM CHUCKING MACHINE OPERATOR Assessment Noted Time PHQ-9 Depression Total Score: 0 04/14/20 2:00 PM CDT documented as of this encounter Care Teams Watershed Coordinator Relationship Specialty Start Date End Date Dario Solares PAC [address] [place] [id number] PCP - General Physician Instructor Pilot 08/23/21 05/23/23 Bishop King MD #[address] [phone] PCP - General Internal Medicine 05/24/23 05/14/24 Provider, None [place] PCP - General 05/15/24 06/25/24 Provider, None [place] PCP - General 06/26/24 05/23/25 Chela Randhawa, BRACE END MAINSPRING FORMER, FOREIGN CORRESPONDENT [address] [place] [address] PCP - General Advanced Practice Nurse 05/24/25 Lazarus Amin MD [address] [place] [phone] Consulting Physician Neurology 05/21/16 07/23/24 David Raphael MD [address] [place] [phone] Consulting Physician Obstetrics & Gynecology 08/04/19 Carlos Hart MD #[address] [phone] Consulting Physician General Surgery 07/07/22 Teodoro Covarrubias MD #[address] [address] Consulting Physician Cardiovascular Disease - Cardiology 03/11/23 08/15/24 Yessi Combs APRN, FOREIGN CORRESPONDENT [address] [address] Nurse Practitioner Advanced Practice Nurse 09/10/23 Moisés Taveras APRN, FOREIGN CORRESPONDENT [address] [place] [address] Nurse Practitioner Advanced Practice Nurse 05/30/23 Elisa Ortega APRN, FOREIGN CORRESPONDENT #[address] [address] Nurse Practitioner Advanced Practice Nurse 04/30/22 Duyen Malhotra APRN, FOREIGN CORRESPONDENT #2 [facility] [place] [address] Nurse Practitioner Cardiology 09/25/24 Beba Baron, TELETYPEWRITER OPERATOR [place] Assistant Teaching Professor Technical Systems Architect 06/27/25 07/04/25 Lexis Maldonado, CAGE CASHIER [place] Assistant Teaching Professor Technical Systems Architect 07/05/25 Zack Gary MD [address] [facility] [address] [address] Consulting Physician Cardiology 07/23/25 documented as of this encounter
--- OUTSIDE RECORDS SUMMARY | 2025-08-07 00:54 | XMS_ITS | Encounter Summary ---
Author Organization [facility] Address [address] [place] [address] Phone Care Team Providers Care Hose Inspector Name Role Phone David Raphael MD Unavailable + [phone] Carlos Hart MD Unavailable [phone] Moisés Taveras WELT STITCH CLEANER, BANK CREDIT CARD COLLECTION CLERK Unavailable + [phone] Elisa Ortega WELT STITCH CLEANER, BANK CREDIT CARD COLLECTION CLERK Unavailable [phone] Duyen Malhotra WELT STITCH CLEANER, BANK CREDIT CARD COLLECTION CLERK Unavailable Chela Randhawa WELT STITCH CLEANER, BANK CREDIT CARD COLLECTION CLERK Primary Care Provide r Beba Baron BRICKLAYER APPRENTICE Unavailable Unavailable Lexis Maldonado SECURITY OPERATIONS ANALYST Unavailable Unavailab Zack Bess MD Unavailable Encounter Details Date Type Department Care Team (Late st Contact Info) Description 06/06/2025 Results Follow-Up [facility] - Family Medicine [facility] [address] [place] [address] Chela Randhawa APRN, BANK CREDIT CARD COLLECTION CLERK [address] [place] [address] DRUG SCREEN ORAL FLUID/SALIVA Social History Tobacco [...] you attend chur or sabianism services? Never 07/08/2024 Do you belong to any clubs o r organizations such as buddhist groups, unions, fraternal or athletic groups, or [...] Total Score - Questions 1-9 0 06/14 [facility] [place] of Occupat ional Health - Occupational Stress [...] any time in the past 12 m [facility], were you homeless or living in a longterm (including now)? No 07/08/2024 Social Connection and Isolation Panel Answer Date Recorded In a typical week, how many times do you talk on the phone with family, friends, or neighbors? More than three times a week 07/09/2025 How often do you get togethe r with friends or relatives? More than three times a week 07/09/2025 How often do you attend chur ch or sabianism services? 1 to 4 times per year 07/09/2025 Do you belong to any clubs o r organizations such as buddhist groups, unions, fraternal or athletic groups, or [...] and heating? Not hard at all 07/09/2025 [facility] of Occupat ional Health - Occupational Stress [...] any time in the past 12 m [facility], were you homeless or living in a longterm (including now)? No 07/09/2025 [facility] Utilities Answer Date Recorded In the past 12 months has th e [employer], gas, oil, or water company threatened to [...] as of this encounter Functional Status * BP Answer Date of Assessment Author 122/80 07/20/2025 2:30 PM THEOLOGY PROFESSOR Raul Puente, ASBESTOS SHINGLE ROOFER * Temp Answer Date of Assessment Author 97.4 07/20/2025 2:30 PM THEOLOGY PROFESSOR Raul Puente, ASBESTOS SHINGLE ROOFER * Pulse Answer Date of Assessment Author 80 07/20/2025 2:30 PM THEOLOGY PROFESSOR Raul Puente, ASBESTOS SHINGLE ROOFER * Resp Answer Date of Assessment Author 16 07/20/2025 2:30 PM THEOLOGY PROFESSOR Raul Puente, ASBESTOS SHINGLE ROOFER * SpO2 Answer Date of Assessment Author 96 07/20/2025 2:30 PM Raul Valdez, ASBESTOS SHINGLE ROOFER * Question Answer Date of Assessment Author Little interest or pleasure in doing things Not at all 07/09/2025 2:16 PM CDT Lexis Maldonado LSW Feeling down, depressed, or hopeless Not at all 07/09/2025 2:16 PM CDT Lexis Maldonado LSW * Initial Score Answer Date of Assessment Author 0 07/09/2025 2:16 PM CDT Lexis Maldonado LSW * Question Answer Date of Assessment Author Best Eye Response 4-->(E4) spontaneous 07/10/2025 5:41 PM CDT Lindsey Parra RN Best Verbal Response 5-->(V5) oriented 07/10/2025 5:41 PM CDT Lindsey Parra RN Best Motor Response 6-->(M6) obeys commands 07/10/2025 5:41 PM CDT Lindsey Parra RN Noel Coma Scale Score 15 07/10/2025 5:41 PM CDT Lindsey Parra RN * Question Answer Date of Assessment Author Pain Description constant 07/10/2025 5:42 PM CDT Lindsey Parra RN Pain Management Interventions pain management plan reviewed with patient/caregiver;pill ow support provided 07/06/2025 1:30 PM CDT Anna Marie Edwards, RN * [place] Fall Risk Question Answer [...] * Question Answer Date of Assessment Author O2 Device None (Room air) 07/10/2025 5:41 PM CDT Lindsey Rooney RN ETCO2 (mmHg) 38 07/06/2025 11:20 AM CDT Shayla Joel RN * Safety Factors Answer Date of Assessment Author bed in low position;call light in reach 07/10/20 4:01 PM CDT Lindsey Parra RN * Question Answer Date of Assessment Author Chest Pain Character aching 06/18/2025 2:05 AM C Altaf Painter RN (0-10) Chest Pain Severity Rating 9 06/18/2025 2:05 AM Altaf Doherty RN Chest Pain Location anterior chest, left;anterior chest, right 06/18/2025 2:05 AM DANIELT Altaf Gomez RN Chest Pain Intervention cardiac biomarke rs drawn;cardiac monitoring continued;monitoring engineer placed;12-lead ECG obtained;activity minimized;aspirin given 06/18/2025 2:05 AM Altaf Doherty RN Chest Pain Radiation other (see comments) 06/18/2025 2 :05 AM DANIELT Altaf Gomez RN * Question Answer Date of Assessment Author Mayito Score 23 07/06/2025 8:42 AM CDT Heidi Burgos RN * Question Answer Date of Assessment Author Sensory Perception 4-->no impairment 07/06/2025 8:42 A M CDT Heidi Mojica RN Friction and Shear 3-->no apparent problem 07/06/2025 8:42 AM DANIELT Heidi Mojica RN Moisture 4-->rarely moist 07/06/2025 8:42 AM CDT Heidi Lozoya RN Nutrition 4-->excellent 07/06/2025 8:42 AM CDT Heidi Rice RN Activity 4-->walks frequently 07/06/2025 8:42 AM C Heidi Elliott RN Mobility 4-->no limitation 07/06/2025 8:42 AM DANIELT Heidi Mojica RN * Question Answer Date of Assessment Author Heart Rate (Monitor) 88 07/10/2025 12:50 AM DANIELT Lyudmila Marroquin RN * Question Answer Date of Assessment Author In the past 12 months has [employer], gas, oil, or water [employer] threatened to shut off services in your home? No 07/09/2025 2:14 PM Rebecca Rahman LSW * Question Answer Date of Assessment Author In the last 12 months, was there a time when you were not able to pay the mortgage or rent on time? No 07/09/2025 2:14 PM Lexis Rahman LSW In the past 12 months, how m any times have you moved where you were living? 0 07/09/2025 2:14 PM Lexis Rahman LSW At any time in the past 12 months, were you homeless or living in a longterm (including now)? No 07/09/2025 2:14 PM Lexis Rahman LSW * Question Answer Date of Assessment Author Within the past 12 months, you worried that your food would run out before you got the money to buy more. Never true 07/09/2025 2:14 PM Lexis Rahman LSW Within the past 12 months, the food you bought just didn't last and you didn't have money to get more. Never true 07/09/2025 2:14 PM Danie Rahman LSW * AUDIT-C Score Answer Date of Assessment Author 0 07/09/2025 2:14 PM Lexis Rahman LSW * Question Answer Date of Assessment Author How hard is it for you to pay for the very basics like food, housing, medical care, and heating? Not hard at all 07/09/2025 2:14 PM Lexis Rahman LSW * Question Answer Date of Assessment Author In the past 12 months, has l ack of transportation kept you from medical appointments or from getting medications? No 07/09/2025 2:14 PM Lexis Rahman LSW In the past 12 months, has l ack of transportation kept you from meetings, work, or from getting things needed for daily living? No 07/09/2025 2:14 PM Lexis Gomez LSW * Question Answer Date of Assessment Author Do you feel stress - tense, restless, nervous, or anxious, or unable to sleep at night because your mind is troubled all the time - these days? Not at all 07/09/2025 2:14 PM Lexis Rahman LSW * Alcohol Use Question Answer Date of Assessment Author Q1: How often do you have a drink containing alcohol? Never 07/09/2025 2:14 PM Lexis Rahman LSW Q2: How many drinks containing alcohol do you have on a typical day when you are drinking? Patient does not drink 07/09/2025 2:14 PM Lexis Rahman LSW Q3: How often do you have six or more drinks on one occasion? Never 07/09/2025 2:14 PM Lexis Rahman LSW * Question Answer Date of Assessment Author Little interest or pleasure in doing things Not at all 07/09/2025 2:16 PM Lexis Rahman LSW Feeling down, depressed, or hopeless Not at all 07/09/2025 2:16 PM Lexis Rahman LSW * Initial Score Answer Date of Assessment Author 0 07/09/2025 2:16 PM Lexis Rahman LSW * Question Answer Date of Assessment Author Pain Description constant 07/10/2025 5:42 PM CDT Lindsey Coyle RN * Question Answer Date of Assessment Author Mayito Score 23 07/06/2025 8:42 AM Heidi Garcia RN * Question Answer Date of Assessment Author Sensory Perception 4-->no impairment 07/06/2025 8:42 A M Heidi Ojeda RN Friction and Shear 3-->no apparent problem 07/06/2025 8:42 AM DANIELT Heidi Mojica RN Moisture 4-->rarely moist 07/06/2025 8:42 AM CDT Heidi Lozoya RN Nutrition 4-->excellent 07/06/2025 8:42 AM DANIELT Heidi Rice RN Activity 4-->walks frequently 07/06/2025 8:42 AM Heidi Mckeon RN Mobility 4-->no limitation 07/06/2025 8:42 AM Heidi Ojeda RN * Over the past 2 weeks, how often have you been bothered by any of the following problems? Question Answer Date of Assessment Author Patient Health Questionnaire -2 Score 0 07/09/2025 2:16 PM Lexis Rahman LSW * Question Answer Date of Assessment Author In the past 12 months has [employer], gas, oil, or water [employer] threatened to shut off services in your home? No 07/09/2025 2:14 PM Rebecca Rahman LSW * Question Answer Date of Assessment Author In the last 12 months, was there a time when you were not able to pay the mortgage or rent on time? No 07/09/2025 2:14 PM Lexis Rahman LSW In the past 12 months, how m any times have you moved where you were living? 0 07/09/2025 2:14 PM Lexis Rahman LSW At any time in the past 12 months, were you homeless or living in a longterm (including now)? No 07/09/2025 2:14 PM Lexis Rahman LSW * Question Answer Date of Assessment Author Within the past 12 months, you worried that your food would run out before you got the money to buy more. Never true 07/09/2025 2:14 PM Lexis Rahman LSW Within the past 12 months, the food you bought just didn't last and you didn't have money to get more. Never true 07/09/2025 2:14 PM Danie Rahman LSW * AUDIT-C Score Answer Date of Assessment Author 0 07/09/2025 2:14 PM Lexis Rahman LSW * Question Answer Date of Assessment Author How hard is it for you to pay for the very basics like food, housing, medical care, and heating? Not hard at all 07/09/2025 2:14 PM Lexis Rahman LSW * Question Answer Date of Assessment Author In the past 12 months, has l ack of transportation kept you from medical appointments or from getting medications? No 07/09/2025 2:14 PM Lexis Rahman LSW In the past 12 months, has l ack of transportation kept you from meetings, work, or from getting things needed for daily living? No 07/09/2025 2:14 PM Lexis Gomez LSW * Question Answer Date of Assessment Author Do you feel stress - tense, restless, nervous, or anxious, or unable to sleep at night because your mind is troubled all the time - these days? Not at all 07/09/2025 2:14 PM Lexis Rahman LSW * Alcohol Use Question Answer Date of Assessment Author Q1: How often do you have a drink containing alcohol? Never 07/09/2025 2:14 PM Lexis Rahman LSW Q2: How many drinks containing alcohol do you have on a typical day when you are drinking? Patient does not drink 07/09/2025 2:14 PM Lexis Rahman LSW Q3: How often do you have six or more drinks on one occasion? Never 07/09/2025 2:14 PM Lexis Rahman LSW documented as of this encounter Mental Status * BP Answer Entry Date Author 122/80 07/20/2025 2:30 PM THEOLOGY PROFESSOR Raul Puente, ASBESTOS SHINGLE ROOFER * Temp Answer Entry Date Author 97.4 07/20/2025 2:30 PM THEOLOGY PROFESSOR Raul Puente, ASBESTOS SHINGLE ROOFER * Pulse Answer Entry Date Author 80 07/20/2025 2:30 PM THEOLOGY PROFESSOR Raul Puente, ASBESTOS SHINGLE ROOFER * SpO2 Answer Entry Date Author 96 07/20/2025 2:30 PM THEOLOGY PROFESSOR Raul Puente, ASBESTOS SHINGLE ROOFER * Question Answer Entry Date Author Little interest or pleasure in doing things Not at all 07/09/2025 2:16 PM CDT Lexis Maldonado, SECURITY OPERATIONS ANALYST Feeling down, depressed, or hopeless Not at all 07/09/2025 2:16 PM CDT Lexis Maldonado LSW * Initial Score Answer Entry Date Author 0 07/09/2025 2:16 PM CDT Lexis Maldonado SECURITY OPERATIONS ANALYST * Question Answer Entry Date Author Best Eye Response 4-->(E4) spontaneous 5:41 PM CDT Lindsey Parra RN Best Verbal Response 5-->(V5) oriented 5:41 PM CDT Lindsey Parra RN Best Motor Response 6-->(M6) obeys commands 06/14 5:41 PM CDT Lindsey Parra RN Noel Coma Scale Score 15 07/10/2025 5:41 PM CDT Lindsey Parra RN * Question Answer Entry Date Author Pain Description constant 07/10/2025 5:42 PM CDT Lindsey Parra RN Pain Management Interventions pain management plan reviewed with patient/caregiver;jeff w support provided 07/06/2025 1:30 PM CDT Anna Marie Edwards RN * Question Answer Entry Date Author O2 Device None (Room air) 07/10/2025 5:41 PM CDT Lindsey Rooney RN ETCO2 (mmHg) 38 07/06/2025 11:20 AM CDT Shayla Joel RN * Safety Factors Answer Entry Date Author bed in low position;call light in reach 07/10/20 4:01 PM CDT Lindsey Parra RN * Question Answer Entry Date Author Chest Pain Character aching 06/18/2025 2:05 AM DANIELT Altaf Gomez RN (0-10) Chest Pain Severity Rating 9 06/18/2025 2:05 AM Altaf Doherty RN Chest Pain Location anterior chest, left;anterior chest, right 06/18/2025 2:05 AM Altaf Doherty RN Chest Pain Intervention cardiac biomarke rs drawn;cardiac monitoring continued;monitoring engineer placed;12-lead ECG obtained;activity minimized;aspirin given 06/18/2025 2:05 AM Altaf Doherty RN Chest Pain Radiation other (see comments) 2024 2:05 AM Altaf Doherty RN * Question Answer Entry Date Author Mayito Score 23 07/06/2025 8:42 AM Heidi Garcia RN * Question Answer Entry Date Author Sensory Perception 4-->no impairment 07/06/2025 8:42 AM Heidi Ojeda RN Friction and Shear 3-->no apparent problem 07/06 8:42 AM Heidi Ojeda RN Moisture 4-->rarely moist 07/06/2025 8:42 AM Heidi Ojeda RN Nutrition 4-->excellent 07/06/2025 8:42 AM Heidi Ojeda RN Activity 4-->walks frequently 07/06/2025 8:42 AM Heidi Ojeda RN Mobility 4-->no limitation 07/06/2025 8:4 2 AM Heidi Ojeda RN documented in this encounter Plan of Treatment Upcoming Encounters Date Type Department Care Team (Late st Contact Info) Description 08/24/2025 3:40 PM THEOLOGY PROFESSOR [facility] [address] [place] [address] Chela Rnadhawa, WELT STITCH CLEANER, BANK CREDIT CARD COLLECTION CLERK [address] [place] [address] 07/22/2026 11:00 AM THEOLOGY PROFESSOR Office Visit [facility] - Cardiology - [place] [address] [place] [phone] Duyen Malhotra APRN, [place] [address] [place] [address] documented as of this encounter Goals Goal Patient Goal Type Associated Problems Recent Progress Patient-Stated? Author Complete Advance Directive Complete Advance Directive Not on track( 025 12:35 PM THEOLOGY PROFESSOR) No Lexis Maldonado LSW Note: Review ACP information Discusses wishes with my loved ones Notify Care Management when ready to schedule ACP appointment Find Help in My Community-obtain DORS reinstatement clerk hours Patient Goals On track( 12:35 PM THEOLOGY PROFESSOR) No Lexis Maldonado LSW Note: Follow Up Date: Week of 07/23/25 - call 211 when I need some help - follow-up on any referrals for help I am given SW dog day care attendant will place online referral to tEhan BURROUGHS office [phone] Patient will complete interview and application process with Ethan BURROUGHS immigration case worker Why is this important? Knowing how and [...] documented as of this encounter Care Teams Hose Inspector Relationship Specialty Start Date End Date Chela Randhawa APRN, BANK CREDIT CARD COLLECTION CLERK [address] [place] [address] PCP - General Advanced Practice Nurse 05/24/25 David Raphael MD Consulting Physician Obstetrics & Gynecology 08/04/19 Carlos Hart MD [address] [facility] [address] [place] [address] Consulting Physician General Surgery 07/07/22 Moisés Taveras, WELT STITCH CLEANER, BANK CREDIT CARD COLLECTION CLERK [address] [facility] [address] Nurse Practitioner Advanced Practice Nurse 05/30/23 Elisa Ortega, WELT STITCH CLEANER, BANK CREDIT CARD COLLECTION CLERK [address] [address] [place] [address] Nurse Practitioner Advanced Practice Nurse 04/30/22 Duyen Malhotra WELT STITCH CLEANER, BANK CREDIT CARD COLLECTION CLERK [address] [place] [address] Nurse Practitioner Cardiology 09/25/24 Beba Baron, BRICKLAYER APPRENTICE [place] Metal Mockup Maker Materials Analyst 06/27/25 07/04/25 Lexis Maldonado, SECURITY OPERATIONS ANALYST [place] Metal Mockup Maker Materials Analyst 07/05/25 Zack Gary MD 2 [facility] [address] [address] Consulting Physician Cardiology 07/23/25 documented as of this encounter
--- OUTSIDE RECORDS SUMMARY | 2025-08-07 00:54 | XMS_ITS | Encounter Summary ---
Author Organization [facility] Address [address] [place] [address] Phone Care Team Providers Care Consumer Affairs Director Name Role Phone David Raphael MD Unavailable + [phone] Carlos Hart MD Unavailable [phone] Moisés Taveras DEFENSE ATTORNEY, INNERSOLE FITTER Unavailable + [phone] Elisa Ortega DEFENSE ATTORNEY, INNERSOLE FITTER Unavailable [phone] Duyen Malhotra DEFENSE ATTORNEY, INNERSOLE FITTER Unavailable Chela Randhawa DEFENSE ATTORNEY, INNERSOLE FITTER Primary Care Provide r Beba Baron SALES ENABLEMENT ANALYST Unavailable Unavailable Lexis Maldonado BITUMASTIC APPLIER Unavailable Unavailab Zack Bess MD Unavailable Reason for Referral * Radiology Services (Routine) - Authorized Specialty Diagnoses / Procedures Referred By Butch t Referred To Contact Radiology Diagnoses Encounter for screening mammogram for malignant neoplasm of breast Procedures ASHLEY DIAG BILATERAL DIGITAL W CAD W Chela Rodrigez, DEFENSE ATTORNEY, INNERSOLE FITTER [address] [place] [address] Phone: tel: fax: Referral ID Status Reason Start Date Expiration Date V isits Requested Visits Authorized [id number] Authorized 05/28/2025 1 1 Encounter Details Date Type Department Care Team (Late st Contact Info) Description 05/28/2025 Transcribe Orders [facility] Mammography [address] [place] [address] Chela Randhawa APRN, CNP [address] [place] [address] Encounter for screening mammogram for malignant neoplasm [...] How often do you attend chur or church services? Never 07/08/2024 Do you belong to any clubs o r organizations such as faith groups, unions, fraternal or athletic groups, or [...] Recorded Total Score - Questions 1-9 0 0810/2020 [facility] of Occupat ional [facility] - Occupational Stress Questionnaire Answer Date [...] any time in the past 12 m [facility], were you homeless or living in a half-way (including now)? No 07/08/2024 Social Connection and Isolation Panel Answer Date Recorded In a typical week, how many times do you talk on the phone with family, friends, or neighbors? More than three times a week 05/23/2025 How often do you get togethe r with friends or relatives? More than three times a week 05/23/2025 How often do you attend chur ch or church services? 1 to 4 times per year 05/23/2025 Do you belong to any clubs o r organizations such as faith groups, unions, fraternal or athletic groups, or [...] and heating? Not hard at all 05/23/2025 [facility] of Occupat ional Health - [...] any time in the past 12 m [facility], were you homeless or living in a half-way (including now)? Patient declined 05/17/2025 [facility] Utilities Answer Date Recorded In the [...] * BP Answer Date of Assessment Author 124/72 05/31/2025 1:29 PM CDT Ezio, Ta bitha R., ANIMAL HANDLER * Temp Answer Date of Assessment Author 97.6 05/31/2025 1:29 PM CDT Ezio, Ta bitha R., ANIMAL HANDLER * Pulse Answer Date of Assessment Author 79 05/31/2025 1:29 PM CDT Ezio T abitha R., ANIMAL HANDLER * Resp Answer Date of Assessment Author 16 05/31/2025 1:29 PM CDT Ezio, Ta bitha R., ANIMAL HANDLER * SpO2 Answer Date of Assessment Author 98 05/31/2025 1:29 PM CDT Ezio, Ta bitha R., ANIMAL HANDLER documented as of this encounter Mental Status * BP Answer Entry Date Author 124/72 05/31/2025 1:29 PM CDT Ezio Ta bitha R., ANIMAL HANDLER * Temp Answer Entry Date Author 97.6 05/31/2025 1:29 PM CDT Ezio, Ta bitha R., ANIMAL HANDLER * Pulse Answer Entry Date Author 79 05/31/2025 1:29 PM CDT Ezio, Ta bitha R., ANIMAL HANDLER * SpO2 Answer Entry Date Author 98 05/31/2025 1:29 PM CDT Ezio, Ta bitha R., ANIMAL HANDLER documented in this encounter Plan of Treatment Upcoming Encounters Date Type Department Care Team (Late st Contact Info) Description 08/24/2025 3:40 PM MIDDLEWARE ENGINEER [facility] Visit [facility] - Family Medicine - [place] [address] [place] [address] Chela Randhawa APRN, INNERSOLE FITTER 2 [facility] [address] 07/22/2026 11:00 AM MIDDLEWARE ENGINEER [facility] Visit [facility] - [facility]iology - [place] [address] [place] [phone] Duyen Malhotra APRN, INNERSOLE FITTER [address] [place] [address] Scheduled Orders Name Type Priority Associated Diagnoses Orde r Schedule ASHLEY DIAG BILATERAL DIGITAL W CAD W [place] Imaging Routine Encounter for screening mammogram for malignant neoplasm of breast Expected: 06/11/2025, Expires: 11/25/2025 documented as of this encounter Visit Diagnoses Diagnosis Encounter for screening mammogram for malignant neoplasm of breast- Primary Other screening mammogram documented in this encounter Additional Health Concerns Assessment Noted Time PHQ-9 Depression Total Score: 0 04/14/20 21 2:00 PM CDT documented as of this encounter Care Teams Consumer Affairs Director Relationship Specialty Start Date End Date Chela Randhawa APRN, INNERSOLE FITTER 2 [facility] [place] [address] PCP - General Advanced Practice Nurse 05/24/25 David Raphael MD Consulting Physician Obstetrics & Gynecology 08/04/19 Carlos Hart MD [address] [address] [phone] Consulting Physician General Surgery 07/07/22 Moisés Taveras APRN, INNERSOLE FITTER [address] [place] [address] Nurse Practitioner Advanced Practice Nurse 05/30/23 Elisa Ortega DEFENSE ATTORNEY, INNERSOLE FITTER [facility] [address] Nurse Practitioner Advanced Practice Nurse 04/30/22 Duyen Malhotra, DEFENSE ATTORNEY, INNERSOLE FITTER [address] [place] [address] Nurse Practitioner Cardiology 09/25/24 Beba Baron, SALES ENABLEMENT ANALYST [place] Acid Bleacher Wheel Borer 06/27/25 07/04/25 Lexis Maldonado, BITUMASTIC APPLIER [place] Acid Bleacher Wheel Borer 07/05/25 Zack Gary MD 2 [facility] [address] [address] Consulting Physician Cardiology 07/23/25 documented as of this encounter
[2025-08-07 06:53] LABS: BEDSIDEPREGUCG Negative (Negative)
--- NOTE | 2025-08-07 06:55 | WPDHPUPDATE1 ---
History and Physical Update Update Date/Time: 08/07/25 06:55 History and Physical has been reviewed, including an updated exam of the patient. There are NO changes in the patient's condition. Risks, benefits, and alternatives have been discussed and questions answered. Patient agrees to proceed with procedure.
[2025-08-07] MEDS: LACTATED RINGERS 1,000 ML 30 ML IV CONT ×2 (07:00→08:46)
--- NOTE | 2025-08-07 07:04 | WPDANESEPPF ---
Anes - Initial Pre Proc Eval Procedure: Operation Date: 08/07/25 07:30 Proposed Procedures p Robotic Assisted Total Laparoscopic Hysterectomy - Russell Castro MD Date/Time: 08/07/25 07:04 Surgeon: Russell Castro MD Pre Op Diagnosis: Abnormal Uterine Bleed Patient Data Age: 35 Gender: F Height: 1.63 m Weight: 114.1 kg Last Vital Signs Temp 97.7 F 08/07/25 06:20 Pulse 86 08/07/25 06:20 Resp 16 08/07/25 06:20 BP 144/72 H 08/07/25 06:20 Pulse Ox 100 08/07/25 06:20 O2 Del Method Room Air 08/07/25 06:20 Allergies Allergy/AdvReac Type Severity Reaction Status Date / Time azithromycin Allergy Unknown Rash Verified 08/07/25 06:48 tramadol Allergy RASH, Verified 08/07/25 06:48 NAUSEA, VOMITING Home Medications ?Medication ?Instructions ?Recorded ?Confirmed ?Type pantoprazole 40 mg tablet,delayed 40 mg PO BID 10/17/23 08/07/25 History release pregabalin 150 mg capsule 150 mg PO BID 10/17/23 08/07/25 History quetiapine 50 mg tablet 50 mg PO BID 10/17/23 08/07/25 History ropinirole 2 mg tablet 2 mg PO TID 10/17/23 08/07/25 History cyclobenzaprine 5 mg tablet 5 mg PO TID PRN muscle spasm 03/09/24 06/20/25 History albuterol 90 mcg/actuation aerosol 90 mcg inhalation Q4-6H PRN 08/06/25 08/06/25 History inhaler shortness of breath or wheezing amlodipine 5 mg tablet 2.5 mg PO QAM 08/06/25 08/07/25 History hydrocodone 5 mg-acetaminophen 325 1 tablet PO Q6-8H PRN pain 08/06/25 08/06/25 History mg tablet levetiracetam 500 mg tablet 500 mg PO BID 08/06/25 08/07/25 History prochlorperazine maleate 10 mg 10 mg PO Q6-8H PRN nausea and 08/06/25 08/06/25 History tablet vomiting tizanidine 4 mg tablet 4 mg PO .Q8 PRN muscle spasticity 08/06/25 08/06/25 History Laboratory Tests 08/07/25 06:15 POC Urine HCG, Qual Negative (Negative) Patient hx anesthesia problems: none Family hx anesthesia problems: none Results Review: All pre-operative results and documents have been reviewed as part of the pre-operative evaluation. [facility] Past Medical History Medical History Encounter for gynecological examination (general) (routine) with abnormal findings Back pain PCOS (polycystic ovarian syndrome) Insomnia Surgical History Surgical History H/O tubal ligation History of cholecystectomy Family History Family History Father Diabetes mellitus Grandparent Diabetes mellitus Mother Diabetes mellitus Other Kidney failure Pancreatitis Social History Social History Smoking packs per day: 2 Smoking cigarettes per day: 40.0 Years smoked: 22 Smoking pack-years: 44.00 Smoking status: Current every day smoker Tobacco type: cigarettes Second hand tobacco smoke exposure: Yes Additional smoking assessment comments: CURRENTLY CUT BACK TO 1/2 PACK/DAY Alcohol intake: former Alcohol use details: occasional Substance use: never Substance use type: does not use Do You Feel Safe in your Home?: Yes Lack of Transportation: No Lack of Food: Never True Current Housing: I Have Housing Concerned About Future Housing: No Difficulty Paying Gas/Electric Bills: No Difficulty Paying for Meds: No Currently Unemployed: No Education: High School Diploma/GED Difficulty w/ Childcare or Family Care: No Living arrangements: with family Additional living arrangements comments: KARTHIK AND DAUGHTER Occupation/Education: unemployed Gender identity (if verbalized by the patient): Female Sexual Orientation (if Verbalized by the Patient): Straight or Heterosexual Spiritual care concerns: No Anes - Eval Final PreProcedure Day of Procedure 08/07/25 07:04 Patient weight: morbidly obese Lungs: normal air movement Airway: Mallampati scale class II and special considerations (Dentures.) Neurological: alert and oriented Last oral intake: >/= 8 hours ASA classification: III Emergent: no Anesthetic plan: proceed Anesthesia type and monitoring: general ETT and standard monitoring Results Review: All pre-operative results and documents have been reviewed as part of the pre-operative evaluation. BMI 43, HTN,, ADHD, smoker 1 ppd admittedly, smoked at 430 am. Informed Consent: The patient's anesthetic plan and its attendant risks and benefits were discussed with the patient/family/POA. Questions were solicited and answers provided to the satisfaction of the patient/family/POA.
[2025-08-07] MEDS: ACETAMINOPHEN 500 MG TABLET 1000 MG PO ×3 (07:13→19:24)
[2025-08-07] MEDS: KETOROLAC 15 MG/ML VIAL (*BKC) IV PUSH (07:13)
[2025-08-07] MEDS: ceFAZolin 2 GM in SODIUM CHLORIDE 0.9% IV 50 ML 100 ML IVPB (07:28)
[2025-08-07] MEDS: LIDO 1%/EPINEPHRINE 1:100,000 50 ML VIAL (07:54)
--- NOTE | 2025-08-07 08:35 | P.OP_ITS ---
Procedure Note - Detailed Date of Procedure 08/07/25 Pre-op Diagnosis Abnormal Uterine Bleed Post-op Diagnosis Same Procedure Performed robotic assisted total laparoscopic hysterectomy Surgeon Russell Castro MD Anesthesia General Indications AUB Findings grossly normal appearing uterus and ovaries bilaterally. Bilaterally fallopian tubes surgically absent Description of Procedure PROCEDURE IN DETAIL: After the patient was appropriately consented she was taken to the operating room where she was transferred to the table in a dorsal supine position. General anesthesia was then induced with endotracheal intubation. The patient was transferred to a dorsal lithotomy position using adjustable yellow-fin stirrups. Her position was adjusted for appropriate support of her lower back and lower extremities. The patient was prepped and draped. A transurethral morales catheter was place. The cervix was sequentially dilated and a PADILLA uterine manipulator placed in typical fashion about a 3cm VALENTINE ring. Gloves were changed. After confirmation of a functioning orogastric tube, lidocaine was injected at Guerin's point in the LUQ and a 5mm incision was made. A 5mm Optiview trocar was then inserted into the abdominal cavity under direct visualization and done so without complication. The abdomen was then insufflated with approximately 2-3L of CO2 establishing a pneumoperitoneum and the patient was placed in Trendelenburg position. Just above the umbilicus in the midline, a 10mm incision made after injection of lidocaine and a 12mm bladeless trocar advanced into the abdominal cavity under direct visualization without incident. We subsequently placed two robotic ports in a similar fashion, one in the left mid-quadrant and one in the right, 10cm lateral to the midline port. The robot was then docked. The utero-ovarian ligament was identified and ligated. The left round ligament was divided and the posterior aspect of the broad ligament was then skeletonized down to the level of the internal cervical os, mobilizing the ureter laterally. The bladder flap was then created sharply. The ipsilateral uterine artery was skeletonized, bipolar cauterized and transected. A similar procedure was performed on the contralateral side, developing the pelvic spaces, coagulating and dividing the IP away from the ureter, completing the bladder flap, and skeletonizing, ligating, and dividing the uterine artery on this side. We ensured the vaginal pneumo- occluder balloon was insufflated and made a circumferential colpotomy using monopolar current. The uterus and cervix were then delivered transvaginally. I then re-approximated the colpotomy with running #1 PDO Quill suture in 2 layers. Following this dissection, the abdomen and pelvis were copiously irrigated and all surgical sites found to be hemostatic. The midline port site fascia was reapproximated with sutures of 0-Vicryl using a Kwame-Radha device. Skin sites were reapproximated with 4-0 Vicryl in a subcuticular fashion. Steri-Strips were placed. The patient tolerated the procedure well. Sponge, needle and instrument counts were correct x 2 and the patient was taken to recovery in stable condition. Ancef was given for antimicrobial prophylaxis. The patient had SCD's on for VTE prophylaxis during the entire procedure. Estimated Blood Loss 10 Drains No Packing No Pathology Yes (uterus, cervix ) Complications No immediate complications Condition Stable Disposition PACU [facility] Billing Surgery - Charge Forward: Surgery Billing
--- NOTE | 2025-08-07 08:37 | S_PTH ---
PATIENT: Tyra Black LOC: [facility] U#:[id number] AGE/SX: 35/F ROOM: RE08/07/[address]: Russell Castro MD : 1990 BED: DIS: 08/08/2025 SPEC #: [id number] RECD: 08/07/25 09:49 STATUS: BETH REQ #: [id number] ALEXI: 08/07/25 08:[address]: Russell Castro DEPT: [facility] Surgical RECD BY: Kay Gamboa ENTERED: 08/07/25 09:49 SP TYPE: Surgical OTHR DR: Chela Randhawa, PROPERTY CLAIMS ADJUSTER Tissues: A - Uterus Procedures: Hematoxylin and Eosin Stain Gross and Microscopic Level 5
[2025-08-07] MEDS: fentaNYL CITRATE INJ (*CRX) 100 MCG/2 ML VIAL 25 MCG IV PUSH ×8 (09:00→09:18)
[2025-08-07] MEDS: ONDANSETRON INJ 4 MG/2 ML VIAL IV PUSH ×2 (09:00→14:04)
[2025-08-07] MEDS: HYDROmorphone HCL INJ (*CRX) 1 MG/ML SYR 0.25 MG IV PUSH ×4 (09:30→09:45)
--- NOTE | 2025-08-07 10:05 | PC.NURSE ---
This patient, Tyra Black, was received from [PACU per bed to room 283]. Patient/family oriented to unit policies and routines
[2025-08-07] MEDS: DOCUSATE SODIUM 100 MG CAPSULE PO ×2 (11:22→16:53)
[2025-08-07] MEDS: ENOXAPARIN 40 MG/0.4 ML SYRINGE SUB-Q (11:22)
[2025-08-07] MEDS: oxyCODONE HCL (*CRX) 5 MG TAB IR 10 MG PO ×3 (11:23→23:52)
[2025-08-07] MEDS: KETOROLAC 30 MG/ML VIAL (*BKC) IV PUSH ×2 (13:04→19:27)
[2025-08-07] MEDS: SIMETHICONE 80 MG TAB.CHEW PO ×2 (13:04→17:25)
[2025-08-07] MEDS: oxyCODONE HCL (*CRX) 5 MG TAB IR PO (19:27)
[2025-08-08] MEDS: ACETAMINOPHEN 500 MG TABLET 1000 MG PO (01:20)
[2025-08-08] MEDS: KETOROLAC 30 MG/ML VIAL (*BKC) IV PUSH (01:20)
[2025-08-08] MEDS: oxyCODONE HCL (*CRX) 5 MG TAB IR PO (04:09)
[2025-08-08 04:11] VITALS: BP 116/74; PULSE 62; RESP 19; TEMP 37.2; O2SAT 97
[2025-08-08 05:02] LABS: Anion Gap 4 mmol/L (4-12); Blood Urea Nitrogen 15 mg/dL (7-17); Calcium 8.9 mg/dL (8.4-10.2); Carbon Dioxide 26 mmol/L (22-30); Chloride 104 mmol/L (98-107); Estimated CRCL calculation 115 ml/min; Estimated Glomerular Filt Rate > 60; Glucose 173 mg/dL (65-110); Potassium 4.3 mmol/L (3.4-5.0); Sodium 134 mmol/L (137-145)
== END 2025-08-08 07:02 | disposition home or self-care (01) ==
LOC: ANHSURGERY 05:52 → ANHOB2 15:05
PROVIDERS: PCP Nurse Practitioner Family; Visit Provider Student in an Organized Health Care Education/Training Program
PROC: (CPT 58570; principal; 2025-08-07 07:30)
DX: R10.20 Pelvic and perineal pain unspecified side (principal); N93.9 Abnormal uterine and vaginal bleeding, unspecified; G89.18 Other acute postprocedural pain; I10 Essential (primary) hypertension; F90.9 Attention-deficit hyperactivity disorder, unspecified type; E28.2 Polycystic ovarian syndrome; G47.00 Insomnia, unspecified; F17.210 Nicotine dependence, cigarettes, uncomplicated; E66.01 Morbid (severe) obesity due to excess calories; Z68.41 Body mass index [BMI] 40.0-44.9, adult; Z79.51 Long term (current) use of inhaled steroids; Z79.891 Long term (current) use of opiate analgesic; Z98.51 Tubal ligation status; Z90.49 Acquired absence of other specified parts of digestive tract
CPT/HCPCS: 58570; S2900; 36415; 80048; 86850; 86900; 86901; 88307; 99199; J0690; A9270; J1100; J1171; J1650; J1885; J2003; J2004; J2250; J2405; J2704; J3010; J7030; J7120